=== PATIENT | male | born 1990 | race Two or more races ===

== ENCOUNTER 2023-08-10 00:24 | Emergency (ER) | payer OTHER ==
[2023-08-10] MEDS ORDERED: NA CHLORIDE 0.9% 0 ML ONE (00:50)
[2023-08-10] MEDS ORDERED: FAMOTIDINE 20 MG/2 ML VIAL IV ONE (00:50)
[2023-08-10] MEDS ORDERED: ONDANSETRON 4 MG/2 ML VIAL ONE (00:50)
[2023-08-10] MEDS ORDERED: NA CHLORIDE 0.9% 1,000 ML ONE (01:09)
[2023-08-10 01:26] LABS: Absolute Eosinophils 0.2 K/uL (0-0.5); Absolute Lymphocytes (CBC) 2.3 K/uL (0.7-4.9); Absolute Monocytes 0.5 K/uL (0.1-1.3); Absolute Neutrophil 3.8 K/uL (1.8-8.0); Basophils % 0.6 % (0-1.3); Eosinophils % 2.5 % (0-4.4); Hematocrit 35.2 % (39.6-49.0); Lymphocytes % 33.9 % (15.3-44.8); MCH 19.2 pg (27.0-35.0); MCHC 31.2 g/dL (32.0-36.0); MCV 61.6 fL (80-100); MPV 8.9 fL (7.6-11.3); Monocytes % 7.7 % (3.3-12.3); Neutrophils % 55.3 % (41.7-73.7); Platelets 235 thou/uL (152-406); RBC Red Blood Cell Count 5.71 M/uL (4.33-5.43); Red Cell Distribution Width 14.5 % (12.1-15.2)
[2023-08-10 01:56] LABS: Albumin 3.6 g/dL (3.4-5.0); Albumin/Globulin Ratio 0.9 (1.1-1.8); Anion Gap 9.7 mEq/L (5.0-15.0); Bilirubin Total 0.2 mg/dL (0.2-1.0); Potassium 3.7 mEq/L (3.5-5.1); Protein, Total 7.6 g/dL (6.4-8.2)
[2023-08-10 03:12] LABS: Blood Morphology Comment NOTED (NOT SEEN); Hypochromasia 1+; Microcytosis 2+; Platelet Estimate ADEQ; White Blood Cell Scan OK (OK)
--- NOTE | 2023-08-10 03:45 | EDPHYS ---
Physician Documentation [facility] Name: Armaan Patricia Age: 33 yrs Sex: Male : 1990 Arrival Date: 08/10/2023 Time: 00:24 Bed 17 Private MD: ED Physician Sergio Ortega HPI: 08/09 00:30 This 33 yrs old Other Male presents to ER via Unassigned with complaints of swallowed sp4 foreign body . 01:09 Patient is an inmate from [facility]. Patient states at 3 PM he has swallowed 2 sp4 screws and 1 razor blade in a suicide attempt. Patient reports that in the past he has swallowed razor blades with prior suicide attempt.. Patient reported nausea and vomiting.. Patient was ambulatory on arrival , arrived with present escort. Historical: - Allergies: 00:38 No Known Allergies; jw7 - Home Meds: 00:38 Haldol Oral [Active]; Zoloft Oral [Active]; Ibuprofen Oral [Active]; Omeprazole Oral jw7 [Active]; Iron CR Oral [Active]; - PMHx: 00:38 Seizure; jw7 - PSHx: 00:38 None; jw7 - Immunization history:: Adult Immunizations up to date, Client reports receiving the 2nd dose of the Covid vaccine, Last tetanus immunization: < 10 years ago Flu vaccine is up to date. - Social history:: Smoking status: Patient denies any tobacco usage or history of. Patient/guardian denies using alcohol, street drugs, IV drugs. - Family history:: not pertinent. ROS: 01:10 Constitutional: Negative for fever, chills, and weight loss, positive abdominal pain, sp4 positive nausea vomiting 01:10 All other systems are negative, Exam: 01:10 Constitutional: This is a well developed, well nourished patient who is awake, alert, sp4 and in no acute distress. Head/Face: Normocephalic, atraumatic. Eyes: Pupils equal round and reactive to light, extra-ocular motions intact. Lids and lashes normal. Conjunctiva and sclera are not injected. Cornea within normal limits. Periorbital areas with no swelling, redness, or edema. ENT: Nares patent. No nasal discharge, no septal abnormalities noted. Tympanic membranes are normal and external auditory canals are clear. Oropharynx with no redness, swelling, or masses, exudates, or evidence of obstruction, uvula midline. Mucous membranes moist. Neck: Trachea midline, no thyromegaly or masses palpated, and no cervical lymphadenopathy. Supple, full range of motion without nuchal rigidity, or vertebral point tenderness. Chest/axilla: Normal chest wall appearance and motion. Nontender with no deformity. No lesions are appreciated. Cardiovascular: Regular rate and rhythm with a normal S1 and S2. No gallops, murmurs, or rubs. Normal PMI, no JVD. No pulse deficits. Respiratory: Lungs have equal breath sounds bilaterally, clear to auscultation and percussion. No rales, rhonchi or wheezes noted. No increased work of breathing, no retractions or nasal flaring. Abdomen/GI: Soft, with normal bowel sounds. No distension or tympany. No guarding or rebound. No evidence of tenderness throughout. Back: No spinal tenderness. No costovertebral tenderness. Skin: Warm, dry with normal turgor. Normal color with no rashes, no lesions, and no evidence of cellulitis. MS/ Extremity: Pulses equal, no cyanosis. Neurovascular intact. Full, normal range of motion. Neuro: Awake and alert, GCS 15, oriented to person, place, time, and situation. Cranial nerves II-XII grossly intact. Motor strength 5/5 in all extremities. Sensory grossly intact. Psych: Awake, alert, with orientation to person, place and time. Behavior, mood, and affect are within normal limits Vital Signs: 00:35 BP 117 / 76; Pulse 65; Resp 16 S; Temp 97.3(TE); Pulse Ox 99% on R/A; Weight 87.54 kg; 7 Height 5 ft. 10 in. ; Pain 7/10; 01:45 BP 101 / 54; Pulse 68; Resp 16 S; Pulse Ox 98% on R/A; 7 02:45 BP 107 / 64; Pulse 59; Resp 17 S; Pulse Ox 99% on R/A; 7 03:45 BP 108 / 62; Pulse 52; Resp 16 S; Pulse Ox 98% on R/A; 7 00:35 Body Mass Index 27.69 (87.54 kg, 177.8 cm) [facility] 00:35 Pain Scale: Adult jw7 MDM: 00:32 Patient medically screened. sp4 02:46 Differential Diagnosis altered mental status, sepsis, flu, Acute abdominal pain, Nausea sp4 and vomiting . Data reviewed: vital signs, nurses notes, lab test result(s), radiologic studies, CT scan, plain films. ED course: EXAM DESCRIPTION: Abdomen Single View CLINICAL HISTORY: foreign body in the abdomen COMPARISON: None. FINDINGS: Single supine view of the abdomen was submitted. Calcifications within the pelvis could represent phleboliths. There is no evidence of bowel obstruction. There is no abnormal calcification within the abdomen. There is no acute osseous process visualized. No radiopaque foreign body material visualized. IMPRESSION: No acute abnormalities. . 03:42 ED course: CLINICAL HISTORY: swallowed razor blade and screws X 2 COMPARISON: None. sp4 TECHNIQUE: CT CHESTABDOMEN PELVIS WITH IV CONTRAST on 08/10/2023 12:32 AM CDT. MIPS reconstructions were generated. This exam was performed according to our departmental dose-optimization program, which includes automated exposure control, adjustment of the mA and/or kV according to patient size and/or use of iterative reconstruction technique. FINDINGS: Vascular: Thoracic aorta is normal in course and caliber without aneurysm or dissection. Pulmonary arteries are adequately opacified without acute or chronic filling defects. Abdominal aorta is normal in course and caliber without aneurysm. Pelvic arteries are patent without aneurysm or occlusion. Chest: The heart is normal in size. There is no pericardial effusion. Intrathoracic lymph nodes are not enlarged. There is no pleural effusion, pleural thickening or pneumothorax. Central airways are patent. Lungs are clear with no consolidation, mass or interstitial lung disease. Abdomen: The liver is normal in appearance. There is no biliary dilatation. Gallbladder is normal in appearance. Spleen is borderline in size at 14.1 cm. The adrenal glands and kidneys are unremarkable. There is no free air. There is no retroperitoneal adenopathy. Pelvis: There is no bowel obstruction. Urinary bladder is unremarkable. There is no free fluid. Appendix is normal. Skeleton: There are no acute osseous findings. No suspicious bony lesions. IMPRESSION: No acute abnormalities. No evidence of radiopaque foreign bodies. Electronically signed by: Ezequiel Nicole MD 08/10/2023 03:38 AM CDT. 03:46 Consideration of Admission/Observation Escalation of care including sp4 admission/observation considered. ED course: Both x-ray and CT has revealed no acute abnormalities and no radiopaque foreign bodies.. We suspect patient did not swallow screws and a razor, as those would be readily visible on x-ray and CAT scan. Since no emergent problems found and no metallic foreign bodies found on CT patient is stable for discharge to [facility]. Patient has several small scratches to his left wrist. Patient reported suicidal ideation with plan. We will advised patient should be monitored at psychiatric unit at the care home. 08/09 00:31 Order name: CBC with Diff; Complete Time: 03:23 sp4 08/09 00:31 Order name: CMP; Complete Time: 02:31 sp4 08/09 00:31 Order name: Lipase; Complete Time: 02: sp4 08/09 00:31 Order name: Type And Screen; Complete Time: 03:23 sp4 08/09 01:32 Order name: CBC Smear Scan; Complete Time: 03:23 EDMS 08/09 00:32 Order name: CT Chest, Abdomen, Pelvis - W/Contrast sp4 08/09 01:42 Order name: Abdomen 1 View XRAY sp4 08/09 00:31 Order name: IV Saline Lock; Complete Time: 01:19 sp4 08/09 00:31 Order name: Labs collected and sent; Complete Time: 01:19 sp4 Administered Medications: 01:19 Drug: NS 0.9% IV 1000 ml IV at 1 bolus Per protocol; 1000 mL bolus Route: IV; Rate: 1 jw7 bolus; Site: left antecubital; 04:00 Follow up: Response: No adverse reaction; IV Status: Completed infusion; IV Intake: jw7 1000ml 01:19 Drug: Famotidine IVP 20 mg IVP once; dilute with 10 mL 0.9% NaCl; give over 2 minutes jw7 Route: IVP; Site: left antecubital; 03:59 Follow up: Response: No adverse reaction jw7 03:04 Not Given (Patient Refused): ondansetron 4 mg IVP once; over 2 minutes cm10 Disposition Summary: 08/10/23 03:45 Discharge Ordered Problem: new sp4 Symptoms: have improved sp4 Condition: Stable sp4 Diagnosis - Abdominal pain, Generalized sp4 - Suicidal ideations sp4 - Acute abrasions to the left wrist, depression with suicidal ideation, abdominal sp4 pain, Followup: sp4 - With: Private Physician - When: As needed - Reason: Recheck today's complaints Discharge Instructions: - Discharge Summary Sheet sp4 - Suicidal Feelings: How to Help Yourself sp4 Forms: - Patient Portal Instructions sp4 Signatures: Dispatcher [employer] Carolina Dominguez RN RN jw7 Sergio Ortega MD MD sp4 Radha Cardenas RN cm10
--- NOTE | 2023-08-10 03:45 | ER ---
Nurse's Notes [facility] Name: Armaan Patricia Age: 33 yrs Sex: Male : 1990 Arrival Date: 08/10/2023 Time: 00:24 Bed 17 Private MD: Diagnosis: Abdominal pain, Generalized;Suicidal ideations;Acute abrasions to the left wrist, depression with suicidal ideation, abdominal pain, Presentation: 08/09 00:35 Chief complaint: Patient states: "I swallowed 2 screws and a razor around 1500 jw7 yesterday". Coronavirus screen: At this time, the client does not indicate any symptoms associated with coronavirus-19. Ebola Screen: No symptoms or risks identified at this time. Initial Sepsis Screen: Does the patient meet any 2 criteria? No. Patient's initial sepsis screen is negative. Does the patient have a suspected source of infection? No. Patient's initial sepsis screen is negative. Risk Assessment: Do you want to hurt yourself or someone else? Patient reports no desire to harm self or others. Onset of symptoms was August 09, 2023 at 15:00. 00:35 Method Of Arrival: Law Enforcement: [place] [employer] jw7 00:35 Acuity: LOREAN 3 jw7 Triage Assessment: 00:38 General: Appears in no apparent distress. comfortable, Behavior is calm, cooperative. jw7 Pain: Complains of pain in abdomen Pain does not radiate. Pain currently is 7 out of 10 on a pain scale. Quality of pain is described as burning, piercing, stinging, Pain began at 1500 yesterday Is intermittent. EENT: No deficits noted. Neuro: Level of Consciousness is awake, alert, obeys commands, Oriented to person, place, time, situation. Cardiovascular: Heart tones S1 S2 present Capillary refill < 3 seconds Clubbing of nail beds is absent JVD is absent Patient's skin is warm and dry. Respiratory: Airway is patent Trachea midline Respiratory effort is even, unlabored, Respiratory pattern is regular, symmetrical. GI: Abdomen is flat, non-distended, Bowel sounds present X 4 quads. Abd is soft X 4 quads Abd is non tender X 4 quads Reports swallowing two screws and a razor at 1500 yesterday. : No deficits noted. No signs and/or symptoms were reported regarding the genitourinary system. Derm: Skin is intact, is healthy with good turgor, Skin is dry, Skin is normal, Skin temperature is warm. Musculoskeletal: Circulation, motion, and sensation intact. Range of motion: intact in all extremities. Historical: - Allergies: 00:38 No Known Allergies; jw7 - Home Meds: 00:38 Haldol Oral [Active]; Zoloft Oral [Active]; Ibuprofen Oral [Active]; Omeprazole Oral jw7 [Active]; Iron CR Oral [Active]; - PMHx: 00:38 Seizure; jw7 - PSHx: 00:38 None; jw7 - Immunization history:: Adult Immunizations up to date, Client reports receiving the 2nd dose of the Covid vaccine, Last tetanus immunization: < 10 years ago Flu vaccine is up to date. - Social history:: Smoking status: Patient denies any tobacco usage or history of. Patient/guardian denies using alcohol, street drugs, IV drugs. - Family history:: not pertinent. Screenin:45 [facility] ED Fall Risk Assessment (Adult) History of falling in the last 3 months, jw7 including since admission No falls in past 3 months (0 pts) Confusion or Disorientation No (0 pts) Intoxicated or Sedated No (0 pts) Impaired Gait No (0 pts) Mobility Assist Device Used No (0 pt) Altered Elimination No (0 pt) Score/Fall Risk Level 0 - 2 = Low Risk Oriented to surroundings, Maintained a safe environment, Educated pt \\T\\ family on fall prevention, incl call for assistance when getting out of bed. Abuse screen: Denies threats or abuse. Denies injuries from another. Nutritional screening: No deficits noted. Tuberculosis screening: No symptoms or risk factors identified. Assessment: 00:35 General: See Triage Assessment. jw7 00:40 General: Superficial lacerations to left wrist. When asked why he cut himself, patient jw7 stated "I want to kill myself because I'm depressed and that's why I swallowed the screws and razor". Provider Notified. . 01:40 Reassessment: Patient appears in no apparent distress at this time. No changes from jw7 previously documented assessment. Patient and/or family updated on plan of care and expected duration. Pain level reassessed. Patient is alert, oriented x 3, equal unlabored respirations, skin warm/dry/pink. 02:24 Reassessment: Patient appears in no apparent distress at this time. No changes from jw7 previously documented assessment. Patient and/or family updated on plan of care and expected duration. Pain level reassessed. Patient is alert, oriented x 3, equal unlabored respirations, skin warm/dry/pink. 03:30 Reassessment: Patient appears in no apparent distress at this time. No changes from jw7 previously documented assessment. Patient and/or family updated on plan of care and expected duration. Pain level reassessed. Patient is alert, oriented x 3, equal unlabored respirations, skin warm/dry/pink. Vital Signs: 00:35 BP 117 / 76; Pulse 65; Resp 16 S; Temp 97.3(TE); Pulse Ox 99% on R/A; Weight 87.54 kg; jw7 Height 5 ft. 10 in. ; Pain 7/10; 01:45 BP 101 / 54; Pulse 68; Resp 16 S; Pulse Ox 98% on R/A; jw7 02:45 BP 107 / 64; Pulse 59; Resp 17 S; Pulse Ox 99% on R/A; jw7 03:45 BP 108 / 62; Pulse 52; Resp 16 S; Pulse Ox 98% on R/A; jw7 00:35 Body Mass Index 27.69 (87.54 kg, 177.8 cm) jw7 00:35 Pain Scale: Adult jw7 ED Course: 00:30 Patient arrived in ED. rv1 00:30 Sergio Ortega MD is Attending Physician. sp4 00:35 Carolina Villa, RN is Primary Nurse. jw7 00:38 Triage completed. jw7 00:38 Arm band placed on. jw7 00:45 Patient has correct armband on for positive identification. Bed in low position. Call jw7 light in reach. Provided Education on: Use of Call Light. 00:55 Missed attempt(s): 20 gauge in right antecubital area. Bleeding controlled, band aid jw7 applied, catheter tip intact. 01:10 Initial lab(s) drawn, by co, sent to lab. T\\T\\S collected, blood band applied to patient. jw7 Inserted saline lock: 20 gauge in left antecubital area, using aseptic technique. Blood collected. 02:09 Abdomen 1 View XRAY In Process Unspecified. EDMS 02:37 CT Chest, Abdomen, Pelvis - W/Contrast In Process Unspecified. EDMS 03:25 Wound care: to laceration located on palmar aspect of left wrist was cleaned with soap cm10 and water, dressed with Neosporin, band aid, Patient tolerated well. 03:59 No provider procedures requiring assistance completed. IV discontinued, intact, jw7 bleeding controlled, No redness/swelling at site. Pressure dressing applied. Administered Medications: 01:19 Drug: NS 0.9% IV 1000 ml IV at 1 bolus Per protocol; 1000 mL bolus Route: IV; Rate: 1 jw7 bolus; Site: left antecubital; 04:00 Follow up: Response: No adverse reaction; IV Status: Completed infusion; IV Intake: jw7 1000ml 01:19 Drug: Famotidine IVP 20 mg IVP once; dilute with 10 mL 0.9% NaCl; give over 2 minutes jw7 Route: IVP; Site: left antecubital; 03:59 Follow up: Response: No adverse reaction jw7 03:04 Not Given (Patient Refused): ondansetron 4 mg IVP once; over 2 minutes cm10 Medication: 03:59 VIS not applicable for this client. jw7 Intake: 04:00 IV: 1000ml; Total: 1000ml. jw7 Outcome: 03:45 Discharge ordered by . zaida 03:59 Discharged to Law Enforcement jw7 03:59 Condition: stable 03:59 Discharge instructions given to patient, police, Instructed on discharge instructions, follow up and referral plans. Demonstrated understanding of instructions, follow-up care, 04:00 Patient left the ED. jw7 Signatures: Dispatcher [employer] ED[facility] Carolina Villa RN RN jw7 Ibis Higuera rv1 Sergio Ortega MD MD sp4 Radha Cardenas RN RN cm10 Corrections: (The following items were deleted from the chart) 01:44 01:15 General: Superficial lacerations to left wrist. When asked why he cut himself, jw7 patient stated "I want to kill myself because I'm depressed". Provider Notified. . jw7 01:47 01:45 BP 101 / 54; Resp 16bpm; Spontaneous; Pulse Ox 98% RA; jw7 jw7 02:24 01:30 General: Superficial lacerations to left wrist. When asked why he cut himself, jw7 patient stated "I want to kill myself because I'm depressed and that's why I swallowed the screws and razor". Provider Notified. . jw7 : 01:35 General: See Triage Assessment. jw7 jw7 : 01:40 General: Superficial lacerations to left wrist. When asked why he cut himself, jw7 patient stated "I want to kill myself because I'm depressed and that's why I swallowed the screws and razor". Provider Notified. . jw7
[2023-08-10 04:22] VITALS: BP 108/62; TEMP 97.3; O2SAT 98
--- NOTE | 2023-08-10 13:00 | RAD REPORT ---
EXAM DESCRIPTION: Abdomen Single View CLINICAL HISTORY: Foreign body in the abdomen COMPARISON: None. FINDINGS: Single supine view of the abdomen was submitted. Calcifications within the pelvis could re present phleboliths. There is no evidence of bowel obstruction. There is no abnormal calcification wi thin the abdomen. There is no acute osseous process visualized. No radiopaque foreign body material v isualized. IMPRESSION: No acute abnormalities. Electronically signed by: Ke Hager MD 08/10/2023 02:23 AM CDT Due to temporary technical issues with the PACS/Fluency reporting system, reports are being signed by the in house radiologist without review as a courtesy to ensure prompt reporting. The interpreting r adiologist is fully responsible for the content of the report.
--- NOTE | 2023-08-10 13:34 | RAD REPORT ---
EXAM DESCRIPTION: CT CHEST ABDOMEN PELVIS WITH IV CONTRAST CLINICAL HISTORY: Swallowed razor blade and screws X 2 COMPARISON: None. TECHNIQUE: CT CHEST ABDOMEN PELVIS WITH IV CONTRAST on 08/10/2023 12:32 AM CDT. MIPS reconstructions were generated. This exam was performed according to our departmental dose-optimization program, which includes autom ated exposure control, adjustment of the mA and/or kV according to patient size and/or use of iterati ve reconstruction technique. FINDINGS: Vascular: Thoracic aorta is normal in course and caliber without aneurysm or dissection. P ulmonary arteries are adequately opacified without acute or chronic filling defects. Abdominal aorta is normal in course and caliber without aneurysm. Pelvic arteries are patent without aneurysm or occl usion. Chest: The heart is normal in size. There is no pericardial effusion. Intrathoracic lymph nodes are n ot enlarged. There is no pleural effusion, pleural thickening or pneumothorax. Central airways are patent. Lungs a re clear with no consolidation, mass or interstitial lung disease. Abdomen: The liver is normal in appearance. There is no biliary dilatation. Gallbladder is normal in appearance. Spleen is borderline in size at 14.1 cm. The adrenal glands and kidneys are unremarkable. There is no free air. There is no retroperitoneal adenopathy. Pelvis: There is no bowel obstruction. Urinary bladder is unremarkable. There is no free fluid. Appen amado is normal. Skeleton: There are no acute osseous findings. No suspicious bony lesions. IMPRESSION: No acute abnormalities. No evidence of radiopaque foreign bodies. Electronically signed by: Ezequiel Nicole MD 08/10/2023 03:38 AM CDT Due to temporary technical issues with the PACS/Fluency reporting system, reports are being signed by the in house radiologist without review as a courtesy to ensure prompt reporting. The interpreting r adiologist is fully responsible for the content of the report.
== END 2023-08-10 04:00 | disposition home or self-care (01) ==
LOC: ER 00:24
DX: R45.851 Suicidal ideations (principal); R10.84 Generalized abdominal pain; F32.A Depression, unspecified; S60.812A Abrasion of left wrist, initial encounter
CPT/HCPCS: 96361; 85025; 36415; 86900; 86850; 86901; 83690; 80053; 71260; 74177; 74018; 96374; 99284; Q9967; J2405; J7030

== ENCOUNTER 2023-09-08 07:22 | Emergency (ER) | payer OTHER ==
--- OUTSIDE RECORDS SUMMARY | 2023-09-08 07:28 | XMS REPORT | Continuity of Care Document ---
Author Name Unknown Address [address] [facility] [address] [place] [address] [facility] Address [address] [facility] [address] [place] [address] Care Team Providers Care Meat Cutting Teacher Name Role Phone CALVIN BRADEN Primary Care Physician Unavailab le Radiology Attending Clinician Unavailable RADIOLOGY Attending Clinician Unavailable SONALI GURROLA Attending Clinician UnavailSimone Tripp MD Attending Clinician [phone] Sonali Gurrola MD Attending Clinician [phone] Robert Strickland MD Attending Clinician [phone] Merrick Butt MD Attending Clinician [phone] Eli Braden MD Attending Clinician +[phone] Leonides Vargas MD, A Clinton Attending Clinician + [phone] Otolaryngology, Tdc Attending Clinician UnavailHonorio Reyes MD Attending Clinician [phone] MERRICK BUTT Attending Clinician Unavailable Ziggy Braden MD Attending Clinician +[phone] Francisco Valerio Attending Clinician +[phone] Honorio Leggett Attending Clinician +[phone] Pato Ornelas MD Attending Clinician [phone] Filiberto De Oliveira MD Attending Clinician +[phone] FILIBERTO DE OLIVEIRA Attending Clinician Unavailable Guerita Luz DO Attending Clinician + [phone] GUERITA LUZ Attending Clinician Unavailab Elkin Navarro Attending Clinician +[phone] Elkin GILBERT Attending Clinician Unavailable Md Chetan Grissom Attending Clinician [phone] Girish Cantu MD Attending Clinician + [phone] GIRISH CANTU Attending Clinician Unavailable Messi Hampton MD Attending Clinician + [phone] Doctor Unassigned, [place] Attending Clinician U ashley Estevez MD, Florencia Coley Attending Clinician +[phone] Lolis Griffiths Attending Clinician + [phone] CALVIN BRADEN Attending Clinician Unavailable Carolina IRENE, Amna Kuo Attending Clinician + [phone] Yoandy Wilkes MD Attending Clinician + [phone] Dandy Armenta MD Attending Clinician +[phone] Anupama Caceres Attending Clinician +[phone] Sherry Morocho Attending Clinician +[phone] Huma Koo MD Attending Clinician + [phone] Stephanie Pierson MD Attending Clinician [phone] Lucio Dhaliwal DO Attending Clinician + [phone] Radiology Admitting Clinician Unavailable RADIOLOGY Admitting Clinician Unavailable SIMONE MALDONADO Admitting Clinician Unavailable Em IRENE, Robert Castillo Admitting Clinician + [phone] Eli Braden MD Admitting Clinician [phone] Ziggy Braden MD Admitting Clinician +[phone] Messi Hampton MD Admitting Clinician + [phone] Florencia Estevez MD Admitting Clinician + [phone] CALVIN BRADEN Admitting Clinician Unavailable Amna Figueroa MD Admitting Clinician + [phone] Dandy Armenta MD Admitting Clinician +[phone] Huma Koo MD Admitting Clinician + [phone] Payers Payer Name Policy Type Policy Number Effective Date Expirati on Date Source 2 C [id number] Problems Condition Name Condition Details Condition Category Status Onset Date Resolution Date Last Treatment Date Treating Clinician Comments Source Suicidal behavior with attempted self-injur y Suicidal behavior with attempted self-injur y Disease Active 3-29 00:00: 00 [facility] Drug overdose, intentiona l self-harm, initial encounter Drug overdose, intentiona l self-harm, initial encounter Disease Active 09-18 00:00: 00 [facility] Generalize d abdominal pain Generalize d abdominal pain Disease Active 09-18 00:00: 00 [facility] Slow transit constipati on Slow transit constipati on Disease Active 09-18 00:00: 00 [facility] Nausea in adult Nausea in adult Disease Active 09-18 00:00: 00 [facility] Obesity (BMI 30-39.9) Obesity (BMI 30-39.9) Disease Active 8- 00:00: 00 [facility] Foreign body ingestion Foreign body ingestion Disease Active 12-09 00:00: 00 [facility] Nasal obstructio n Nasal obstructio n Disease Active 10-31 00:00: 00 Overview: Formattin g of this note might be different from the original. Added automatic ally from request for surgery [id number] [facility] Allergies, Adverse Reactions, Alerts Allergy Name Allergy Type Status Severity Reaction(s) Onset Date Inactive Date Treating Clinician Comments Source No Known Allergie s NA Active 10-05 15:30: 50 [facility] No Known Allergie s NA Active 10-01 10:46: 27 [facility] No Known Allergie s NA Active 10-01 09:38: 45 [facility] No Known Allergie s NA Active 10-01 09:38: 43 [facility] No Known Allergie s NA Active 10-01 09:29: 48 [facility] NO KNOWN ALLERGIE S Drug Class Active [facility] Social History Social Habit Start Date Stop Date Quantity Comments Source History of tobacco use Heavy tobacco smoker [facility] History of Social function 2023-08-12 00:00:00 2023-08-12 00:00:00 [facility] Tobacco use and exposure 2023-08-11 00:00:00 2023-08-11 00:00:00 Smokeless tobacco non-user [facility] Exposure to SARS-CoV-2 (event) 2022-09-20 00:00:00 2022-09-30 12:38:00 Not sure [facility] Sex Assigned At 1990 00:00:00 1990 00:00:00 [facility] Smoking Status Start Date Stop Date Source Heavy tobacco smoker 2023-08-11 00:00:00 [facility] Medications Ordered Medication Name Filled Medication Name Start Date Stop Date Current Medication? Ordering Clinician Indication Dosage Frequency Signature (SIG) Comments Components Source lactated ringers IV infusion 1,000 mL 08-17 15:00: 00 08-17 16:11 :00 No 1000mL at 999 mL/hr, 1,000 mL, IV Infusion, ONCE, 1 dose, On Mon08/18/23 at 1000, Routine [facility] famotidine (PEPCID (PF)) injection 20 mg 08-17 14:00: 00 08-17 14:26 :00 No 20mg 20 mg, Slow IV Push, ONCE, 1 dose, On Mon08/18/23 at 0900, HELLEN [facility] carBAMazepi ne (TEGRETOL XR) 400 mg 12 hr tablet 08-15 10:26: 00 Yes 400mg Take 1 tablet by mouth. [facility] omeprazole 20 mg TbLD 08-15 10:26: 00 Yes Take by mouth. [facility] dextran 70/hypromel lose (GENTEAL TEARS MILD OPHTHALMIC) 08-15 10:26: [address] in each eye. [facility] estradioL 1 mg tablet 08-15 10:26: 00 Yes 1mg Take 1 tablet by mouth in the morning. [facility] ALBUTEROL, REFILL, INHALE 08-15 10:26: 00 Yes Inhale. [facility] carBAMazepi ne (TEGRETOL) tablet 400 mg 08-15 01:00: 00 Yes 400mg 400 mg, Oral, Q12H, First dose on Mon08/15/23 at 2000, Until Discontinu ed, Routine [facility] spironolact one 25 mg tablet 08-14 13:41: 47 08-14 00:00 :00 No 25mg Take 1 tablet by mouth in the morning. [facility] artificial tears(hypro mellose) (ISOPTO-TEA RS) 0.5 % ophthalmic drops 1 Drop 08-12 14:07: 41 Yes 1[drp] 1 Drop, Both Eyes, PRN, Starting on 08/13/23 at 0907, Until Discontinu ed, Routine, Dry eyes [facility] lanolin alcohol-mo- w.pet-ceres (EUCERIN) cream 08-12 14:00: 00 Yes Topical, DAILY, First dose on 08/13/23 at 0900, Until Discontinu ed, Routine [facility] diphenhydrA MINE (BENADRYL) tablet 25 mg 08-12 02:10: 07 Yes 25mg 25 mg, Oral, Q4HPRN, Starting on 08/12/23 at 2110, Until Discontinu ed, Routine, Itching, Mild Rash [facility] ondansetron (ZOFRAN-ODT ) disintegrat ing tablet 4 mg 08-11 22:15: 00 08-11 22:40 :00 No 4mg 4 mg, Oral, ONCE, 1 dose, On 08/12/23 at 1715, Routine [facility] iopamidol (ISOVUE 370-500 mL) injection 80 mL 08-11 14:15: 00 08-11 14:15 :00 No [id number] 80mL 80 mL, Intravenou s, ONCE, 1 dose, On 08/12/23 at 0930, Routine [facility] ferrous sulfate 325 mg (65 mg iron) tablet 08-11 14:00: 00 Yes 325mg Take 1 tablet by mouth every other day. [facility] pantoprazol e (PROTONIX) EC tablet 40 mg 08-11 14:00: 00 Yes 40mg 40 mg, Oral, DAILY, First dose on Mon08/12/23 at 0900, Until Discontinu ed [facility] diphenhydrA MINE (BENADRYL) tablet 25 mg 08-11 03:45: 00 08-11 02:43 :00 No 25mg 25 mg, Oral, ONCE, 1 dose, On Mon08/11/23 at 2245, Routine [facility] haloperidoL 5 mg tablet 08-11 01:00: 00 Yes 5mg Take 1 tablet by mouth in the morning and 1 tablet in the evening. [facility] haloperidoL 2 mg tablet 08-11 01:00: 00 Yes 2mg Take 1 tablet by mouth in the morning and 1 tablet in the evening. [facility] acetaminoph en (TYLENOL) tablet 650 mg 08-11 00:07: 55 Yes 650mg 650 mg, Oral, Q6HPRN, Starting on Mon08/11/23 at 1907, Until Discontinu ed, Routine, Pain (scale 1-3) [facility] maalox:diph enhydrAMINE :lidocaine 2 % viscous 1:1:1 ([facility]) oral suspension 15 mL 08-10 19:30: 00 08-10 19:57 :00 No 15mL 15 mL, Oral, ONCE, 1 dose, On Mon08/11/23 at 1430, Routine [facility] famotidine (PEPCID (PF)) injection 20 mg 08-10 19:30: 00 08-10 19:57 :00 No 20mg 20 mg, Slow IV Push, ONCE, 1 dose, On Mon08/11/23 at 1430, HELLEN [facility] NaCl 0.9% (NS) bolus infusion 1,000 mL 10-24 23:45: 00 10-25 00:03 :00 No 1000mL at 999 mL/hr, 1,000 mL, IV Infusion, ONCE, 1 dose, On Mon10/24/22 at 1845, [facility] NaCl 0.9% (NS) bolus infusion 1,000 mL 09-30 19:30: 00 09-30 20:55 :00 No 1000mL at 999 mL/hr, 1,000 mL, IV Infusion, ONCE, 1 dose, On Mon09/30/22 at 1430, STAT [facility] NaCl 0.9% (NS) bolus infusion 1,000 mL 2021-05 18:30: 00 03-18 19:25 :00 No 1000mL at 999 mL/hr, 1,000 mL, IV Infusion, ONCE, 1 dose, On Mon03/18/22 at 1330, [facility] NaCl 0.9% (NS) bolus infusion 1,000 mL 2021-05 15:15: 00 03-18 18:34 :00 No 1000mL at 999 mL/hr, 1,000 mL, IV Infusion, ONCE, 1 dose, On Mon03/18/22 at 1015, [facility] No known medications 2021-05 08:59: 21 No No known medication s [facility] activated charcoal-so rbitoL (ACTIDOSE/S ORBITAL) 25 gram/120 mL suspension 25 g 10-29 16:45: 00 10-29 15:52 :00 No 25g 25 g, Oral, ONCE, 1 dose, On Mon10/29/21 at 1145, [facility] No known medications 10-29 10:41: 00 No [facility] polyethylen e glycol 3350 powder 17 g 09-20 12:58: 10 Yes 17g 17 g, Oral, BIDPRN, Starting on Mon09/20/21 at 0758, Until Discontinu ed, Routine, Constipati on [facility] diphenhydrA MINE 25 mg capsule 09-19 10:03: 57 09-19 00:00 :00 No 25mg Take 25 mg by mouth 2 (two) times daily as needed for Allergies. [facility] haloperidoL 1 mg tablet 09-19 10:03: 57 09-19 00:00 :00 No 3mg Take 3 mg by mouth 2 (two) times daily. [facility] loratadine 10 mg capsule 09-19 10:03: 09-19 00:00 :00 No 10mg Take 10 mg by mouth. [facility] omeprazole 20 mg capsule 09-19 10:03: 09-19 00:00 :00 No 20mg Take 20 mg by mouth daily. [facility] albuterol sulfate (PROAIR HFA INHALE) 09-19 10:03: 09-19 00:00 :00 No Inhale. [facility] carBAMazepi ne (TEGRETOL) 100 mg/5 mL suspension 09-19 10:03: 09-19 00:00 :00 No 200mg Take 200 mg by mouth every morning. [facility] carBAMazepi ne (TEGRETOL) 100 mg/5 mL suspension 09-19 10:03: 09-19 00:00 :00 No 400mg Take 400 mg by mouth every evening. [facility] venlafaxine 75 mg tablet 09-19 10:03: 57 09-19 00:00 :00 No 225mg Take 225 mg by mouth every evening. [facility] carBAMazepi ne (TEGRETOL) 100 mg/5 mL suspension 09-19 00:00: 00 09-21 00:00 :00 No [id number] 200mg Take 10 mL by mouth every morning. [facility] carBAMazepi ne (TEGRETOL) 100 mg/5 mL suspension 09-19 00:00: 00 09-21 00:00 :00 No [id number] 400mg Take 20 mL by mouth every evening. [facility] venlafaxine 75 mg tablet 09-19 00:00: 00 09-21 00:00 :00 No [id number] 225mg Take 3 tablets by mouth every evening. [facility] diphenhydrA MINE 25 mg capsule 09-19 00:00: 00 09-21 00:00 :00 No [id number] 25mg Take 1 capsule by mouth 2 (two) times daily as needed for Allergies. [facility] haloperidoL 1 mg tablet 09-19 00:00: 00 09-21 00:00 :00 No [id number] 3mg Take 3 tablets by mouth 2 (two) times daily. [facility] omeprazole 20 mg capsule 09-19 00:00: 00 09-21 00:00 :00 No [id number] 20mg Take 1 capsule by mouth daily. [facility] enoxaparin (LOVENOX) injection 40 mg 09-18 22:00: 00 Yes 40mg 40 mg, Subcutaneo us, DAILY, First dose on 09/18/21 at 1700, Until Discontinu ed, Routine [facility] venlafaxine (EFFEXOR) tablet 225 mg 09-18 22:00: 00 Yes 225mg 225 mg, Oral, QPM, First dose on 09/18/21 at 1700, Until Discontinu ed, Routine [facility] carBAMazepi ne (TEGRETOL) 100 mg/5 mL suspension 400 mg 09-18 22:00: 00 Yes 400mg 400 mg, Oral, QPM, First dose on 09/18/21 at 1700, Until Discontinu ed, Routine [facility] diphenhydrA MINE (BENADRYL) tablet 25 mg 09-18 14:38: 36 Yes 25mg 25 mg, Oral, BIDPRN, Starting on 09/18/21 at 0938, Until Discontinu ed, Routine, for use with haldol [facility] sennosides (SENOKOT) tablet 8.6 mg 09-18 14:15: 00 09-20 12:58 :21 No 8.6mg 8.6 mg, Oral, DAILY, First dose on 09/18/21 at 0915, Until Discontinu ed, Routine [facility] polyethylen e glycol 3350 powder 17 g 09-18 14:15: 00 09-20 12:58 :21 No 17g 17 g, Oral, DAILY, First dose on 09/18/21 at 0915, Until Discontinu ed, Routine [facility] omeprazole (PRILOSEC) capsule 20 mg 09-18 14:00: 00 Yes 20mg 20 mg, Oral, DAILY, First dose on 09/18/21 at 0900, Until Discontinu ed, Routine [facility] carBAMazepi ne (TEGRETOL) 100 mg/5 mL suspension 200 mg 09-18 14:00: 00 Yes 200mg 200 mg, Oral, QAM, First dose on 09/18/21 at 0900, Until Discontinu ed, Routine [facility] magnesium hydroxide (MILK OF MAGNESIA) 400 mg/5 mL suspension 30 mL 09-18 07:15: 00 09-18 16:03 :08 No 30mL 30 mL, Oral, DAILY, First dose on 09/18/21 at 0215, Until Discontinu ed, Routine [facility] No known medications 09-18 01:05: 45 No [facility] No known medications 06-10 08:56: 12 No [facility] Vital Signs Vital Name Observation Time Observation Value Comments S josé miguel Systolic blood pressure 2023-08-18 16:30:00 124 mm[Hg] [facility] Diastolic blood pressure 2023-08-18 16:30:00 70 mm[Hg] [facility] Heart rate 2023-08-18 16:30:00 82 /min [facility] Respiratory rate 2023-08-18 16:30:00 16 /min [facility] Oxygen saturation in Arterial blood by Pulse oximetry 2023-08-18 16:30:00 99 /min [facility] Body temperature 2023-08-18 13:39:00 36.72 Luanne [facility] Body weight 2023-08-18 13:39:00 89.359 kg [facility] BMI 2023-08-18 13:39:00 28.27 kg/m2 [facility] Systolic blood pressure 2023-08-18 12:53:00 123 mm[Hg] [facility] Diastolic blood pressure 2023-08-18 12:53:00 83 mm[Hg] [facility] Heart rate 2023-08-18 12:53:00 92 /min [facility] Body temperature 2023-08-18 12:53:00 36.72 Luanne [facility] Respiratory rate 2023-08-18 12:53:00 19 /min [facility] Oxygen saturation in Arterial blood by Pulse oximetry 2023-08-18 12:53:00 100 /min [facility] Systolic blood pressure 2023-08-16 13:24:00 124 mm[Hg] [facility] Diastolic blood pressure 2023-08-16 13:24:00 85 mm[Hg] [facility] Heart rate 2023-08-16 13:24:00 74 /min [facility] Body temperature 2023-08-16 13:24:00 36.61 Luanne [facility] Respiratory rate 2023-08-16 13:24:00 18 /min [facility] Oxygen saturation in Arterial blood by Pulse oximetry 2023-08-16 13:24:00 99 /min [facility] Body weight 2023-08-11 18:52:00 89.812 kg [facility] BMI 2023-08-11 18:52:00 28.41 kg/m2 [facility] Systolic blood pressure 2023-08-11 14:59:00 124 mm[Hg] [facility] Diastolic blood pressure 2023-08-11 14:59:00 74 mm[Hg] [facility] Heart rate 2023-08-11 14:59:00 76 /min [facility] Body temperature 2023-08-11 14:59:00 36.56 Luanne [facility] Respiratory rate 2023-08-11 14:59:00 16 /min [facility] Body height 2023-08-11 14:59:00 177.8 cm [facility] Body weight 2023-08-11 14:59:00 89.812 kg [facility] BMI 2023-08-11 14:59:00 28.41 kg/m2 [facility] Oxygen saturation in Arterial blood by Pulse oximetry 2023-08-11 14:59:00 100 /min [facility] Systolic blood pressure 2022-11-30 14:00:00 103 mm[Hg] [facility] Diastolic blood pressure 2022-11-30 14:00:00 54 mm[Hg] [facility] Heart rate 2022-11-30 14:00:00 65 /min [facility] Body temperature 2022-11-30 14:00:00 36.5 Luanne [facility] Respiratory rate 2022-11-30 14:00:00 16 /min [facility] Oxygen saturation in Arterial blood by Pulse oximetry 2022-11-30 14:00:00 100 /min [facility] Systolic blood pressure 2022-11-29 19:52:00 132 mm[Hg] [facility] Diastolic blood pressure 2022-11-29 19:52:00 108 mm[Hg] [facility] Heart rate 2022-11-29 19:52:00 60 /min [facility] Body temperature 2022-11-29 19:52:00 37 Luanne [facility] Respiratory rate 2022-11-29 19:52:00 18 /min [facility] Oxygen saturation in Arterial blood by Pulse oximetry 2022-11-29 19:52:00 98 /min [facility] Body height 2022-11-29 16:26:00 157.5 cm [facility] Body weight 2022-11-29 16:26:00 90.719 kg [facility] BMI 2022-11-29 16:26:00 36.58 kg/m2 [facility] Systolic blood pressure 2022-10-25 00:00:00 120 mm[Hg] [facility] Diastolic blood pressure 2022-10-25 00:00:00 70 mm[Hg] [facility] Heart rate 2022-10-25 00:00:00 63 /min [facility] Respiratory rate 2022-10-25 00:00:00 12 /min [facility] Oxygen saturation in Arterial blood by Pulse oximetry 2022-10-25 00:00:00 95 /min [facility] Body temperature 2022-10-24 22:41:00 37.28 Luanne [facility] Body height 2022-10-24 22:41:00 172.7 cm [facility] Body weight 2022-10-24 22:41:00 90.719 kg [facility] BMI 2022-10-24 22:41:00 30.41 kg/m2 [facility] Systolic blood pressure 2022-09-30 23:30:00 131 mm[Hg] [facility] Diastolic blood pressure 2022-09-30 23:30:00 90 mm[Hg] [facility] Respiratory rate 2022-09-30 23:30:00 17 /min [facility] Heart rate 2022-09-30 20:56:00 57 /min [facility] Oxygen saturation in Arterial blood by Pulse oximetry 2022-09-30 20:56:00 100 /min [facility] Body temperature 2022-09-30 17:44:00 36.78 Luanne [facility] Body height 2022-09-30 17:44:00 177.8 cm [facility] Body weight 2022-09-30 17:44:00 92.987 kg [facility] BMI 2022-09-30 17:44:00 29.41 kg/m2 [facility] Systolic blood pressure 2022-07-20 03:38:00 110 mm[Hg] [facility] Diastolic blood pressure 2022-07-20 03:38:00 51 mm[Hg] [facility] Heart rate 2022-07-20 03:38:00 72 /min [facility] Body temperature 2022-07-20 03:38:00 36.56 Luanne [facility] Respiratory rate 2022-07-20 03:38:00 16 /min [facility] Body height 2022-07-20 03:38:00 177.8 cm [facility] Body weight 2022-07-20 03:38:00 93.895 kg [facility] BMI 2022-07-20 03:38:00 29.70 kg/m2 [facility] Oxygen saturation in Arterial blood by Pulse oximetry 2022-07-20 03:38:00 98 /min [facility] Systolic blood pressure 2022-03-21 19:30:00 116 mm[Hg] [facility] Diastolic blood pressure 2022-03-21 19:30:00 69 mm[Hg] [facility] Heart rate 2022-03-21 19:30:00 74 /min [facility] Body temperature 2022-03-21 19:30:00 36.39 Luanne [facility] Respiratory rate 2022-03-21 19:30:00 18 /min [facility] Oxygen saturation in Arterial blood by Pulse oximetry 2022-03-21 19:30:00 100 /min [facility] Systolic blood pressure 2022-03-18 18:50:00 127 mm[Hg] standing [facility] Diastolic blood pressure 2022-03-18 18:50:00 86 mm[Hg] standing [facility] Heart rate 2022-03-18 18:50:00 67 /min [facility] Respiratory rate 2022-03-18 18:50:00 20 /min [facility] Oxygen saturation in Arterial blood by Pulse oximetry 2022-03-18 18:50:00 98 /min [facility] Body temperature 2022-03-18 16:28:00 37 Luanne [facility] Body weight 2022-03-18 13:54:00 97.523 kg [facility] BMI 2022-03-18 13:54:00 30.85 kg/m2 [facility] Systolic blood pressure 2021-10-29 15:35:00 126 mm[Hg] [facility] Diastolic blood pressure 2021-10-29 15:35:00 71 mm[Hg] [facility] Heart rate 2021-10-29 15:35:00 85 /min [facility] Body temperature 2021-10-29 15:35:00 36.61 Luanne [facility] Respiratory rate 2021-10-29 15:35:00 20 /min [facility] Oxygen saturation in Arterial blood by Pulse oximetry 2021-10-29 15:35:00 100 /min [facility] Systolic blood pressure 2021-10-29 14:19:00 126 mm[Hg] [facility] Diastolic blood pressure 2021-10-29 14:19:00 71 mm[Hg] [facility] Heart rate 2021-10-29 14:19:00 85 /min [facility] Body temperature 2021-10-29 14:19:00 36.61 Luanne [facility] Respiratory rate 2021-10-29 14:19:00 18 /min [facility] Oxygen saturation in Arterial blood by Pulse oximetry 2021-10-29 14:19:00 100 /min [facility] Systolic blood pressure 2021-09-20 16:12:00 133 mm[Hg] [facility] Diastolic blood pressure 2021-09-20 16:12:00 75 mm[Hg] [facility] Heart rate 2021-09-20 16:12:00 69 /min [facility] Body temperature 2021-09-20 16:12:00 36.11 Luanne [facility] Respiratory rate 2021-09-20 16:12:00 18 /min [facility] Oxygen saturation in Arterial blood by Pulse oximetry 2021-09-20 16:12:00 99 /min [facility] Body height 2021-09-18 05:54:00 177.8 cm [facility] Body weight 2021-09-18 05:54:00 92.08 kg [facility] BMI 2021-09-18 05:54:00 29.13 kg/m2 [facility] Procedures Procedure Date / Time Performed Performing Clinician Source EKG-12 LEAD 2023-08-18 15:22:33 Simone Maldonado [facility] XR ABDOMEN ACUTE SERIES 2023-08-18 14:53:00 Rajesh Maldonado [facility] URINALYSIS 2023-08-18 14:38:00 Simone Maldonado [facility] URINE DRUG (IMMUNOASSAY) - COMPREHENSIVE DRUG SCREEN W/O REFLEX 2023-08-18 14:38:00 Simone Maldonado [facility] TROPONIN I 2023-08-18 14:02:00 Simone Maldonado [facility] COMP. METABOLIC PANEL ([id number]) 2023-08-18 14:02:00 Simone Maldonado [facility] SALICYLATE 2023-08-18 14:02:00 Simone Maldonado [facility] CARBAMAZEPINE 2023-08-18 14:02:00 Simone Maldonado [facility] CBC WITH DIFF 2023-08-18 14:02:00 Simone Maldonado [facility] LACTIC ACID WHOLE BLOOD 2023-08-18 14:02:00 Rajesh Maldonado [facility] CARBAMAZEPINE 2023-08-14 05:46:[address] [facility] MAGNESIUM 2023-08-13 05:21:[address] [facility] HEPATIC FUNCTION PANEL (34724) (ALB,T.PRO,BILI T,BU/BC,ALT,AST,ALK PHOS) 2023-08-13 05:21:[address] [facility] BASIC METABOLIC PANEL (NA, K, CL, CO2, GLUCOSE, BUN, CREATININE, CA) 2023-08-13 05:21:[address] [facility] CARBAMAZEPINE 2023-08-13 05:21:[address] [facility] CBC WITH DIFF 2023-08-13 05:21:[address] [facility] HB ECG ROUTINE & RHYTHM STRIP 2023-08-12 21:19:[address] [facility] XR CHEST 1 VW 2023-08-12 18:04:[address] [facility] XR KUB 2023-08-12 15:20:[address] [facility] CT ABDOMEN PELVIS W CONTRAST 2023-08-12 14:19:00 Erika [facility] XR KUB 2023-08-12 00:45:00 Emily James [facility] CT HEAD WO CONTRAST 2023-08-11 19:50:52 Nafisa Nelson [facility] URINALYSIS 2023-08-11 19:27:00 Nafisa Nelson Un [facility] EXTRA TUBE URINE CULTURE 2023-08-11 19:27:00 Carolynn Butt [facility] URINE DRUG (IMMUNOASSAY) - COMPREHENSIVE DRUG SCREEN W/O REFLEX 2023-08-11 19:27:00 Nafisa Nelson [facility] COVID-19 (ID NOW RAPID TESTING) 2023-08-11 19:23:00 Nafisa Nelson Darya [facility] LAB ONLY COVID INTERPRETATION 2023-08-11 19:23:00 Nafisa Nelson Darya [facility] CREATINE KINASE 2023-08-11 19:19:00 Nafisa Nelson [facility] THYROID STIMULATING HORMONE 2023-08-11 19:19:00 Nafisa Nelson [facility] COMP. METABOLIC PANEL ([id number]) 2023-08-11 19:19:00 Nafisa Nelson [facility] SALICYLATE 2023-08-11 19:19:00 Nafisa Nelson Un [facility] CARBAMAZEPINE 2023-08-11 19:19:00 [facility] 2023-08-11 19:19:00 Nafisa Nelson [facility] CBC WITH DIFF 2023-08-11 19:19:00 Nafisa Nelson U [facility] XR NASAL BONES 2023-06-15 14:02:39 Iman Francisco [facility] XR ABDOMEN 1 VW 2023-05-19 15:29:31 Francisco Valerio [facility] XR NASAL BONES 2023-03-31 15:35:05 Honorio Leggett [facility] EKG-12 LEAD 2022-11-29 22:19:10 Yennifer [facility] CREATINE KINASE 2022-11-29 18:38:00 Filiberto De Oliveira [facility] MAGNESIUM 2022-11-29 18:38:00 Yennifer [facility] TROPONIN I 2022-11-29 18:38:00 [facility] HORMONE 2022-11-29 18:38:00 Yennifer [facility] COMP. METABOLIC PANEL (09701) 2022-11-29 18:38:00 Yennifer [facility] SALICYLATE 2022-11-29 18:38:00 Yennifer [facility] CARBAMAZEPINE 2022-11-29 18:38:00 Yennifer [facility] ETHANOL 2022-11-29 18:38:00 [facility] CBC WITH DIFF 2022-11-29 18:38:00 [facility] COVID-19 (ID NOW RAPID TESTING) 2022-11-29 18:38:00 [facility] URINE DRUG (IMMUNOASSAY) - COMPREHENSIVE DRUG SCREEN W/O REFLEX 2022-11-29 18:38:00 [facility] AGREEMENTS AND AUTHORIZATIONS 2022-11-29 05:01:00 Doctor Unassigned, [place] [facility] COMP. METABOLIC PANEL (44948) 2022-10-24 23:05:00 Guerita Luz [facility] ETHANOL 2022-10-24 23:05:00 Guerita Luz [facility] CBC WITH DIFF 2022-10-24 23:05:00 [facility] (IMMUNOASSAY) - COMPREHENSIVE DRUG SCREEN W/O REFLEX 2022-10-24 23:05:00 Guerita Luz [facility] CARBAMAZEPINE 2022-09-30 21:32:00 Elkin Gilbert [facility] URINE DRUG (IMMUNOASSAY) - COMPREHENSIVE DRUG SCREEN 2022-09-30 18:20:00 Elkin Gilbert Billie [facility] URINALYSIS 2022-09-30 18:20:00 [facility]kin [facility] TROPONIN I 2022-09-30 17:58:00 lEkin Gilbert [facility] COMP. METABOLIC PANEL (45502) 2022-09-30 17:58:00 Elkin Gilbert Billie [facility] SALICYLATE 2022-09-30 17:58:00 [facility] CARBAMAZEPINE 2022-09-30 17:58:00 Vladimir, K [facility] ETHANOL 2022-09-30 17:58:00 Elkin [facility] CBC WITH DIFF 2022-09-30 17:58:00 Elkin Gilbert [facility] XR CHEST 2 VW 2022-08-08 12:42:00 Md Chetan Grissom Un [facility] XR KUB 2022-07-27 12:36:00 Md Chetan Grissom [facility] XR ABDOMEN ACUTE SERIES 2022-07-20 04:35:00 Do isis Cantu [facility] XR NECK SOFT TISSUE 2022-07-20 04:35:00 Shira Cantu [facility]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 4.26 - 5.52 10*6/?L. The reference range was not used to interpret this result as normal/abnormal. HGB (test code = 718-7) 11.6 g/dL 12.2-16.4 L HCT (test code = 4544-3) 37.2 % 38.4-49.3 L MCV (test code = 787-2) 62.0 fL 81.7-95.6 L MCH (test code = 785-6) 19.3 pg 26.1-32.7 L MCHC (test code = 786-4) 31.2 g/dL 31.2-35.0 RDW-SD (test code = 70004-2) 31.8 fL 38.5-51.6 L RDW-CV (test code = 788-0) 15.3 % 12.1-15.4 PLT (test code = 777-3) 205 See_Comment [Automated [employer] ge] The system which generated this result transmitted reference range: 150 - 328 10*3/?L. The reference range was not used to interpret this result as normal/abnormal. MPV (test code = 88642-2) 10.7 fL 9.8-13.0 IPF % (test code = 5446495607) 4.5 % 1.2-10.7 Platelet count measured by fluorescence method. NRBC/100 WBC (test code = 1830517235) 0.0 See_Comment [Automated [employer] ssage] The system which generated this result transmitted reference range: 0.0 - 10.0 /100 WBCs. The reference range was not used to interpret this result as normal/abnormal. NRBC x10^3 (test code = 4773284387) See_Comment [Automated [employer]] The system which generated this result transmitted reference range: 10*3/?L. The reference range was not used to interpret this result as normal/abnormal. GRAN MAT (NEUT) % (test code = 770-8) 62.7 % IMM GRAN % (test code = 2836081891) 0.10 % LYMPH % (test code = 736-9) 26.6 % MONO % (test code = 5905-5) 7.2 % EOS % (test code = 713-8) 3.0 % BASO % (test code = 706-2) 0.4 % GRAN MAT x10^3(ANC) (test code = 6166002340) 5.00 10*3/uL 1.99-6.95 IMM GRAN x10^3 (test code = 1927008060) 0.00-0.06 LYMPH x10^3 (test code = 731-0) 2.12 10*3/uL 1.09-3.23 MONO x10^3 (test code = 742-7) 0.57 10*3/uL 0.36-1.02 EOS x10^3 (test code = 711-2) 0.24 10*3/uL 0.06-0.53 BASO x10^3 (test code = 704-7) 0.03 10*3/uL 0.01-0.09 Lab Interpretation (test code = 13724-4) Abnormal [facility] CenterCOMP. METABOLIC PANEL (25589)2022-10-24 23:29:45* Test Item Value Reference Range Interpretation Comme nts NA (test code = 5872608015) 140 mmol/L 135-145 K (test code = 3187219323) 4.3 mmol/L 3.5-5.0 CL (test code = 8031565580) 107 mmol/L 98-108 CO2 TOTAL (test code = 7822512909) 23 mmol/L 23-31 AGAP (test code = 2185108424) 10 2-16 BUN (test code = 3432970902) 16 mg/dL 7-23 GLUCOSE (test code = 1304429006) 95 mg/dL 70-110 CREATININE (test code = 2451289516) 0.78 mg/dL 0.60-1.25 TOTAL BILI (test code = 9326386569) 0.4 mg/dL 0.1-1.1 CALCIUM (test code = 8733768578) 8.8 mg/dL 8.6-10.6 T PROTEIN (test code = 2174558802) 7.5 g/dL 6.3-8.2 ALBUMIN (test code = 9061967436) 4.3 g/dL 3.5-5.0 ALK PHOS (test code = 7749665081) 80 U/L 34-122 ALTv (test code = 1742-6) 11 U/L 5-50 AST(SGOT) (test code = 3276258940) 23 U/L 13-40 eGFR (test code = 2911590359) 116.1 mL/min/1.73m2 ELIZABETH (test code = ELIZABETH) Association of Glomerular Filtration Rate (GFR) and Staging of Kidney Disease* + + +- +| GFR (mL/min/1.73 m2) ?| With Kidney Damage ?| ?Without Kidney Damage+ ------+ ----+ ------+| ?>90 ?| ?Stage one ?| ? Normal ?+ -+ + -+| ?60-89 ?| ?Stage two ?| ? Decreased GFR ? + + +- +| ?30-59 ?| ?Stage three ?| ? Stage three ? + + +- +| ?15-29 ?| ?Stage four ? | ? Stage four ?+ -+ + -+| ?<15 (or dialysis) ? ?| ?Stage five ? | ? Stage five ?+ -+ + -+ *Each stage assumes the associated GFR level has been in effect for at least three months. ?Stages 1 to 5, with or without kidney disease, indicate chronic kidney disease. Notes: Determination of stages one and two (with eGFR >59mL/min/1.73 m2) requires estimation of kidney damage for at least three months as defined by structural or functional abnormalities of the kidney, manifested by either:Pathological abnormalities or Markers of kidney damage (including abnormalities in the composition of the blood or urine or abnormalities in imaging tests). [facility] CenterCARBAMAZEPINE2023-05-19 22:36:20* Test Item Value Reference Range Interpretation Comme nts CARBAMAZE (test code = 1990547363) 4.0-12.0 L ELIZABETH (test code = ELIZABETH) Toxic Range: ? Greater than 12 ug/mL Lab Interpretation (test code = 53380-8) Abnormal [facility] CenterCARBAMAZEPINE2023-05-19 21:02:14* Test Item Value Reference Range Interpretation Comme nts CARBAMAZE (test code = 1179535081) 3.6 ug/mL 4.0-12.0 L ELIZABETH (test code = ELIZABETH) Toxic Range: ? Greater than 12 ug/mL Lab Interpretation (test code = 93315-3) Abnormal [facility] CenterTROPONIN [id number] 18:46:52* Test Item Value Reference Range Interpretation Comme nts TROPONIN I (test code = 5334562616) 0.003 ng/mL <=0.034 ELIZABETH (test code = ELIZABETH) Reference (Normal) Range (defined by the 99th percentile reference limit): <= 0.034 ng/mL Note: Cardiac troponin begins to rise 3-4 hours after the onset of ischemia. Repeat in 4-6 hours if the sample was drawn within 3-4 hours of the onset of the symptom and found normal. Diagnosis of myocardial injury is made with acute changes in cTn concentrations with at least one serial sample above the 99th percentile upper reference limit (URL), taken together with the patient's clinical presentation. Biotin has been reported to cause a negative bias, interpret results relative to patient's use of biotin. Lab Interpretation (test code = 03930-0) Normal [facility] CenterETHANOL2023-05-19 18:38:45 ALCOHOL<10mg/dL09/30/2022 1:38 PM [facility]<10 Tfgarzuq86-370 Toxic>100 Depression of HELP DESK AGENT>400 Fatalities ReportedLongview Regional Medical CenterSALICYLATE2023-05-19 18:38:45SALICYLATE<10mg/L09/30/2022 1:38 PM [facility] LABORATORYTherapeutic Range: ? Analgesic and Antipyretic Use ? 20-100 mg/L ? ? Anti-Inflammatory Use ? 100-250 mg/L Toxic Range: ? Greater than 300 mg/LUnBaylor Scott & White Medical Center – Marble FallsACETAMINOPHEN2023-05-19 18:38:45* Test Item Value Reference Range Interpretation Comme nts ACETAMINOP (test code = 1330407783) 10.0-30.0 L ELIZABETH (test code = ELIZABETH) Toxic: Greater derick n 200 ug/mL @ 4 hour post ingestion or greater than 50 ug/mL @ 12 hour post ingestion Lab Interpretation (test code = 89929-7) Abnormal [facility] CenterCOM. METABOLIC PANEL (35717)2022-09-30 18:35:46* Test Item Value Reference Range Interpretation Comme nts NA (test code = 2053388367) 139 mmol/L 135-145 K (test code = 2155850263) 4.2 mmol/L 3.5-5.0 CL (test code = 2199832089) 102 mmol/L 98-108 CO2 TOTAL (test code = 2011112902) 26 mmol/L 23-31 AGAP (test code = 7949991669) 11 2-16 BUN (test code = 7467421263) 18 mg/dL 7-23 GLUCOSE (test code = 2031099258) 111 mg/dL 70-110 H CREATININE (test code = 8013782261) 0.73 mg/dL 0.60-1.25 TOTAL BILI (test code = 9637012859) 0.4 mg/dL 0.1-1.1 CALCIUM (test code = 1692101806) 8.6 mg/dL 8.6-10.6 T PROTEIN (test code = 2641936868) 7.4 g/dL 6.3-8.2 ALBUMIN (test code = 0132274682) 4.4 g/dL 3.5-5.0 ALK PHOS (test code = 3537462793) 74 U/L 34-122 ALTv (test code = 1742-6) 17 U/L 5-50 AST(SGOT) (test code = 3138231973) 26 U/L 13-40 eGFR (test code = 8792794096) 125.3 mL/min/1.73m2 ELIZABETH (test code = ELIZABETH) Association of Glomerular Filtration Rate (GFR) and Staging of Kidney Disease* + --+ --+ ------+| GFR (mL/min/1.73 m2) ?| With Kidney Damage ?| ?Without Kidney Damage+ --------+ --------+ +| ?>90 ?| ?Stage one ?| ? Normal ?+ ---+ ---+ -------+| ?60-89 ?| ?Stage two ?| ? Decreased GFR ? + --+ --+ ------+| ?30-59 ?| ?Stage three ?| ? Stage three ? + --+ --+ ------+| ?15-29 ?| ?Stage four ? | ? Stage four ?+ ---+ ---+ -------+| ?<15 (or dialysis) ? ?| ?Stage five ? | ? Stage five ?+ ---+ ---+ -------+ *Each stage assumes the associated GFR level has been in effect for at least three months. ?Stages 1 to 5, with or without kidney disease, indicate chronic kidney disease. Notes: Determination of stages one and two (with eGFR >59mL/min/1.73 m2) requires estimation of kidney damage for at least three months as defined by structural or functional abnormalities of the kidney, manifested by either:Pathological abnormalities or Markers of kidney damage (including abnormalities in the composition of the blood or urine or abnormalities in imaging tests). Lab Interpretation (test code = 16270-9) Abnormal [facility] WITH [id number] 18:25:02* Test Item Value Reference Range Interpretation Comme nts WBC (test code = 6690-2) 5.83 See_Comment [Automated [employer]] The system which generated this result transmitted reference range: 4.20 - 10.70 10*3/?L. The reference range was not used to interpret this result as normal/abnormal. RBC (test code = 789-8) 6.03 See_Comment H [Automated [employer] ge] The system which generated this result transmitted reference range: 4.26 - 5.52 10*6/?L. The reference range was not used to interpret this result as normal/abnormal. HGB (test code = 718-7) 11.7 g/dL 12.2-16.4 L HCT (test code = 4544-3) 37.4 % 38.4-49.3 L MCV (test code = 787-2) 62.0 fL 81.7-95.6 L MCH (test code = 785-6) 19.4 pg 26.1-32.7 L MCHC (test code = 786-4) 31.3 g/dL 31.2-35.0 RDW-SD (test code = 91692-2) 32.4 fL 38.5-51.6 L RDW-CV (test code = 788-0) 15.2 % 12.1-15.4 PLT (test code = 777-3) 258 See_Comment [Automated [employer]] The system which generated this result transmitted reference range: 150 - 328 10*3/?L. The reference range was not used to interpret this result as normal/abnormal. MPV (test code = 87725-4) 10.4 fL 9.8-13.0 NRBC/100 WBC (test code = 6503617680) 0.0 See_Comment [Automated me ssage] The system which generated this result transmitted reference range: 0.0 - 10.0 /100 WBCs. The reference range was not used to interpret this result as normal/abnormal. NRBC x10^3 (test code = 3796436224) See_Comment [Automated messa ge] The system which generated this result transmitted reference range: 10*3/?L. The reference range was not used to interpret this result as normal/abnormal. GRAN MAT (NEUT) % (test code = 770-8) 59.4 % IMM GRAN % (test code = 9856873454) 0.20 % LYMPH % (test code = 736-9) 30.9 % MONO % (test code = 5905-5) 6.9 % EOS % (test code = 713-8) 2.1 % BASO % (test code = 706-2) 0.5 % GRAN MAT x10^3(ANC) (test code = 1024956844) 3.47 10*3/uL 1.99-6.95 IMM GRAN x10^3 (test code = 6482101466) 0.00-0.06 LYMPH x10^3 (test code = 731-0) 1.80 10*3/uL 1.09-3.23 MONO x10^3 (test code = 742-7) 0.40 10*3/uL 0.36-1.02 EOS x10^3 (test code = 711-2) 0.12 10*3/uL 0.06-0.53 BASO x10^3 (test code = 704-7) 0.03 10*3/uL 0.01-0.09 Lab Interpretation (test code = 66397-2) Abnormal [facility] CenterETHANOL2022-06-17 16:34:55* Test Item Value Reference Range Interpretation Comme nts ALCOHOL (test code = 5236210221) <10 mg/dL ELIZABETH (test code = ELIZABETH) Toxic Greater than or equal to 80 mg/dL. NOTE: Whole blood values are approximately 10% to 15% lower than serum and plasma. [facility] CenterSALICYLATE2022-06-17 16:34:50* Test Item Value Reference Range Interpretation Comme nts SALICYLATE (test code = 2998187623) <10 mg/L ELIZABETH (test code = ELIZABETH) Therapeutic Range: ? Analgesic and Antipyretic Use ? 20-100 mg/L ? ? Anti-Inflammatory Use ? 100-250 mg/L Toxic Range: ? Greater than 300 mg/L [facility] CenterACETAMINOPHEN2022-06-17 16:34:45* Test Item Value Reference Range Interpretation Comme nts ACETAMINOP (test code = 5705785074) <10.0 10.0-30.0 L ELIZABETH (test code = ELIZABETH) Toxic: Greater derick n 200 ug/mL @ 4 hour post ingestion or greater than 50 ug/mL @ 12 hour post ingestion Lab Interpretation (test code = 57225-2) Abnormal [facility]. METABOLIC PANEL (18108)2021-10-29 16:33:25* Test Item Value Reference Range Interpretation Comme nts NA (test code = 5357396639) 138 mmol/L 135-145 K (test code = 0479364962) 4.4 mmol/L 3.5-5.0 CL (test code = 9156670240) 106 mmol/L 98-108 CO2 TOTAL (test code = 4133122631) 27 mmol/L 23-31 AGAP (test code = 1805124551) 2-16 BUN (test code = 2634081328) 22 mg/dL 7-23 GLUCOSE (test code = 5413961355) 94 mg/dL 70-110 CREATININE (test code = 7960081792) 0.94 mg/dL 0.60-1.25 TOTAL BILI (test code = 0542494313) 0.4 mg/dL 0.1-1.1 CALCIUM (test code = 7809827486) 9.3 mg/dL 8.6-10.6 T PROTEIN (test code = 5044063997) 7.6 g/dL 6.3-8.2 ALBUMIN (test code = 6285848756) 4.6 g/dL 3.5-5.0 ALK PHOS (test code = 1695916200) 77 U/L 34-122 ALTv (test code = 1742-6) 30 U/L 5-50 AST(SGOT) (test code = 1894268342) 30 U/L 13-40 eGFR (test code = 1131479576) mL/min/1.73m2 ELIZABETH (test code = ELIZABETH) Association of Glomerular Filtration Rate (GFR) and Staging of Kidney Disease* + + +- +| GFR (mL/min/1.73 m2) ?| With Kidney Damage ?| ?Without Kidney Damage+ ------+ ----+ ------+| ?>90 ?| ?Stage one ?| ? Normal ?+ -+ + -+| ?60-89 ?| ?Stage two ?| ? Decreased GFR ? + + +- +| ?30-59 ?| ?Stage three ?| ? Stage three ? + + +- +| ?15-29 ?| ?Stage four ? | ? Stage four ?+ -+ + -+| ?<15 (or dialysis) ? ?| ?Stage five ? | ? Stage five ?+ -+ + -+ *Each stage assumes the associated GFR level has been in effect for at least three months. ?Stages 1 to 5, with or without kidney disease, indicate chronic kidney disease. Notes: Determination of stages one and two (with eGFR >59mL/min/1.73 m2) requires estimation of kidney damage for at least three months as defined by structural or functional abnormalities of the kidney, manifested by either:Pathological abnormalities or Markers of kidney damage (including abnormalities in the composition of the blood or urine or abnormalities in imaging tests). [facility] CenterLIPASE2022-06-[facility] 16:33:25* Test Item Value Reference Range Interpretation Comme nts LIPASE (test code = 3321489035) 154 U/L 0-220 Lab Interpretation (test cod e = 50053-9) Normal [facility] CenterCB WITH [id number] 16:09:24* Test Item Value Reference Range Interpretation Comme nts WBC (test code = 6690-2) See_Comment [Automated [employer]] The system which generated this result transmitted reference range: 4.20 - 10.70 10*3/?L. The reference range was not used to interpret this result as normal/abnormal. RBC (test code = 789-8) See_Comment H [Automated [employer]] The system which generated this result transmitted reference range: 4.26 - 5.52 10*6/?L. The reference range was not used to interpret this result as normal/abnormal. HGB (test code = 718-7) 11.7 g/dL 12.2-16.4 L HCT (test code = 4544-3) 38.3 % 38.4-49.3 L MCV (test code = 787-2) 62.0 fL 81.7-95.6 L MCH (test code = 785-6) 18.9 pg 26.1-32.7 L MCHC (test code = 786-4) 30.5 g/dL 31.2-35.0 L RDW-SD (test code = 91080-6) 32.8 fL 38.5-51.6 L RDW-CV (test code = 788-0) 16.1 % 12.1-15.4 H PLT (test code = 777-3) See_Comment [Automated messa ge] The system which generated this result transmitted reference range: 150 - 328 10*3/?L. The reference range was not used to interpret this result as normal/abnormal. MPV (test code = 33101-4) 10.4 fL 9.8-13.0 NRBC/100 WBC (test code = 2594455094) See_Comment [Automated [employer] ssage] The system which generated this result transmitted reference range: 0.0 - 10.0 /100 WBCs. The reference range was not used to interpret this result as normal/abnormal. NRBC x10^3 (test code = 4459869709) <0.01 See_Comment [Automated messa ge] The system which generated this result transmitted reference range: 10*3/?L. The reference range was not used to interpret this result as normal/abnormal. GRAN MAT (NEUT) % (test code = 770-8) 59.0 % IMM GRAN % (test code = 9424691596) 0.40 % LYMPH % (test code = 736-9) 28.0 % MONO % (test code = 5905-5) 9.0 % EOS % (test code = 713-8) 3.1 % BASO % (test code = 706-2) 0.5 % GRAN MAT x10^3(ANC) (test code = 9200782476) 4.39 10*3/uL 1.99-6.95 IMM GRAN x10^3 (test code = 0249250916) 0.03 10*3/uL 0.00-0.06 LYMPH x10^3 (test code = 731-0) 2.08 10*3/uL 1.09-3.23 MONO x10^3 (test code = 742-7) 0.67 10*3/uL 0.36-1.02 EOS x10^3 (test code = 711-2) 0.23 10*3/uL 0.06-0.53 BASO x10^3 (test code = 704-7) 0.04 10*3/uL 0.01-0.09 Lab Interpretation (test code = 70336-5) [facility] [id number] 15:30:24* Test Item Value Reference Range Interpretation Comme nts FERRITIN (test code = 1779418856) 113.0 ng/mL 18.0-464.0 ELIZABETH (test code = ELIZABETH) Biotin has been reported to cause a negative bias, interpret results relative to patient's use of biotin. Lab Interpretation (test code = 24986-8) Normal [facility] CenterIRON [id number] 15:01:41* Test Item Value Reference Range Interpretation Comme nts IRON (test code = 5687561059) 69 ug/dL 50-160 TIBC (test code = 0145101083) 365 ug/dL 250-410 % FE SAT (test code = 9206632353) 19 % 20-50 L Lab Interpretation (test cod e = 26052-6) [facility]normal [facility] CenterCB WITH [id number] 11:18:30* Test Item Value Reference Range Interpretation Comme nts WBC (test code = 6690-2) See_Comment [Automated messa ge] The system which generated this result transmitted reference range: 4.20 - 10.70 10*3/?L. The reference range was not used to interpret this result as normal/abnormal. RBC (test code = 789-8) See_Comment H [Automated messa ge] The system which generated this result transmitted reference range: 4.26 - 5.52 10*6/?L. The reference range was not used to interpret this result as normal/abnormal. HGB (test code = 718-7) 13.0 g/dL 12.2-16.4 HCT (test code = 4544-3) 41.9 % 38.4-49.3 MCV (test code = 787-2) 60.4 fL 81.7-95.6 L MCH (test code = 785-6) 18.7 pg 26.1-32.7 L MCHC (test code = 786-4) 31.0 g/dL 31.2-35.0 L RDW-SD (test code = 80800-7) 32.2 fL 38.5-51.6 L RDW-CV (test code = 788-0) 17.9 % 12.1-15.4 H PLT (test code = 777-3) See_Comment [Automated [employer] ge] The system which generated this result transmitted reference range: 150 - 328 10*3/?L. The reference range was not used to interpret this result as normal/abnormal. MPV (test code = 94719-3) 11.0 fL 9.8-13.0 IPF % (test code = 5372600257) 3.8 % 1.2-10.7 Platelet count measured by fluorescence method. NRBC/100 WBC (test code = 9618538163) See_Comment [Automated [employer] ssage] The system which generated this result transmitted reference range: 0.0 - 10.0 /100 WBCs. The reference range was not used to interpret this result as normal/abnormal. NRBC x10^3 (test code = 9647412681) <0.01 See_Comment [Automated [employer] ge] The system which generated this result transmitted reference range: 10*3/?L. The reference range was not used to interpret this result as normal/abnormal. GRAN MAT (NEUT) % (test code = 770-8) 61.8 % IMM GRAN % (test code = 8270298375) 0.50 % LYMPH % (test code = 736-9) 27.9 % MONO % (test code = 5905-5) 6.7 % EOS % (test code = 713-8) 2.5 % BASO % (test code = 706-2) 0.6 % GRAN MAT x10^3(ANC) (test code = 7456644951) 5.31 10*3/uL 1.99-6.95 IMM GRAN x10^3 (test code = 3296005598) 0.04 10*3/uL 0.00-0.06 LYMPH x10^3 (test code = 731-0) 2.39 10*3/uL 1.09-3.23 MONO x10^3 (test code = 742-7) 0.57 10*3/uL 0.36-1.02 EOS x10^3 (test code = 711-2) 0.21 10*3/uL 0.06-0.53 BASO x10^3 (test code = 704-7) 0.05 10*3/uL 0.01-0.09 REACT LYMPHS (test code = 2078738247) Rare Lab Interpretation (test code = 44171-5) Abnormal [facility] METABOLIC PANEL (NA, K, CL, CO2, GLUCOSE, BUN, CREATININE, CA)2021-09-18 10:58:42* Test Item Value Reference Range Interpretation Comme nts NA (test code = 4558803157) 140 mmol/L 135-145 K (test code = 1064975734) 4.2 mmol/L 3.5-5.0 CL (test code = 9266021330) 104 mmol/L 98-108 CO2 TOTAL (test code = 7487681839) 23 mmol/L 23-31 AGAP (test code = 8311885155) 2-16 BUN (test code = 2219687495) 19 mg/dL 7-23 GLUCOSE (test code = 0640003538) 104 mg/dL 70-110 CREATININE (test code = 7692851789) 1.01 mg/dL 0.60-1.25 CALCIUM (test code = 9761218579) 9.7 mg/dL 8.6-10.6 eGFR (test code = 4096580186) mL/min/1.73m2 ELIZABETH (test code = ELIZABETH) Association of Glomerular Filtration Rate (GFR) and Staging of Kidney Disease* + + +- +| GFR (mL/min/1.73 m2) ?| With Kidney Damage ?| ?Without Kidney Damage+ ------+ ----+ ------+| ?>90 ?| ?Stage one ?| ? Normal ?+ -+ + -+| ?60-89 ?| ?Stage two ?| ? Decreased GFR ? + + +- +| ?30-59 ?| ?Stage three ?| ? Stage three ? + + +- +| ?15-29 ?| ?Stage four ? | ? Stage four ?+ -+ + -+| ?<15 (or dialysis) ? ?| ?Stage five ? | ? Stage five ?+ -+ + -+ *Each stage assumes the associated GFR level has been in effect for at least three months. ?Stages 1 to 5, with or without kidney disease, indicate chronic kidney disease. Notes: Determination of stages one and two (with eGFR >59mL/min/1.73 m2) requires estimation of kidney damage for at least three months as defined by structural or functional abnormalities of the kidney, manifested by either:Pathological abnormalities or Markers of kidney damage (including abnormalities in the composition of the blood or urine or abnormalities in imaging tests). [facility] (ALB,T.PRO,BILI T,BU/BC,ALT,AST,ALK PHOS)2021-09-18 10:58:42* Test Item Value Reference Range Interpretation Comme nts TOTAL BILI (test code = 5676168576) 0.5 mg/dL 0.1-1.1 BILI UNCON (test code = 7888873126) 0.3 mg/dL 0.1-1.1 BILI CONJ (test code = 9705753165) 0.0 mg/dL 0.0-0.3 T PROTEIN (test code = 5587540068) 8.6 g/dL 6.3-8.2 H ALBUMIN (test code = 1242761888) 4.9 g/dL 3.5-5.0 ALK PHOS (test code = 5682198944) 87 U/L 34-122 ALTv (test code = 1742-6) 22 U/L 5-50 AST(SGOT) (test code = 0909674366) 35 U/L 13-40 Lab Interpretation (test cod e = 66455-1) Abnormal [facility] CenterMagnesium [id number] 10:58:42* Test Item Value Reference Range Interpretation Comme nts MAGNESIUM (test code = 1516889090) 2.2 mg/dL 1.7-2.4 Lab Interpretation (test cod e = 44100-4) Normal [facility] CenterProthrombin Time / [id number] 10:41:17* Test Item Value Reference Range Interpretation Comme nts PROTIME PATIENT (test code = 5964-2) See_Comment [Automated messa ge] The system which generated this result transmitted reference range: 10.1 - 12.6 Seconds. The reference range was not used to interpret this result as normal/abnormal. INR (test code = 6301-6) Normal INR <1.1; Warfarin Therapeutic range 2.0 to 3.0 or 2.5 to 3.5, depending upon the indications. Lab Interpretation (test code = 29311-9) Normal [facility] CenterCARBAMAZEPINE2022-05-06 21:20:37* Test Item Value Reference Range Interpretation Comme nts CARBAMAZE (test code = 5667585369) <3.0 4.0-12.0 L ELIZABETH (test code = ELIZABETH) Toxic Range: ? Greater than 12 ug/mL Lab Interpretation (test code = 04647-6) Abnormal [facility] CenterTROPONIN [id number] 21:11:07* Test Item Value Reference Range Interpretation Comments TROPONIN I (test code = 0018595176) 0.000 ng/mL See_Comment [Automated message] The system which generated this result transmitted reference range: <=0.034. The reference range was not used to interpret this result as normal/abnormal. ELIZABETH (test code = ELIZABETH) Reference (Normal) Range (defined by the 99th percentile reference limit): <= 0.034 ng/mL Note: Cardiac troponin begins to rise 3-4 hours after the onset of ischemia. Repeat in 4-6 hours if the sample was drawn within 3-4 hours of the onset of the symptom and found normal. Diagnosis of myocardial injury is made with acute changes in cTn concentrations with at least one serial sample above the 99th percentile upper reference limit (URL), taken together with the patient's clinical presentation. Biotin has been reported to cause a negative bias, interpret results relative to patient's use of biotin. Lab Interpretation (test code = 27866-5) Normal [facility] CenterSalicylate2022-05-06 16:48:28* Test Item Value Reference Range Interpretation Comme nts SALICYLATE (test code = 2666763449) <10 mg/L ELIZABETH (test code = ELIZABETH) Therapeutic Range: ? Analgesic and Antipyretic Use ? 20-100 mg/L ? ? Anti-Inflammatory Use ? 100-250 mg/L Toxic Range: ? Greater than 300 mg/L [facility] CenterEthanol (ETOH) [id number] 16:48:18* Test Item Value Reference Range Interpretation Comme nts ALCOHOL (test code = 0790254293) <10 mg/dL ELIZABETH (test code = ELIZABETH) Toxic Greater than or equal to 80 mg/dL. NOTE: Whole blood values are approximately 10% to 15% lower than serum and plasma. [facility] CenterAcetaminophen2022-05-06 16:34:21* Test Item Value Reference Range Interpretation Comme nts ACETAMINOP (test code = 4344194709) <10.0 10.0-30.0 L ELIZABETH (test code = ELIZABETH) Toxic: Greater derick n 200 ug/mL @ 4 hour post ingestion or greater than 50 ug/mL @ 12 hour post ingestion Lab Interpretation (test code = 46852-5) Abnormal [facility] CenterCBC with [id number] 16:33:35* Test Item Value Reference Range Interpretation Comme nts WBC (test code = 6690-2) See_Comment [Automated messa ge] The system which generated this result transmitted reference range: 4.20 - 10.70 10*3/?L. The reference range was not used to interpret this result as normal/abnormal. RBC (test code = 789-8) See_Comment H [Automated messa ge] The system which generated this result transmitted reference range: 4.26 - 5.52 10*6/?L. The reference range was not used to interpret this result as normal/abnormal. HGB (test code = 718-7) 11.0 g/dL 12.2-16.4 L HCT (test code = 4544-3) 36.1 % 38.4-49.3 L MCV (test code = 787-2) 61.8 fL 81.7-95.6 L MCH (test code = 785-6) 18.8 pg 26.1-32.7 L MCHC (test code = 786-4) 30.5 g/dL 31.2-35.0 L RDW-SD (test code = 04852-2) 33.4 fL 38.5-51.6 L RDW-CV (test code = 788-0) 15.9 % 12.1-15.4 H PLT (test code = 777-3) See_Comment [Automated [employer] ge] The system which generated this result transmitted reference range: 150 - 328 10*3/?L. The reference range was not used to interpret this result as normal/abnormal. MPV (test code = 42242-6) 11.1 fL 9.8-13.0 IPF % (test code = 5148904892) 5.6 % 1.2-10.7 Platelet count measured by fluorescence method. NRBC/100 WBC (test code = 4461373771) See_Comment [Automated [employer] ssage] The system which generated this result transmitted reference range: 0.0 - 10.0 /100 WBCs. The reference range was not used to interpret this result as normal/abnormal. NRBC x10^3 (test code = 6362140387) <0.01 See_Comment [Automated [employer] ge] The system which generated this result transmitted reference range: 10*3/?L. The reference range was not used to interpret this result as normal/abnormal. GRAN MAT (NEUT) % (test code = 770-8) 68.9 % IMM GRAN % (test code = 9059020210) 0.30 % LYMPH % (test code = 736-9) 20.2 % MONO % (test code = 5905-5) 7.8 % EOS % (test code = 713-8) 2.3 % BASO % (test code = 706-2) 0.5 % GRAN MAT x10^3(ANC) (test code = 1690914684) 4.24 10*3/uL 1.99-6.95 IMM GRAN x10^3 (test code = 0048023062) <0.03 0.00-0.06 LYMPH x10^3 (test code = 731-0) 1.24 10*3/uL 1.09-3.23 MONO x10^3 (test code = 742-7) 0.48 10*3/uL 0.36-1.02 EOS x10^3 (test code = 711-2) 0.14 10*3/uL 0.06-0.53 BASO x10^3 (test code = 704-7) 0.03 10*3/uL 0.01-0.09 ELLIPTO/OVAL (test code = 59601-1) 2+ See_Comment A [Automated [employer] ge] The system which generated this result transmitted reference range: (none). The reference range was not used to interpret this result as normal/abnormal. SCHISTOCYTES (test code = 800-3) 1+ A REACT LYMPHS (test code = 0678999826) Rare GIANT PLATELETS (test code = 5908-9) Present See_Comment A [Automated [employer]] The system which generated this result transmitted reference range: (none). The reference range was not used to interpret this result as normal/abnormal. Lab Interpretation (test code = 81553-0) Abnormal [facility] CenterComprehensive Metabolic Panel (80576) 2021-09-17 16:19:34* Test Item Value Reference Range Interpretation Comme nts NA (test code = 9792411385) 140 mmol/L 135-145 K (test code = 4368395484) 4.0 mmol/L 3.5-5.0 CL (test code = 5854199528) 107 mmol/L 98-108 CO2 TOTAL (test code = 8441895485) 24 mmol/L 23-31 AGAP (test code = 9724691697) 2-16 BUN (test code = 8632402802) 18 mg/dL 7-23 GLUCOSE (test code = 2309830898) 112 mg/dL 70-110 H CREATININE (test code = 3282913461) 0.96 mg/dL 0.60-1.25 TOTAL BILI (test code = 7516704327) 0.4 mg/dL 0.1-1.1 CALCIUM (test code = 0533718363) 9.1 mg/dL 8.6-10.6 T PROTEIN (test code = 3102130297) 7.2 g/dL 6.3-8.2 ALBUMIN (test code = 4708237936) 4.3 g/dL 3.5-5.0 ALK PHOS (test code = 5856003948) 61 U/L 34-122 ALTv (test code = 1742-6) 19 U/L 5-50 AST(SGOT) (test code = 4157580746) 27 U/L 13-40 eGFR (test code = 7600102178) mL/min/1.73m2 ELIZABETH (test code = ELIZABETH) Association of Glomerular Filtration Rate (GFR) and Staging of Kidney Disease* + --+ --+ ------+| GFR (mL/min/1.73 m2) ?| With Kidney Damage ?| ?Without Kidney Damage+ --------+ --------+ +| ?>90 ?| ?Stage one ?| ? Normal ?+ ---+ ---+ -------+| ?60-89 ?| ?Stage two ?| ? Decreased GFR ? + --+ --+ ------+| ?30-59 ?| ?Stage three ?| ? Stage three ? + --+ --+ ------+| ?15-29 ?| ?Stage four ? | ? Stage four ?+ ---+ ---+ -------+| ?<15 (or dialysis) ? ?| ?Stage five ? | ? Stage five ?+ ---+ ---+ -------+ *Each stage assumes the associated GFR level has been in effect for at least three months. ?Stages 1 to 5, with or without kidney disease, indicate chronic kidney disease. Notes: Determination of stages one and two (with eGFR >59mL/min/1.73 m2) requires estimation of kidney damage for at least three months as defined by structural or functional abnormalities of the kidney, manifested by either:Pathological abnormalities or Markers of kidney damage (including abnormalities in the composition of the blood or urine or abnormalities in imaging tests). Lab Interpretation (test code = 41484-0) Abnormal [facility] Consult Notes Date/Time Note Provider Source 2023-08-15 10:14:53 [id number] lUr [id number]+[id number]:14:53Ass ociated Order(s): CONSULT NEUROLOGY NEUROLOGY CONSULT NOTEDATE OF SERVICE: 08/15/2023 13:25REQUESTING PHYSICIAN: Aamir Hamm for Consult: Hx of seizures, evaluate for need of anti-epilepticsHISTORY OF PRESENT ILLNESSMohammonico Patricia is a 33 year old male right handed with PMHx of repeated toxic pill ingestion and epilepsy. Per medicine note, patient was initially seen in the ED on 08/10 where he reported taking pills of tegretol from another inmate. Patient was worked up for toxic pill ingestion and his tegretol levels were found to be low. Neurology was consulted to evaluate need for anti-epileptics.Patient states that his seizures started at age [age] years old and was put on Dilantin for 3 years and then was switched to Tegretol after Dilantin caused GI symptoms. Describes his seizures occurring with tongue biting/bleeding and loss of consciousness. Denies urinary or bowel incontinence. States that his seizures occur spontaneously with no aggravating factors every 6 months with the last episode occurring 04/2023. States that he is compliant with Tegretol prescription and that it helps with his seizures. Denies past hx or recent head trauma. Denies ever having an EEG or any other neurology work-up. Denies vision changes, headache, dizziness, chest pain, nausea, vomiting, fevers or chills.PAST MEDICAL HISTORYPast Medical History:Diagnosis DateEpilepsyHyperlipidemiaIntentional self-harm by other specified means, sequelaRecurrent seizuresUnspecified disorder of nose and nasal sinusesPAST SURGICAL HISTORYHistory reviewed. No pertinent surgical history.FAMILY HISTORYHistory reviewed. No pertinent family history.SOCIAL HISTORYSocial HistorySocioeconomic HistoryMarital status: SingleTobacco UseSmoking status: Heavy SmokerSmokeless tobacco: NeverHOME MEDICATIONSMedications Prior to AdmissionMedication Sig Dispense Refill Last DoseALBUTEROL, REFILL, INHALE Inhale.carBAMazepine (TEGRETOL XR) 400 mg 12 hr tablet Take 1 tablet by mouth.dextran 70/hypromellose (GENTEAL TEARS MILD OPHTHALMIC) Place in each eye.DIPHENHYDRAMINE CITRATE ORAL Take by mouth.estradioL 1 mg tablet Take 1 tablet by mouth in the morning.ferrous sulfate 325 mg (65 mg iron) tablet Take 1 tablet by mouth every other day.haloperidoL 2 mg tablet Take 1 tablet by mouth in the morning and 1 tablet in the evening.haloperidoL 5 mg tablet Take 1 tablet by mouth in the morning and 1 tablet in the evening.omeprazole 20 mg TbLD Take by mouth.spironolactone 25 mg tablet Take 1 tablet by mouth in the morning.HOSPITAL MEDICATIONSScheduled meds: IV meds: PRN meds:lanolin wctfhkb-rs-b.pet-ceres, , DAILYferrous sulfate, 325 mg, Q OTHERDAYhaloperidoL, 2 mg, BIDhaloperidoL, 5 mg, BIDpantoprazole, 40 mg, DAILYartificial tears(hypromellose), 1 Drop, PRNdiphenhydrAMINE, 25 mg, U8JIITozdscfdtvchka, 650 mg, O9UEOBSWWBKSKMc Known AllergiesREVIEW OF SYSTEMSGeneral: (-) fever, (-) chills, (-) weight change, (-) dizziness, (-) fatigue, (-) change in appetiteSkin: (-) rash, (-) lesionHEENT: (-) headache, (-) change in hearing, (-) change in vision, (-) nasal discharge, (-) sore throatNeck: (-) pain, (-) difficulty swallowing, (-) massHeme: (-) bleeding disorderResp: (-) cough, (-) shortness of breath, (-) dyspnea on exertionCardio: (-) chest pain, (-) palpitations, (-) syncopeGI: (-) abdominal pain, (-) nausea, (-) vomiting, (-) diarrhea, (-) constipation, (-) melena, (-) hematochezia, (-) hematemesisGU: (-) dysuria, (-) hematuria, (-) increased frequency, (-) difficulty urinating, (-) difficulty initiatingEndo: (-) heat intolerance, (-) diabetes, (-) cold intolerance, (-) polyuria, (-) polydipsia, (-) renal insufficiency, (-) thyroid diseaseNeuro: See HPIBack: (-) pain, (-)spasmsMSS: (-) muscle pain, (-) joint pain, (-) claudicationPsych: (-) anxiety, (-) depression, (-) psychiatric disorderPHYSICAL EXAMVitals:08/14/23 2328 08/15/23 0315 08/15/23 0749 08/15/23 1111BP: 113/56 116/72 125/82 115/63BP Location: Left arm Left arm Left arm Left armPatient Position: Supine Supine Sitting SupinePulse: 77 74 70 75Resp: 18 18 16 18Temp: 36.7 ?C (98 ?F) 36.7 ?C (98.1 ?F) 36.4 ?C (97.5 ?F) 36.4 ?C (97.5 ?F)TempSrc:SpO2: 99% 100% 100% 100%Weight:General:Well appearing. Dressed in hospital gowns. No apparent distress.Mental Status:Alert and oriented x4 (person, place, time, and situation).Consciousness, attention, concentration: normal, Stays focused and on task while being questioned.Language: intact to comprehension, fluency, repetition and naming.Fund of knowledge: is congruent with level of education.Remote and recent memory: normal.Cranial Nerves:I. Not tested.II. Symmetric, 2 mm, equally reactive pupils. Field of vision intact to confrontation in either of the four quadrants. full to confrontationIII. IV., . Extraocular movements intact without gaze evoked nystagmus.V. Normal sensation bilaterally in V1-3 distributions.VII. No facial droop noted.VIII. Hearing intact to finger rubbing in either ear.IX., X. Palatal elevation normal symmetrically.XI. Normal strength of sternocleidomastoid and trapezius muscles bilaterally.XII. Tongue in midline.Motor system:Bulk: normalTone: normalStrength Right LeftDeltoid 5 5Biceps 5 5Triceps 5 5Wrist extensors 5 5Interossei 5 5Hip flexors 5 5Knee flexors (hamstring) 5 5Knee extensors (quadriceps) 5 5Ankle dorsiflexors 5 5Ankle plantar flexors 5 5Deep Tendon Reflexes Right LeftBiceps 2+ 2+Triceps 2+ 2+Brachioradialis 2+ 2+Patella 2+ 2+Achilles 1+ 1+Pathologic reflexes and signs:Plantar response: mute bilaterallyGait:Deferred.General examination:HEENT: Red eye on the rt>lt. Clear oropharynx.Lungs: normal breath sounds. No abnormal sounds.Cardio: normal heart sounds. No added sounds.Extremities: no cyanosis, clubbing or edema.Neck: supple. No carotid bruit or JVD.Abdomen: normal contour. Soft, non-tender to palpation. Normoactive bowel sounds.LABS, RADIOLOGY, ELECTROPHYSIOLOGYRelevant labs:No final results containing an impression from the past 48 hours were found.CT head (date): 08/11/2023Impression: No acute intracranial abnormality.IMPRESSION AND RECOMMENDATIONSIMPRESSION:Armaan Patricia is a 33 year old male right handed with PMHx of repeated toxic pill ingestion and seizures. Neurology was consulted to evaluate need for anti-epileptics. Due to hx of epilepsy and no evidence of tegretol toxicity as current labs were low, we recommend continuing with current Tegretol regimen and following up outpatient for MRI seizure protocol w/ neuro quant and EEG.RECOMMENDATIONS:-Continue with current Tegretol regimen-Outpatient MRI seizure protocol with neuro quant- Outpatient LCB-Mnuyfe-hr in neurology clinic-No KOP medsPatient was seen and discussed with Ke Edge MD, Neurology Faculty. Discussed with the primary team. Neurology will continue to follow.Neurology consult pager: [phone] Horn, CK6Uywjgjj Neurology Consults [facility] personally examined the patient on 08/15/23 and have verified the medical student documentation and/or findings, including the history, physical exam, and medical decision making. Additionally, I have personally performed or re-performed the physical exam and medical decision making activities of this patient's evaluation and management service.Hillary Babcock, RAMONEGY-1 neurology Resident ssociated attestation - Ke Song MD - 08/15/2023 2:18 PM CDT I personally examined the patient and agree with the resident's note as written, including any changes or additions that the resident may have made to the medical student's note.I spent a total of 75 minutes on the day of the hospital encounter.The time spent for patient care includes:PreCharting (eg, review of tests, notes, etc.), Obtaining and/or reviewing separately obtained history (Care Everywhere or paper records), Performing a medically appropriate examination and/or evaluation, Counseling and educating the patient/family/caregiver, Ordering medications, tests, or procedures, Ordering referrals and/or communicating with other health career representative (when not separately reported), Documenting clinical information in the electronic or other health record, Independently interpreting results (not separately reported) and/or communicating results to the patient/family/caregiver, and Care coordination (not separately reported).I actively participated in the decision making process.Please see the resident's note/addendum for additional details.[id number] [id number], Jorge1.2.840.924068.1.13.104.2.7.2.351798Ta abheymc-JvvcckdqqGzcjaXP7354-50-02T14:18:09 Consult noteTXT1.2.840.395920.1.13.104.2.7.2.538897 |[id number] for patient aohf45541-2Mzsttuu noteLNNARRATIVEFormatted C-CDA narrative piqrHT-YNKRRJRIUDK-IVDRFVLQTBQMMNEXX - Health[employer] AsyaLlwdsxetzKqveyutybVXEZ9453387047MPNTIJY ZINVWZCUEPZCNAE1835-59-53F60:18:091.2.840.1 06894.1.72.3.15|1.2.840.523600.1.13.104.2.7 .2.727879_[id number] PN-NEUROLOGY [facility] 2023-08-14 09:19:49 W8zkPwfgL/voLmOAASCgZsdg3XKz4PUEUIPBcKmH 3TS 6Kwo5TRczE46OYMejAcoD5497-66-27T88:19:49Ass ociated Order(s): CONSULT PSYCHIATRY [facility] DEPARTMENT OF PSYCHIATRY - Consult LiaisonPer attending review and protocol, patient will need to go to [facility] Crisis Management team for self harm. If any other questions or concerns arise prior to Crisis Management placement, please reach out to C/L pager as listed below.Please contact the psychiatry consult pager: [phone] with any questions.Patient discussed with Psychiatry faculty, Dr. Matias, who agrees with plan.Edgard Moreno MDREHABILITATION [facility] Department of Psychiatry PGY-2C/L Pager # [phone] signed by Kade Matias MD at 08/15/2023 11:12 AM CDTAssociated attestation - Kade Matias MD - 08/15/2023 11:12 AM CDT I discussed this patient with the resident and directed the medical decision-making. I agree with the resident note.91292-2Hojemte yzzzFN2393106EgvcmpKade Matias1.2.840.799459.1.13.104.2.7.2.595939 JlevesGydgbqcPbfqrxvUK4484-94-09Y83:12:07Co nsult noteTXT1.2.840.290809.1.13.104.2.7.2.757261 |[id number] for patient pxex24777-2Xxpkvkb noteLNNARRATIVEFormatted C-CDA narrative mmilAQ-JNLKJEUWNPQV-TPWHPBWFZRRMNGMYHC - Health301 [employer] NvpjBpkxwddlnRnovsdtanVXMK9921253434HLBZYUA MRHCBHRAWZAQWKJ6352-27-66S27:12:071.2.840.1 56211.1.72.3.15|1.2.840.706572.1.13.104.2.7 .2.727879_[id number] PN-PSYCHIATRY [facility] 2023-08-12 13:35:51 lbsBb0OIGiTfjBmZZTO8/O3/tdkMygbKjqFG4Lab yma X1xhGkaLyUq1LErMftBOI1029-06-75Z80:35:51Ass ociated Order(s): CONSULT GASTROENTEROLOGY Department of Gastroenterology & Hepatology Consult NoteRequesting Physician: Blanca Goodwin: Veronica for Consultation: 33 year old male with PMH mood disorder and multiple suicide attempts here for a reported suicide attempt by taking his roommate's carbamazepime and also ingesting a razor blade 2 days ago.KUB found metallic foreign object in LUQ that appears to be a razor blade. . CT AP ordered for further evaluation as well to further elucidate whether the razor is in the stomach or not, however please evaluate patient for endoscopic removal of this object. Thank you.Date of Service: 4CHIEF COMPLAINT:Toxic ingestionHistory of Present IllnessMoalejandro Patricia is a 33 year old male with past medical history of psychiatric disorder, epilepsy, intentional self harm, prior suicide attempts admitted 08/10 after toxic ingestion of tegretol. GI consulted for razor blade ingestion.Pt reports he took many tablets of tegretol around 8:30 am yesterday. Also ingested an untaped razor blade the day prior. Pt reports that he think he passed the razor blade. Had some emesis which was blood streaked after ingesting the tablets and noted hematochezia yesterday as well. No overt bleeding since admission. No BM or emesis since admission, was tolerating regular diet yesterday with no discomfort. Not mild abdominal discomfort.On arrival, HDS. Labs unremarkable. Acetaminophen, salicylate, and carbamazepine levels were not detected. KUB showed metallic object in LUQ which may have been artifact. CTAP and repeat KUB were done without any object in stomach.PHYSICAL EXAM:Constitutional: comfortable and in no acute distressHead: atraumaticEENT: no scleral icterus, no conjunctival pallorCardiovascular: warm extremities, no LE edemaRespiratory: non-laboredGastrointestinal: soft, non tender, non distended, no HSM, no rebound or guardingMSK: MAEWSkin: no rashNeurologic: grossly non-focalPsychiatric: normal affectRADIOLOGY:KUB 08/12/2023:IMPRESSION1. No acute or adverse change Compared to the prior exams.2. No signs of a metallic foreign bodyCTAP 08/12/2023:IMPRESSIONMild bilateral gynecomastia.Otherwise, unremarkable CT of the abdomen and pelvis.No foreign body is demonstrated in the abdomen or pelvis.KUB 08/11/2023:Impression:Inconsistently visualized metallic foreign body overlying the left upperquadrant. This could reflect overlying artifact. CT is recommended forfurther evaluation.PREVIOUS ENDOSCOPY:EGD: noneASSESSMENT and PLANMohammad James Patricia is a 33 year old male with past medical history of psychiatric disorder, epilepsy, intentional self harm, prior suicide attempts admitted 08/10 after toxic ingestion of tegretol. GI consulted for razor blade ingestion.Foreign body ingestionNo foreign body seen on multiple scans. Benign abdominal exam.- no endoscopy planned- regular dietPatient was seen and discussed with Dr. Burns will sign off. Please call with any questions.Sera Adryan MDPGY-5 Gastroenterology and HepatologyContact information available through [facility]SAlectronically signed by Perla Braden MD at 08/12/2023 8:49 PM CDTAssociated attestation - Perla Braden MD - 08/12/2023 8:49 PM CDT I have personally seen and examined the patient with Dr. Cornelius on 08/12/23. I agree with assessment and plan. I actively participated in the evaluation and decision making.Patient with reported razor blade ingestion 2 days ago, X-ray abdomen on one view suggested metallic object in left upper abdomen, not seen on CT abdomen [address] scan, patient mentions ingesting another razor blade, not witnessed. X-ray abdomen and chest does not show any metallic object in chest or abdomen. No endoscopy needed.PERLA YANCEY,ROD POINTER,DIVISION OF GASTROENTEROLOGY AND HEPATOLOGY.[facility].94866-9Xqnbwkl xzgrHF4542430Jxip, Kashif1.2.840.602990.1.13.104.2.7.2.981740Z awjMhlwmqGL9882-39-47X80:49:56Consult noteTXT1.2.840.515002.1.13.104.2.7.2.277814 |[id number] for patient elam44535-1Ppsorzk noteLNNARRATIVEFormatted C-CDA narrative jbjxFY-DFKVJWBMFWDSCMVCIC-JAXFILYYBRPVASQRN [address] StreetEp[id number] VQVAGZEYHSDVXFO2032-13-60Q22:49:561.2.840.1 32838.1.72.3.15|1.2.840.048549.1.13.104.2.7 .2.727879_[id number] IM-GASTROENTER OLOGY [facility] Notes Date/Time Note Provider Source 2023-08-18 11:57:00 3IEXDBhu/UeH+ogg9SH6QHJEz/kT0GFm+svN69Ew JkVN5UkUw nkm5P7bqRdLtqHw0429-41-32E93:57:00 Returned from ED via WC and escorted by [facility] officer.1447 pt discharged from unit, via WC to [facility] escorted by [facility] officers. 52124-2Xvsjf DfgqAC5192-89-29M19:48:37Nurse NoteTXT1.2.840.222063.1.13.104.2.7.2.372589|38285 93350TYRrxbennyu for patient tzlr60629-3Qfatf NoteLNNARRATIVEFormatted C-CDA narrative [id number] Reyes RN[address]Oeaf[id number] ODYTSDPWN3109-03-17Z44:48:371.2.840.419223.1.72.3 .15|1.2.840.876952.1.13.104.2.7.2.727879_[id number] 21 Jazmyn Triana RN [facility] 2023-08-18 11:30:52 i2T/Xy3VWLqX5B0ith+mdD70vFdDRtwGNsAsZMoB DYIcy2tyG Ug4whvPWJFizArT4205-97-05Y79:30:52 Pt being discharge, called [facility] case management to inform of pt's dispo. Pt will go to hold-over. 46281-4Xruyo FkjsAF1984-36-11B80:32:57Nurse NoteTXT1.2.840.354088.1.13.104.2.7.2.780023|45927 23842IKGowzovnme for patient nqps39430-6Vxyxx NoteLNNARRATIVEFormatted C-CDA narrative ijwk633354761Izkvbok K Bartels RNUT[address] [id number]2024-04-05T11:32:571.2.840.808832.1.72.3 .15|1.2.840.334578.1.13.104.2.7.2.727879_[id number] 42 Sisi Reyes RN [facility] 2023-08-18 11:25:37 hB2mUQu0uphdNLW8X3JbikNHjkZZy6Z6R4d5z9YK 9X0qkFDoZ IEdV6mfDDkhvs3t1823-15-13S60:25:37 Suicide Risk - Assessment and PlanColumbia:1) Have you wished you were or could go to sleep and not wake up?: (P) Yes2) Have you had thoughts of killing yourself?: (P) Yes3) Have you been thinking about how you might kill yourself?: (P) Yes4) Suicidal ideation with some intent?: (P) No5) Have you worked out the details of the plan AND intend to follow through?: No6) Suicidal Behavior or preparation for suicide?: (P) NoColumbia Score:Suggested risk level: (P) ModerateSAFE-T:Current and past psychiatric diagnoses: (P) Mood DisorderPresenting symptoms: (P) Hopelessness or despairFamily history: (P) No family history of psychiatric illnessActivating Events: (P) None identifiedPrecipitants / stressors: (P) Perceived burden on othersProtective factors: (P) None identifiedAccess to Lethal Means:Does patient have access to a gun or access to guns?: (P) NoSpecific Questions of Thoughts, Plans, Intent:Frequency- how many times have you had these thought?: (P) Once a week2.Duration - When you have the thoughts, how long do they last?: (P) Fleeting, a few seconds or minutes3.Controllability - could/can you stop thinking about killing yourself or wanting to if you want to? "Is it easy, a little hard, very hard, or are you unable?": (P) Can control thoughts with little difficulty4.Deterrents - are there things, anyone or anything (family, adventist, pain of ) that have stopped you from wanting to or acting on thoughts of committing suicide?: (P) Deterrents probably stopped youReasons for ideation - What are the reasons you have for wanting to or kill yourself? Was it to end pain, stop the way you are feeling, or to get attention, or get revenge and reaction from others?: (P) Completely to get attention or reactionBehavior Assessment:1.Were there preparatory acts like buying pills, guns, giving things away, or writing suicide note?: (P) No2.Was an attempt aborted or self - interrupted?: (P) No3.Was an attempt interrupted by someone else?: (P) No4.Was there an actual attempt?: (P) No5.Is there non suicidal self injury? Cutting, biting, skin picking: (P) No7.Is there homicidal ideation: if so, describe: (P) NoStratification:High Suicide Risk Moderate Suicide Risk Low Suicide Risk?? Suicidal ideation with intent or intent with plan in past month (C-SSRS Suicidal Ideation #4 or #5)Or?? Suicidal behavior within past 3 months (C-SSRS Suicidal Behavior) ?? Suicidal ideation with method, WITHOUT plan, intent or behaviorin past month (C-SSRS Suicidal Ideation #3)Or?? Suicidal behavior more than 3 months ago (C-SSRS Suicidal Behavior Lifetime)Or?? Multiple risk factors and few protective factors ?? Wish to or Suicidal Ideation WITHOUT method, intent, plan or behavior (C-SSRS Suicidal Ideation #1 or #2)Or?? Modifiable risk factors and strong protective factorsOr? No reported history of Suicidal Ideation or BehaviorLocation / Risk:Inpatient / Moderate:Suicidal ideation with intent and a plan in the past month but has protective factors, OR Suicidal behavior more than 3 months ago OR suicidal ideation with intent or method, no plan but has multiple risk factors and few protective factors.a. Directly address suicide risk with patient and family .b. Develop Safety plan including counseling about restriction and removal of firearms, medications, means to hang oneself, large sharp objects, etc. See safety plan.c. Consider transfer to Inpatient Psychiatry Hospital/ Inpatient Psychiatry Consult if unable to develop a safety plan.d. If patient is not transferred, will arrange for patient to be seen by Pediatric provider within one week of discharge, and will also place referral to outpatient behavioral health resources.Continue [facility] Direct Observation Care for Suicidal Patient. 95194-7Wkngoftymp + Plan opsuAM3542-43-93T55:26:05Evaluation + Plan noteTXT1.2.840.054517.1.13.104.2.7.2.360620|55748 80003ECJihvlamqe for patient lgve29076-1TxvyVAQTHOMMGIMIvrlsxayq C-CDA narrative text[address] LdfmO[id number] JZTYBHLTO6665-80-06V87:26:051.2.840.734990.1.72.3 .15|1.2840.377098.1.13.104.2.7.2.727879_[id number] [address] [place] [address] 2023-08-18 10:44:28 CFHhPAlqD6vrCwC1TNcDsjluu1dd1OodHVEu+Suv PnmpHs31f XHSCHYki+PXiWMG3737-70-51T32:44:28 Suicide Risk - Assessment and PlanColumbia:1) Have you wished you were or could go to sleep and not wake up?: (P) Yes2) Have you had thoughts of killing yourself?: (P) Yes3) Have you been thinking about how you might kill yourself?: (P) Yes4) Suicidal ideation with some intent?: (P) No5) Have you worked out the details of the plan AND intend to follow through?: (P) No6) Suicidal Behavior or preparation for suicide?: (P) NoColumbia Score:Suggested risk level: (P) ModerateSAFE-T:Current and past psychiatric diagnoses: (P) Mood DisorderPresenting symptoms: (P) None;Hopelessness or despairFamily history: (P) No family history of psychiatric illnessActivating Events: (P) None identifiedPrecipitants / stressors: (P) Perceived burden on othersProtective factors: (P) None identifiedAccess to Lethal Means:Does patient have access to a gun or access to guns?: (P) NoSpecific Questions of Thoughts, Plans, Intent:Frequency- how many times have you had these thought?: (P) 2-5 times a week2.Duration - When you have the thoughts, how long do they last?: (P) Less than 1 hour/some of the time3.Controllability - could/can you stop thinking about killing yourself or wanting to if you want to? "Is it easy, a little hard, very hard, or are you unable?": (P) Can control thoughts with little difficulty4.Deterrents - are there things, anyone or anything (family, adventist, pain of ) that have stopped you from wanting to or acting on thoughts of committing suicide?: (P) Deterrents probably stopped youReasons for ideation - What are the reasons you have for wanting to or kill yourself? Was it to end pain, stop the way you are feeling, or to get attention, or get revenge and reaction from others?: (P) Completely to get attention or reactionBehavior Assessment:1.Were there preparatory acts like buying pills, guns, giving things away, or writing suicide note?: (P) No2.Was an attempt aborted or self - interrupted?: (P) No3.Was an attempt interrupted by someone else?: (P) No4.Was there an actual attempt?: (P) No5.Is there non suicidal self injury? Cutting, biting, skin picking: (P) No7.Is there homicidal ideation: if so, describe: (P) NoStratification:High Suicide Risk Moderate Suicide Risk Low Suicide Risk?? Suicidal ideation with intent or intent with plan in past month (C-SSRS Suicidal Ideation #4 or #5)Or?? Suicidal behavior within past 3 months (C-SSRS Suicidal Behavior) ?? Suicidal ideation with method, WITHOUT plan, intent or behaviorin past month (C-SSRS Suicidal Ideation #3)Or?? Suicidal behavior more than 3 months ago (C-SSRS Suicidal Behavior Lifetime)Or?? Multiple risk factors and few protective factors ?? Wish to or Suicidal Ideation WITHOUT method, intent, plan or behavior (C-SSRS Suicidal Ideation #1 or #2)Or?? Modifiable risk factors and strong protective factorsOr? No reported history of Suicidal Ideation or BehaviorLocation / Risk:Inpatient / Moderate:Suicidal ideation with intent and a plan in the past month but has protective factors, OR Suicidal behavior more than 3 months ago OR suicidal ideation with intent or method, no plan but has multiple risk factors and few protective factors.a. Directly address suicide risk with patient and family .b. Develop Safety plan including counseling about restriction and removal of firearms, medications, means to hang oneself, large sharp objects, etc. See safety plan.c. Consider transfer to Inpatient Psychiatry Hospital/ Inpatient Psychiatry Consult if unable to develop a safety plan.d. If patient is not transferred, will arrange for patient to be seen by Pediatric provider within one week of discharge, and will also place referral to outpatient behavioral health resources. 19451-8Xjhagbclur + Plan hxloQS9589-52-65W74:44:37Evaluation + Plan noteTXT1.2.840.658022.1.13.104.2.7.2.307583|05585 72699XLLlkhlmsnt for patient dwms80003-6YsqnQOYICTALXZCGerrcuhwe C-CDA narrative text[address] [id number]2024-04-05T10:44:371.2.840.016994.1.72.3 .15|1.2.840.654407.1.13.104.2.7.2.727879_[id number] [address] [place] [address] 2023-08-18 09:16:01 l9YK88EkqkkWPmkr3f6dB1dmbSEoM0XklHZk4/cE CHKJFk/EI aejEZPul2nkKV997896-29-00O62:16:01 Pt took pills in intermediate and then started to have chest pain. For attention he swallowed a screw, he states, so he could come here and be checked out. Pt states he has chest pain now. Is aaox4, ambulatory, do not look in any distress. 14421-7Ztsnl UmngRG1443-18-87G48:17:41Nurse NoteTXT1.2.840.864862.1.13.104.2.7.2.112475|12006 84111PJFwdivggwb for patient ctww29643-6Bgznz NoteLNNARRATIVEFormatted C-CDA narrative [id number]2024-04-05T09:17:411.2.840.689589.1.72.3 .15|1.2.840.308013.1.13.104.2.7.2.727879_[id number] 63 [facility] 2023-08-18 08:38:32 +F0U6Fzaedd5p2ecLqDWoEl+3l9vCooQIOA3nkhx lb52DW16M dXjN5kWZViUhsPP6519-66-80U02:38:32 Armaan Patricia is a 33 year old male presenting to ED coming [facility] holdover after swallowing a screw about 1 hour ago. Patient on SI hold in [facility]. Patient to room for further eval 24050-9Bakloleet department Triage xyueUP5575-36-84Y36:39:05[facility] Triage noteTXT1.2.840.292021.1.13.104.2.7.2.903437|72386 70937KAZrnnyhjfm for patient ydoj68025-9Xgufsxfih department NoteLNNARRATIVEFormatted C-CDA narrative pndi663115167Ktfbvniu L Holmes RN[id number]2024-04-05T08:39:051.2.840.055560.1.72.3 .15|1.2.840.928205.1.13.104.2.7.2.727879_[id number] 88 Leonor Walls RN [facility] 2023-08-18 08:32:00 +ThTAMmS8//W7k4OSX1BDBWwoba/CCm+pnEubxpP TzaSaX5xg nMGQQVGmICPWFwo4150-19-86Y36:32:00Associated Order(s): EKG-12 Lead ONCEPre-Procedure Diagnose(s): Suicide attempt by drug ingestion, initial encounter; Foreign body alimentary tract, initial encounter; Chest pain of uncertain etiologyPost-Procedure Diagnose(s): Suicide attempt by drug ingestion, initial encounter; Foreign body alimentary tract, initial encounter; Chest pain of uncertain etiology [facility] Emergency Department NotePatient Name: Armaan Ramirez MemonDate of : 1990 33 year old maleTreatment Room: 115/[facility]Medical Record Number: [id number] Care Physician: ANDRE DEPT OF CORRECTIONPatient Escorted by: Self [9]Mode of Arrival: [facility] [5]EMS Treatment Prior to ED Arrival:Travel and Exposure Screening:SymptomsDoes patient have any of these symptoms?: (not recorded)Exposure ScreeningHas patient had contact with someone with a communicable disease in the last month?: (not recorded)Diseases exposed to:: (not recorded)Is Patient ?: (not recorded)Exposure Date: (not recorded)Chief Complaint:Chief ComplaintPatient presents with Foreign Body"Swallowed a screw"History of Present Illness:33 yo male in [facility], with depression and schizophrenia, feeling suicidal, took a handful of "15 pills" he got from a cell neighbor (a "keep on person medication") and took those sometime last night, then developed chest pain, and this morning swallowed a screw from his bedframe. Brought to the ER for evaluation. Reports taking all his medications except zoloft (on haldol, benadryl, tegretol, "other stuff"). No cuts, no wounds. No vomiting. Had some trouble urinating this morning.Was seen here 08/11/23 for tegretol ingestion, admitted, cleared, and now returns. Prior history of multiple ingestions of pills.Denies avh at this time. Wants to kill himself.History provided by: PatientPast Medical History/Immunizations:Past Medical History:Diagnosis Date Epilepsy Hyperlipidemia Intentional self-harm by other specified means, sequela Recurrent seizures Unspecified disorder of nose and nasal sinusesTetanus received in last 5 years: YesChildhood immunizations: Wk-ca-mammIumbpnpwd:No Known AllergiesPast Social History:Tobacco UseHeavy SmokerSmokeless Tobacco: Never used smokeless tobacco.Past Surgical History:No past surgical history on file.Review of Systems:Review of SystemsConstitutional: Negative for chills, diaphoresis, fatigue and fever.HENT: Negative for congestion, rhinorrhea and sore throat.Eyes: Negative for visual disturbance.Respiratory: Negative for chest tightness, shortness of breath and wheezing.Cardiovascular: Positive for chest pain. Negative for palpitations and leg swelling.Gastrointestinal: Negative for abdominal pain, diarrhea, nausea and vomiting.Genitourinary: Positive for dysuria and difficulty urinating. Negative for frequency.Musculoskeletal: Negative for back pain, gait problem and neck stiffness.Skin: Negative for rash.Neurological: Negative for dizziness, seizures, syncope, weakness, numbness and headaches.Psychiatric/Behavioral: Positive for self-injury (ingestion) and suicidal ideas.Physical Exam:ED Triage Vitals [08/18/23 0839]Weight 89.4 kg (197 lb)Actual or estimatedHeightBP 122/83Pulse 75Resp 18Temp 36.7 ?C (98.1 ?F)Temp source OralSpO2 100 %Measured on Room airPhysical ExamVitals and nursing note reviewed.Constitutional:General: He is not in acute distress.Appearance: Normal appearance.HENT:Head: Normocephalic and atraumatic.Nose: Nose normal.Mouth/Throat:Mouth: Mucous membranes are moist.Pharynx: No oropharyngeal exudate or posterior oropharyngeal erythema.Eyes:General: No scleral icterus.Extraocular Movements: Extraocular movements intact.Pupils: Pupils are equal, round, and reactive to light.Neck:Comments: No wright, bruises, swelling, cutsCardiovascular:Rate and Rhythm: Normal rate and regular rhythm.Pulses: Normal pulses.Heart sounds: Normal heart sounds. No murmur heard.Pulmonary:Effort: Pulmonary effort is normal.Breath sounds: Normal breath sounds. No wheezing, rhonchi or rales.Abdominal:General: Bowel sounds are normal.Palpations: Abdomen is soft.Tenderness: There is no abdominal tenderness. There is no rebound.Musculoskeletal:General: No tenderness or deformity. Normal range of motion.Cervical back: Normal range of motion and neck supple. No tenderness.Right lower leg: No edema.Left lower leg: No edema.Lymphadenopathy:Cervical: No cervical adenopathy.Skin:General: Skin is warm.Capillary Refill: Capillary refill takes less than 2 seconds.Neurological:General: No focal deficit present.Mental Status: He is alert and oriented to person, place, and time.Cranial Nerves: No cranial nerve deficit.Sensory: No sensory deficit.Motor: No weakness.Psychiatric:Attention and Perception: Attention and perception normal.Mood and Affect: Affect is inappropriate. Affect is not labile, blunt, flat, angry or tearful.Speech: Speech normal.Behavior: Behavior is not agitated, slowed, aggressive, withdrawn, hyperactive or combative. Behavior is cooperative.Thought Content: Thought content is not paranoid or delusional. Thought content includes suicidal ideation. Thought content does not include homicidal ideation. Thought content does not include homicidal or suicidal (seems to be impulsive, trying to get pills, metallic objects, more gestures) plan.Cognition and Memory: Cognition and memory normal.Judgment: Judgment is impulsive and inappropriate.Comments: "I'm trying to kill myself"Inappropriate actions with ingestions of pills and foreign bodies.Radiology:No orders to displayLab Results:Lab ResultsCBC WITH DIFF - AbnormalResult Value Ref RangeWBC 5.00 4.20 - 10.70 10*3/?LRBC 5.85 (*) 4.26 - 5.52 10*6/?LHGB 11.2 (*) 12.2 - 16.4 g/dLHCT 36.5 (*) 38.4 - 49.3 %MCV 62.4 (*) 81.7 - 95.6 fLMCH 19.1 (*) 26.1 - 32.7 pgMCHC 30.7 (*) 31.2 - 35.0 g/dLRDW-SD 30.9 (*) 38.5 - 51.6 fLRDW-CV 14.3 12.1 - 15.4 %PLT 202 150 - 328 10*3/?LMPV 11.0 9.8 - 13.0 fLIPF % 4.2 1.2 - 10.7 %NRBC/100 WBC 0.0 0.0 - 10.0 /100 WBCsNRBC x10^3 <0.01 10*3/?LGRAN MAT (NEUT) % 48.8 %IMM GRAN % 0.00 %LYMPH % 37.8 %MONO % 10.0 %EOS % 2.8 %BASO % 0.6 %GRAN MAT x10^3(ANC) 2.44 1.99 - 6.95 10*3/uLIMM GRAN x10^3 <0.03 0.00 - 0.06 10*3/uLLYMPH x10^3 1.89 1.09 - 3.23 10*3/uLMONO x10^3 0.50 0.36 - 1.02 10*3/uLEOS x10^3 0.14 0.06 - 0.53 10*3/uLBASO x10^3 0.03 0.01 - 0.09 10*3/uLACETAMINOPHEN - AbnormalACETAMINOP <10.0 (*) 10.0 - 30.0 ug/mLLACTIC ACID WHOLE BLOOD - NormalLACTIC ACID 1.60 0.50 - 2.20 mmol/LCARBAMAZEPINE - NormalCARBAMAZE 5.9 4.0 - 12.0 ug/mLTROPONIN I - NormalTROPONIN I 0.002 <=0.034 ng/mLCOMP. METABOLIC PANEL (83792)NA 136 135 - 145 mmol/LK 4.1 3.5 - 5.0 mmol/LCL 102 98 - 108 mmol/LCO2 TOTAL 29 23 - 31 mmol/LAGAP 5 2 - 16BUN 16 7 - 23 mg/dLGLUCOSE 92 70 - 110 mg/dLCREATININE 0.72 0.60 - 1.25 mg/dLTOTAL BILI 0.3 0.1 - 1.1 mg/dLCALCIUM 9.0 8.6 - 10.6 mg/Hakeem PROTEIN 7.2 6.3 - 8.2 g/dLALBUMIN 4.2 3.5 - 5.0 g/dLALK PHOS 83 34 - 122 U/LALTv 13 5 - 50 U/LAST(SGOT) 22 13 - 40 U/LeGFR 124.5 mL/min/1.65y9IBBZYKGNKMLOOEFKDFZB <10 mg/LURINALYSISURINE DRUG (IMMUNOASSAY) - COMPREHENSIVE DRUG SCREEN W/O REFLEXEKG:If EKG completed, see Procedure Note.Orders and Treatments:Orders Placed This EncounterProcedures XR ABDOMEN ACUTE SERIES CBC WITH DIFF COMP. METABOLIC PANEL (91949) Lactic Acid Whole Blood Lactic Acid Whole Blood Carbamazepine Troponin I URINALYSIS URINE DRUG (IMMUNOASSAY) - COMPREHENSIVE DRUG SCREEN W/O REFLEX Acetaminophen SalicylateOrders Placed This EncounterMedications lactated ringers IV infusion 1,000 mL famotidine (PEPCID (PF)) injection 20 mgFirst Provider Eval:ED EventsDate/Time Event User Hiajizou09/05/24 0843 Medical Screening Begins SIMONE MALDONADO MD --08/18/23 0843 First Provider Evaluation SIMONE MALDONADO MD --ED COURSEED Course as of 08/18/23 1112Fri Aug 17 No metalic foreign body in the chest, or in the abdomen. [GR]0953 Non toxic tegretol level, in therapeutic range. [GR]ED Course User Index[GR] Simone Maldonado, MDDiagnosis/Impression as of 08/18/23 1112Suicide attempt by drug ingestion, initial encounterForeign body alimentary tract, initial encounterProcedures:EKG-12 Lead ONCEDate/Time: 08/18/2023 10:16 AMPerformed by: Simone Maldonado, MDAuthorized by: Simone Maldonado MDECG interpreted by ED Physician in the absence of a survey superintendent: yesPrevious ECG:Previous ECG: UnavailableInterpretation:Interpretation: normalRate:ECG rate: 73ECG rate assessment: normalRhythm:Rhythm: sinus rhythmEctopy:Ectopy: noneQRS:QRS axis: NormalQRS intervals: NormalQRS conduction: normalST segments:ST segments: NormalT waves:T waves: normalQ waves:Abnormal Q-waves: not presentMDM:Medical Decision MakingWill get EKG for chest pain, and for ingestion.Consider foreign body, imaging to see if there is a "screw" or not.Check CBC, CMP, UA, UDS, acetaminophen, salicylate, and carbamazepine level. No evident toxidrome at this timeLabs unremarkable, and tegretol level normal. Xray chest/abd series done.IF otherwise negative, can be returned to holdover, under continuous direct observation, and needs [facility] or inpatient psych with [facility].Amount and/or Complexity of Data ReviewedLabs: ordered. Decision-making details documented in ED Course.Radiology: ordered.ECG/medicine tests: ordered and independent interpretation performed. Decision-making details documented in ED Course.RiskPrescription drug management.Flowsheet Documentation:Scoring Tools:No data recordedDisposition/Condition:ED DispositionNoneDischarge Medications:Patient's MedicationsSTART taking these medicationsNo medications on fileCONTINUE taking these medications which have NOT CHANGEDALBUTEROL, REFILL, INHALE Inhale.CARBAMAZEPINE (TEGRETOL XR) 400 MG 12 HR TABLET Take 1 tablet by mouth.DEXTRAN 70/HYPROMELLOSE (GENTEAL TEARS MILD OPHTHALMIC) Place in each eye.ESTRADIOL 1 MG TABLET Take 1 tablet by mouth in the morning.FERROUS SULFATE 325 MG (65 MG IRON) TABLET Take 1 tablet by mouth every other day.HALOPERIDOL 2 MG TABLET Take 1 tablet by mouth in the morning and 1 tablet in the evening.HALOPERIDOL 5 MG TABLET Take 1 tablet by mouth in the morning and 1 tablet in the evening.OMEPRAZOLE 20 MG TBLD Take by mouth.START taking Modified Medications as PrescribedNo medications on fileSTOP taking these medicationsNo medications on fileFollow-up:Electronically signed by:Simone Maldonado MD08/18/23 1022 50143-5Jnstjzvjb Emergency department XzndDM5326-14-86Y61:22:32Physician Emergency department NoteTXT1.2.840.841450.1.13.104.2.7.2.326787|18799 87519RMOwojygzuz for patient tpad52342-9Ifbfgmkir department NoteLNNARRATIVEFormatted C-CDA narrative textEMCARE EMERGENCY PHYSICIAN STAFFEMCARE EMERGENCY PHYSICIAN STAFF[address] Jd[id number] TPYLEXDDN8597-48-67F04:22:321.2.840.209190.1.72.3 .15|1.2.840.140233.1.13.104.2.7.2.727879_[id number] 11 [facility] 2023-08-18 08:32:00 Mvlu/P4P5Y6zyJZIagkHB8l54mv+t7sLecMfkMZ8 fKaehv0o9 ncaP6pfRy6/X9Aj9401-23-53D42:32:00 [facility] ED Transfer of Care Note.Off-going Physician:Sundeep of Transfer of Care: 11:10 AMSummary: Armaan Patricia is a 33 year old male presenting with chief complaint of ingestion of screw.Pending prior to disposition: ImagingCurrent interventions:Medicationslactated ringers IV infusion 1,000 mL (0 mL IV Infusion Stopped 08/18/23 1111)famotidine (PEPCID (PF)) injection 20 mg (20 mg Slow IV Push Given 08/18/23 0926)Results:Labs ReviewedCBC WITH DIFF - Abnormal; Notable for the following components:Result ValueRBC 5.85 (*)HGB 11.2 (*)HCT 36.5 (*)MCV 62.4 (*)MCH 19.1 (*)MCHC 30.7 (*)RDW-SD 30.9 (*)All other components within normal limitsURINALYSIS - Abnormal; Notable for the following components:MUCOUS Slight (*)All other components within normal limitsACETAMINOPHEN - Abnormal; Notable for the following components:ACETAMINOP <10.0 (*)All other components within normal limitsNarrative:Toxic: Greater than 200 ug/mL @ 4 hour post ingestion or greater than 50 ug/mL @ 12 hour post ingestionLACTIC ACID WHOLE BLOOD - NormalCARBAMAZEPINE - NormalNarrative:Toxic Range: Greater than 12 ug/mLTROPONIN I - NormalNarrative:Reference (Normal) Range (defined by the 99th percentile reference limit):<= 0.034 ng/mLNote: Cardiac troponin begins to rise 3-4 hours after the onset of ischemia. Repeat in 4-6 hours if the sample was drawn within 3-4 hours of the onset of the symptom and found normal.Diagnosis of myocardial injury is made with acute changes in cTn concentrations with at least one serial sample above the 99th percentile upper reference limit (URL), taken together with the patient's clinical presentation.Biotin has been reported to cause a negative bias, interpret results relative to patient's use of biotin.URINE DRUG (IMMUNOASSAY) - COMPREHENSIVE DRUG SCREEN W/O REFLEX - NormalNarrative:Urine Drug Cutoff RangesCocaine: 150 ng/mLBenzodiazepines: 200 ng/mLMethadone: 300 ng/mLAmphetamine: 1,000 ng/mLOpiates: 300 ng/mLCannabinoids: 50 ng/mLPhencyclidine: 25 ng/mLBarbiturates: 200 ng/mLThe results are to be used only for medical (i.e., treatment) purposes. Unconfirmed screening results must not be used for non-medical purposes (e.g., employment testing, legal testing).COMP. METABOLIC PANEL (90220)SALICYLATENarrative:Therapeutic Range:Analgesic and Antipyretic Use 20-100 mg/LAnti-Inflammatory Use 100-250 mg/LToxic Range: Greater than 300 mg/LXR ABDOMEN ACUTE SERIESFinal ResultNonobstructive bowel gas pattern.Constipation.Possible congestive foreign body in the left upper quadrant.Ordering physician: SIMONE TIJERINA [id number] Additional Notes:ED Course as of 08/18/23 1121Fri Aug 17 No metalic foreign body in the chest, or in the abdomen. [GR]0953 Non toxic tegretol level, in therapeutic range. [GR]ED Course User Index[GR] Simone Maldonado, MDDiagnosis/Impression as of 08/18/23 1121Suicide attempt by drug ingestion, initial encounterForeign body alimentary tract, initial encounterMedical Decision MakingPrimary impression: reported ingestion of metallic screw without XR findings of metallic foreign bodySecondary impression: non-toxic ingestion of routine medications; suicidalDifferential Diagnoses, including but not limited to: foreign body ingestion, suicidal, depressionProblems Addressed:Foreign body alimentary tract, initial encounter:Details: No metallic foreign body identified. Questionable LUQ non-metallic foreign body in GI tract. No intervention indication. No findings suggestive of perforation.Suicide attempt by drug ingestion, initial encounter: self-limited or minor problemDetails: Non-toxicAmount and/or Complexity of Data ReviewedIndependent Historian:Details: selfLabs: ordered. Decision-making details documented in ED Course.Radiology: ordered. Decision-making details documented in ED Course.Discussion of management or test interpretation with external provider(s): N/aRiskPrescription drug management.Risk Details: Unremarkable OBS in ED. NO findings that require acute hospitalization. [facility]. Return for [facility] for ongoing direct observation / suicidal mgmt.[facility]: [facility]: TDCJED DispositionED DispositionDisch - TDCJConditionStableComment--Sonali Gurrola MD08/18/23 1121 86462-1Lnsvretos Emergency department ZfkvGF3549-10-88Z70:21:42Physician Emergency department NoteTXT1.2.840.069703.1.13.104.2.7.2.894869|29708 03197WMGsjozjrzk for patient fucw20811-9Uruzeslmo department NoteLNNARRATIVEFormatted C-CDA narrative text[id number]2024-04-05T11:21:421.2.840.609949.1.72.3 .15|1.2.840.583040.1.13.104.2.7.2.727879_[id number] [address] [place] [address] 2023-08-18 08:25:22 00pBd3WjgASFO7Aey0L923FnsR1Zn3j7zLftN3VD B6WxcJbfC TVxfLpLlKBthe9b3520-06-37L67:25:22 Timed out to ED. 50471-4Rrjmn JqrxJA1703-62-72E40:25:33Nurse NoteTXT1.2.840.706675.1.13.104.2.7.2.893527|76769 61716JSCdikcbcgp for patient wzrv00199-5Srhkx NoteLNNARRATIVEFormatted C-CDA narrative [id number] Reyes RNUT[id number]2024-04-05T08:25:331.2.840.505849.1.72.3 .15|1.2.840.875913.1.13.104.2.7.2.727879_[id number] 43 Jazmyn Triana RN [facility] 2023-08-18 08:06:47 hrG+Lc1GXutsOds5oylEF7A9xNtryRdg55xbBd8o kxJAMopu4 0w/K7fz5e9zSNb92536-77-50S80:06:47 0700 Received report from off shift nurse. Pt A&OX3, Respirations spontaneous, denies pain, and no s/s of distress noted. Remaining in H/O awaiting for transportation to . Pt Plan of care discussed and pt verbalized understanding.0753 pt c/o chest discomfort and made nurse aware he "dry swallowed a spoon". Vital signs done and charge nurse bringing pt to ER for f/u, and report given to Jenni- charge nurse from ER. 21810-1Dexzt KexgUP7660-63-84B45:10:35Nurse NoteTXT1.2.840.466878.1.13.104.2.7.2.273929|94415 33023TQKasugshjw for patient tlex14415-9Oouef NoteLNNARRATIVEFormatted C-CDA narrative textUT05 [address] StreetSr[id number] SZGMUNMBR1891-71-69D67:10:351.2.840.890847.1.72.3 .15|1.2.840.520645.1.13.104.2.7.2.727879_[id number] 49 [facility] 2023-08-17 21:49:51 LyirEftlcNa+QbbYT2j4/FTyGu/2kbqnviLgW67e soYI1zJb2 kFumW8Yx+o/uGxW6878-29-47R55:49:51 Received patient from ongoing RN, Patient is stable with no s/s of acute distress, Resp even and unlabored, denies any pain/acute distress at this time. POC reviewed with patient and verbalized understanding,Pt is on suicide precaution with 1:1 observation by a [facility] officer. Pt has a bed in 4, awaiting transportation to [facility]. will continue to monitor. 82727-9Vuaja TgmwHG1749-11-21A76:50:36Nurse NoteTXT1.2.840.226001.1.13.104.2.7.2.591879|18546 10053IOZhltufdwz for patient doru65610-7Kyrlv NoteLNNARRATIVEFormatted C-CDA narrative [id number] M Nnane RN[id number]OS[facility] SOUTH PHILADELPHIAUZIXLRXRB2084-06-04P98:50:361.2.840.164472.1.72.3 .15|1.2.840.579197.1.13.104.2.7.2.727879_[id number] 77 Mari Up RN [facility] 2023-08-17 12:18:37 /sM89f0UjF7ETDzLemWYVeKqTazh3hZ8WedUIrnt u95JJrsWA TbStBEff/iEGQyZ5100-81-49Y28:18:37 Pt received from slot shift manager nurse post inpatient care hx of suicide attempt. Pt is on suicide precaution with 1:1 observation by a [facility] officer. Pt has in a bed in , awaiting transportation to [facility]. 80960-4Uhwxq OtolAM4885-69-72R12:20:40Nurse NoteTXT1.2.840.142759.1.13.104.2.7.2.593719|56897 42437ZVScgrlpjco for patient xirh37264-5Kghhv NoteLNNARRATIVEFormatted C-CDA narrative hlgu815325826Slbqvs Onwukwe [id number] ARGUELLESNLVDXLTIS4466-59-26G79:20:401.2.840.427640.1.72.3 .15|1.2.840.901024.1.13.104.2.7.2.727879_[id number] 08 Favour Rossana [facility] 2023-08-16 19:00:00 HKSvT+NqG7TFI/dmM9/a8PFK+hh0pWSKH7YEfj+F XYEZwucwy xWnmp73TiPQF+9e1847-33-55M79:00:00 Received the patient from off going nurse. Pt is A&Ox3.Respirations are unlabored.Pt is scheduled for CDO 1:1;J4 BED AVAILABLE . Pt able to voice concerns and needs. 46003-8Laslm UdjhFX1355-74-16H26:01:34Nurse NoteTXT1.2.840.658194.1.13.104.2.7.2.570552|52268 80396NAOjxpalrpi for patient cuzz98631-4Xqhgq NoteLNNARRATIVEFormatted C-CDA narrative [id number] Smith [id number] ARGUELLESUHHUSLQGT1064-15-85B56:01:341.2.840.573195.1.72.3 .15|1.2.840.150055.1.13.104.2.7.2.727879_[id number] 51 An Guerra [employer] [facility] 2023-08-16 11:26:05 GWS9K6VjWJWyya0idCGzPuIOdKNyBeJOwEVM867I DmPU8rdmO QtViAVhAKcR4UUx6170-30-45Q91:26:05 Pt received from inpatient unit, s/p suicide attempt. Pt is on suicide precaution with 1:1 observation by a [facility] officer. 55027-5Wnouq TyqlSM1570-03-17T89:30:15Nurse NoteTXT1.2.840.790068.1.13.104.2.7.2.035341|76225 69279HKZegkajiam for patient txbm09267-2Iwmnc NoteLNNARRATIVEFormatted C-CDA narrative textUT[id number] HOS[facility]ITAL [facility]OUTH PHILADELPHIAUFUUBLTQM4774-75-19J40:30:151.2.840.128661.1.72.3 .15|1.2.840.566048.1.13.104.2.7.2.727879_[id number] 31 [facility] 2023-08-16 10:11:40 FzIfGzeEe+q4t7IRF06PvKRn8GZcgx8Qm+CANRZf ZMcazV8SS H4cWJUFfHANVNwP1039-30-42X17:11:40 Problem: Suicide, Risk ofGoal: Absence of self-harm08/16/2023 1011 by Ifrah Smith RNOutcome: Progressing as expected08/16/2023 0937 by Ifrah Smith RNOutcome: Progressing as expectedProblem: Falls, Risk ofGoal: Absence of falls08/16/2023 1011 by Ifrah Smith RNOutcome: Progressing as expected08/16/2023 0937 by Ifrah Smith RNOutcome: Progressing as expectedProblem: Discharge PlanningGoal: Adequate for discharge08/16/2023 1011 by Ifrah Smith RNOutcome: Progressing as expected08/16/2023 0937 by Ifrah Smith RNOutcome: Progressing as expectedGoal: Effective communication08/16/2023 1011 by Ifrah Smith RNOutcome: Progressing as expected08/16/2023 0937 by Ifrah Smith RNOutcome: Progressing as expectedProblem: PainGoal: Control of pain at or below patient's documented comfort goal08/16/2023 1011 by Ifrah Smith RNOutcome: Progressing as expected08/16/2023 0937 by Ifrah Smith RNOutcome: Progressing as expectedGoal: Reduction in pain sensation08/16/2023 1011 by Ifrah Smith RNOutcome: Progressing as expected08/16/2023 0937 by Ifrah Smith RNOutcome: Progressing as expected 49411-8Cxom of care ghyuMB4420-67-05C03:11:47Plan of care noteTXT1.2.840.490855.1.13.104.2.7.2.714313|78698 54789FFNilleygfx for patient cbfj41878-1OnrzNEKIFWDEUPTBnhjibisq C-CDA narrative [id number] Joy RN[address]PkpzIjcrgjhioKpbntimseGTLF7383488527ALCCWUPXWWPSX WUQHASHKF1534-69-07Z02:11:471.2.840.840221.1.72.3 .15|1.2.840.619585.1.13.104.2.7.2.727879_[id number] Jil Smith RN [facility] 2023-08-16 09:37:50 Aii0riUBBl0oNVl7sg4CgtAaj0pugk+3z2M/ucRY RXT5tgzgU cWjKsf9+73ByfMq6654-98-82D17:37:50 Problem: Suicide, Risk ofGoal: Absence of self-harmOutcome: Progressing as expectedProblem: Falls, Risk ofGoal: Absence of fallsOutcome: Progressing as expectedProblem: Discharge PlanningGoal: Adequate for dischargeOutcome: Progressing as expectedGoal: Effective communicationOutcome: Progressing as expectedProblem: PainGoal: Control of pain at or below patient's documented comfort goalOutcome: Progressing as expectedGoal: Reduction in pain sensationOutcome: Progressing as expected 73866-2Kuox of care jxdcVN3070-64-71O02:37:55Plan of care noteTXT1.2.840.341268.1.13.104.2.7.2.432066|15261 63326IGYpljwoufc for patient lqdw06986-8VaeaODAQRJEJBNVZvmmccnmr C-CDA narrative text[id number]2024-04-03T09:37:551.2.840.369341.1.72.3 .15|1.2.840.083614.1.13.104.2.7.2.727879_[id number] [address] [place] [address] 2023-08-16 09:14:56 nwYmt+Y4Ruz9k/Bj7fJCaPkLs3+yuJsb83ilkcH3 M9zv+pY8Z U00KJZciBOmMQUJ1609-00-42C23:14:56 Problem: Suicide, Risk ofGoal: Absence of self-harmOutcome: Progressing as expectedProblem: Falls, Risk ofGoal: Absence of fallsOutcome: Progressing as expectedProblem: Discharge PlanningGoal: Adequate for dischargeOutcome: Progressing as expectedGoal: Effective communicationOutcome: Progressing as expectedProblem: PainGoal: Control of pain at or below patient's documented comfort goalOutcome: Progressing as expectedGoal: Reduction in pain sensationOutcome: Progressing as expected 09086-0Xwck of care kuutSL5968-62-63A71:14:59Plan of care noteTXT1.2.840.591100.1.13.104.2.7.2.695187|09719 79702QDUvexujdvb for patient linf34092-2FztgHYEHPCMHFBDYhrzyskug C-CDA narrative text[id number]2024-04-03T09:14:591.2.840.184321.1.72.3 .15|1.2.840.935251.1.13.104.2.7.2.727879_[id number] 45 [facility] 2023-08-16 09:00:14 8+roS8Toecb9zmR+zz8YIMZvWMXIZJqaQ1/b+Vxs YaXh2A8Cx smY4/eP8Cpg+Tvl3725-08-75R92:00:14 Report given to [facility] RN, Pt to go to [facility] to wait for transportation to crisis management. 12285-7Mzfbn PcqhZU5201-68-45D89:00:54Nurse NoteTXT1.2.840.836549.1.13.104.2.7.2.798942|61044 26926OOLctrlepjt for patient yadk08904-0Xcpdm NoteLNNARRATIVEFormatted C-CDA narrative [id number] J Moreno LUCIO[id number]TH PHILADELPHIAODHVBYDON9729-57-56U31:00:541.2.840.351754.1.72.3 .15|1.2.840.699213.1.13.104.2.7.2.727879_[id number] 64 Griffin Matias RN [facility] 2023-08-16 04:27:26 2Vr4UuWm5vhOTOivMYkIhPShdVqQBh6pluirWxNI WS+gU2+hl 2ByYlbRLzPCPeej3262-36-03O18:27:26 Problem: Suicide, Risk ofGoal: Absence of self-harmOutcome: Progressing as expectedProblem: Falls, Risk ofGoal: Absence of fallsOutcome: Progressing as expectedProblem: Discharge PlanningGoal: Adequate for dischargeOutcome: Progressing as expectedGoal: Effective communicationOutcome: Progressing as expectedProblem: PainGoal: Control of pain at or below patient's documented comfort goalOutcome: Progressing as expectedGoal: Reduction in pain sensationOutcome: Progressing as expectedProblem: PainGoal: Reduction in pain sensationOutcome: Progressing as expected 94878-4Mbho of care aibbTR6708-65-22X41:27:32Plan of care noteTXT1.2.840.035741.1.13.104.2.7.2.384846|63662 47351LZFpksfdjyg for patient kbjf50819-1NsffBZYOGATNLGJNgbdlxpim C-CDA narrative xvjq712073329Fdxlfzy O Kareem RN[id number]2024-04-03T04:27:321.2.840.076450.1.72.3 .15|1.2.840.811035.1.13.104.2.7.2.727879_[id number] 80 Oscarel Carley ScottJohnny RN [facility] 2023-08-15 14:53:30 omUP4NhXAtrQzoEnPAqhmwkjp9lTdjjSUtefDd3l 3JxLg8GTH 2QYE0BwVtxod1+N2859-31-60J41:53:30 Attempted to give report to staff report. Informed that there is no room on . extrusion die repair manager made aware 93295-8Abbkm EdenKG8074-14-13N89:57:30Nurse NoteTXT1.2.840.572062.1.13.104.2.7.2.032188|49160 74514AONotzbquly for patient fkvd55846-6Hoviy NoteLNNARRATIVEFormatted C-CDA narrative woui115412200Pfgihrqzb A [place] RN[id number]2024-04-02T14:57:301.2.840.474206.1.72.3 .15|1.2.840.587706.1.13.104.2.7.2.727879_[id number] 31 Suni Swan RN [facility] 2023-08-15 10:30:15 7xnSt0Titzj5xuTTtw6ElFU09nPjhcb3+p4ODDVX cehq44lIe xgN7MiXn+vX9gIH8821-63-46L77:30:15 Problem: Suicide, Risk ofGoal: Absence of self-harmOutcome: Progressing as expectedProblem: Falls, Risk ofGoal: Absence of fallsOutcome: Progressing as expectedProblem: Discharge PlanningGoal: Adequate for dischargeOutcome: Progressing as expectedGoal: Effective communicationOutcome: Progressing as expectedProblem: PainGoal: Control of pain at or below patient's documented comfort goalOutcome: Progressing as expectedGoal: Reduction in pain sensationOutcome: Progressing as expected 33027-7Sttu of care ozglWX2348-53-63Q74:30:20Plan of care noteTXT1.2.840.775678.1.13.104.2.7.2.782927|12653 22820FNWaptgkptq for patient iugp25046-3UsmpFVMUTODAMTCBnymmnfyc C-CDA narrative [id number] HOS[facility] S[facility]TH PHILADELPHIATYUCAHTMU5834-86-07S32:30:201.2.840.084057.1.72.3 .15|1.2.840.651135.1.13.104.2.7.2.727879_[id number] [address] [place] [address] 2023-08-15 03:58:11 1KEn9q/noGasAEOGxuW1vLEq/zk8RLbG76/kXLUf H/xmAw9+O ALTWG3ySyo/7h6m4093-96-07X06:58:11 Problem: Suicide, Risk ofGoal: Absence of self-harmOutcome: Progressing as expectedProblem: Falls, Risk ofGoal: Absence of fallsOutcome: Progressing as expectedProblem: Discharge PlanningGoal: Adequate for dischargeOutcome: Progressing as expectedGoal: Effective communicationOutcome: Progressing as expectedProblem: Discharge PlanningGoal: Effective communicationOutcome: Progressing as expectedProblem: PainGoal: Control of pain at or below patient's documented comfort goalOutcome: Progressing as expectedGoal: Reduction in pain sensationOutcome: Progressing as expected 02148-8Pdiv of care wblzNF6358-77-39J35:58:17Plan of care noteTXT1.2.840.046884.1.13.104.2.7.2.920529|13951 44577VTStitxsijc for patient wfax48617-0ZyraBIKPPHGVLVGWncnnqvuw C-CDA narrative text[id number]2024-04-02T03:58:171.2.840.665119.1.72.3 .15|1.2.840.041470.1.13.104.2.7.2.727879_[id number] 50 [facility] 2023-08-14 09:04:23 pH0aNm5vQNqROLZlY1EiTpq16S6lwF/MD5atmH8J 9PzOcba4f gVtTr6eHI1H7WOx2135-15-81F67:04:23 Problem: Suicide, Risk ofGoal: Absence of self-harmOutcome: Progressing as expectedProblem: Falls, Risk ofGoal: Absence of fallsOutcome: Progressing as expectedProblem: Discharge PlanningGoal: Adequate for dischargeOutcome: Progressing as expectedGoal: Effective communicationOutcome: Progressing as expectedProblem: PainGoal: Control of pain at or below patient's documented comfort goalOutcome: Progressing as expectedGoal: Reduction in pain sensationOutcome: Progressing as expected 99889-3Nggw of care widpOQ8691-94-88I49:04:29Plan of care noteTXT1.2.840.740862.1.13.104.2.7.2.747620|53359 82143BAFcapwcjsm for patient mmua97562-0AdkqFUVPFECNXXTLrfsvhlbz C-CDA narrative [address] [id number]2024-04-01T09:04:291.2.840.341495.1.72.3 .15|1.2.840.0[id number] 17 [facility] 2023-08-14 04:31:50 8w5fW925EbWE0uHr8ZzRTdzQykXpAgWWhi2mYXpr US3MJPwPu Iax3aPvJh/W5kHZ9861-97-17V42:31:50 Problem: Suicide, Risk ofGoal: Absence of self-harmOutcome: Progressing as expectedProblem: Falls, Risk ofGoal: Absence of fallsOutcome: Progressing as expectedProblem: Discharge PlanningGoal: Adequate for dischargeOutcome: Progressing as expectedGoal: Effective communicationOutcome: Progressing as expectedProblem: PainGoal: Control of pain at or below patient's documented comfort goalOutcome: Progressing as expectedGoal: Reduction in pain sensationOutcome: Progressing as expectedProblem: PainGoal: Reduction in pain sensationOutcome: Progressing as expected 40946-5Dgec of care dwivFY7715-61-79I95:31:57Plan of care noteTXT1.2.840.918952.1.13.104.2.7.2.381216|20868 31011YKYzzgecgyv for patient lyiz59127-0AcxhPOLISVHXQZVEbirdfpok C-CDA narrative textUT[address] StreetO[id number] PXZXSXJJQ5424-77-25N36:31:571.2.840.828638.1.72.3 .15|1.2.840.874785.1.13.104.2.7.2.727879_[id number] [facility] 2023-08-13 08:40:00 9YLB6/JXJ5e7HmfiwTxy27VOJerVH9YqSl8AdVVb DudUkT5Uk Mr3kbZYndtlu/B64786-10-61W55:40:00 Problem: Suicide, Risk ofGoal: Absence of self-harmOutcome: Progressing as expectedProblem: Falls, Risk ofGoal: Absence of fallsOutcome: Progressing as expectedProblem: Discharge PlanningGoal: Adequate for dischargeOutcome: Progressing as expectedGoal: Effective communicationOutcome: Progressing as expectedProblem: PainGoal: Control of pain at or below patient's documented comfort goalOutcome: Progressing as expectedGoal: Reduction in pain sensationOutcome: Progressing as expected 09038-5Jlxj of care jqsnOX6973-72-46F14:46:06Plan of care noteTXT1.2.840.831058.1.13.104.2.7.2.055705|29064 73851SLKloksawms for patient yyql26703-3XaanXVMEPQHQLIIEhvyfgyjq C-CDA narrative text41 Flores [id number] HOSPITAL SOUTH PHILADELPHIATWCXIEFQR8341-01-04D66:46:061.2.840.346207.1.72.3 .15|1.2.840.197671.1.13.104.2.7.2.727879_[id number] [address] [place] [address] 2023-08-13 01:53:45 iUQgr191zQw1PKBZkXiQ49TRjwLoJBu+QpnnPngt kcYPwys6S vYGpdKzxju9zRct7956-21-35O08:53:45 Problem: Suicide, Risk ofGoal: Absence of self-harmOutcome: Progressing as expectedProblem: Falls, Risk ofGoal: Absence of fallsOutcome: Progressing as expectedProblem: Discharge PlanningGoal: Adequate for dischargeOutcome: Progressing as expectedGoal: Effective communicationOutcome: Progressing as expectedProblem: PainGoal: Control of pain at or below patient's documented comfort goalOutcome: Progressing as expectedGoal: Reduction in pain sensationOutcome: Progressing as expected 80152-7Xozv of care euauUG7482-93-74B84:53:52Plan of care noteTXT1.2.840.959779.1.13.104.2.7.2.105716|19597 51162VPTsdpnlrff for patient pudr94623-3ZjofCXFBWTDHEMTXflynhfnn C-CDA narrative text61 [address] StreetZib[id number] GOCUBYIUF8485-43-72B03:53:521.2.840.715302.1.72.3 .15|1.2.840.551529.1.13.104.2.7.2.727879_[id number] [address] [place] [address] 2023-08-12 20:52:00 WX0ngPQemyw1wiXehG5p4p3Hch+VlmdfTG29xNMJ QQsv7rcTg gxnTGft2N63Q9E+6893-98-28K22:52:00 Patient stated that he supposed to get scheduled dose of HALDOL with Benedryl but at this time, Benedryl order has been d/c"d MD communications coordinator paged and Benedryl order was put in for him. He was also asking for Carbamazepine, when notified MD about his request doctor clarified that he verbalized at the time of his admission that he swallowed 17 pills of Carbamazepine, in order to be putting back on this medication, lab result must shows that his Tegretol level is not toxic. 84418-2Jwcyzbqjg department QavkVH9394-94-54H94:18:37Emergen department NoteTXT1.2.840.494471.1.13.104.2.7.2.542346|39147 52127MEKwcxyzyfl for patient pord74165-1BzkjZCVQEFHBUPJYcykofezp C-CDA narrative text[address] QtosItixkzdlnZggwupvgzBYTK3560678746TJUJFIOTMJQKP DOUHTXBBT8148-45-18L41:18:371.2.840.107747.1.72.3 .15|1.2.840.859107.1.13.104.2.7.2.727879_[id number] [address] [place] [address] 2023-08-12 16:44:00 Rk7iCzZXz+gHu5wpG9MSzzKIQeGr3zJjANa1TK4y JiFzcm65W iaHiObjuQHbw42T7465-61-51A33:44:00 TOPIC/LEARNING NEEDS FOR WHEAT SHIPPER INTERDISCIPLINARY PATIENT-FAMILY TEACHING NOTECARE MANAGEMENT SERVICES TRANSPORTATIONLearner:P Learner: PReadiness to Learn: Y Readiness to Learn: YMethod:V Method: VOutcomes: V,T Outcomes: V, TSee Narrative Notes: CN, GP4 See Narrative Notes: no restrictionsHOSPICE DMELearner: Learner:Readiness to Learn: Readiness to Learn:Method: Method:Outcomes: Outcomes:See Narrative Notes: See Narrative Notes:UNIT MEDICATION POLICY PT/OT/SPEECHLearner: Learner:PReadiness to Learn: Readiness to Learn:YMethod: Method:VOutcomes: Outcomes:V,TSee Narrative Notes: See Narrative Notes:RESOURCES/CARE ALTERNATIVESLearner:Readiness to LearnMethod:Outcomes:See Narrative Notes:Please use the following codes where appropriateLEARNER READINESS TO LEARN METHOD OUTCOMESP=Patient Y=Yes V=Verbal Instruction T=Teach BackF=Family N= No W=Written Material V=Verbal UnderstandingO=Other if No, indicate barriers: AV=Audio/Video D=Demonstrated SkillsPL= Physical Limitations O=Other *N=No Evidence of LearningC=Culture *NR-Not ReceptiveCL=Cognitive Limitations *R=Needs ReinforcementD=Desire and MotivationE=EmotionalS=SightH=HearingL=LanguageAl icia Zahra, DNP, OIL BURNER REPAIRER, PHARMACY TECHNICIAN INFUSION-C, CMSRNTDCJ Care ManagementThe [facility] at [address] I Office [address] [place] [id number] [phone] I Pager [phone] I Email [email or web address] of care omgdZS5140-42-66B67:49:23Plan of care noteTXT1.2.840.168655.1.13.104.2.7.2.257548|39144 70927UPPdsrctvzy for patient tphd64203-8IlxrCPPSFBZBOZBCrvozfmoi C-CDA narrative textUT48 Reed [id number]2024-03-31T13:49:231.2.840.963575.1.72.3 .15|1.2.840.861642.1.13.104.2.7.2.727879_[id number] 93 [facility] 2023-08-12 16:30:00 VFSRDFWkpPK6CR0/XQ9kKTQmL4urKeVW11AEUq0j kZ8l4Djhi hx89HM3AU3aYjw57380-68-71V96:30:00 At 0926 PCT who was sitting on patient came into nursing station stating patient swallowed a metal object. Patient became agitated and continued to deny the accusations. ICS was called. [employer] officers stripped patient down and searched him, nothing was found on patient or on the scan. Patient stated to nurse that he was trying to smell his breath because he had not brushed his teeth today. Dr. Kiran made aware of same. 52177-1Epjyb XosqND2367-16-08Q47:19:46Nurse NoteTXT1.2.840.925180.1.13.104.2.7.2.678541|83118 86694UOJtctgtfai for patient iqbh66550-6Fgcyp NoteLNNARRATIVEFormatted C-CDA narrative [id number] Meng [id number]2024-03-30T17:19:461.2.840.317211.1.72.3 .15|1.2.840.354934.1.13.104.2.7.2.727879_[id number] 76 Delmi Meng [facility] 2023-08-12 12:46:15 1D1SMweyFLEO7f20enGz3JqhPSn9m0fbl2FQs8p0 T4jsSklGK ScaJB9MQNwgtPt88329-18-64M58:46:15 Problem: Suicide, Risk ofGoal: Absence of self-harm08/12/2023 1246 by Delmi Pires RNOutcome: Progressing as expected08/12/2023 1246 by Delmi Pires RNOutcome: Progressing as expected08/12/2023 1246 by Delmi Pires RNOutcome: Progressing as expectedProblem: Falls, Risk ofGoal: Absence of falls08/12/2023 1246 by Delmi Pires RNOutcome: Progressing as expected08/12/2023 1246 by Delmi Pires RNOutcome: Progressing as expected08/12/2023 1246 by Delmi Pires RNOutcome: Progressing as expectedProblem: Discharge PlanningGoal: Adequate for discharge08/12/2023 1246 by Delmi Pires RNOutcome: Progressing as expected08/12/2023 1246 by Delmi Pires RNOutcome: Progressing as expected08/12/2023 1246 by Delmi Pires RNOutcome: Progressing as expectedGoal: Effective communication08/12/2023 1246 by Delmi Pires RNOutcome: Progressing as expected08/12/2023 1246 by Delmi Pires RNOutcome: Progressing as expected08/12/2023 1246 by Delmi Pires RNOutcome: Progressing as expectedProblem: PainGoal: Control of pain at or below patient's documented comfort goal08/12/2023 1246 by Delmi Pires RNOutcome: Progressing as expected08/12/2023 1246 by Delmi Pires RNOutcome: Progressing as expected08/12/2023 1246 by Delmi Pires RNOutcome: Progressing as expectedGoal: Reduction in pain sensation08/12/2023 1246 by Delmi Pires RNOutcome: Progressing as expected08/12/2023 1246 by Delmi Pires RNOutcome: Progressing as expected08/12/2023 1246 by Delmi Pires RNOutcome: Progressing as expected 70394-3Oeta of care nlffUL6614-78-67R13:47:26Plan of care noteTXT1.2.840.627948.1.13.104.2.7.2.595458|31967 15222LBCzxhulrxe for patient rgdf83212-0AiiiMIAPFQYSLWIFrkjkupen C-CDA narrative [id number]2024-03-30T12:47:261.2.840.298912.1.72.3 .15|1.2.840.759142.1.13.104.2.7.2.727879_[id number] 43 [facility] 2023-08-12 03:55:00 rz2RXrdolL1hGDx4b7icRfyV1q0YQoSjbS4MYTtF tqcJqMcju CInaqPD/aYFwuVg0982-36-72X25:55:00 Received pt from ER, initially without report being called. Pt was walked up by several Officers and Lieutenant. Pt is suicide risk, everything removed from the pt's room with only a mattress on the floor. Pt has on paper scrubs. Pt has a R AC PIV. He is stable and very figgity. Will continue to monitor. 65005-3Mhaek LcktST8996-98-82T45:04:01Nurse NoteTXT1.2.840.447354.1.13.104.2.7.2.124430|48498 90690TXVasxhylkn for patient npdm14319-6Oeiqg NoteLNNARRATIVEFormatted C-CDA narrative zyoc463697965Lbeqykbd D Jones RN[id number] HOS[facility]ITAL SOUTH PHILADELPHIASJISWFUYI8931-54-06L95:04:011.2.840.269745.1.72.3 .15|1.2.840.654624.1.13.104.2.7.2.727879_[id number] 17 Lawrence Drew RN [facility] 2023-08-12 02:09:33 Otf5/353LDnxo8CbDV2kEpFLVIHuB1kCm5kkfR1D uTRqiqBSX 0ZlB7nlBWCHlZbF7304-03-05H06:09:33 PT is threating to cut himself with the cuffs pt is getting agitated, [employer] guard is asking our charge nurse to call for back up 27878-0Fkxtoxabu department QqacUD0089-42-23P31:11:30[facility]eprovidence [facility] NoteTXT1.2.840.287909.1.13.104.2.7.2.936743|39473 38727KHYyiaojris for patient kmwi94804-7AepeXPYVQBBCDAEBnjagthsm C-CDA narrative zjpr131318278KeglqdxbLeonor Blank RN[id number]TH PHILADELPHIAPSHBGDKMK1151-53-90C30:11:301.2.840.917103.1.72.3 .15|1.2.840.912591.1.13.104.2.7.2.727879_[id number] 65 Leonor Blank RN [facility] 2023-08-12 00:29:43 GNQ2LbYk7yjuFiXd0niOsRo6S9+vnh7j73jvpnzz 4J+f14Jvr kYY/OL8W8jml0gL9782-51-69X29:29:43 Pt stating he is tired of waiting for a bed, pt states "I'm about to act stupid and give yall a reason to get rid of me" [place] [address]-9Mlwngqiwm department CvwxDJ8194-34-04O43:30:28[facility]eprov[facility] NoteTXT1.2.840.382328.1.13.104.2.7.2.748749|99979 96740ANDutjlxual for patient admf03016-5KzhuZYHQJICJEDNFtgdvfwiu C-CDA narrative text[id number]2024-03-30T00:30:281.2.840.493104.1.72.3 .15|1.2.840.944769.1.13.104.2.7.2.727879_[id number] 10 [facility] 2023-08-11 19:04:29 pFSsjKKfauzWYYpoP30E6UQdj6fzKNEr3UHv5FLA VZN6Tbn98 QHH16AoS9aKzI224822-65-92X73:04:29 Nurse ReportReport taken from Sherlyn Lester. Chief complaint, assessment findings, infusion verify and orders reviewed. Plan of care discussed at bedside with patient and both nurses. Patient/family members verbalized understanding[place] [address]-8Gxbdpjmca department StzgKH8325-33-46V41:04:54[facility]eprov[facility] NoteTXT1.2.840.143431.1.13.104.2.7.2.625408|51852 85480WOQmvhhlcmb for patient wabx04975-9CtwkEYGTBTTPIVVCepqiriin C-CDA narrative text67 [address] StreetGztbVqcgsjprbHwjdmhihwAZEG3136764690BMDYJALKTSKAE SUNBGGDEM7474-59-56D71:04:541.2.840.756481.1.72.3 .15|1.2.840.803675.1.13.104.2.7.2.727879_[id number] 31 [facility] 2023-08-11 18:22:34 gcnQ6W8WBdFNsxSKm0Z7IPEUq9SNUOueIUsGu3Ay YLXg7MI4l I2G8sWRBPLYXLOR0737-97-91R58:22:34 TDCJ PreCert #[id number] signed by Sherlyn Landaverde RN at 08/11/2023 6:22 PM PEZ85572-0Tpvuwakbg department AxziDV9311-23-69S17:22:49[facility] NoteTXT1.2.840.840843.1.13.104.2.7.2.588545|27120 85230JQNqnxxectq for patient pzqe60227-8FwkiGYEXMAQXAOFIirjywavj C-CDA narrative yvuc162988516Dhk Shiela Landaverde [id number]2024-03-29T18:22:491.2.840.880816.1.72.3 .15|1.2.840.884732.1.13.104.2.7.2.727879_[id number] 49 Sherlyn Shiela Landaverde [facility] 2023-08-11 17:06:23 Tu14YOxwkn/nw2dBvp5XCUKz2YNagE8J1KhuW9XM DsZK2RsXh hPlPQbrGWBLaL+07370-38-96I51:06:23 Suicide Risk - Assessment and PlanColumbia:1) Have you wished you were or could go to sleep and not wake up?: Yes2) Have you had thoughts of killing yourself?: Yes3) Have you been thinking about how you might kill yourself?: Yes3a) Describe: overdose4) Suicidal ideation with some intent?: Yes4a) Describe: overdose5) Have you worked out the details of the plan AND intend to follow through?: Yes5a) Describe: overdose6) Suicidal Behavior or preparation for suicide?: Yes6a) Describe: rbkprzsa0i) Was it in the past 3 months?: YesColumbia Score:Suggested risk level: HighSAFE-T:Current and past psychiatric diagnoses: Psychotic disorder;Mood DisorderPresenting symptoms: Hopelessness or despair;Anxiety and/or panicActivating Events: Current or pending isolation or feeling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 Suicidal Behavior Lifetime) Or ?? Multiple risk factors and few protective factors ?? Wish to or Suicidal Ideation WITHOUT method, intent, plan or behavior (C-SSRS Suicidal Ideation #1 or #2) Or ?? Modifiable risk factors and strong protective factors Or ? No reported history of Suicidal Ideation or Behavior Location / Risk:Inpatient / High: Suicidal ideation with intent and with realistic plan and no protective factors in past month OR suicidal behavior within the past 3 months. Includes suicidal behavior as reason for admission. a. Mitigate the risk for suicide by instituting one-one monitoring, removing objects that pose a risk for self-harm, assessing objects brought into a room by visitors, using safe transportation procedures when moving patient to another part of the unit or another part of the hospital, and performing the checklist recommendations for a safe environment. b. Food tray in plastic or paper containers with plastic utensils (no knives or aluminum cans).c. Transfer to Inpatient Psychiatry facility/Psychiatry Consult once medically cleared.d. Follow-up determined by the inpatient Psychiatric facility.Suicide Risk - Assessment and PlanColumbia:1) Have you wished you were or could go to sleep and not wake up?: Yes2) Have you had thoughts of killing yourself?: Yes3) Have you been thinking about how you might kill yourself?: Yes3a) Describe: OD on pills4) Suicidal ideation with some intent?: Yes4a) Describe: states he took 15 tegretol5) Have you worked out the details of the plan AND intend to follow through?: Yes5a) Describe: states he ingested 15 tegretol6) Suicidal Behavior or preparation for suicide?: No Mcleod Score:Suggested risk level: HighSAFE-T:Current and past psychiatric diagnoses: Mood DisorderPresenting symptoms: Impulsivity;Hopelessness or despair;Anxiety and/or panicFamily history: No family history of psychiatric illnessActivating Events: Pending incarceration or homelessness;Current or pending isolation or feeling alone Precipitants / stressors: Other (see comments) ( in family)Protective factors: None identified Access to Lethal Means:Does patient have access to a gun or access to guns?: NoSpecific Questions of Thoughts, Plans, Intent:Frequency- how many times have you had these thought?: Daily or almost dailly2.Duration - When you have the thoughts, how long do they last?: 1-4 hours/a lot of the time3.Controllability - could/can you stop thinking about killing yourself or wanting to if you want to? "Is it easy, a little hard, very hard, or are you unable?": Can control thoughts with some difficulty4.Deterrents - are there things, anyone or anything (family, adventist, pain of ) that have stopped you from wanting to or acting on thoughts of committing suicide?: Does not applyReasons for ideation - What are the reasons you have for wanting to or kill yourself? Was it to end pain, stop the way you are feeling, or to get attention, or get revenge and reaction from others?: Completely to end or stop the pain (you couldn't go on living with the pain or how you were feeling)Behavior Assessment:1.Were there preparatory acts like buying pills, guns, giving things away, or writing suicide note?: No2.Was an attempt aborted or self - interrupted?: No3.Was an attempt interrupted by someone else?: No4.Was there an actual attempt?: Yes5.Is there non suicidal self injury? Cutting, biting, skin picking: No6.For youth: parents or guardians should be asked about thoughts, plans, behaviors, mood changes, etc : Comments (N/A)7.Is there homicidal ideation: if so, describe: No Stratification:High Suicide Risk Moderate Suicide Risk Low Suicide Risk ?? Suicidal ideation with intent or intent with plan in past month (C-SSRS Suicidal Ideation #4 or #5) Or ?? Suicidal behavior within past 3 months (C-SSRS Suicidal Behavior) ?? Suicidal ideation with method, WITHOUT plan, intent or behavior in past month (C-SSRS Suicidal Ideation #3) Or ?? Suicidal behavior more than 3 months ago (C-SSRS Suicidal Behavior Lifetime) Or ?? Multiple risk factors and few protective factors ?? Wish to or Suicidal Ideation WITHOUT method, intent, plan or behavior (C-SSRS Suicidal Ideation #1 or #2) Or ?? Modifiable risk factors and strong protective factors Or ? No reported history of Suicidal Ideation or Behavior Location / Risk:Inpatient / Moderate: Suicidal ideation with intent and a plan in the past month but has protective factors, OR Suicidal behavior more than 3 months ago OR suicidal ideation with intent or method, no plan but has multiple risk factors and few protective factors.a. Directly address suicide risk with patient and family .b. Develop Safety plan including counseling about restriction and removal of firearms, medications, means to hang oneself, large sharp objects, etc. See safety plan.c. Consider transfer to Inpatient Psychiatry Hospital/ Inpatient Psychiatry Consult if unable to develop a safety plan. d. If patient is not transferred, will arrange for patient to be seen by Pediatric provider within one week of discharge, and will also place referral to outpatient behavioral health resources. 31037-3Nxfxayygso + Plan bmygFX0754-08-39B31:27:46Evaluation + Plan noteTXT1.2.840.713836.1.13.104.2.7.2.867255|42591 04295NSOuibwpsmf for patient [id number]2023-07-18T14:27:461.2.840.091022.1.72.3 .15|1.2.840.680921.1.13.104.2.7.2.727879_[id number] 50 [facility] 2022-11-29 12:59:11 VbqTNuOQN0PQnJERyl2+JJkBquKNvDHsmAdoF5FJ CEDOJUVLH 9xnrHjC+7gNFPx40624-98-76I68:59:11 Problem: Suicide, Risk ofGoal: Absence of self-harmOutcome: Not progressing as expected 79525-1Fiaa of care xgsvYI4547-05-09R41:59:15Plan of care noteTXT1.2.840.274999.1.13.104.2.7.2.207467|94841 98028FCSjuwdoghx for patient [id number]2023-07-18T12:59:151.2.840.292582.1.72.3 .15|1.2.840.354079.1.13.104.2.7.2.727879_[id number] 21 [facility] 2022-11-29 12:54:21 LfUpIU+R9hxikRXhCA80jVpjxYKs6dJP2Gyx9Z2l OUnEO5zB3 4O+OLNwTvj2UQ0d7445-35-75H91:54:21 Pt/family educated on emergency department behavioral process and precautions. Educated on need for direct observation, removal of belongings, and clearing of room for patient and staff safety, patient and family given [facility] resources for outpatient treatment and care, pt placed in paper scrubs. 00140-4Ipisgqgxc department XzplNR1088-90-75I27:54:29[facility] NoteTXT1.2.840.681323.1.13.104.2.7.2.463526|59862 52572KAOnimmomya for patient [id number] PH[facility]ADELPHIAXUJXTTYWK2308-56-72I48:54:291.2.840.572716.1.72.3 .15|1.2.840.007546.1.13.104.2.7.2.727879_[id number] 23 [facility] 2022-11-29 12:54:02 l++NY9jrkFidSb1/OJPBVGuhryff4h7Clu7NuQhE 0Aw1On9Re RWMn095qoAEUrdG9050-02-64P80:54:02 Armaan Patricia is a 32 year old male presents to ED from clinic accompanied by 1 [employer] guard. Pt reports he took 15 unknown dosed tegretol tablets between 0830 and 0900 today that someone on the bus gave him because he wants to kill himself. Pt has hx of overdose attempts and SI, last time was about 1 year ago. PT c/o CP, abd pain, dizziness, blurred vision since this morning. Endorses hx epileptic seizures. [address]3622-2Dyzfoftfi[address] BoriQP8842-42-95E07:57:03[facility] NoteTXT1.2.840.650264.1.13.104.2.7.2.889995|13701 15933ISMcyuyvwya for patient [id number] EVGMUTPSB7055-33-62S00:57:031.2.840.489090.1.72.3 .15|1.2.840.613282.1.13.104.2.7.2.727879_[id number] 86 [facility] 2022-11-29 11:29:12 bFD3NA8D6eErpttWwfia7m9EuIjmtS/SwB8i2oU6 pHSGpa8HG gG0nsUSG8KEfNWM3519-03-08O79:29:12 Armaan Patricia is a 32 year old male presents to ED from clinic accompanied by 1 [employer] guard. Pt reports he took 15 unknown dosed tegretol tablets between 0830 and 0900 today that someone on the bus gave him because he wants to kill himself. Pt has hx of overdose attempts and SI, last time was about 1 year ago. PT c/o CP, abd pain, dizziness, blurred vision since this morning. 44843-4Nsddqochq department Triage ryroUG9871-23-17Y70:33:33Emergency department Triage noteTXT1.2.840.363989.1.13.104.2.7.2.242415|80942 93366ZSJbebzabsd for patient [id number] Patiño RN[address] StreetTnkbXimwxpdhsIfrzcdfyqJYKZ9140687156HQGPPKSERPPPY BRCOLOCAP7607-52-92S61:33:331.2.840.369098.1.72.3 .15|1.2.840.924032.1.13.104.2.7.2.727879_[id number] 42 Eladia Patiño RN [facility] 2022-11-29 11:20:00 fqWjXQM7MgR4XoXKI/CQ2qOQvxG3AFtUTnohBSY2 wuJct9W5H upLac+NH3teUAqi5363-06-10P91:20:00Associated Order(s): EKG-12 Lead ROUTINE ONCEPre-Procedure Diagnose(s): Suicidal ideationsPost-Procedure Diagnose(s): Suicidal ideations [facility] Emergency Department NotePatient Name: Armaan Ramirez MemonDate of : 1990 32 year old maleTreatment Room: [address] [place], [place] [address]Medical Record Number: [id number] Care Physician: ANDRE DEPT OF CORRECTIONPatient Escorted by: Law enforcement [8]Mode of Arrival: [facility] [5]EMS Treatment Prior to ED Arrival: Travel and Exposure Screening:SymptomsDoes patient have any of these symptoms?: (not recorded)Exposure ScreeningHas patient had contact with someone with a communicable disease in the last month?: (not recorded)Diseases exposed to:: (not recorded)Is Patient ?: (not recorded)Exposure Date: (not recorded)Chief Complaint:Chief Complaint Patient presents with Overdose History of Present Illness:32-year-old male with history of seizures and depression with suicidal ideation and attempts in the past comes in with possible medication overdose. Patient states he was on the bus and he took 15 tablets of what he believes was Tegretol. This occurred around 830 this morning. Patient states he has generalized weakness, slight third vision, slight chest discomfort and just generalized feeling of unwell. Patient denies headache denies nausea or vomiting no altered mental status, states he was otherwise in his normal state of health prior to this event. Patient also states he is still having suicidal ideation. He states there was a in his family which caused him to feel suicidal.History provided by: Patient and medical recordsLanguage warehouse representative used: No Past Medical History/Immunizations:Past Medical History: Diagnosis Date Epilepsy Hyperlipidemia Intentional self-harm by other specified means, sequela Recurrent seizures Unspecified disorder of nose and nasal sinuses Tetanus received in last 5 years: YesChildhood immunizations: Up-to-date Allergies:No Known AllergiesPast Social History:Tobacco Use Heavy Smoker Smokeless Tobacco: Never used smokeless tobacco. Past Surgical History:History reviewed. No pertinent surgical history.Review of Systems: Review of Systems Constitutional: Positive for fatigue. HENT: Negative. Eyes: Positive for visual disturbance. Respiratory: Negative. Cardiovascular: Positive for chest pain. Gastrointestinal: Negative. Genitourinary: Negative. Musculoskeletal: Negative. Skin: Negative. Neurological: Positive for weakness. Negative for dizziness and headaches. Psychiatric/Behavioral: Positive for suicidal ideas. All other systems reviewed and are negative.Physical Exam: ED Triage Vitals [11/29/22 1126] Weight 90.7 kg (200 lb) Actual or estimated Estimated by patient/family report Height 1.575 m (5' 2") BP 119/72 Pulse 63 Resp 18 Temp 36.6 ?C (97.8 ?F) Temp source Oral SpO2 100 % Measured on Room air Physical ExamVitals and nursing note reviewed. Constitutional: General: He is not in acute distress. Appearance: He is not ill-appearing. Comments: Well-appearing no acute distress alert and interactive no somnolence HENT: Head: Normocephalic. Right Ear: External ear normal. Left Ear: External ear normal. Nose: Nose normal. Mouth/Throat: Mouth: Mucous membranes are moist. Pharynx: Oropharynx is clear. Eyes: Extraocular Movements: Extraocular movements intact. Pupils: Pupils are equal, round, and reactive to light. Comments: CN II to XII intact, no nystagmus no mydriasis Cardiovascular: Rate and Rhythm: Normal rate and regular rhythm. Heart sounds: Normal heart sounds. Pulmonary: Effort: Pulmonary effort is normal. Breath sounds: Normal breath sounds. Abdominal: Palpations: Abdomen is soft. Tenderness: There is no abdominal tenderness. There is no right CVA tenderness or left CVA tenderness. Musculoskeletal: General: Normal range of motion. Cervical back: Normal range of motion. No rigidity. Skin: General: Skin is warm. Capillary Refill: Capillary refill takes less than 2 seconds. Neurological: General: No focal deficit present. Mental Status: He is alert and oriented to person, place, and time. Comments: Nonfocal neurologic examination equal and intact strength and sensation throughout Psychiatric: Comments: Alert and interactive calm and cooperative no signs of distress Radiology:No orders to display Lab Results:Lab Results CBC WITH DIFF - Abnormal Result Value Ref Range WBC 6.41 4.20 - 10.70 10*3/?L RBC 5.75 (*) 4.26 - 5.52 10*6/?L HGB 10.9 (*) 12.2 - 16.4 g/dL HCT 35.2 (*) 38.4 - 49.3 % MCV 61.2 (*) 81.7 - 95.6 fL MCH 19.0 (*) 26.1 - 32.7 pg MCHC 31.0 (*) 31.2 - 35.0 g/dL RDW-SD 31.4 (*) 38.5 - 51.6 fL RDW-CV 14.7 12.1 - 15.4 % PLT 215 150 - 328 10*3/?L MPV 10.8 9.8 - 13.0 fL IPF % 5.4 1.2 - 10.7 % NRBC/100 WBC 0.0 0.0 - 10.0 /100 WBCs NRBC x10^3 <0.01 10*3/?L GRAN MAT (NEUT) % 56.8 % IMM GRAN % 0.20 % LYMPH % 31.0 % MONO % 6.7 % EOS % 4.8 % BASO % 0.5 % GRAN MAT x10^3(ANC) 3.64 1.99 - 6.95 10*3/uL IMM GRAN x10^3 <0.03 0.00 - 0.06 10*3/uL LYMPH x10^3 1.99 1.09 - 3.23 10*3/uL MONO x10^3 0.43 0.36 - 1.02 10*3/uL EOS x10^3 0.31 0.06 - 0.53 10*3/uL BASO x10^3 0.03 0.01 - 0.09 10*3/uL COVID-19 (ID NOW RAPID TESTING) - Abnormal SARS-CoV-2 Rapid ID NOW Positive (*) Not Detected ACETAMINOPHEN - Abnormal ACETAMINOP <10.0 (*) 10.0 - 30.0 ug/mL CREATINE KINASE - Normal CK 94 33 - 194 U/L MAGNESIUM - Normal MAGNESIUM 2.1 1.7 - 2.4 mg/dL COMP. METABOLIC PANEL (67834) NA 137 135 - 145 mmol/L K 4.4 3.5 - 5.0 mmol/L CL 105 98 - 108 mmol/L CO2 TOTAL 25 23 - 31 mmol/L AGAP 7 2 - 16 BUN 18 7 - 23 mg/dL GLUCOSE 99 70 - 110 mg/dL CREATININE 0.79 0.60 - 1.25 mg/dL TOTAL BILI 0.2 0.1 - 1.1 mg/dL CALCIUM 9.0 8.6 - 10.6 mg/dL T PROTEIN 7.3 6.3 - 8.2 g/dL ALBUMIN 4.3 3.5 - 5.0 g/dL ALK PHOS 61 34 - 122 U/L ALTv 11 5 - 50 U/L AST(SGOT) 22 13 - 40 U/L eGFR 114.4 mL/min/1.73m2 URINE DRUG (IMMUNOASSAY) - COMPREHENSIVE DRUG SCREEN W/O REFLEX ETHANOL THYROID STIMULATING HORMONE SALICYLATE TROPONIN I CARBAMZEPINE, FREE AND TOTAL CARBAMAZEPINE EKG:If EKG completed, see Procedure Note. Orders and Treatments:Orders Placed This Encounter Procedures XR CHEST 1 VW Urine Drug (Immunoassay) Comprehensive Drug Screen w/o Reflex Comprehensive Metabolic Panel (58849) CBC with Differential Ethanol (ETOH) Level COVID-19 (ID NOW TESTING) Thyroid Stimulating Hormone Creatine Kinase Acetaminophen Salicylate TROPONIN I MAGNESIUM CARBAMZEPINE, FREE AND TOTAL LAB ONLY COVID INTERPRETATION CARBAMAZEPINE Orders Placed This Encounter Medications NaCl 0.9% (NS) bolus infusion 1,000 mL First Provider Eval:ED Events Date/Time Event User Comments 11/29/22 1151 Medical Screening Begins FILIBERTO DE OLIVEIRA MD -- 11/29/22 1151 First Provider Evaluation FILIBERTO DE OLIVEIRA MD -- ED COURSEED Course as of 11/29/221712Nov 29, 20221711 Discussed all results with the patient, patient without current Covid symptoms, states he still feels weak, was observed for nearly 6 hours in the ER with no worsening of symptoms or signs of ingestion toxicity. Denies any recent covid symptoms or positive tests. Patient is medically cleared at this time and will discharge back to the [facility] for further psych evaluation. Patient understands and agrees with plan. [CD] 1521 IMPRESSION Stable chest. No radiographic evidence of acute cardiopulmonary process. Preliminary Report Dictated by Resident: Abdulaziz Brooks result has not been signed. Information might be incomplete. [CD] 1508 CARBAMAZEP(!): 3.5Slightly lower than therapeutic [CD] 1503 Chest x-ray interpreted by myself no acute cardiopulmonary pathology [CD] 1503 TROPONIN I: 0.004ACS unlikely [CD] 1441 ALCOHOL: <10No intox [CD] 1439 CK: 94No rhabdo [CD] 1408 ACETAMINOP(!): <10.0No tylenol toxicity [CD] 1407 SARS-CoV-2 Rapid ID NOW(!): PositivePositive, states he felt well until the overdose, denies cough, fever [CD] 1407 HGB(!): 10.9Similar to previous [CD] 1407 WBC x10^3: 6.41Infection unlikely [CD] 1359 32-year-old male with history of seizures and depression with suicidal ideation and attempts in the past comes in with possible medication overdose. Patient states he was on the bus and he took 15 tablets of what he believes was Tegretol. This occurred around 830 this morning. Patient states he has generalized weakness, slight third vision, slight chest discomfort and just generalized feeling of unwell. Patient denies headache denies nausea or vomiting no altered mental status, states he was otherwise in his normal state of health prior to this event. Patient also states he is still having suicidal ideation. He states there was a in his family which caused him to feel suicidal.Of note patient has been seen by myself and multiple other providers for similar presentation of unknown medication overdose on the bus but has never shown toxicityDifferential includes but not limited to suicidal ideation, intentional medication overdose, electrolyte abnormalitiesPlan is suicidal work-up, monitor for signs of Tegretol toxicity hydration monitor and reevaluation. Patient understands and agrees with plan [CD] ED Course User Index[CD] Filiberto De Oliveira MD Diagnosis/Impression as of 11/29/22 1713 Suicidal ideations COVID-19 Procedures: EKG-12 Lead ROUTINE ONCEDate/Time: 11/29/2022 2:29 PMPerformed by: Filiberto De Oliveira MDAuthorized by: Filiberto De Oliveira MD ECG reviewed by ED Physician in the absence of a survey superintendent: yes Previous ECG: Previous ECG: Compared to current Similarity: No change Comparison ECG info: 09/30/2022Interpretation: Interpretation: non-specific Rate: ECG rate: 46 ECG rate assessment: bradycardic Rhythm: Rhythm: sinus bradycardia Ectopy: Ectopy: none QRS: QRS axis: Normal QRS intervals: Normal QRS conduction: normal ST segments: ST segments: Non-specificT waves: T waves: non-specific Q waves: Abnormal Q-waves: not present MDM:Medical Decision MakingSee ED course for MDMProblems Addressed:COVID-19: acute illness or injurySuicidal ideations: acute illness or injury that poses a threat to life or bodily functionsAmount and/or Complexity of Data ReviewedExternal Data Reviewed: labs, ECG and notes.Labs: ordered. Decision-making details documented in ED Course.Radiology: ordered.ECG/medicine tests: ordered and independent interpretation performed. Decision-making details documented in ED Course. Details: see procedure noteRiskPrescription drug management. Flowsheet Documentation: Scoring Tools: No data recorded Disposition/Condition:ED Disposition None Discharge Medications:Patient's Medications No medications on file Follow-up:Electronically signed by: Filiberto De Oliveira MD11/29/229 [id number] Emergency department [id number]:19:10Physician Emergency department [id number] for patient care[address] [id number] [address] [facility]
[2023-09-08] MEDS ORDERED: ASPIRIN 81 MG CHEWABLE TABLET ONE (07:49)
[2023-09-08 07:55] LABS: Absolute Eosinophils 0.2 K/uL (0-0.5); Absolute Lymphocytes (CBC) 1.5 K/uL (0.7-4.9); Absolute Monocytes 0.5 K/uL (0.1-1.3); Absolute Neutrophil 3.1 K/uL (1.8-8.0); Basophils % 0.4 % (0-1.3); Eosinophils % 3.7 % (0-4.4); Lymphocytes % 28.2 % (15.3-44.8); MCH 18.9 pg (27.0-35.0); MCHC 31.4 g/dL (32.0-36.0); MCV 60.4 fL (80-100); MPV 8.9 fL (7.6-11.3); Monocytes % 10.1 % (3.3-12.3); Neutrophils % 57.6 % (41.7-73.7); Platelets 201 thou/uL (152-406); RBC Red Blood Cell Count 5.79 M/uL (4.33-5.43); Red Cell Distribution Width 14.7 % (12.1-15.2)
[2023-09-08 08:14] LABS: Anion Gap 6.8 mEq/L (5.0-15.0); BUN Blood Urea Nitrogen 12 mg/dL (7-18); Bicarbonate 27 mEq/L (21-32); Glomerular Filtration Rate 120 ml/min (=/>90); Glucose Level 102 mg/dL (74-106); Potassium 3.8 mEq/L (3.5-5.1); Sodium Level 138 mEq/L (136-145)
[2023-09-08 08:15] LABS: Troponin High Sensitivity < 3.0 pg/mL (<58.9)
--- NOTE | 2023-09-08 08:19 | RAD REPORT ---
EXAM DESCRIPTION: RAD - Chest Single View - 09/08/2023 8:09 am CLINICAL HISTORY: CHEST PAIN Chest pain. COMPARISON: No comparisons FINDINGS: Portable technique limits examination quality. Mild interstitial pulmonary edema is likely present. The heart is upper limit normal in size. No disp laced fractures.
--- NOTE | 2023-09-08 08:30 | EDPHYS ---
Physician Documentation [facility] Name: Armaan Patricia Age: 33 yrs Sex: Male : 1990 Arrival Date: 09/08/2023 Time: 07:22 Bed 13 Private MD: ED Physician Checo Khoury HPI: 09/07 07:36 This 33 yrs old Other Race Male presents to ER via EMS with complaints of Chest Pain. bo1 07:36 Associated signs and symptoms: The patient has no apparent associated signs or bo1 symptoms. The chest pain is described as sharp. Duration: The patient or guardian reports a single episode, Occurred at 10pm last night, sharp. Had trouble sleeping. Transported to ER this AM and had refused ASA. Had an EKG done by the [facility] and it showed sinus reba at 58 bpm. No acute changes.. Severity of pain: in the emergency department the pain Pt states he has "mild" CP currently. He agrees to take the ASA.. EMS care prior to arrival includes: Pt has two attempts at IV access. Refused the PO ASA. Pt states he was not told of "why.". Historical: - Allergies: 07:28 No Known Allergies; kc6 - PMHx: 07:28 Seizure; kc6 - PSHx: 07:28 None; kc6 - Immunization history:: Adult Immunizations not up to date. - Infectious Disease History:: Denies. - Social history:: Smoking status: Patient denies any tobacco usage or history of. ROS: 07:39 Respiratory: Negative for shortness of breath, bo1 07:39 Abdomen/GI: Negative for nausea and vomiting, 07:39 MS/extremity: Negative for swelling, 07:39 All other systems are negative, Exam: 08:24 Constitutional: This is a well developed, well nourished patient who is awake, alert, bo1 and in no acute distress. 08:24 Head/face: Noted is Normal. 08:24 Neck: Normal, 08:24 Chest/axilla: Exam negative for tenderness, Inspection: normal, Palpation: is normal, 08:24 Cardiovascular: Rate: bradycardic, Rate of 60, Rhythm: Normal , Pulses: Pulses are 3+ in right brachial artery, left brachial artery, left carotid pulse and right carotid pulse. Heart sounds: normal, Edema: is not appreciated, 08:26 Musculoskeletal/extremity: Extremities: all appear grossly normal, with no appreciated bo1 pain with palpation, No edema. 08:27 ECG was reviewed by the Attending Physician. bo1 Vital Signs: 07:26 BP 113 / 83; Pulse 64; Resp 16 S; Temp 97.9(O); Pulse Ox 100% on R/A; Weight 89.81 kg kc6 (R); Height 5 ft. 10 in. (R); Pain 3/10; 08:09 BP 135 / 83; Pulse 60; Resp 16 S; Pulse Ox 100% on R/A; kc6 07:26 Body Mass Index 28.41 (89.81 kg, 177.8 cm) [facility] 07:26 Pain Scale: Adult kc MDM: 07:30 Patient medically screened. bo1 08:26 Differential diagnosis: acute myocardial infarction, coronary artery disease chest wall bo1 pain, Atypical CP. ED course: Reviewed all lab. Negative. CXR negative.. 09/07 07:35 Order name: Basic Metabolic Panel; Complete Time: 08:23 bo1 09/07 07:35 Order name: CBC with Diff bo1 09/07 07:35 Order name: Troponin HS; Complete Time: 08:23 bo1 09/07 08:02 Order name: CBC Smear Scan EDCA 09/07 07:35 Order name: XRAY Chest (1 view); Complete Time: 08:23 bo09/07 07:35 Order name: Cardiac monitoring; Complete Time: 07:38 bo1 09/07 07:35 Order name: EKG - Nurse/Tech; Complete Time: 07:38 bo09/07 07:35 Order name: IV Saline Lock; Complete Time: 07:44 bo1 09/07 07:35 Order name: Labs collected and sent; Complete Time: 07:44 bo09/07 07:35 Order name: O2 Per Protocol; Complete Time: 07:38 bo09/07 07:35 Order name: O2 Sat Monitoring; Complete Time: 07:38 bo1 EC:27 Rate is 60 beats/min. Rhythm is regular. QRS [place] is Normal. VT interval is normal. QRS bo1 interval is normal. QT interval is normal. No Q waves. T waves are Inverted in leads III, aVR. Clinical impression: Normal ECG. Interpreted by me. Administered Medications: 07:51 Drug: Aspirin PO Chewable Tablet 324 mg PO once; 81 mg tablets x 4 Route: PO; kc6 08:22 Follow up: Response: No adverse reaction kc6 Disposition Summary: 09/08/23 08:30 Discharge Ordered Notes: Location: Other bo1 Problem: new bo1 Symptoms: are unchanged bo1 Condition: Stable bo1 Diagnosis - Chest pain, unspecified bo1 Discharge Instructions: - Discharge Summary Sheet bo1 - Nonspecific Chest Pain, Adult, Impu-lg-Mltn bo1 Forms: - Medication Reconciliation Form bo1 - Antibiotic Education bo1 - Prescription Opioid Use bo1 - Patient Portal Instructions bo1 - Leadership Thank You Letter bo1 Signatures: Dispatcher [employer] EDJessica Jansen RN RN kc6 Oei, MD MARIA VICTORIA Kessler bo1 Corrections: (The following items were deleted from the chart) 07:36 07:36 BASIC METABOLIC PANEL+C.LAB.BRZ ordered. EDMS EDMS 07:36 07:36 CBC+H.LAB.BRZ ordered. EDMS EDMS 07:36 07:36 Troponin High Sensitivity+C.LAB.BRZ ordered. EDMS EDMS 07:36 07:36 Chest Single View+RAD.RAD.BRZ ordered. EDMS EDMS 07:41 07:36 This 33 yrs old [place] Male presents to ER via EMS with complaints of Chest bo1 Pain. bo1
--- NOTE | 2023-09-08 08:30 | ER ---
Nurse's Notes [facility] Name: Armaan Patricia Age: 33 yrs Sex: Male : 1990 Arrival Date: 09/08/2023 Time: 07:22 Bed 13 Private MD: Diagnosis: Chest pain, unspecified Presentation: 09/07 07:26 Chief complaint: EMS states: pt began having right sided chest pain 8/10 last night but [facility] was unavailable at the [facility]. pt was observed overnight and an EKG was done this AM that showed sinus reba with arrhythmia. pt reports pain has decreased to 3/10. refused nitro and aspirin en route. Coronavirus screen: At this time, the client does not indicate any symptoms associated with coronavirus-19. Ebola Screen: No symptoms or risks identified at this time. Initial Sepsis Screen: Does the patient meet any 2 criteria? No. Patient's initial sepsis screen is negative. Does the patient have a suspected source of infection? No. Patient's initial sepsis screen is negative. Risk Assessment: Do you want to hurt yourself or someone else? Patient reports no desire to harm self or others. Onset of symptoms was September 07, 2023. 07:26 Method Of Arrival: EMS: [facility] 07:26 Acuity: LORE[place] 3 kc6 Triage Assessment: 07:28 General: Appears in no apparent distress. comfortable, well groomed, well developed, kc6 Behavior is calm, cooperative, appropriate for age. Pain: Complains of pain in anterior aspect of right upper chest Pain does not radiate. Pain currently is 3 out of 10 on a pain scale. Pain began 1 day ago. Is continuous. EENT: No signs and/or symptoms were reported regarding the EENT system. Neuro: Level of Consciousness is awake, alert, obeys commands, Oriented to person, place, time, situation, Appropriate for age. Cardiovascular: Reports chest pain, Denies shortness of breath, Heart tones S1 S2 present Capillary refill < 3 seconds. Respiratory: Airway is patent Trachea midline Respiratory effort is even, unlabored, Respiratory pattern is regular, symmetrical. GI: No signs and/or symptoms were reported involving the gastrointestinal system. : No signs and/or symptoms were reported regarding the genitourinary system. Derm: No signs and/or symptoms reported regarding the dermatologic system. Skin is intact, is healthy with good turgor, Skin is pink, warm \T\ dry. Musculoskeletal: No signs and/or symptoms reported regarding the musculoskeletal system. Circulation, motion, and sensation intact. Capillary refill < 3 seconds, Range of motion: intact in all extremities. Historical: - Allergies: 07:28 No Known Allergies; kc6 - PMHx: 07:28 Seizure; kc6 - PSHx: 07:28 None; kc6 - Immunization history:: Adult Immunizations not up to date. - Infectious Disease History:: Denies. - Social history:: Smoking status: Patient denies any tobacco usage or history of. Screenin:30 [facility] ED Fall Risk Assessment (Adult) History of falling in the last 3 months, kc6 including since admission No falls in past 3 months (0 pts) Confusion or Disorientation No (0 pts) Intoxicated or Sedated No (0 pts) Impaired Gait No (0 pts) Mobility Assist Device Used No (0 pt) Altered Elimination No (0 pt) Score/Fall Risk Level 0 - 2 = Low Risk. Abuse screen: Denies threats or abuse. Denies injuries from another. Nutritional screening: No deficits noted. Tuberculosis screening: No symptoms or risk factors identified. Assessment: 07:30 Reassessment: please see triage assessment. kc6 08:30 Reassessment: Patient appears in no apparent distress at this time. No changes from 6 previously documented assessment. Patient and/or family updated on plan of care and expected duration. Pain level reassessed. Patient is alert, oriented x 3, equal unlabored respirations, skin warm/dry/pink. Vital Signs: 07:26 BP 113 / 83; Pulse 64; Resp 16 S; Temp 97.9(O); Pulse Ox 100% on R/A; Weight 89.81 kg kc6 (R); Height 5 ft. 10 in. (R); Pain 3/10; 08:09 BP 135 / 83; Pulse 60; Resp 16 S; Pulse Ox 100% on R/A; kc6 07:26 Body Mass Index 28.41 (89.81 kg, 177.8 cm) kc6 07:26 Pain Scale: Adult [facility] ED Course: 07:26 Patient arrived in ED. kc6 07:28 Triage completed. kc6 07:28 Arm band placed on. kc6 07:30 Checo Khoury MD is Attending Physician. bo1 07:30 Patient has correct armband on for positive identification. Bed in low position. Call kc6 light in reach. Side rails up X2. Security at bedside. Client placed on continuous cardiac and pulse oximetry monitoring. NIBP monitoring applied. curbstone setter on. 07:30 Warm blanket given. kc6 07:38 Jessica Amin RN is Primary Nurse. kc6 07:44 Inserted saline lock: 20 gauge in right antecubital area, using aseptic technique. kc6 Blood collected. 08:11 XRAY Chest (1 view) In Process Unspecified. EDMS 08:43 Diet: Patient given snack. Patient given juice. Patient given water. Tolerated well. kc6 08:43 No provider procedures requiring assistance completed. IV discontinued, intact, kc6 bleeding controlled, No redness/swelling at site. Pressure dressing applied. Administered Medications: 07:51 Drug: Aspirin PO Chewable Tablet 324 mg PO once; 81 mg tablets x 4 Route: PO; kc6 08:22 Follow up: Response: No adverse reaction kc6 Medication: 08:43 VIS not applicable for this client. kc6 Outcome: 08:30 Discharge ordered by . bo1 08:43 Discharged to Law Enforcement kc6 08:43 Condition: good 08:43 Discharge instructions given to patient, Instructed on discharge instructions, follow up and referral plans. Demonstrated understanding of instructions, follow-up care, 08:54 Patient left the ED. kc6 Signatures: Dispatcher [employer] EDMS Jessica Amin RN RN kc6 Checo Khoury MD MD bo1
[2023-09-08 08:41] LABS: Blood Morphology Comment NOTED (NOT SEEN); Hypochromasia 2+; Microcytosis 2+; Platelet Estimate ADEQ; White Blood Cell Scan OK (OK)
[2023-09-08 08:42] LABS: Poikilocytosis 2+
[2023-09-08 09:11] VITALS: BP 135/83; TEMP 97.9; O2SAT 100
--- NOTE | 2023-09-11 13:06 | EKG ---
Test Date: 2023-09-08 Test Time: 07:36:52 Advisor To [employer]: ROSENDO MEASUREMENT RESULTS: Intervals: Rate: 60 VT: 144 QRSD: 90 QT: 406 QTc: 406 [place]: P: 64 VT: 144 QRS: 5 T: -5 INTERPRETIVE STATEMENTS: Normal sinus rhythm with sinus arrhythmia Normal ECG No previous ECG available for comparison Electronically Signed On 09-11-23 12:58:17 CDT by Jun Ji
== END 2023-09-08 08:54 | disposition home or self-care (01) ==
LOC: ER 07:22
DX: R07.9 Chest pain, unspecified (principal)
CPT/HCPCS: 36415; 71045; 80048; 84484; 85025; 93005

== ENCOUNTER 2023-09-17 10:32 | Emergency (ER) | payer OTHER ==
--- OUTSIDE RECORDS SUMMARY | 2023-09-17 10:37 | XMS REPORT | Continuity of Care Document ---
Author Name Unknown Address [address] [place] [address] [facility] Address [address] [place] [address] Care Team Providers Care Cook House Supervisor Name Role Phone CALVIN BRADEN Primary Care Physician Unavailab Andres Bradford Attending Clinician [phone] Radiology Attending Clinician Unavailable RADIOLOGY Attending Clinician Unavailable SONALI GURROLA Attending Clinician UnavailSimone Tripp MD Attending Clinician [phone] Sonali Gurrola MD Attending Clinician + [phone] Robert Strickland MD Attending Clinician +[phone] Merrick Butt MD Attending Clinician +[phone] Eli Braden MD Attending Clinician [phone] Leonides Vargas MD, A Clinton Attending Clinician [phone] Otolaryngology, Tdc Attending Clinician UnavailHonorio Reyes MD Attending Clinician +[phone] MERRICK BUTT Attending Clinician Unavailable Ziggy Braden MD Attending Clinician +[phone] Francisco Valerio Attending Clinician +[phone] Honorio Leggett Attending Clinician +[phone] Pato rOnelas MD Attending Clinician +[phone] Filiberto De Oliveira MD Attending Clinician +[phone] FILIBERTO DE OLIVEIRA Attending Clinician Unavailable Guerita Luz DO Attending Clinician + [phone] GUERITA LUZ Attending Clinician Unavailab Elkin Navarro Attending Clinician +[phone] EDWARD, K BILLIE Attending Clinician Unavailable Md Chetan Grissom Attending Clinician +[phone] Girish Cantu MD Attending Clinician + [phone] GIRISH CANTU Attending Clinician Unavailable Messi Hampton MD Attending Clinician + [phone] Doctor Unassigned, [place] Attending Clinician U Florencia Benitez MD Attending Clinician + Lolis Griffiths Attending Clinician + [phone] CALVIN BRADEN Attending Clinician Unavailable Amna Figueroa MD Attending Clinician + [phone] Yoandy Wilkes MD Attending Clinician + [phone] Dandy Armenta MD Attending Clinician +[phone] Anupama Caceres Attending Clinician +[phone] Sherry Morocho Attending Clinician +[phone] Huma Koo MD Attending Clinician + [phone] Stephanie Pierson MD Attending Clinician [phone] Lucio Dhaliwal DO Attending Clinician + [phone] Radiology Admitting Clinician Unavailable RADIOLOGY Admitting Clinician Unavailable SIMONE MALDONADO Admitting Clinician Unavailable Robert Strickland MD Admitting Clinician + [phone] Eli Braden MD Admitting Clinician [phone] Ziggy Braden MD Admitting Clinician +[phone] Messi Hampton MD Admitting Clinician + [phone] Florencia Estevez MD Admitting Clinician +[phone] CALVIN BRADEN Admitting Clinician Unavailable Amna Figueroa MD Admitting Clinician + [phone] Dandy Armenta MD Admitting Clinician +[phone] Huma Koo MD Admitting Clinician + [phone] Payers Payer Name Policy Type Policy Number Effective Date Expirati on Date Source 2 C [id number] Problems Condition Name Condition Details Condition Category Status Onset Date Resolution Date Last Treatment Date Treating Clinician Comments Source Suicidal behavior with attempted self-injur y Suicidal behavior with attempted self-injur y Disease Active 3- 00:00: 00 [facility] Drug overdose, intentiona l self-harm, initial encounter Drug overdose, intentiona l self-harm, initial encounter Disease Active 09-18 00:00: 00 [facility] Generalize d abdominal pain Generalize d abdominal pain Disease Active 09-18 00:00: 00 [facility] Slow transit constipati on Slow transit constipati on Disease Active 09-18 00:00: 00 [facility] Nausea in adult Nausea in adult Disease Active 09-18 00:00: 00 [facility] Obesity (BMI 30-39.9) Obesity (BMI 30-39.9) Disease Active 8 00:00: 00 [facility] Foreign body ingestion Foreign body ingestion Disease Active 12-09 00:00: 00 [facility] Nasal obstructio n Nasal obstructio n Disease Active 10-31 00:00: 00 Overview: Formattin g of this note might be different from the original. Added automatic ally from request for surgery [id number] [facility] Allergies, Adverse Reactions, Alerts Allergy Name Allergy [...] NO KNOWN ALLERGIE S Drug Class Active [facility] Social History Social Habit Start Date Stop Date Quantity Comments Source History of tobacco use Heavy tobacco smoker [facility] History of Social function 2023-08-12 00:00:00 2023-08-12 00:00:00 [facility] Tobacco use and exposure 2023-08-11 00:00:00 2023-08-11 00:00:00 Smokeless tobacco non-user [facility] Exposure to SARS-CoV-2 (event) 2022-09-20 00:00:00 2022-09-30 12:38:00 Not sure [facility] Sex Assigned At 1990 00:00:00 1990 00:00:00 [facility] Smoking Status Start Date Stop Date Source Heavy tobacco smoker 2023-08-11 00:00:00 [facility] Medications Ordered Medication Name Filled Medication Name Start Date Stop Date Current Medication? Ordering Clinician Indication Dosage Frequency Signature (SIG) Comments Components Source lactated ringers IV infusion 1,000 mL 08-17 15:00: 00 08-17 16:11 :00 No 1000mL at 999 mL/hr, 1,000 mL, IV Infusion, ONCE, 1 dose, On Mon08/18/23 at 1000, Routine [facility] famotidine (PEPCID (PF)) injection 20 mg 08-17 14:00: 00 08-17 14:26 :00 No 20mg 20 mg, Slow IV Push, ONCE, 1 dose, On Mon08/18/23 at 0900, [facility] carBAMazepi ne (TEGRETOL XR) 400 mg 12 hr tablet 08-15 10:26: 00 Yes 400mg Take [address] [facility] omeprazole 20 mg TbLD 08-15 10:26: 00 Yes Take by mouth. [facility] dextran 70/hypromel lose (GENTEAL TEARS MILD OPHTHALMIC) 08-15 10:26: [address] in each eye. [facility] estradioL 1 mg tablet 08-15 10:26: 00 Yes 1mg Take 1 tablet by mouth in the morning. [facility] ALBUTEROL, REFILL, INHALE 08-15 10:26: [address] [facility] carBAMazepi ne (TEGRETOL) tablet 400 mg 08-15 01:00: 00 Yes 400mg 400 mg, Oral, Q12H, First dose on Mon08/15/23 at 2000, Until Discontinu ed, Routine [facility] spironolact one 25 mg tablet 08-14 13:41: 47 08-14 00:00 :00 No 25mg Take 1 tablet by mouth in the morning. [facility] artificial tears(hypro mellose) (ISOPTO-TEA RS) 0.5 % ophthalmic drops 1 Drop 08-12 14:07: 41 Yes 1[drp] 1 Drop, Both Eyes, PRN, Starting on 08/13/23 at 0907, Until Discontinu ed, Routine, Dry eyes [facility] lanolin alcohol-mo- w.pet-ceres (EUCERIN) cream 08-12 14:00: 00 Yes Topical, DAILY, First dose on Mon08/13/23 at 0900, Until Discontinu ed, Routine [facility] diphenhydrA MINE (BENADRYL) tablet 25 mg 08-12 02:10: 07 Yes 25mg 25 mg, Oral, Q4HPRN, Starting on 08/12/23 at 2110, Until Discontinu ed, Routine, Itching, Mild Rash [facility] ondansetron (ZOFRAN-ODT ) disintegrat ing tablet 4 mg 08-11 22:15: 00 08-11 22:40 :00 No 4mg 4 mg, Oral, ONCE, 1 dose, On 08/12/23 at 1715, Routine [facility] iopamidol (ISOVUE 370-500 mL) injection 80 mL 08-11 14:15: 00 08-11 14:15 :00 No [id number] 80mL 80 mL, Intravenou s, ONCE, 1 dose, On Mon08/12/23 at 0930, Routine [facility] ferrous sulfate 325 mg (65 mg iron) tablet 08-11 14:00: 00 Yes 325mg Take 1 tablet by mouth every other day. [facility] pantoprazol e (PROTONIX) EC tablet 40 mg 08-11 14:00: 00 Yes 40mg 40 mg, Oral, DAILY, First dose on Mon08/12/23 at 0900, Until Discontinu ed [facility] diphenhydrA MINE (BENADRYL) tablet 25 mg 08-11 03:45: 00 08-11 02:43 :00 No 25mg 25 mg, Oral, ONCE, 1 dose, On Mon08/11/23 at 2245, Routine [facility] haloperidoL 5 mg tablet 08-11 01:00: 00 Yes 5mg Take 1 tablet by mouth in the morning and 1 tablet in the evening. [facility] haloperidoL 2 mg tablet 08-11 01:00: 00 Yes 2mg Take 1 tablet by mouth in the morning and 1 tablet in the evening. [facility] acetaminoph en (TYLENOL) tablet 650 mg 08-11 00:07: 55 Yes 650mg 650 mg, Oral, Q6HPRN, Starting on Mon08/11/23 at 1907, Until Discontinu ed, Routine, Pain (scale 1-3) [facility] maalox:diph enhydrAMINE :lidocaine 2 % viscous 1:1:1 ([facility]) oral suspension 15 mL 08-10 19:30: 00 08-10 19:57 :00 No 15mL 15 mL, Oral, ONCE, 1 dose, On Mon08/11/23 at 1430, Routine [facility] famotidine (PEPCID (PF)) injection 20 mg 08-10 19:30: 00 08-10 19:57 :00 No 20mg 20 mg, Slow IV Push, ONCE, 1 dose, On 3/29/24 at 1430, [facility] acute hospital NaCl 0.9% (NS) bolus infusion 1,000 mL 10-24 23:45: 00 10-25 00:03 :00 No 1000mL at 999 mL/hr, 1,000 mL, IV Infusion, ONCE, 1 dose, On Mon10/24/22 at 1845, [facility] acute hospital NaCl 0.9% (NS) bolus infusion 1,000 mL 09-30 19:30: 00 09-30 20:55 :00 No 1000mL at 999 mL/hr, 1,000 mL, IV Infusion, ONCE, 1 dose, On Mon09/30/22 at 1430, [facility] NaCl 0.9% (NS) bolus infusion 1,000 mL 2021-05 18:30: 00 03-18 19:25 :00 No 1000mL at 999 mL/hr, 1,000 mL, IV Infusion, ONCE, 1 dose, On Mon03/18/22 at 1330, General acute hospital NaCl 0.9% (NS) bolus infusion 1,000 mL 2021-05 15:15: 00 03-18 18:34 :00 No 1000mL at 999 mL/hr, 1,000 mL, IV Infusion, ONCE, 1 dose, On Mon03/18/22 at 1015, [facility] acute [facility] No known medications 2021-05 08:59: 21 No No known medication s [facility] activated charcoal-so rbitoL (ACTIDOSE/S ORBITAL) 25 gram/120 mL suspension 25 g 10-29 16:45: 00 10-29 15:52 :00 No 25g 25 g, Oral, ONCE, 1 dose, On Mon10/29/21 at 1145, [facility] acute hospital No known medications 10-29 10:41: [address] [facility] polyethylen e glycol 3350 powder 17 g 09-20 12:58: 10 Yes 17g 17 g, Oral, BIDPRN, Starting on Mon09/20/21 at 0758, Until Discontinu ed, Routine, Constipati on [facility] diphenhydrA MINE 25 mg capsule 09-19 10:03: 57 09-19 00:00 :00 No 25mg Take 25 mg by mouth 2 (two) times daily as needed for Allergies. [facility] haloperidoL 1 mg tablet 09-19 10:03: 57 09-19 00:00 :00 No 3mg Take 3 mg by mouth 2 (two) times daily. [facility] loratadine 10 mg capsule 09-19 10:03: 57 09-19 00:00 :00 No 10mg Take [address] [facility] omeprazole 20 mg capsule 09-19 10:03: 09-19 00:00 :00 No 20mg Take 20 mg by mouth daily. [facility] albuterol sulfate (PROAIR HFA INHALE) 09-19 10:03: 09-19 00:00 :[address] [facility] carBAMazepi ne (TEGRETOL) 100 mg/5 mL suspension 09-19 10:03: 57 09-19 00:00 :00 No 200mg Take 200 mg by mouth every morning. [facility] carBAMazepi ne (TEGRETOL) 100 mg/5 mL suspension 09-19 10:03: 09-19 00:00 :00 No 400mg Take 400 mg by mouth every evening. [facility] venlafaxine 75 mg tablet 09-19 10:03: 57 09-19 00:00 :00 No 225mg Take 225 mg by mouth every evening. [facility] carBAMazepi ne (TEGRETOL) 100 mg/5 mL suspension 09-19 00:00: 00 09-21 00:00 :00 No [id number] 200mg Take 10 mL by mouth every morning. [facility] carBAMazepi ne (TEGRETOL) 100 mg/5 mL suspension 09-19 00:00: 09-21 00:00 :00 No [id number] 400mg Take 20 mL by mouth every evening. [facility] venlafaxine 75 mg tablet 09-19 00:00: 00 09-21 00:00 :00 No [id number] 225mg Take 3 tablets by mouth every evening. [facility] diphenhydrA MINE 25 mg capsule 09-19 00:00: 09-21 00:00 :00 No [id number] 25mg Take 1 capsule by mouth 2 (two) times daily as needed for Allergies. [facility] haloperidoL 1 mg tablet 09-19 00:00: 00 09-21 00:00 :00 No [id number] 3mg Take 3 tablets by mouth 2 (two) times daily. [facility] omeprazole 20 mg capsule 09-19 00:00: 09-21 00:00 :00 No [id number] 20mg Take 1 capsule by mouth daily. [facility] enoxaparin (LOVENOX) injection 40 mg 09-18 22:00: 00 Yes 40mg 40 mg, Subcutaneo us, DAILY, First dose on 09/18/21 at 1700, Until Discontinu ed, Routine [facility] venlafaxine (EFFEXOR) tablet 225 mg 09-18 22:00: 00 Yes 225mg 225 mg, Oral, QPM, First dose on 09/18/21 at 1700, Until Discontinu ed, Routine [facility] carBAMazepi ne (TEGRETOL) 100 mg/5 mL suspension 400 mg 09-18 22:00: 00 Yes 400mg 400 mg, Oral, QPM, First dose on 09/18/21 at 1700, Until Discontinu ed, Routine [facility] diphenhydrA MINE (BENADRYL) tablet 25 mg 09-18 14:38: 36 Yes 25mg 25 mg, Oral, BIDPRN, Starting on 09/18/21 at 0938, Until Discontinu ed, Routine, for use with haldol [facility] sennosides (SENOKOT) tablet 8.6 mg 09-18 14:15: 00 09-20 12:58 :21 No 8.6mg 8.6 mg, Oral, DAILY, First dose on 09/18/21 at 0915, Until Discontinu ed, Routine [facility] polyethylen e glycol 3350 powder 17 g 09-18 14:15: 00 09-20 12:58 :21 No 17g 17 g, Oral, DAILY, First dose on 09/18/21 at 0915, Until Discontinu ed, Routine [facility] omeprazole (PRILOSEC) capsule 20 mg 09-18 14:00: 00 Yes 20mg 20 mg, Oral, DAILY, First dose on 09/18/21 at 0900, Until Discontinu ed, Routine [facility] carBAMazepi ne (TEGRETOL) 100 mg/5 mL suspension 200 mg 09-18 14:00: 00 Yes 200mg 200 mg, Oral, QAM, First dose on 09/18/21 at 0900, Until Discontinu ed, Routine [facility] magnesium hydroxide (MILK OF MAGNESIA) 400 mg/5 mL suspension 30 mL 09-18 07:15: 00 09-18 16:03 :08 No 30mL 30 mL, Oral, DAILY, First dose on 09/18/21 at 0215, Until Discontinu ed, Routine [facility] No known medications 09-18 01:05: [address] [facility] dextran 70/hypromel lose (GENTEAL TEARS MILD OPHTHALMIC) 06-10 08:56: [address] in each eye. [facility] ALBUTEROL, REFILL, INHALE 06-10 08:56: [address] [facility] Vital Signs Vital Name Observation Time Observation Value Comments S josé miguel Systolic blood pressure 2023-08-18 16:30:00 124 mm[Hg] [place] [facility] Diastolic blood pressure 2023-08-18 16:30:00 70 mm[Hg] [facility] Heart rate 2023-08-18 16:30:00 82 /min [facility] Respiratory rate 2023-08-18 16:30:00 16 /min [facility] Oxygen saturation in Arterial blood by Pulse oximetry 2023-08-18 16:30:00 99 /min [facility] Body temperature 2023-08-18 13:39:00 36.72 Luanne [facility] Body weight 2023-08-18 13:39:00 89.359 kg [facility] BMI 2023-08-18 13:39:00 28.27 kg/m2 [facility] Systolic blood pressure 2023-08-18 12:53:00 123 mm[Hg] [facility] Diastolic blood pressure 2023-08-18 12:53:00 83 mm[Hg] [facility] Heart rate 2023-08-18 12:53:00 92 /min [facility] Body temperature 2023-08-18 12:53:00 36.72 Luanne [facility] Respiratory rate 2023-08-18 12:53:00 19 /min [facility] Oxygen saturation in Arterial blood by Pulse oximetry 2023-08-18 12:53:00 100 /min [facility] Systolic blood pressure 2023-08-16 13:24:00 124 mm[Hg] [facility] Diastolic blood pressure 2023-08-16 13:24:00 85 mm[Hg] [facility] Heart rate 2023-08-16 13:24:00 74 /min [facility] Body temperature 2023-08-16 13:24:00 36.61 Luanne [facility] Respiratory rate 2023-08-16 13:24:00 18 /min [facility] Oxygen saturation in Arterial blood by Pulse oximetry 2023-08-16 13:24:00 99 /min [facility] Body weight 2023-08-11 18:52:00 89.812 kg [facility] BMI 2023-08-11 18:52:00 28.41 kg/m2 [facility] Systolic blood pressure 2023-08-11 14:59:00 124 mm[Hg] [facility] Diastolic blood pressure 2023-08-11 14:59:00 74 mm[Hg] [facility] Heart rate 2023-08-11 14:59:00 76 /min [facility] Body temperature 2023-08-11 14:59:00 36.56 Luanne [facility] Respiratory rate 2023-08-11 14:59:00 16 /min [facility] Body height 2023-08-11 14:59:00 177.8 cm [facility] Body weight 2023-08-11 14:59:00 89.812 kg [facility] BMI 2023-08-11 14:59:00 28.41 kg/m2 [facility] Oxygen saturation in Arterial blood by Pulse oximetry 2023-08-11 14:59:00 100 /min [facility] Systolic blood pressure 2022-11-30 14:00:00 103 mm[Hg] [facility] Diastolic blood pressure 2022-11-30 14:00:00 54 mm[Hg] [facility] Heart rate 2022-11-30 14:00:00 65 /min [facility] Body temperature 2022-11-30 14:00:00 36.5 Luanne [facility] Respiratory rate 2022-11-30 14:00:00 16 /min [facility] Oxygen saturation in Arterial blood by Pulse oximetry 2022-11-30 14:00:00 100 /min [facility] Systolic blood pressure 2022-11-29 19:52:00 132 mm[Hg] [facility] Diastolic blood pressure 2022-11-29 19:52:00 108 mm[Hg] [facility] Heart rate 2022-11-29 19:52:00 60 /min [facility] Body temperature 2022-11-29 19:52:00 37 Luanne [facility] Respiratory rate 2022-11-29 19:52:00 18 /min [facility] Oxygen saturation in Arterial blood by Pulse oximetry 2022-11-29 19:52:00 98 /min [facility] Body height 2022-11-29 16:26:00 157.5 cm [facility] Body weight 2022-11-29 16:26:00 90.719 kg [facility] BMI 2022-11-29 16:26:00 36.58 kg/m2 [facility] Systolic blood pressure 2022-10-25 00:00:00 120 mm[Hg] [facility] Diastolic blood pressure 2022-10-25 00:00:00 70 mm[Hg] [facility] Heart rate 2022-10-25 00:00:00 63 /[facility] 2022-10-25 00:00:00 12 /min [facility] Oxygen saturation in Arterial blood by Pulse oximetry 2022-10-25 00:00:00 95 /min [facility] Body temperature 2022-10-24 22:41:00 37.28 Luanne [facility] Body height 2022-10-24 22:41:00 172.7 cm [facility] Body weight 2022-10-24 22:41:00 90.719 kg [facility] BMI 2022-10-24 22:41:00 30.41 kg/m2 [facility] Systolic blood pressure 2022-09-30 23:30:00 131 mm[Hg] [facility] Diastolic blood pressure 2022-09-30 23:30:00 90 mm[Hg] [facility] Respiratory rate 2022-09-30 23:30:00 17 /min [facility] Heart rate 2022-09-30 20:56:00 57 /min [facility] Oxygen saturation in Arterial blood by Pulse oximetry 2022-09-30 20:56:00 100 /min [facility] Body temperature 2022-09-30 17:44:00 36.78 Luanne [facility] Body height 2022-09-30 17:44:00 177.8 cm [facility] Body weight 2022-09-30 17:44:00 92.987 kg [facility] BMI 2022-09-30 17:44:00 29.41 kg/m2 [facility] Systolic blood pressure 2022-07-20 03:38:00 110 mm[Hg] [facility] Diastolic blood pressure 2022-07-20 03:38:00 51 mm[Hg] [facility] Heart rate 2022-07-20 03:38:00 72 /min [facility] Body temperature 2022-07-20 03:38:00 36.56 Luanne [facility] Respiratory rate 2022-07-20 03:38:00 16 /min [facility] Body height 2022-07-20 03:38:00 177.8 cm [facility] Body weight 2022-07-20 03:38:00 93.895 kg [facility] BMI 2022-07-20 03:38:00 29.70 kg/m2 [facility] Oxygen saturation in Arterial blood by Pulse oximetry 2022-07-20 03:38:00 98 /min [facility] Systolic blood pressure 2022-03-21 19:30:00 116 mm[Hg] [facility] Diastolic blood pressure 2022-03-21 19:30:00 69 mm[Hg] [facility] Heart rate 2022-03-21 19:30:00 74 /min [facility] Body temperature 2022-03-21 19:30:00 36.39 Luanne [facility] Respiratory rate 2022-03-21 19:30:00 18 /min [facility] Oxygen saturation in Arterial blood by Pulse oximetry 2022-03-21 19:30:00 100 /min [facility] Systolic blood pressure 2022-03-18 18:50:00 127 mm[Hg] standing [facility] Diastolic blood pressure 2022-03-18 18:50:00 86 mm[Hg] standing [facility] Heart rate 2022-03-18 18:50:00 67 /min [facility] Respiratory rate 2022-03-18 18:50:00 20 /min [facility] Oxygen saturation in Arterial blood by Pulse oximetry 2022-03-18 18:50:00 98 /min [facility] Body temperature 2022-03-18 16:28:00 37 Luanne [facility] Body weight 2022-03-18 13:54:00 97.523 kg [facility] BMI 2022-03-18 13:54:00 30.85 kg/m2 [facility] Systolic blood pressure 2021-10-29 15:35:00 126 mm[Hg] [facility] Diastolic blood pressure 2021-10-29 15:35:00 71 mm[Hg] [facility] Heart rate 2021-10-29 15:35:00 85 /min [facility] Body temperature 2021-10-29 15:35:00 36.61 [facility] Respiratory rate 2021-10-29 15:35:00 20 /min [facility] Oxygen saturation in Arterial blood by Pulse oximetry 2021-10-29 15:35:00 100 /min [facility] Systolic blood pressure 2021-10-29 14:19:00 126 mm[Hg] [facility] Diastolic blood pressure 2021-10-29 14:19:00 71 mm[Hg] [facility] Heart rate 2021-10-29 14:19:00 85 /min [facility] Body temperature 2021-10-29 14:19:00 36.61 [facility] Respiratory rate 2021-10-29 14:19:00 18 /min [facility] Oxygen saturation in Arterial blood by Pulse oximetry 2021-10-29 14:19:00 100 /min [facility] Systolic blood pressure 2021-09-20 16:12:00 133 mm[Hg] [facility] Diastolic blood pressure 2021-09-20 16:12:00 75 mm[Hg] [facility] Heart rate 2021-09-20 16:12:00 69 /min [facility] Body temperature 2021-09-20 16:12:00 36.11 [facility] Respiratory rate 2021-09-20 16:12:00 18 /min [facility] Oxygen saturation in Arterial blood by Pulse oximetry 2021-09-20 16:12:00 99 /min [facility] Body height 2021-09-18 05:54:00 177.8 cm [facility] Body weight 2021-09-18 05:54:00 92.08 kg [facility] BMI 2021-09-18 05:54:00 29.13 kg/m2 [facility] Procedures Procedure Date / Time Performed Performing Clinician Source EKG-12 LEAD 2023-08-18 15:22:33 Simone Maldonado [facility] XR ABDOMEN ACUTE SERIES 2023-08-18 14:53:00 Rajesh Maldonado [facility] URINALYSIS 2023-08-18 14:38:00 Simone Maldonado [facility] URINE DRUG (IMMUNOASSAY) - COMPREHENSIVE DRUG SCREEN W/O REFLEX 2023-08-18 14:38:00 Simone Maldonado [facility] TROPONIN I 2023-08-18 14:02:00 Simone Maldonado [facility] COMP. METABOLIC PANEL ([id number]) 2023-08-18 14:02:00 Simone Maldonado [facility] SALICYLATE 2023-08-18 14:02:00 Simone Maldonado [facility] CARBAMAZEPINE 2023-08-18 14:02:00 Simone Maldonado [facility] CBC WITH DIFF 2023-08-18 14:02:00 Simone Maldonado [facility] LACTIC ACID WHOLE BLOOD 2023-08-18 14:02:00 Rajesh Maldonado [facility] CARBAMAZEPINE 2023-08-14 05:46:00 Michael Kiran [facility] MAGNESIUM 2023-08-13 05:21:00 Michael Kiran [facility] HEPATIC FUNCTION PANEL ([id number]) (ALB,T.PRO,BILI T,BU/BC,ALT,AST,ALK PHOS) 2023-08-13 05:21:00 [facility] (NA, K, CL, CO2, GLUCOSE, BUN, CREATININE, CA) 2023-08-13 05:21:00 Silver Kiran [place] [facility] CARBAMAZEPINE 2023-08-13 05:21:00 Michael Kiran [facility] CBC WITH DIFF 2023-08-13 05:21:00 Michael Kiran [facility] HB ECG ROUTINE & RHYTHM STRIP 2023-08-12 21:19:46 Silver Kiran [facility] XR CHEST 1 VW 2023-08-12 18:04:00 Michael Kiran [facility] XR KUB 2023-08-12 15:20:00 Michael Kiran [facility] CT ABDOMEN PELVIS W CONTRAST 2023-08-12 14:19:00 Erika [facility] XR KUB 2023-08-12 00:45:00 Erika [facility] CT HEAD WO CONTRAST 2023-08-11 19:50:52 Nafisa Nelson [facility] URINALYSIS 2023-08-11 19:27:00 Nafisa Nelson Un [facility] EXTRA TUBE URINE CULTURE 2023-08-11 19:27:00 Carolynn Butt [facility] URINE DRUG (IMMUNOASSAY) - COMPREHENSIVE DRUG SCREEN W/O REFLEX 2023-08-11 19:27:00 Nafisa Nelson [facility] COVID-19 (ID NOW RAPID TESTING) 2023-08-11 19:23:00 Nafisa Nelson Darya [facility] LAB ONLY COVID INTERPRETATION 2023-08-11 19:23:00 Nafisa Nelson [facility] CREATINE KINASE 2023-08-11 19:19:00 Nafisa Nelson [facility] THYROID STIMULATING HORMONE 2023-08-11 19:19:00 Nafisa Nelson [facility] COMP. METABOLIC PANEL (47227) 2023-08-11 19:19:00 Nafisa Nelson [facility] SALICYLATE 2023-08-11 19:19:00 Nafisa Nelson Un [facility] CARBAMAZEPINE 2023-08-11 19:19:00 Nafisa Nelson U [facility] ETHANOL 2023-08-11 19:19:00 [facility] WITH DIFF 2023-08-11 19:19:00 Nafisa Nelson U [facility] XR NASAL BONES 2023-06-15 14:02:[address] [facility] XR ABDOMEN 1 VW 2023-05-19 15:29:31 Iman Francisco [facility] XR NASAL BONES 2023-03-31 15:35:05 Honorio Leggett [facility] EKG-12 LEAD 2022-11-29 22:19:10 Yennifer [facility] CREATINE KINASE 2022-11-29 18:38:00 Filiberto De Oliveira [facility] MAGNESIUM 2022-11-29 18:38:00 Yennifer [facility] TROPONIN I 2022-11-29 18:38[facility] 2022-11-29 18:38:00 Yennifer [facility] COMP. METABOLIC PANEL ([id number]) 2022-11-29 18:38:00 Yennifer [facility] SALICYLATE 2022-11-29 18:38:00 Yennifer [facility] CARBAMAZEPINE 2022-11-29 18:38:00 Yennifer [facility] ETHANOL 2022-11-29 18:38:00 Yennifer [facility] CBC WITH DIFF 2022-11-29 18:38:00 Yennifer [facility] COVID-19 (ID NOW RAPID TESTING) 2022-11-29 18:38[facility] (IMMUNOASSAY) - COMPREHENSIVE DRUG SCREEN W/O REFLEX 2022-11-29 18:38:00 Yennifer [facility] EMERGENCY SERVICES AGREEMENTS AND AUTHORIZATIONS 2022-11-29 05:01:00 Doctor Unassigned, [place] [facility] COMP. METABOLIC PANEL (96852) 2022-10-24 23:05:00 Guerita Luz [facility] ETHANOL 2022-10-24 23:05:00 [facility] WITH DIFF 2022-10-24 23:05:00 [facility] (IMMUNOASSAY) - COMPREHENSIVE DRUG SCREEN W/O REFLEX 2022-10-24 23:05:00 Guerita Luz [facility] CARBAMAZEPINE 2022-09-30 21:32:00 Elkin Gilbert [facility] URINE DRUG (IMMUNOASSAY) - COMPREHENSIVE DRUG SCREEN 2022-09-30 18:20:00 Elkin Gilbert [facility] URINALYSIS 2022-09-30 18:20:00 Elkin Gilbert [facility] TROPONIN I 2022-09-30 17:58:00 Elkin Gilbert [facility] COMP. METABOLIC PANEL ([id number]) 2022-09-30 17:58:00 Elkin Gilbert [facility] SALICYLATE 2022-09-30 17:58:00 Elkin Gilbert [facility] CARBAMAZEPINE 2022-09-30 17:58:00 Elkin Gilbert [facility] ETHANOL 2022-09-30 17:58:00 Elkin Gilbert [facility] CBC WITH DIFF 2022-09-30 17:58:00 Elkin Gilbert Billie [facility] XR CHEST 2 VW 2022-08-08 12:42:00 Md [facility] 2022-07-27 12:36:00 Md Chetan [facility] ABDOMEN ACUTE SERIES 2022-07-20 04:35:00 Do isis Cantu [facility] XR NECK SOFT TISSUE 2022-07-20 04:35:00 Shira Cantu [facility] EKG-12 LEAD 2022-03-18 19:21:08 Yennifer [facility] XR CHEST 1 VW 2022-03-18 17:56:00 Yennifer [facility] URINALYSIS 2022-03-18 16:28:00 Yennifer [facility] EXTRA TUBE URINE CULTURE 2022-03-18 16:28:00 Yennifer [facility] URINE DRUG (IMMUNOASSAY) - COMPREHENSIVE DRUG SCREEN W/O REFLEX 2022-03-18 16:28:00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 Reference Range Interpretation Comme nts WBC (test code = 6690-2) 5.83 See_Comment [[employer]] The system which generated this result transmitted reference range: 4.20 - 10.70 10*3/?L. The reference range was not used to interpret this result as normal/abnormal. RBC (test code = 789-8) 6.03 See_Comment H [[employer]] The system which generated this result transmitted [...] 31.3 g/dL 31.2-35.0 RDW-SD (test code = 12266-5) 32.4 fL 38.5-51.6 L RDW-CV (test code = 788-0) 15.2 % 12.1-15.4 PLT (test code = 777-3) 258 See_Comment [Automated messa ge] The system which generated this result transmitted reference range: 150 - 328 10*3/?L. The reference range was not used to interpret this result as normal/abnormal. MPV (test code = 89889-8) 10.4 fL 9.8-13.0 NRBC/100 WBC (test code = 5469185965) 0.0 See_Comment [Automated me ssage] The system which generated this result transmitted reference range: 0.0 - 10.0 /100 WBCs. The reference range was not used to interpret this result as normal/abnormal. NRBC x10^3 (test code = 4994273752) See_Comment [Automated messa ge] The system which generated this result transmitted reference range: 10*3/?L. The reference range was not used to interpret this result as normal/abnormal. GRAN MAT (NEUT) % (test code = 770-8) 59.4 % IMM GRAN % (test code = 7526545699) 0.20 % LYMPH % (test code = 736-9) 30.9 % MONO % (test code = 5905-5) 6.9 % EOS % (test code = 713-8) 2.1 % BASO % (test code = 706-2) 0.5 % GRAN MAT x10^3(ANC) (test code = 1383235505) 3.47 10*3/uL 1.99-6.95 IMM GRAN x10^3 (test code = 6152055324) 0.00-0.06 LYMPH x10^3 (test code = 731-0) 1.80 10*3/uL 1.09-3.23 MONO x10^3 (test code = 742-7) 0.40 10*3/uL 0.36-1.02 EOS x10^3 (test code = 711-2) 0.12 10*3/uL 0.06-0.53 BASO x10^3 (test code = 704-7) 0.03 10*3/uL 0.01-0.09 Lab Interpretation (test code = 25888-4) Abnormal [facility] HospitalETHANOL2022-06-17 16:34:55* Test Item Value Reference Range Interpretation Comme nts ALCOHOL (test code = 1423946390) <10 mg/dL ELIZABETH (test code = ELIZABETH) Toxic Greater than or equal to 80 mg/dL. NOTE: Whole blood values are approximately 10% to 15% lower than serum and plasma. [facility] HospitalSALICYLATE2022-06-17 16:34:50* Test Item Value Reference Range Interpretation Comme nts SALICYLATE (test code = 5952645498) <10 mg/L ELIZABETH (test code = ELIZABETH) Therapeutic Range: ? Analgesic and Antipyretic Use ? 20-100 mg/L ? ? Anti-Inflammatory Use ? 100-250 mg/L Toxic Range: ? Greater than 300 mg/L [facility] HospitalACETAMINOPHEN2022-06-17 16:34:45* Test Item Value Reference Range Interpretation Comme nts ACETAMINOP (test code = 5506931714) <10.0 10.0-30.0 L ELIZABETH (test code = ELIZABETH) Toxic: Greater derick n 200 ug/mL @ 4 hour post ingestion or greater than 50 ug/mL @ 12 hour post ingestion Lab Interpretation (test code = 69388-8) Abnormal [facility] HospitalCOMP. METABOLIC PANEL ([id number])2021-10-29 16:33:25* Test Item Value Reference Range Interpretation Comme nts NA (test code = 0330201989) 138 mmol/L 135-145 K (test code = 4295270342) 4.4 mmol/L 3.5-5.0 CL (test code = 3071526883) 106 mmol/L 98-108 CO2 TOTAL (test code = 1532779170) 27 mmol/L 23-31 AGAP (test code = 0188107666) 2-16 BUN (test code = 0490453125) 22 mg/dL 7-23 GLUCOSE (test code = 3617522157) 94 mg/dL 70-110 CREATININE (test code = 5118580916) 0.94 mg/dL 0.60-1.25 TOTAL BILI (test code = 8509064934) 0.4 mg/dL 0.1-1.1 CALCIUM (test code = 0628917379) 9.3 mg/dL 8.6-10.6 T PROTEIN (test code = 2726283970) 7.6 g/dL 6.3-8.2 ALBUMIN (test code = 5945692241) 4.6 g/dL 3.5-5.0 ALK PHOS (test code = 2404751871) 77 U/L 34-122 ALTv (test code = 1742-6) 30 U/L 5-50 AST(SGOT) (test code = 2373164184) 30 U/L 13-40 eGFR (test code = 5257971897) mL/min/1.73m2 ELIZABETH (test code = ELIZABETH) Association [...] or urine or abnormalities in imaging tests). [facility] HospitalLIPASE2022-06-17 16:33:25* Test Item Value Reference Range Interpretation Comme nts LIPASE (test code = 2769154335) 154 U/L 0-220 Lab Interpretation (test cod e = 54146-6) Normal [facility] WITH [id number] 16:09:24* Test Item Value Reference Range Interpretation [...] g/dL 31.2-35.0 L RDW-SD (test code = 85280-0) 32.8 fL 38.5-51.6 L RDW-CV (test code = 788-0) 16.1 % 12.1-15.4 H PLT (test code = 777-3) See_Comment [Automated messa ge] The system which generated this result transmitted reference range: 150 - 328 10*3/?L. The reference range was not used to interpret this result as normal/abnormal. MPV (test code = 23271-2) 10.4 fL 9.8-13.0 NRBC/100 WBC (test code = 2924547933) See_Comment [Automated [employer] ssage] The system which generated this result transmitted reference range: 0.0 - 10.0 /100 WBCs. The reference range was not used to interpret this result as normal/abnormal. NRBC x10^3 (test code = 6003012104) <0.01 See_Comment [Automated messa ge] The system which generated this result transmitted reference range: 10*3/?L. The reference range was not used to interpret this result as normal/abnormal. GRAN MAT (NEUT) % (test code = 770-8) 59.0 % IMM GRAN % (test code = 6391227654) 0.40 % LYMPH % (test code = 736-9) 28.0 % MONO % (test code = 5905-5) 9.0 % EOS % (test code = 713-8) 3.1 % BASO % (test code = 706-2) 0.5 % GRAN MAT x10^3(ANC) (test code = 7204042423) 4.39 10*3/uL 1.99-6.95 IMM GRAN x10^3 (test code = 4715091266) 0.03 10*3/uL 0.00-0.06 LYMPH x10^3 (test code = 731-0) 2.08 10*3/uL 1.09-3.23 MONO x10^3 (test code = 742-7) 0.67 10*3/uL 0.36-1.02 EOS x10^3 (test code = 711-2) 0.23 10*3/uL 0.06-0.53 BASO x10^3 (test code = 704-7) 0.04 10*3/uL 0.01-0.09 Lab Interpretation (test code = 26474-5) Abnormal [facility] HospitalFERRITIN [id number] 15:30:24* Test Item Value Reference Range Interpretation Comme nts FERRITIN (test code = 2429079570) 113.0 ng/mL 18.0-464.0 ELIZABETH (test code = ELIZABETH) Biotin has been reported to cause a negative bias, interpret results relative to patient's use of biotin. Lab Interpretation (test code = 06994-0) Normal [facility] HospitalIRON BDZFO5613-65-07 15:01:41* Test Item Value Reference Range Interpretation Comme nts IRON (test code = 5646458599) 69 ug/dL 50-160 TIBC (test code = 1616682381) 365 ug/dL 250-410 % FE SAT (test code = 0153780004) 19 % 20-50 L Lab Interpretation (test cod e = 20960-6) Abnormal [facility] WITH [id number] 11:18:30* Test Item Value Reference Range Interpretation [...] g/dL 31.2-35.0 L RDW-SD (test code = 88961-5) 32.2 fL 38.5-51.6 L RDW-CV (test code = 788-0) 17.9 % 12.1-15.4 H PLT (test code = 777-3) See_Comment [Automated [employer]] The system which generated this result transmitted reference range: 150 - 328 10*3/?L. The reference range was not used to interpret this result as normal/abnormal. MPV (test code = 94996-3) 11.0 fL 9.8-13.0 IPF % (test code = 1123723834) 3.8 % 1.2-10.7 Platelet count measured by fluorescence method. NRBC/100 WBC (test code = 8250993345) See_Comment [[employer]ated [employer] ssage] The system which generated this result transmitted reference range: 0.0 - 10.0 /100 WBCs. The reference range was not used to interpret this result as normal/abnormal. NRBC x10^3 (test code = 5738867019) <0.01 See_Comment [Automated messa ge] The system which generated this result transmitted reference range: 10*3/?L. The reference range was not used to interpret this result as normal/abnormal. GRAN MAT (NEUT) % (test code = 770-8) 61.8 % IMM GRAN % (test code = 3496279341) 0.50 % LYMPH % (test code = 736-9) 27.9 % MONO % (test code = 5905-5) 6.7 % EOS % (test code = 713-8) 2.5 % BASO % (test code = 706-2) 0.6 % GRAN MAT x10^3(ANC) (test code = 6923057262) 5.31 10*3/uL 1.99-6.95 IMM GRAN x10^3 (test code = 3298359502) 0.04 10*3/uL 0.00-0.06 LYMPH x10^3 (test code = 731-0) 2.39 10*3/uL 1.09-3.23 MONO x10^3 (test code = 742-7) 0.57 10*3/uL 0.36-1.02 EOS x10^3 (test code = 711-2) 0.21 10*3/uL 0.06-0.53 BASO x10^3 (test code = 704-7) 0.05 10*3/uL 0.01-0.09 REACT LYMPHS (test code = 0236857085) Rare Lab Interpretation (test code = 70159-6) Abnormal [facility] METABOLIC PANEL (NA, K, CL, CO2, GLUCOSE, BUN, CREATININE, CA)2021-09-18 10:58:42* Test Item Value Reference Range Interpretation Comme nts NA (test code = 2129490184) 140 mmol/L 135-145 K (test code = 0600349827) 4.2 mmol/L 3.5-5.0 CL (test code = 3743324363) 104 mmol/L 98-108 CO2 TOTAL (test code = 6055024990) 23 mmol/L 23-31 AGAP (test code = 9010672720) 2-16 BUN (test code = 5280397525) 19 mg/dL 7-23 GLUCOSE (test code = 6823471065) 104 mg/dL 70-110 CREATININE (test code = 1221583102) 1.01 mg/dL 0.60-1.25 CALCIUM (test code = 1531801269) 9.7 mg/dL 8.6-10.6 eGFR (test code = 9910416742) mL/min/1.73m2 ELIZABETH (test code = ELIZABETH) Association [...] or urine or abnormalities in imaging tests). [facility] HospitalHEPATIC FUNCTION PANEL (10058) (ALB,T.PRO,BILI T,BU/BC,ALT,AST,ALK PHOS)2021-09-18 10:58:42* Test Item Value Reference Range Interpretation Comme nts TOTAL BILI (test code = 0675365711) 0.5 mg/dL 0.1-1.1 BILI UNCON (test code = 3770689808) 0.3 mg/dL 0.1-1.1 BILI CONJ (test code = 0788540386) 0.0 mg/dL 0.0-0.3 T PROTEIN (test code = 1530432793) 8.6 g/dL 6.3-8.2 H ALBUMIN (test code = 8444559555) 4.9 g/dL 3.5-5.0 ALK PHOS (test code = 0992848080) 87 U/L 34-122 ALTv (test code = 1742-6) 22 U/L 5-50 AST(SGOT) (test code = 8928324179) 35 U/L 13-40 Lab Interpretation (test cod e = 31874-0) Abnormal [facility] HospitalMagnesium Awypr2657-00-40 10:58:42* Test Item Value Reference Range Interpretation Comme nts MAGNESIUM (test code = 1003981765) 2.2 mg/dL 1.7-2.4 Lab Interpretation (test cod e = 95072-4) Normal [facility] HospitalProthrombin Time / [id number] 10:41:17* Test Item Value Reference Range Interpretation [...] the indications. Lab Interpretation (test code = 29134-6) Normal [facility] HospitalCARBAMAZEPINE2022-05-06 21:20:37* Test Item Value Reference Range Interpretation Comme nts CARBAMAZE (test code = 0455070456) <3.0 4.0-12.0 L ELIZABETH (test code = ELIZABETH) Toxic Range: ? Greater than 12 ug/mL Lab Interpretation (test code = 37988-3) Abnormal [facility] HospitalTROPONIN [id number] 21:11:07* Test Item Value Reference Range Interpretation Comments TROPONIN I (test code = 8716661457) 0.000 ng/mL See_Comment [Automated message] The system [...] of biotin. Lab Interpretation (test code = 60999-2) Normal [facility] HospitalSalicylate2022-05-06 16:48:28* Test Item Value Reference Range Interpretation Comme nts SALICYLATE (test code = 5493598880) <10 mg/L ELIZABETH (test code = ELIZABETH) Therapeutic Range: ? Analgesic and Antipyretic Use ? 20-100 mg/L ? ? Anti-Inflammatory Use ? 100-250 mg/L Toxic Range: ? Greater than 300 mg/L [facility] HospitalEthanol (ETOH) Nljkv4918-66-18 16:48:18* Test Item Value Reference Range Interpretation Comme nts ALCOHOL (test code = 3481772638) <10 mg/dL ELIZABETH (test code = ELIZABETH) Toxic Greater than or equal to 80 mg/dL. NOTE: Whole blood values are approximately 10% to 15% lower than serum and plasma. [facility] HospitalAcetaminophen2022-05-06 16:34:21* Test Item Value Reference Range Interpretation Comme nts ACETAMINOP (test code = 8755734756) <10.0 10.0-30.0 L ELIZABETH (test code = ELIZABETH) Toxic: Greater derick n 200 ug/mL @ 4 hour post ingestion or greater than 50 ug/mL @ 12 hour post ingestion Lab Interpretation (test code = 36300-6) Abnormal [facility] HospitalCBC with Qkiwsqixjcgk0162-96-70 16:33:35* Test Item Value Reference Range Interpretation Comme nts WBC (test code = 6690-2) See_Comment [[employer]ated [employer]] The system which generated this result transmitted reference range: 4.20 - 10.70 10*3/?L. The reference range was not used to interpret this result as normal/abnormal. RBC (test code = 789-8) See_Comment H [Automated [employer]] The system which generated this result [...] g/dL 31.2-35.0 L RDW-SD (test code = 27483-3) 33.4 fL 38.5-51.6 L RDW-CV (test code = 788-0) 15.9 % 12.1-15.4 H PLT (test code = 777-3) See_Comment [[employer]ated [employer]] The system which generated this result transmitted reference range: 150 - 328 10*3/?L. The reference range was not used to interpret this result as normal/abnormal. MPV (test code = 80295-5) 11.1 fL 9.8-13.0 IPF % (test code = 7374619639) 5.6 % 1.2-10.7 Platelet count measured by fluorescence method. NRBC/100 WBC (test code = 3635511616) See_Comment [[employer]] The system which generated this result transmitted reference range: 0.0 - 10.0 /100 WBCs. The reference range was not used to interpret this result as normal/abnormal. NRBC x10^3 (test code = 3330351253) <0.01 See_Comment [[employer]ated [employer]] The system which generated this result transmitted reference range: 10*3/?L. The reference range was not used to interpret this result as normal/abnormal. GRAN MAT (NEUT) % (test code = 770-8) 68.9 % IMM GRAN % (test code = 9860272481) 0.30 % LYMPH % (test code = 736-9) 20.2 % MONO % (test code = 5905-5) 7.8 % EOS % (test code = 713-8) 2.3 % BASO % (test code = 706-2) 0.5 % GRAN MAT x10^3(ANC) (test code = 4682053160) 4.24 10*3/uL 1.99-6.95 IMM GRAN x10^3 (test code = 3089444846) <0.03 0.00-0.06 LYMPH x10^3 (test code = 731-0) 1.24 10*3/uL 1.09-3.23 MONO x10^3 (test code = 742-7) 0.48 10*3/uL 0.36-1.02 EOS x10^3 (test code = 711-2) 0.14 10*3/uL 0.06-0.53 BASO x10^3 (test code = 704-7) 0.03 10*3/uL 0.01-0.09 ELLIPTO/OVAL (test code = 30108-4) 2+ See_Comment A [Automated Intent[employer] ge] The system which generated this result transmitted reference range: (none). The reference range was not used to interpret this result as normal/abnormal. SCHISTOCYTES (test code = 800-3) 1+ A REACT LYMPHS (test code = 7955930659) Rare GIANT PLATELETS (test code = 5908-9) Present See_Comment A [Automated Intent[employer] ge] The system which generated this result transmitted reference range: (none). The reference range was not used to interpret this result as normal/abnormal. Lab Interpretation (test code = 77635-2) [facility] 2021-[facility]17 16:19:34* Test Item Value Reference Range Interpretation Comme nts NA (test code = 2547589309) 140 mmol/L 135-145 K (test code = 0620420684) 4.0 mmol/L 3.5-5.0 CL (test code = 0367679394) 107 mmol/L 98-108 CO2 TOTAL (test code = 9323477389) 24 mmol/L 23-31 AGAP (test code = 2552944832) 2-16 BUN (test code = 8114334335) 18 mg/dL 7-23 GLUCOSE (test code = 1279321157) 112 mg/dL 70-110 H CREATININE (test code = 4647103063) 0.96 mg/dL 0.60-1.25 TOTAL BILI (test code = 9224008842) 0.4 mg/dL 0.1-1.1 CALCIUM (test code = 2067132389) 9.1 mg/dL 8.6-10.6 T PROTEIN (test code = 8353065236) 7.2 g/dL 6.3-8.2 ALBUMIN (test code = 5315729544) 4.3 g/dL 3.5-5.0 ALK PHOS (test code = 6558844898) 61 U/L 34-122 ALTv (test code = 1742-6) 19 U/L 5-50 AST(SGOT) (test code = 4282157201) 27 U/L 13-40 eGFR (test code = 7567487624) mL/min/1.73m2 ELIZABETH (test code = ELIZABETH) Association [...] imaging tests). Lab Interpretation (test code = 91967-7) Abnormal [facility] Consult Notes Date/Time Note Provider Source 2023-08-15 10:14:53 E61lJ2kvQVfQz5hlqfzVeCPlzVfirRAQY9lDwTGx lUr 0w08s0Eco9+Ueyf68DRZI4444-93-43V64:14:53Ass ociated Order(s): CONSULT NEUROLOGY NEUROLOGY CONSULT NOTEDATE [...] morning.HOSPITAL MEDICATIONSScheduled meds: IV meds: PRN meds:lanolin hyegkhm-fi-r.pet-ceres, , DAILYferrous sulfate, 325 mg, Q OTHERDAYhaloperidoL, 2 mg, BIDhaloperidoL, 5 mg, BIDpantoprazole, 40 mg, DAILYartificial tears(hypromellose), 1 Drop, PRNdiphenhydrAMINE, 25 mg, W8YHFCbmmdusnyakswv, 650 mg, R7KAFPMZBFOEZCn Known AllergiesREVIEW OF SYSTEMSGeneral: (-) fever, (-) [...] MRI seizure protocol with neuro quant- Outpatient UAT-Ymdfkp-fv in neurology clinic-No KOP medsPatient was seen and discussed with Ke Edge MD, Neurology Faculty. Discussed with the primary team. Neurology will continue to follow.Neurology consult pager: [phone] Horn, DL5Uljcvxf Neurology Consults Matthew Steiner personally examined the patient on 08/15/23 and have verified the medical student documentation and/or findings, including the history, physical exam, and medical decision making. Additionally, I have personally performed or re-performed the physical exam and medical decision making activities of this patient's evaluation and management service.Hillary Babcock, MDPGY-1 neurology Resident ssociated attestation - Ke Song [...] Ordering referrals and/or communicating with other health care support representative (when not separately reported), Documenting clinical information in the electronic or other health record, Independently interpreting results (not separately reported) and/or communicating results to the patient/family/caregiver, and Care coordination (not separately reported).I actively participated in the decision making process.Please see the resident's note/addendum for additional details.14193-0Lpabppl dwgyIJ0470266Ytvhkalsb-Xsyhnghik, Jorge1.2.840.495615.1.13.104.2.7.2.126742Ld guzmsyz-SmukarkvfAvrgmMY9646-33-02T14:18:09 Consult noteTXT1.2.840.617278.1.13.104.2.7.2.838610 |[id number] for patient txvs60226-9Ztjtvmi noteLNNARRATIVEFormatted C-CDA narrative vyrxYX-RRFEVSSJILL-NVVHEWEYXRZAZYIMQ - [address] VwckT[id number] MGCDOCMGRHAESPS0519-30-23H04:18:091.2.840.1 85747.1.72.3.15|1.2.840.339665.1.13.104.2.7 .2.727879_[id number] PN-NEUROLOGY [facility] 2023-08-14 09:19:49 O6hvKcgyN/gnFwDHHDRqAhjz6CCz4OGPXCZHeZcE 3TS 2Gpn9FSxoQ20XOPxiKpyY8670-99-90X54:19:49Ass ociated Order(s): CONSULT PSYCHIATRY [facility] DEPARTMENT OF PSYCHIATRY - Consult LiaisonPer attending review and protocol, patient will need to go to [facility] Crisis Management team for self harm. If any other questions or concerns arise prior to Crisis Management placement, please reach out to C/L pager as listed below.Please contact the psychiatry consult pager: [phone] with any questions.Patient discussed with Psychiatry faculty, Dr. Matias, who agrees with plan.Edgard Moreno [facility] Department of Psychiatry PGY-2C/L Pager # [phone] signed by Kade Matias MD at 08/15/2023 11:12 AM CDTAssociated attestation - Kade Matias MD - 08/15/2023 11:12 AM CDT I discussed this patient with the resident and directed the medical decision-making. I agree with the resident note.75943-0Dzxjlci ahvzKU6538445PbahcvKade Matias1.2.840.371537.1.13.104.2.7.2.367027 BfoxjfDzpxycmZvpzzfaOZ8488-50-32W96:12:07Co nsult noteTXT1.2.840.883945.1.13.104.2.7.2.430598 |[id number] for patient zrvv30879-3Ktsnxyk noteLNNARRATIVEFormatted C-CDA narrative uetlQW-ASYNSNOCKWUR-ZQZXNCXNRKQNYQGKGE43 [address] [id number] HTOLYVSKIWGMEJK4421-81-50U47:12:071.2.840.1 09605.1.72.3.15|1.2.840.855417.1.13.104.2.7 .2.727879_[id number] PN-PSYCHIATRY [facility] 2023-08-12 13:35:51 yugRo9NRIgTbcGuZDSG4/O3/xphPwzhTkdVM6Ylv a U7gbLapTmZs3WNbXuzQCH6218-76-87U17:35:51Ass ociated Order(s): CONSULT GASTROENTEROLOGY Department of Gastroenterology & Hepatology Consult NoteRequesting Physician: ANNELIESE Goodwinervice: Veronica for Consultation: 33 year old male with H mood disorder and multiple suicide attempts here [...] of Service: 4CHIEF COMPLAINT:Toxic ingestionHistory of Present IllnessMohammonico Patricia is a 33 year old male [...] sign off. Please call with any questions.Sera Cornelius MDPGY-5 Gastroenterology and HepatologyContact information available through [facility] [place]lectronically signed by Perla Braden MD at 08/12/2023 8:49 PM CDTAssociated attestation - Perla Braden MD - 08/12/2023 8:49 PM CDT I have personally seen and examined the patient with Dr. Conrelius on 08/12/23. I agree with assessment and [...] in chest or abdomen. No endoscopy needed.PERLA YANCEY,PECAN HULLER,DIVISION OF GASTROENTEROLOGY AND HEPATOLOGY.[facility].29987-8Zyqxxwv jbduVP1614018Eovw, Kashif1.2.840.613543.1.13.104.2.7.2.949935K unuMxnnqbGI4661-69-48S50:49:56Consult noteTXT1.2.840.050920.1.13.104.2.7.2.763087 |[id number] for patient jdlu64597-7Edepxcs noteLNNARRATIVEFormatted C-CDA narrative yqxyHC-UUHQMXZWVIYWIVLQCQ-WQPWOQOXLMJEDWNUS [address] XqfuKumpniadyEvxfpdmbnMGYO2287321421MKWLOPN OQLBMLSFVBVIXBI0766-24-49E78:49:561.2.840.1 77178.1.72.3.15|1.2.840.727815.1.13.104.2.7 .2.727879_[id number] IM-GASTROENTER OLOGY [facility] Notes Date/Time Note Provider Source 2023-08-18 11:57:00 3IEXDBhu/UeH+nwh2FE9LLWOh/kT0GFm+fcC79Xh PrIV4QeRq opq0O5bnFhAasAs6239-06-92F87:57:00 Returned from ED via WC and escorted by [facility] officer.1447 pt discharged from unit, via WC to [facility] escorted by [facility] officers. 64815-0Gcrrj PdkxRA0651-43-02T61:48:37Nurse NoteTXT1.2.840.058970.1.13.104.2.7.2.030902|69645 52528GLEbwrphzhn for patient pnln74752-3Cwtlk NoteLNNARRATIVEFormatted C-CDA narrative vvmj074368627Snosbb Kong RN[address] [id number]2024-04-05T14:48:371.2.840.216084.1.72.3 .15|1.2.840.499299.1.13.104.2.7.2.727879_[id number] 21 Jazmyn Kong RN [facility] 2023-08-18 11:30:52 i2T/Xg3ECLgO2K1zie+gjS71oKyHVqgDXbBvPXkO IDWpx6phM Vs1lvqJFULjrPlM3883-95-15P40:30:52 Pt being discharge, [facility]'s [facility]po. Pt will go to hold-over. 66300-9Gqhqe WvsjQZ8175-82-31E74:32:57Nurse NoteTXT1.2.840.921654.1.13.104.2.7.2.561438|16246 89754UVVkmmluzhs for patient uxfg23198-9Mdtij NoteLNNARRATIVEFormatted C-CDA narrative ijdp942352855Gimpocr K Bartels RNUT[address] [id number]2024-04-05T11:32:571.2.840.868023.1.72.3 .15|1.2.840.069495.1.13.104.2.7.2.727879_[id number] 42 Sisi Reyes RN [facility] 2023-08-18 11:25:37 aT6bUBl2nolkBZW1P3GxeaBJxmXVz0J9A7s8n5IH 5X3rxZFuO KRnG8ijSJwrrq9x8551-77-05B92:25:37 Suicide Risk - Assessment and PlanColumbia:1) Have [...] are there things, anyone or anything (family, pentecostalism, pain of ) that have stopped you [...] place referral to outpatient behavioral health resources.Continue [facility] Direct Observation Care for Suicidal Patient. 07137-3Rpelzfytft + Plan gorbTK9929-71-76C41:26:05Evaluation + Plan noteTXT1.2.840.048714.1.13.104.2.7.2.374512|53355 86652VKKiozbhlhc for patient osio97396-8IdgdKVTMQYCAXWMYccjsiepa C-CDA narrative text[address] IftlOiryjwftuOtwbiangjQDHD9128027824NJZTQEFGMBEFH APQJGFTSB0042-54-88T79:26:051.2.840.064658.1.72.3 .15|1.2.840.418321.1.13.104.2.7.2.727879_[id number] 10 [facility] 2023-08-18 10:44:28 ODEyQEfgS3hlXtF5EQvHoohaz5xy0OdzZPHs+Suv NhvtUi39l XHSCHYki+XPwZNV5595-16-09Q00:44:28 Suicide Risk - Assessment and PlanColumbia:1) Have [...] are there things, anyone or anything (family, pentecostalism, pain of ) that have stopped you [...] place referral to outpatient behavioral health resources. 71740-4Msynbbqvnc + Plan ellkET0084-60-01Q32:44:37Evaluation + Plan noteTXT1.2.840.088251.1.13.104.2.7.2.972288|08969 20391QYDodkpsdjb for patient tehv66092-5DesrZWAMNNLSLXWZvmssjdsg C-CDA narrative [address]RllkUprafwzzeGbxikefeqBMFA3487574764DEYYSNELJEDOX QWHGDLLXK4182-37-04P63:44:371.2.840.228137.1.72.3 .15|1.2.840.645884.1.13.104.2.7.2.727879_[id number] [address] [place] [address] 2023-08-18 09:16:01 f9YF87KtksvXIqxo9m0qG5kihUWyR3ZdkWEf5/cE CHKJFk/EI arzRLLtc9lbXL948393-41-49D71:16:01 Pt took pills in prison and then started to have chest pain. For attention he swallowed a screw, he states, so he could come here and be checked out. Pt states he has chest pain now. Is aaox4, ambulatory, do not look in any distress. 62945-7Zwqgu MemzML0404-70-77T74:17:41Nurse NoteTXT1.2.840.049803.1.13.104.2.7.2.896386|34195 66467CHKclfqoepm for patient eslc31223-5Kwrnq NoteLNNARRATIVEFormatted C-CDA narrative textUT51 Graham [id number]2024-04-05T09:17:411.2.840.719242.1.72.3 .15|1.2.840.474104.1.13.104.2.7.2.727879_[id number] [address] [place] [address] 2023-08-18 08:38:32 +G4F1Atfuwo6o4ioJvIDrVj+4l9fIhdPHMJ7ihxc nh29OI10A tMlV8mGXFkEsxCE7619-93-90D57:38:32 Armaan Patricia is a 33 year old male presenting to ED coming [facility] holdover after swallowing a screw about 1 hour ago. Patient on SI hold in [facility]. Patient to room for further eval 67038-0Bvawvmmwa department Triage jlooSU3964-38-27A52:39:05Emer[facility] Triage noteTXT1.2.840.522853.1.13.104.2.7.2.403025|51430 31262DNBnmaukzzq for patient lhxf59901-6Ycizmwohr department NoteLNNARRATIVEFormatted C-CDA narrative swwq338103046Ghmtmsak L Holmes RNUT51 [address] [id number]2024-04-05T08:39:051.2.840.970913.1.72.3 .15|1.2.840.686269.1.13.104.2.7.2.727879_[id number] 88 Leonor Walls RN [facility] - [facility] 2023-08-18 08:32:00 +ThTAMmS8//N4p4OSX6ANVAiozn/CCm+pnEubxpP EvnOtI3pj hWEWHAMfYTIVMfr4203-08-62J12:32:00Associated Order(s): EKG-12 Lead ONCEPre-Procedure Diagnose(s): Suicide attempt by drug ingestion, initial encounter; Foreign body alimentary tract, initial encounter; Chest pain of uncertain etiologyPost-Procedure Diagnose(s): Suicide attempt by drug ingestion, initial encounter; Foreign body alimentary tract, initial encounter; Chest pain of uncertain etiology [facility] Emergency Department NotePatient Name: Armaan Ramirez MemonDate of : 1990 33 year old maleTreatment Room: [address] [place], [place] [address] Record Number: [id number] Care Physician: ANDRE DEPT OF CORRECTIONPatient Escorted by: Self [9]Mode of Arrival: [facility] [5]EMS Treatment Prior to ED Arrival:Travel and Exposure Screening:SymptomsDoes patient have any of these symptoms?: (not recorded)Exposure ScreeningHas patient had contact with someone with a communicable disease in the last month?: (not recorded)Diseases exposed to:: (not recorded)Is Patient ?: (not recorded)Exposure Date: (not recorded)Chief Complaint:Chief ComplaintPatient presents with Foreign Body"Swallowed a screw"History of Present Illness:33 yo male in [place], with depression and schizophrenia, feeling suicidal, took [...] received in last 5 years: YesChildhood immunizations: On-zd-vusgGazsceirr:No Known AllergiesPast Social History:Tobacco UseHeavy SmokerSmokeless Tobacco: [...] NormalTROPONIN I 0.002 <=0.034 ng/mLCOMP. METABOLIC PANEL (84446)NA 136 135 - 145 mmol/LK 4.1 3.5 [...] U/LAST(SGOT) 22 13 - 40 U/LeGFR 124.5 mL/min/1.38u8QYSRDMPZBINALEAQNVOW <10 mg/LURINALYSISURINE DRUG (IMMUNOASSAY) - COMPREHENSIVE DRUG SCREEN W/O REFLEXEKG:If EKG completed, see Procedure Note.Orders and Treatments:Orders Placed This EncounterProcedures XR ABDOMEN ACUTE SERIES CBC WITH DIFF COMP. METABOLIC PANEL (32093) Lactic Acid Whole Blood Lactic Acid Whole Blood Carbamazepine Troponin I URINALYSIS URINE DRUG (IMMUNOASSAY) - COMPREHENSIVE DRUG SCREEN W/O REFLEX Acetaminophen SalicylateOrders Placed This EncounterMedications lactated ringers IV infusion 1,000 mL famotidine (PEPCID (PF)) injection 20 mgFirst Provider Eval:ED EventsDate/Time Event User Rwdnfvoi74/05/24 0843 Medical Screening Begins SIMONE MALDONADO MD --08/18/23 0843 First Provider Evaluation SIMONE MALDONADO MD --ED COURSEED Course as of 08/18/23 1112Fri Aug 17 No metalic foreign body in the chest, or in the abdomen. [GR]0953 Non toxic tegretol level, in therapeutic range. [GR]ED Course User Index[GR] Simone Maldonado MDDiagnosis/Impression as of 08/18/23 1112Suicide attempt by drug ingestion, initial encounterForeign body alimentary tract, initial encounterProcedures:EKG-12 Lead ONCEDate/Time: 08/18/2023 10:16 AMPerformed by: Simone Maldonado MDAuthorized by: Simone Maldonado MDECBeatriz interpreted by ED Physician in the absence of a batch heat treat operator: yesPrevious ECG:Previous ECG: UnavailableInterpretation:Interpretation: normalRate:ECG rate: 73ECG [...] direct observation, and needs follow up to [facility] or inpatient psych with [facility].Amount and/or Complexity [...] on fileFollow-up:Electronically signed by:Simone Maldonado MD08/18/23 1022 30873-9Jcdjtsoge Emergency department JbdlZZ1401-16-34O31:22:32Physician Emergency department NoteTXT1.2.840.926210.1.13.104.2.7.2.493946|35175 79374PBMsvcfxbdd for patient zskc85562-8Puywbwsna department NoteLNNARRATIVEFormatted C-CDA narrative textEMCARE EMERGENCY PHYSICIAN STAFFEMCARE EMERGENCY PHYSICIAN [id number]2024-04-05T10:22:321.2.840.762135.1.72.3 .15|1.2.840.772370.1.13.104.2.7.2.727879_[id number] 11 [facility] EM[facility]Y PHYSICIAN STAFF [facility] 2023-08-18 08:32:00 Mvlu/Y8T4L6knKJWvroBW3p38cj+z6qEsbWlhAY8 jMprxo6l0 douJ9bxHy5/P6Ba0039-80-03B05:32:00 [facility] ED Transfer of Care Note.Off-going Physician:RumphTime of Transfer of Care: 11:10 AMSummary: Armaan [...] (e.g., employment testing, legal testing).COMP. METABOLIC PANEL (83156)SALICYLATENarrative:Therapeutic Range:Analgesic and Antipyretic Use 20-100 mg/LAnti-Inflammatory Use [...] direct observation / suicidal mgmt.[facility]: [facility] Health: [facility] DispositionED DispositionDisch - TDCJConditionStableComment--Sonali Gurrola MD08/18/23 1121 97472-1Whdfoqheo Emergency department BiiiSX1085-08-35Z90:21:42Physician Emergency department NoteTXT1.2.840.338960.1.13.104.2.7.2.994442|58503 01356XLUiwffuhfz for patient oszz31759-4Fnngxirtj department NoteLNNARRATIVEFormatted C-CDA narrative textUT51 Graham [id number] LIFEPOINT HEALTHCAREJXUVFQOCM3298-85-94S18:21:421.2.840.727233.1.72.3 .15|1.2.840.899372.1.13.104.2.7.2.727879_[id number] [address] [place] [address] 2023-08-18 08:25:22 86qMb1BkoECPX7Jns3L812AycP2Lm3w6mEtwY0XI G9CnwMztT ZTicTfMzDRulv0k7389-20-35Q64:25:22 Timed out to ED. 34223-5Xgdww RuwgMI6763-12-49K28:25:33Nurse NoteTXT1.2.840.237560.1.13.104.2.7.2.281753|62600 15648RXOjcckgkqi for patient xcns84954-3Ugeca NoteLNNARRATIVEFormatted C-CDA narrative pbcp832735181Uvxgae Reyes RN[address] StreetQwmiQkkkcwxnbXurjvkfsiXKSR9398092680TYHLOIPSEWFIB VKKFSFDXD6131-48-74A61:25:331.2.840.949273.1.72.3 .15|1.2.840.222907.1.13.104.2.7.2.727879_[id number] 43 Jazmyn Triana RN [facility] 2023-08-18 08:06:47 hrG+Og6WFofkRbk2ybgHO8R5hCdavNfa50kgJk5e kxJAMopu4 0w/A1wz9r5gMJs48849-21-97H65:06:47 0700 Received report from off shift nurse. [...] given to Jenni- charge nurse from ER. 52444-3Ymoxx KlpsSG4500-15-86R78:10:35Nurse NoteTXT1.2.840.416099.1.13.104.2.7.2.204686|92602 73417FAXygknusjk for patient acjc09412-8Ocoju NoteLNNARRATIVEFormatted C-CDA narrative textUT51 Graham [id number]2024-04-05T08:10:351.2.840.961912.1.72.3 .15|1.2.840.831670.1.13.104.2.7.2.727879_[id number] 49 [facility] 2023-08-17 21:49:51 LyirEftlcNa+EtcFA4r3/FTyGu/4sjtaeoQmR43p dbXG4gCu4 cXsaC8Gh+o/dFmU1939-26-49D29:49:51 Received patient from ongoing RN, Patient is stable with no s/s of acute distress, Resp even and unlabored, denies any pain/acute distress at this time. POC reviewed with patient and verbalized understanding,Pt is on suicide precaution with 1:1 observation by a [facility] officer. [facility] , [facility] will continue to monitor. 49061-0Qudra FgkxQU8134-57-70Q72:50:36Nurse NoteTXT1.2.840.041046.1.13.104.2.7.2.142996|08900 82928XLDgvfpaytc for patient uzuz88751-2Auuju NoteLNNARRATIVEFormatted C-CDA narrative gyrb270598798Wzkrev M Nnane RNUT[address] [id number]2024-04-04T21:50:361.2.840.988842.1.72.3 .15|1.2.840.070589.1.13.104.2.7.2.727879_[id number] 77 Mari Up RN [facility] 2023-08-17 12:18:37 /rH05i8ZuV3WDRoLvxYKHiJbVwzw8cC9VmeKFgni f00VEikDL TbStBEff/fYIKoD5327-93-04K49:18:37 Pt received from police shift commander nurse post inpatient care hx of suicide attempt. Pt is on suicide precaution with 1:1 [facility] Pt has in [facility] bed in , [facility] 52114-5Cuvbc UnbpGT6400-19-35T18:20:40Nurse NoteTXT1.2.840.251684.1.13.104.2.7.2.989683|43379 94686TMWnnmlzndz for patient krbz49336-6Nvnug NoteLNNARRATIVEFormatted C-CDA narrative bhga088882374Lrsyzk Onwukwe RN[address] [id number]2024-04-04T12:20:401.2.840.913389.1.72.3 .15|1.2.840.790000.1.13.104.2.7.2.727879_[id number] Jose Tracy RN [facility] 2023-08-16 19:00:00 HKSvT+UzX8UZG/dmM9/a8PFK+ri9gDFRS6RNfm+F XYEZwucwy mTmrr97VkZLV+5a8644-19-60N48:00:00 Received the patient from off going nurse. Pt is A&Ox3.Respirations are unlabored.Pt is scheduled for CDO 1:1; BED AVAILABLE . Pt able to voice concerns and needs. 20739-8Jhgdc PkjpZA4152-74-10M77:01:34Nurse NoteTXT1.2.840.274031.1.13.104.2.7.2.398201|14670 93880HHOtgewthdb for patient rdaj89304-2Mwejd NoteLNNARRATIVEFormatted C-CDA narrative tdes368360212Imsue Smith [id number] WQXYEKDYM7211-76-51V89:01:341.2.840.831727.1.72.3 .15|1.2.840.058026.1.13.104.2.7.2.727879_[id number] 51 An Guerra [facility] 2023-08-16 11:26:05 LPV3T3MhFYSsya4jnOVlXjGJvUBfVyTFxJWI371I IwQT0lyzA TtHuXXfWHsX3EAd3762-17-80N32:26:05 Pt received from inpatient unit, s/p suicide attempt. Pt is on suicide precaution with 1:1 observation by a [facility] officer. 99583-6Bokca DwedZT3317-07-07Z78:30:15Nurse NoteTXT1.2.840.405746.1.13.104.2.7.2.719450|46511 65220BSEibooghie for patient svec16975-5Ynjrh NoteLNNARRATIVEFormatted C-CDA narrative text[address] [id number] LIFEPOINT HEALTHCARECCQRBDMYO6682-80-46K50:30:151.2.840.151400.1.72.3 .15|1.2.840.451995.1.13.104.2.7.2.727879_[id number] 31 [facility] 2023-08-16 10:11:40 FzIfGzeEe+q3a8CYD54WsVZz7MNxwm3Ar+CANRZf OKwjjN8NH M0cBLPTaTCAUWvE5158-67-32H64:11:40 Problem: Suicide, Risk ofGoal: Absence of self-harm08/16/2023 [...] below patient's documented comfort goal08/16/2023 1011 by Ifrha Smith RNOutcome: Progressing as expected08/16/2023 0937 by Ifrah Smith RNOutcome: Progressing as expectedGoal: Reduction in pain sensation08/16/2023 1011 by Ifrah Smith RNOutcome: Progressing as expected08/16/2023 0937 by Ifrah Smith RNOutcome: Progressing as expected 63368-6Vngu of care swdnDN6395-44-07N75:11:47Plan of care noteTXT1.2.840.974718.1.13.104.2.7.2.530413|99549 60244EPPirdtmmfh for patient galh35950-6CjnhGLWWQNBQDUMAjepzsfjg C-CDA narrative hpll652155626Pulzmhp Joy RNLUCIO[id number]2024-04-03T10:11:471.2.840.153210.1.72.3 .15|1.2.840.524080.1.13.104.2.7.2.727879_[id number] 07 Ifrah Smith RN [facility] 2023-08-16 09:37:50 Xbi5wzLICi3cCTz9gz8NljCpw7utne+3z2M/ucRY FXE9kszdA cWjKsf9+51NltXv9982-41-31I09:37:50 Problem: Suicide, Risk ofGoal: Absence of self-harmOutcome: Progressing as expectedProblem: Falls, Risk ofGoal: Absence of fallsOutcome: Progressing as expectedProblem: Discharge PlanningGoal: Adequate for dischargeOutcome: Progressing as expectedGoal: Effective communicationOutcome: Progressing as expectedProblem: PainGoal: Control of pain at or below patient's documented comfort goalOutcome: Progressing as expectedGoal: Reduction in pain sensationOutcome: Progressing as expected 28035-8Wpjr of care mrxjFE5394-09-00U41:37:55Plan of care noteTXT1.2.840.371249.1.13.104.2.7.2.838009|65901 17001CZDpllojbyg for patient qfpd11671-6VcgrPLBYSIJPEKZCavlssfdg C-CDA narrative text[address] [id number]2024-04-03T09:37:551.2.840.596805.1.72.3 .15|1.2.840.764143.1.13.104.2.7.2.727879_[id number] [address] [place] [address] 2023-08-16 09:14:56 nwYmt+A8Uqg3p/Ot9bJQhPtHk6+kkPhd24ofqdU8 M9zv+pY8Z N48CWOgmDObLLED5035-68-44B77:14:56 Problem: Suicide, Risk ofGoal: Absence of self-harmOutcome: Progressing as expectedProblem: Falls, Risk ofGoal: Absence of fallsOutcome: Progressing as expectedProblem: Discharge PlanningGoal: Adequate for dischargeOutcome: Progressing as expectedGoal: Effective communicationOutcome: Progressing as expectedProblem: PainGoal: Control of pain at or below patient's documented comfort goalOutcome: Progressing as expectedGoal: Reduction in pain sensationOutcome: Progressing as expected 35242-1Mwqj of care pzhpKE6340-72-04G94:14:59Plan of care noteTXT1.2.840.828711.1.13.104.2.7.2.781714|32850 07864CTDxmfdtmdn for patient krbm19985-0TckcDAXHMNXEQTRJblihxxvn C-CDA narrative text[id number]2024-04-03T09:14:591.2.840.218646.1.72.3 .15|1.2.840.953357.1.13.104.2.7.2.727879_[id number] [address] [place] [address] 2023-08-16 09:00:14 8+geT1Cobqy2upN+xi6YTRWwCXUAANmfA7/b+Vxs OfTt9P8Ns smY4/eP8Cpg+Eke8296-02-78P52:00:14 Report given to Favor RN, Pt to go to [facility] to wait for transportation to crisis management. 27161-4Wnpxv XwguOU5461-43-68R26:00:54Nurse NoteTXT1.2.840.598351.1.13.104.2.7.2.367097|07493 10084PYHkdzqizgh for patient jwkh01412-7Gvsxo NoteLNNARRATIVEFormatted C-CDA narrative [id number] J Moreno RN[id number] LIFEPOINT HEALTHCAREJKXSKVOTT6311-79-18H48:00:541.2.840.412639.1.72.3 .15|1.2.840.025065.1.13.104.2.7.2.727879_[id number] 64 Griffin Matias RN [facility] 2023-08-16 04:27:26 2Ra0RlHy2psXKBokHCeSgJRmtOkUIh0ltsbrOhCC +gU2+hl 7LrSogEDsRKUddg6328-40-11O27:27:26 Problem: Suicide, Risk ofGoal: Absence of self-harmOutcome: Progressing as expectedProblem: Falls, Risk ofGoal: Absence of fallsOutcome: Progressing as expectedProblem: Discharge PlanningGoal: Adequate for dischargeOutcome: Progressing as expectedGoal: Effective communicationOutcome: Progressing as expectedProblem: PainGoal: Control of pain at or below patient's documented comfort goalOutcome: Progressing as expectedGoal: Reduction in pain sensationOutcome: Progressing as expectedProblem: PainGoal: Reduction in pain sensationOutcome: Progressing as expected 43708-1Igiz of care hlnbWX5699-87-05T75:27:32Plan of care noteTXT1.2.840.883305.1.13.104.2.7.2.174311|60224 23429RCFcqfgulzn for patient pkny18901-0IrwzIRGESSGHJLGQixetekoz C-CDA narrative [id number] O Johnny RN[id number]2024-04-03T04:27:321.2.840.850335.1.72.3 .15|1.2.840.082615.1.13.104.2.7.2.727879_[id number] 80 Oscarjuliaerasmo Turner RN [facility] 2023-08-15 14:53:30 oeTH0QnSEykPxrKiXCvketwqe3xOtloFQrhzFi2u 0GnAm8CHG 2COW5AnLfcwh8+J6819-25-42V37:53:30 Attempted to give report to staff report. Informed that there is no room on . litigation docket manager made aware 36999-9Thrbx LfoxXS3966-80-44Z92:57:30Nurse NoteTXT1.2.840.919956.1.13.104.2.7.2.974319|57124 17289JJRkakgjlkw for patient hldb19090-6Ujdgt NoteLNNARRATIVEFormatted C-CDA narrative [id number] A [place] RN[id number]2024-04-02T14:57:301.2.840.112915.1.72.3 .15|1.2.840.852483.1.13.104.2.7.2.727879_[id number] 31 Suni Swan RN [facility] 2023-08-15 10:30:15 2gvWo5Qecbd5zuCBwu3MwWW93rVzefd5+g1AQMUG vfqc51cPj prT4DvYt+kA7kLS1959-47-36Y89:30:15 Problem: Suicide, Risk ofGoal: Absence of self-harmOutcome: Progressing as expectedProblem: Falls, Risk ofGoal: Absence of fallsOutcome: Progressing as expectedProblem: Discharge PlanningGoal: Adequate for dischargeOutcome: Progressing as expectedGoal: Effective communicationOutcome: Progressing as expectedProblem: PainGoal: Control of pain at or below patient's documented comfort goalOutcome: Progressing as expectedGoal: Reduction in pain sensationOutcome: Progressing as expected 90173-9Soum of care xzusPH3390-70-36C94:30:20Plan of care noteTXT1.2.840.721166.1.13.104.2.7.2.115305|11072 34961JLXbwvgvrxg for patient rwts03504-1VnjaFLCZLPVBFINOimvanfdq C-CDA narrative textUT51 Graham [id number] LIFEPOINT HEALTHCAREEBGKVOPAY5588-49-11G89:30:201.2.840.609116.1.72.3 .15|1.2.840.335928.1.13.104.2.7.2.727879_[id number] 16 [facility] 2023-08-15 03:58:11 1KEn9q/ekCgoVIFGefO4zENs/ob3ECaK05/kXLUf H/xmAw9+O NSWXF7kUnj/9s1n5738-60-09Y01:58:11 Problem: Suicide, Risk ofGoal: Absence of self-harmOutcome: Progressing as expectedProblem: Falls, Risk ofGoal: Absence of fallsOutcome: Progressing as expectedProblem: Discharge PlanningGoal: Adequate for dischargeOutcome: Progressing as expectedGoal: Effective communicationOutcome: Progressing as expectedProblem: Discharge PlanningGoal: Effective communicationOutcome: Progressing as expectedProblem: PainGoal: Control of pain at or below patient's documented comfort goalOutcome: Progressing as expectedGoal: Reduction in pain sensationOutcome: Progressing as expected 97077-5Gpaz of care dmybYY3848-33-81F01:58:17Plan of care noteTXT1.2.840.640596.1.13.104.2.7.2.222789|73831 63356NIJsfzgspze for patient dpex73807-3KuptZBTVIIWOHELXpgpagbog C-CDA narrative textUT51 Graham [id number]2024-04-02T03:58:171.2.840.442712.1.72.3 .15|1.2.840.749919.1.13.104.2.7.2.727879_[id number] 50 [facility] 2023-08-14 09:04:23 tA5uDw3oADfKUREnZ5PfBra66M1cyA/PU2ewiP3Y 5PcZcto4v qBpAl9aRW9T3TEc3916-64-07D14:04:23 Problem: Suicide, Risk ofGoal: Absence of self-harmOutcome: Progressing as expectedProblem: Falls, Risk ofGoal: Absence of fallsOutcome: Progressing as expectedProblem: Discharge PlanningGoal: Adequate for dischargeOutcome: Progressing as expectedGoal: Effective communicationOutcome: Progressing as expectedProblem: PainGoal: Control of pain at or below patient's documented comfort goalOutcome: Progressing as expectedGoal: Reduction in pain sensationOutcome: Progressing as expected 40033-8Vdzj of care ecayXO6964-95-99N55:04:29Plan of care noteTXT1.2.840.684167.1.13.104.2.7.2.139136|30021 47805EBEjzpgxzqq for patient wxrn42758-9HlwpHZVLGYDXUFWQdtnqdruo C-CDA narrative text[address] [id number] LIFEPOINT HEALTHCARENKESOSHKY1041-28-40J72:04:291.2.840.817028.1.72.3 .15|1.2.840.519926.1.13.104.2.7.2.727879_[id number] [address] [place] [address] 2023-08-14 04:31:50 2m5aV306SfNX4kLr8MmNXteOlaGaTaHGtr2dLKdo VL3WNJzRw Iuy1vNeVf/J9cXJ8392-37-66Z90:31:50 Problem: Suicide, Risk ofGoal: Absence of self-harmOutcome: Progressing as expectedProblem: Falls, Risk ofGoal: Absence of fallsOutcome: Progressing as expectedProblem: Discharge PlanningGoal: Adequate for dischargeOutcome: Progressing as expectedGoal: Effective communicationOutcome: Progressing as expectedProblem: PainGoal: Control of pain at or below patient's documented comfort goalOutcome: Progressing as expectedGoal: Reduction in pain sensationOutcome: Progressing as expectedProblem: PainGoal: Reduction in pain sensationOutcome: Progressing as expected 62266-8Mqat of care bvufYY1239-70-95U48:31:57Plan of care noteTXT1.2.840.786876.1.13.104.2.7.2.495999|89887 78838APIhuterucf for patient qjpy68646-8DyqkWYIWKZBBPARNfwmpmpks C-CDA narrative text[id number]2024-04-01T04:31:571.2.840.617108.1.72.3 .15|1.2.840.242104.1.13.104.2.7.2.727879_[id number] 26 [facility] 2023-08-13 08:40:00 9YLB6/DST5x0AvkpmPmt45CEObwZI0DvYl9YtBVl OayHcQ1Wj Kq1rdYXfruxd/N79854-87-23H54:40:00 Problem: Suicide, Risk ofGoal: Absence of self-harmOutcome: Progressing as expectedProblem: Falls, Risk ofGoal: Absence of fallsOutcome: Progressing as expectedProblem: Discharge PlanningGoal: Adequate for dischargeOutcome: Progressing as expectedGoal: Effective communicationOutcome: Progressing as expectedProblem: PainGoal: Control of pain at or below patient's documented comfort goalOutcome: Progressing as expectedGoal: Reduction in pain sensationOutcome: Progressing as expected 04425-4Viai of care ghfcQN3468-50-56J14:46:06Plan of care noteTXT1.2.840.082394.1.13.104.2.7.2.868128|14250 41527XNJyhnriiui for patient ghdn01605-9TxalHXFFEQDKZOYCwzxtxlqj C-CDA narrative [id number]2024-03-31T10:46:061.2.840.091551.1.72.3 .15|1.2.840.896995.1.13.104.2.7.2.727879_[id number] 63 [facility] 2023-08-13 01:53:45 pDVko116nTb3BBSBpBxF27YDegGyCYy+QpnnPngt lcIFkmu9R zXWzhSipjy3pOjg8959-91-00R61:53:45 Problem: Suicide, Risk ofGoal: Absence of self-harmOutcome: Progressing as expectedProblem: Falls, Risk ofGoal: Absence of fallsOutcome: Progressing as expectedProblem: Discharge PlanningGoal: Adequate for dischargeOutcome: Progressing as expectedGoal: Effective communicationOutcome: Progressing as expectedProblem: PainGoal: Control of pain at or below patient's documented comfort goalOutcome: Progressing as expectedGoal: Reduction in pain sensationOutcome: Progressing as expected 85299-0Dsjx of care hfirSY4709-44-92S37:53:52Plan of care noteTXT1.2.840.923387.1.13.104.2.7.2.793192|56771 10423JOTgkckahdm for patient izdq57748-2KgzhKHFHKFSUUIPYgpqsfyup C-CDA narrative textUT20 [address] StreetKa[id number] QTVMBDKIC8782-37-07M77:53:521.2.840.549722.1.72.3 .15|1.2.840.489043.1.13.104.2.7.2.727879_[id number] 48 [facility] 2023-08-12 20:52:00 UY8smQVbxzs0mqMvjX9w2p5Xsb+LeqiuOF10hWVB IIiz3utMk tpgVTxz3K31M1C+5678-22-42C70:52:00 Patient stated that he supposed to get scheduled dose of HALDOL with Benedryl but at this time, Benedryl order has been d/c"d MD food preparation supervisor paged and Benedryl order was put in for him. He was also asking for Carbamazepine, when notified MD about his request doctor clarified that he verbalized at the time of his admission that he swallowed 17 pills of Carbamazepine, in order to be putting back on this medication, lab result must shows that his Tegretol level is not toxic. 41607-7Pmeomunrk department BbrjQQ4791-83-40H24:18:37[facility] department NoteTXT1.2.840.055212.1.13.104.2.7.2.579179|46474 14546OUKslpojhut for patient gbwn03386-0RridPXXOBLBLDCYMgclcmeex C-CDA narrative [address]HnrpHuxklqhljNenhtbsxpYFUK8044885969MHEOJOMIZMKIW GMILYXJKY8168-47-46D45:18:371.2.840.655673.1.72.3 .15|1.2.840.528952.1.13.104.2.7.2.727879_[id number] [address] [place] [address] 2023-08-12 16:44:00 Lh0wLkBIu+hDp0twU7TIkgAPKqRi7tRhSPs1VN3z RhFebf16F jnAoWwbmTGgv71T8010-67-04D17:44:00 TOPIC/LEARNING NEEDS FOR ACQUISITION COST ESTIMATOR INTERDISCIPLINARY PATIENT-FAMILY TEACHING NOTECARE MANAGEMENT SERVICES TRANSPORTATIONLearner:P [...] *R=Needs ReinforcementD=Desire and MotivationE=EmotionalS=SightH=HearingL=LanguageAl icia Zahra, DNP, ASSESSMENT NURSE PRACTITIONER, HOUSEKEEPER SUPERVISOR-C, PAOLI HOSPITALRNTDCJ Care ManagementThe [facility] at [address] I Office [address] [place] [id number] [phone] I Pager [phone] I Email [email or web address] 30472-1Kbaj of care fudqEL7783-00-71A36:49:23Plan of care noteTXT1.2.840.932262.1.13.104.2.7.2.428061|34186 83033CFOohlknivc for patient xyqy09329-2LwdmXSMBJHUEXMUErsteaybz C-CDA narrative textUT51 [address] [id number] LIFEPOINT HEALTHCAREEWXGCHSXN2740-45-78L34:49:231.2.840.057915.1.72.3 .15|1.2.840.411116.1.13.104.2.7.2.727879_[id number] 93 [facility] 2023-08-12 16:30:00 LZCKCMDmpIP8MI6/XI8oJZRkB2poFvYH68MWEd9w wH2k3Ygzo zq72RP6EY0jVeo82367-04-96J60:30:00 At 0926 PCT who was sitting on [...] today. Dr. Kiran made aware of same. 52835-4Ytaer WojlUG2970-64-49J07:19:46Nurse NoteTXT1.2.840.622121.1.13.104.2.7.2.865515|62804 66954LCIuzzmijdu for patient wang09568-5Mussd NoteLNNARRATIVEFormatted C-CDA narrative zwcq555593073Rbccvzfedisabella Meng RN[id number] LIFEPOINT HEALTHCAREFRTXDKJIR5266-66-17B76:19:461.2.840.771757.1.72.3 .15|1.2.840.582077.1.13.104.2.7.2.727879_[id number] 76 Delmi Meng RN [facility] 2023-08-12 12:46:15 9P4JIekkPIFO8j63feGc7ZppHRa9c9plr7BUx3y8 J8enZblGA ZymBV4QXOuosLp92858-87-50Y35:46:15 Problem: Suicide, Risk ofGoal: Absence of self-harm08/12/2023 [...] by Delmi Pires RNOutcome: Progressing as expected 82386-9Njlc of care gsujOJ4385-36-37B59:47:26Plan of care noteTXT1.2.840.274872.1.13.104.2.7.2.770223|63315 47161NBIceterwko for patient xtpa35368-1RvpgTPVITAAIWSTDdarhvuov C-CDA narrative textUT51 [address] [id number] LIFEPOINT HEALTHCAREGRHZAMXLM1545-90-09B47:47:261.2.840.756334.1.72.3 .15|1.2.840.415687.1.13.104.2.7.2.727879_[id number] 43 [facility] 2023-08-12 03:55:00 sa6ZNijjpZ6dLSo3z3koPciL9q6QCeHlmW6IGHfO tqcJqMcju CInaqPD/xJGlpMw8035-21-06O97:55:00 Received pt from ER, initially without report being called. Pt was walked up by several Officers and Lieutenant. Pt is suicide risk, everything removed from the pt's room with only a mattress on the floor. Pt has on paper scrubs. Pt has a R AC PIV. He is stable and very figgity. Will continue to monitor. 36177-0Ctfdu DhmfGN2607-72-79E42:04:01Nurse NoteTXT1.2.840.811987.1.13.104.2.7.2.566601|85463 81813XLYarpsoioc for patient wpzn20112-8Ibraa NoteLNNARRATIVEFormatted C-CDA narrative fdke129219779Nyowuigq D Jones RNUT51 [address] [id number]2024-03-30T06:04:011.2.840.652361.1.72.3 .15|1.2.840.180793.1.13.104.2.7.2.727879_[id number] 17 Lawrence Drew RN [facility] 2023-08-12 02:09:33 Otf5/730MVkzw5MwME5sYoDYZFDmB9nAp2cvgF5T uTRqiqBSX 9CvB8zdFHHUzIjX0002-32-38O08:09:33 PT is threating to cut himself with the cuffs pt is getting agitated, TDC guard is asking our charge nurse to call for [place] up [address]4320-7Warqxlwoy department WoefJI4869-77-98D91:11:30Emergency department NoteTXT1.2.840.818042.1.13.104.2.7.2.713243|07500 38903VNVexakfyfv for patient ebxp09189-7VjzbCDFXXHZUVTIRzffrikkz C-CDA narrative nxht044242015Poagivnr L Gilligan RN[id number]2024-03-30T02:11:301.2.840.169376.1.72.3 .15|1.2.840.556061.1.13.104.2.7.2.727879_[id number] 65 Leonor Blank RN [facility] 2023-08-12 00:29:43 NCY0MjDr1tbnOyBn5zyMtYs1D1+rll4g70ybovrr 4J+f14Jvr kYY/EJ2C1vyh7cL5298-47-82Y59:29:43 Pt stating he is tired of waiting for a bed, pt states "I'm about to act stupid and give yall a reason to get rid of me" [place] [address]-9Auoshdiai[address] OjfwZB6877-94-43G38:30:28[facility] NoteTXT1.2.840.054401.1.13.104.2.7.2.885342|39060 56988FUFapxvolkq for patient mree90034-9OcxiFFXRFCJSUFVUkavsfrds C-CDA narrative [id number] LIFEPOINT HEALTHCAREKCLTJHSYC8805-29-25M52:30:281.2.840.739990.1.72.3 .15|1.2.840.295829.1.13.104.2.7.2.727879_[id number] [address] [place] [address] 2023-08-11 19:04:29 vTRyxITqzrrBJBsaA32C1WPxn3ukDCGv7JPz1LFE BSL1Oup19 EGR68HuQ6oAaC832547-98-89M28:04:29 Nurse ReportReport taken from Sherlyn Lester. Chief complaint, assessment findings, infusion verify and orders reviewed. Plan of care discussed at bedside with patient and both nurses. Patient/family members verbalized understanding[place] [address]-8Jdokujwqt[address] JthmVG7530-16-81X19:04:54[facility] NoteTXT1.2.840.942609.1.13.104.2.7.2.366262|19033 38620OVCekhhwtdh for patient phjd88288-0CzvdYMSRCOYHVJAHnoasmoih C-CDA narrative [id number]2024-03-29T19:04:541.2.840.863896.1.72.3 .15|1.2.840.306494.1.13.104.2.7.2.727879_[id number] 31 [facility] 2023-08-11 18:22:34 ibvD1K4SNcIXhaIVh8J0UMABi4PYEMalOGkKj5Rp PUSw9CN7c O8I9sTTTSNORZBF9655-44-66I43:22:34 TDJ PreCert #[id number] signed by Sherlyn Landaverde RN at 08/11/2023 6:22 PM IHH21134-2Iorkjphtr department RjsuEH7390-93-49C88:22:49[facility] NoteTXT1.2.840.755313.1.13.104.2.7.2.159004|98842 29081AKEgsbdvlot for patient dlqd64846-0EffhVLXFWRINNOLIinpkgbor C-CDA narrative [id number] C Etheridge RN[id number] AEZJUCBDB1107-76-48F82:22:491.2.840.542393.1.72.3 .15|1.2.840.693341.1.13.104.2.7.2.727879_[id number] 49 Sherlyn Landaverde RN [facility] 2023-08-11 17:06:23 Wf94JDrkyx/lh7iEpj8LPUOn1XCtnN9C3NkaM7UT ShOK0EhPw hPlPQbrGWBLaL+93804-96-51V51:06:23 Suicide Risk - Assessment and PlanColumbia:1) Have [...] Behavior or preparation for suicide?: Yes6a) Describe: lyrtsvim4q) Was it in the past 3 months?: [...] are there things, anyone or anything (family, pentecostalism, pain of ) that have stopped you [...] image and agree with interpretation of the EKG.36976-5Rbuuftrfie + Plan [id number], Luke R1.2.840.819661.1.13.104.2.7.2.980068HaedxfWzkmJD K6969-92-61Y56:53:15Evaluation + Plan noteTXT1.2.840.034408.1.13.104.2.7.2.812209|84508 24246WFWvxxdeyhv for patient qzrq67372-3VikkZOCLRAXHFAXDdpuynxvj C-CDA narrative textUTMBCARLSBAD MEDICAL CENTER - [address] GrajOsxyipekpKiuwwxdkdERMS2675968976XNDTMKULSFRXW HSBMOMSRX4743-33-28E58:53:151.2.840.080984.1.72.3 .15|1.2.840.625811.1.13.104.2.7.2.727879_[id number] 06 [facility] 2023-08-11 15:04:29 OUioYlqxDcpIVecuUpqTbxBPs3680KdC2eApi2tq OoTWkhI0B zhN8UDdK2JtLcKJ1919-79-48H92:04:29 Pt states his racing thoughts are about his past, being in prison, a lot of negative stuff. 38337-7Martakqts department KaksLE5328-30-34D79:05:20[facility] NoteTXT1.2.840.365508.1.13.104.2.7.2.512427|08399 82427JBFxpeewlei for patient voha96370-2TdpbCKRCXDBZVLHGbpusbwfg C-CDA narrative textUT51 [address] [id number]2024-03-29T15:05:201.2.840.529118.1.72.3 .15|1.2.840.263880.1.13.104.2.7.2.727879_[id number] 99 [facility] 2023-08-11 13:54:21 MzB49cHLzEAEWOyJ/hpSY2X9rQ8kT0oajGC4FmYB pR4F+xlSy WUK5IMhtTUrgg2a9459-36-68V29:54:21 Armaan Patricia is a 33 year old male who presents to the ED in wheelchair with complaints of abdominal pain pt reports he took 17 pills in attempt to harm self pt reports he took tegretol he got from another inmate AOx4. Respirations even and unlabored. Skin warm and dry. NAD noted. Patient to room for further evaluation. 43608-3Uupoilpuy department Triage lmviBU4459-98-71L44:56:08[facility] department Triage noteTXT1.2.840.462014.1.13.104.2.7.2.745232|51431 74306DOWrklsjoab for patient uxcl23236-2Uwowncnac department NoteLNNARRATIVEFormatted C-CDA narrative nmyf079766167Zyljarp Huff RN[id number] BGUOVIMLS7537-33-28T79:56:081.2.840.016728.1.72.3 .15|1.2.840.325486.1.13.104.2.7.2.727879_[id number] 34 Judd Mota RN [facility] 2023-08-11 13:51:00 FtY4QfPZEJXZbsdWevneATppNmMo2oDF5p9Kra5+ dBMlkn8A0 P06D9NNkwSlVHhg2954-57-27K15:51:00 Images from the original note were not included.[facility] Emergency Department NotePatient Name: Armaan Ramirez MemonDate of : 1990 33 year old maleTreatment Room: 122/[facility]Medical Record Number: [id number] Care Physician: ANDRE DEPT OF CORRECTIONPatient Escorted by: Law enforcement [8]Mode of Arrival: [facility] [5]EMS Treatment Prior to ED Arrival:HEDIS NURSE treatment: NoneTravel and Exposure Screening:SymptomsDoes patient have [...] received in last 5 years: YesChildhood immunizations: Ay-ew-nbtmRokjwxvdr:No Known AllergiesPast Social History:Tobacco UseHeavy SmokerSmokeless Tobacco: [...] WO CONTRASTHISTORY: trauma . History obtained from [facility]: "Drug overdose and attemptedsuicide "TECHNIQUE: Axial CT [...] acute intracranial abnormality.Preliminary Report Dictated by Resident: Heather Denton MD., have reviewed this study and agree with the abovereport.Lab Results:Lab ResultsCOMP. METABOLIC PANEL (07831) - AbnormalResult Value Ref RangeNA 137 135 [...] 46 (*) 13 - 40 U/LeGFR 122.0 mL/min/1.59j0KCE WITH DIFF - AbnormalWBC 6.53 4.20 - [...] Negative NegativeCOVID-19 (ID NOW RAPID TESTING) - LgffmgPJWY-GoK-7 Rapid ID NOW Not Detected Not DetectedTHYROID STIMULATING HORMONE - NormalTSH 1.78 0.45 - 4.70 mIU/LCREATINE KINASE - NormalCK 50 33 - 194 U/LETHANOLALCOHOL <10 mg/dLSALICYLATESALICYLATE <10 mg/LEXTRA TUBE URINE CULTUREEKG:If EKG completed, see Procedure Note.Orders and Treatments:Orders Placed This EncounterProceduresCT HEAD WO CONTRASTUrine Drug (Immunoassay) Comprehensive Drug Screen w/o ReflexComprehensive Metabolic Panel (57161)CBC with DifferentialEthanol (ETOH) LevelUrinalysisCOVID-19 (ID NOW TESTING)Thyroid Stimulating HormoneCreatine KinaseAcetaminophenSalicylateCarbamazepineLab Only COVID InterpretationOrders Placed This EncounterMedicationsmaalox:diphenhydrAMINE:lidoca ine 2 % viscous 1:1:1 (FIRST-MOUTHWASH BLM) oral suspension 15 mLfamotidine (PEPCID (PF)) injection 20 mgFirst Provider Eval:ED EventsDate/Time Event User Mxpbtrbq70/29/24 1352 Medical Screening Begins ANFISA NELSON --08/11/23 1352 First Provider Evaluation NAFISA NELSON --ED COURSEED Course as of 08/11/23 175Fri Aug [id number] auth # [[id number] Braden [KH]1538 CT HEAD WO CONTRAST [LM]ED Course User Index[KH] Nafisa Nelson MD[LM] Merrick Butt MDDiagnosis/Impression as of 08/11/231754Suicidal behavior with attempted self-injuryProcedures:ProceduresMDM:Medical Decision MakingDdx: intracranial injury, eye injury, suicidal ideation, toxic ingestionIntervention: pepcid, GI cocktailCalled poison control who said to keep an eye out for QUALITY ASSURANCE SUPERVISOR BODY depression, cardiac arrhythmia, anticholinergic effects - EKG [...] by:Nafisa Nelson MD08/11/231754 ssociated attestation - Merrick Butt MD - 08/13/2023 2:02 AM CDT I [...] image and agree with interpretation of the EKG.15183-4Nsfnzpsef Emergency department QwqxKY5304280Lqtwts, Luke R1.2.840.880631.1.13.104.2.7.2.738393YrufxmWdynWD W4969-82-47B75:02:25Physician Emergency department NoteTXT1.2.840.734159.1.13.104.2.7.2.023256|79926 02392ASIbkhxsjsg for patient gcpw62173-7Bdnrpdbpk department NoteLNNARRATIVEFormatted C-CDA narrative textEM-EMERGENCY MEDICINEEM-EMERGENCY MEDICINE[address] RhojIguztxmyqSlwiujhwdSPYJ5764470515TNZIMEVVDXBPP DKUROXJFI9902-89-44K58:02:251.2.840.906821.1.72.3 .15|1.2.840.887057.1.13.104.2.7.2.727879_[id number] 14 EM-EMERGENCY MEDICINE [facility] 2023-08-11 13:39:57 OcdhA8OIku+lXS2O1IIwOF6or9iyth4NhqPwdkEu 5GC82vqzo mzMIDrKbSZX1TmF1568-16-43K67:39:57 1335 Patient discharged to ED, escorted by TDC Officers and medical. 61306-6Xlsnj AeiqSH1864-10-73U24:40:42Nurse NoteTXT1.2.840.018367.1.13.104.2.7.2.468931|24479 65162NVRxioatuvv for patient exna12380-1Yllup NoteLNNARRATIVEFormatted C-CDA narrative oorw606660292Znrerkhxw Figueroa [address] StreetGznsBzrqrzuenMqwbgagdfHWCA7046618501RUQEKHYFPVSGC BEZMMCIRL5467-98-97Y07:40:421.2.840.815865.1.72.3 .15|1.2.840.772767.1.13.104.2.7.2.727879_[id number] 76 Shayy Hinton [facility] 2023-08-11 13:24:29 +IRC3Rij+Nbazsib9nt3fF2hVoVoDgAm0jGy0qLB OQzP9JOjc IRbLSTMwDnoSzvs8333-33-46X27:24:29 1215 Patient arrived on unit, escorted by TDC Officer ambulating without difficulty. Respirations even and unlabored. Reported per TDC Officer patient verbalized while in clinic he is feeling suicidal, ingested medications and has been cutting himself. Patient was made CDO and [facility] to [facility] with 1:1 observation with [facility]DC Officer at side. No report was received from clinic nurse. Notified CN, patient assessed and was sent to ED for evaluation. 95938-7Kmqpe VqdoLM6869-00-63Y58:38:25Nurse NoteTXT1.2.840.603374.1.13.104.2.7.2.973719|95836 89746DUBhqqeyfjy for patient qebb78335-9Uqcxb NoteLNNARRATIVEFormatted C-CDA xiomara [id number] FOITVUZHT8538-38-62C55:38:251.2.840.897707.1.72.3 .15|1.2.840.502740.1.13.104.2.7.2.727879_[id number] 73 [facility] 2022-11-30 20:46:54 SQV/jnU3COgzBx76rw8aL1Z6z5BDpGK05AahYTvP jtD8yHg3Y WlkRfzE2ZTA52Kp6039-34-76H58:46:54 PT D/C FROM UNIT TO 4B. ESCORTED BY TDJ OFFICER 42394-4Bloyk LrviSN6540-39-12B31:47:13Nurse NoteTXT1.2.840.304899.1.13.104.2.7.2.031573|82895 68085OZEnnuqnkng for patient [id number] Charlie [id number] MEMORIAL MEDICAL CENTERGCABYAHDD7860-94-76L99:47:131.2.840.192066.1.72.3 .15|1.2.840.159298.1.13.104.2.7.2.727879_[id number] 28 An Guerra LVN [facility] 2022-11-30 19:00:00 +nJrMXBXCgjelcC7/at4VQqKvVFKcCi870dgPkdv N4d8Q45Jn HKnPZ2/1N/l4GGS4163-10-52T60:00:00 Received the patient from off going nurse. Pt is A&Ox3.Respirations are unlabored.Pt is scheduled for D/C TO J4 11230-6Cuxsh PeluGW9490-11-26D15:21:05Nurse NoteTXT1.2.840.280934.1.13.104.2.7.2.928044|89126 91900VNUnhsraokl for patient care[id number]2023-07-19T19:21:051.2.840.340126.1.72.3 .15|1.2.840.298132.1.13.104.2.7.2.727879_[id number] [address] [place] [address] 2022-11-30 07:00:00 ukvjiZL46pqxA29a7a5yMF+MXkfa0VXoq/vhFxt2 49NZvC7S+ wq8FN2J4UP+6eGL4904-21-68S51:00:00 Received patient in cell AAOx3, NAD noted, respirations even and unlabored.Denies pain/discomfort.Remains in holdover for CDO,officer at cell side for 1:1 observation awaiting on 4 BED. 69004-2Chlkb UqdjIL8884-20-87S09:23:48Nurse NoteTXT1.2.840.444571.1.13.104.2.7.2.411863|78775 45711QHRuhlraftn for patient [id number] L Carter RNUT[id number]2023-07-19T13:23:481.2.840.377372.1.72.3 .15|1.2.840.445806.1.13.104.2.7.2.727879_[id number] 87 Danna Penaloza RN [facility] 2022-11-30 03:59:01 3hQGjlAlxzWdWajqOQroj1dMkEiyIjh9rLNetfOS CrnvPggOI 8vzLjbHpIZt40xg7458-29-44A21:59:01 Pt came to pill window. No distress or discomfort. See SMART for details. 34398-8Enuuy NiseJD4256-77-20T52:59:22Nurse NoteTXT1.2.840.660465.1.13.104.2.7.2.369490|37535 66879OTPeeyhokic for patient [id number] LIFE[facility] HEALTHCAREECEAUCRFQ9189-59-34O62:59:221.2.840.533275.1.72.3 .15|1.2.840.903849.1.13.104.2.7.2.727879_[id number] 17 [facility] 2022-11-29 19:45:20 qia8oKR855ZXAogBgEM3kDvdBZrRpR132aAs00w1 wk0bISllx iG+HWlJ3gpbItSS3874-51-97M64:45:20 Received the patient from off going nurse. Pt is A&Ox3.Respirations are unlabored.Pt is scheduled for CDO-AWAITING BED J4 73493-2Tvafn GwzmKX4041-83-71I88:45:46Nurse NoteTXT1.2.840.422778.1.13.104.2.7.2.219357|17476 59170AOBiuabkspo for patient [id number] HEALTHCARECJODNJMMO7157-93-22A01:45:461.2.840.009104.1.72.3 .15|1.2.840.831180.1.13.104.2.7.2.727879_[id number] 01 [facility] 2022-11-29 17:30:10 V6jO1AnuQGa1Xb0Q8oiEa3bj4oAENmng1QwS6keI P1JVjSkyO +ilIKC/GC8pzbHz7084-16-74I35:30:10 Called to give report to SESARAleyda mirza told I had wrong unit 4A, transferred to 4B, told that was also wrong unit and pt going to 4C, transferred by Tati to 4C where I was asked to hold by unidentified staff and subsequently hung up on. 78520-9Qskhdjiic department YqbtVZ7998-03-94X75:32:27Emergency department NoteTXT1.2.840.723491.1.13.104.2.7.2.035546|78556 79026TRZmhzzfyka for patient [id number] A Brown RN[id number]2023-07-18T17:32:271.2.840.925849.1.72.3 .15|1.2.840.608715.1.13.104.2.7.2.727879_[id number] 13 Damian Garcia RN [facility] 2022-11-29 14:54:54 iOvXREqj13ngLdKZvx1Ym5MYtV3AWRfgCO0cQt2Q evSiLDQl9 c7mPR2JQIEP08bS3302-82-81B22:54:54 Xray at bedside 18016-3Ahpeanayw department JhzjSY2902-48-72L97:55:01[facility] NoteTXT1.2.840.944672.1.13.104.2.7.2.565583|64242 24751QBWmpdtfzsj for patient [id number] LIFE[facility] HEALTHCAREGQSMKLEJW7973-82-96Q01:55:011.2.840.041678.1.72.3 .15|1.2.84[id number]_[id number] 53 [facility] 2022-11-29 14:27:11 GrGbhhNmJHfWQdkewUevCSwgdWL051+CJr5hv+kt /1DlW5srt G6paugeg1YIdq126364-73-26T80:27:11 Suicide Risk - Assessment and PlanColumbia:1) Have [...] Suicidal Behavior or preparation for suicide?: No [place] Score:Suggested risk level: HighSAFE-T:Current and past psychiatric [...] are there things, anyone or anything (family, pentecostalism, pain of ) that have stopped you [...] Suicidal Behavior or preparation for suicide?: No [place] Score:Suggested risk level: HighSAFE-T:Current and past psychiatric [...] are there things, anyone or anything (family, pentecostalism, pain of ) that have stopped you [...] place referral to outpatient behavioral health resources. 93047-7Iuovmjqsfr + Plan pyjlAA0260-54-24L10:27:46Evaluation + Plan noteTXT1.2.840.884799.1.13.104.2.7.2.945504|01225 98232JQSagougrvp for patient [id number]2023-07-18T14:27:461.2.840.349670.1.72.3 .15|1.2.84[id number]_[id number] [address] [place] [address] 2022-11-29 12:59:11 AdiRCqDLA4CTfYNLwa9+KGzAbdPQgHMvrOmqV9QS CEDOJUVLH 9xnrHjC+9fVDAs52127-24-04T47:59:11 Problem: Suicide, Risk ofGoal: Absence of self-harmOutcome: Not progressing as expected 43352-4Boeg of care akvvHG6225-34-70V93:59:15Plan of care noteTXT1.2.840.605858.1.13.104.2.7.2.409139|98193 61016LYNecgdhybu for patient [id number]2023-07-18T12:59:151.2.840.913253.1.72.3 .15|1.2.840.440100.1.13.104.2.7.2.727879_[id number] 21 [facility] 2022-11-29 12:54:21 LfUpIU+I2qvtjBBmVB01cNqwaQMx6uXA6Lsj6U8o EAtID1nN2 4O+NMKoAuu5TM9a6930-46-24F85:54:21 Pt/family educated on emergency department behavioral process and precautions. Educated on need for direct observation, removal of belongings, and clearing of room for patient and staff safety, patient and family given community resources for outpatient treatment and care, pt placed in paper scrubs. 25925-3Cqcfcgozi department UzewEW1638-23-06P29:54:29[facility] department NoteTXT1.2.840.012574.1.13.104.2.7.2.057931|04341 90093NMUwaofkmod for patient [address]Mx[id number] YSLBPQMLK5673-49-14P19:54:291.2.840.479388.1.72.3 .15|1.2.840.327642.1.13.104.2.7.2.727879_[id number] 23 [facility] 2022-11-29 12:54:02 l++FJ0opvGckVu0/NUTYQSbnsjok9w1Nhh6AjVuA 9Gh7Yw5Ob AHAo766saWXWixD9129-55-29H56:54:02 Armaan Patricia is a 32 year old [...] since this morning. Endorses hx epileptic seizures. 16072-4Vhymqmtdt department JjboES3222-98-14F17:57:03[facility] NoteTXT1.2.840.407953.1.13.104.2.7.2.343609|94729 66562NDHjfgtaavt for patient [address]Laz[id number] GFCPFYWHB1430-55-82J13:57:031.2.840.927022.1.72.3 .15|1.2.840.996535.1.13.104.2.7.2.727879_[id number] 86 [facility] 2022-11-29 11:29:12 hOB2HN7Z8cUfopoSjfgf8i2DcKalqO/VpP9s4uM9 wBKNzl5GK qP7gtTHW8ZAdECZ2225-17-40D01:29:12 Armaan Patricia is a 32 year old [...] pain, dizziness, blurred vision since this morning. 56996-4Lhyxhsdiv department Triage tsvcDG8293-39-87Q19:33:33[facility] Triage noteTXT1.2.840.904095.1.13.104.2.7.2.617495|07403 09815TEZrbbguyrx for patient [id number] A Haroon RN[address] Dj[id number] NFWPSUWSG3625-41-92G28:33:331.2.840.209315.1.72.3 .15|1.2.840.390249.1.13.104.2.7.2.727879_[id number] 42 Eladia Coley Haroon RN [facility] 2022-11-29 11:20:00 tuLcVVQ9ScN0IiXHV/NN1vFMhqV1NShIPiuzCBP6 blVvj8K2N upLac+XY8zkCZnh6666-35-07U67:20:00Associated Order(s): EKG-12 Lead ROUTINE ONCEPre-Procedure Diagnose(s): Suicidal ideationsPost-Procedure Diagnose(s): Suicidal ideations [facility] Emergency Department NotePatient Name: Armaan Ramirez MemonDate of : 1990 32 year old maleTreatment Room: [address] [place] [address] Record Number: [id number] Care Physician: ANDRE DEPT OF CORRECTIONPatient Escorted by: Law enforcement [8]Mode of Arrival: [facility] [5]EMS Treatment Prior to ED Arrival: Travel [...] suicidal.History provided by: Patient and medical recordsLanguage batting machine operator used: No Past Medical History/Immunizations:Past Medical History: [...] 1.7 - 2.4 mg/dL COMP. METABOLIC PANEL (45005) NA 137 135 - 145 mmol/L K [...] Drug Screen w/o Reflex Comprehensive Metabolic Panel (45393) CBC with Differential Ethanol (ETOH) Level COVID-19 [...] time and will discharge back to the [facility] for further psych evaluation. Patient understands and agrees with plan. [CD] 1521 IMPRESSION Stable chest. No radiographic evidence of acute cardiopulmonary process. Preliminary Report Dictated by Resident: Abdluaziz Brooks result has not been signed. Information [...] ED Physician in the absence of a batch heat treat operator: yes Previous ECG: Previous ECG: Compared to [...] file Follow-up:Electronically signed by: Filiberto De Oliveira MD11/29/221718 25722-8Lqsrtaxoh Emergency department BvyaVE7758-78-71L81:19:10[facility] department NoteTXT1.2.840.517336.1.13.104.2.7.2.583034|18508 79984VWInmgzuswa for patient [address]Uf[id number] ERWCLPWEH9886-79-03E45:19:101.2.840.515347.1.72.3 .15|1.2.840.958099.1.13.104.2.7.2.727879_[id number] 77 [facility]
[2023-09-17] MEDS ORDERED: NA CHLORIDE 0.9% 1,000 ML ONE (10:55)
[2023-09-17 11:03] LABS: Absolute Eosinophils 0.1 K/uL (0-0.5); Absolute Lymphocytes (CBC) 1.6 K/uL (0.7-4.9); Absolute Monocytes 0.5 K/uL (0.1-1.3); Absolute Neutrophil 4.1 K/uL (1.8-8.0); Basophils % 0.7 % (0-1.3); Eosinophils % 2.1 % (0-4.4); Lymphocytes % 25.2 % (15.3-44.8); MCH 19.1 pg (27.0-35.0); MCHC 31.3 g/dL (32.0-36.0); MPV 8.9 fL (7.6-11.3); Monocytes % 8.2 % (3.3-12.3); Neutrophils % 63.8 % (41.7-73.7); Platelets 253 thou/uL (152-406); RBC Red Blood Cell Count 5.74 M/uL (4.33-5.43); Red Cell Distribution Width 14.7 % (12.1-15.2)
[2023-09-17 11:10] LABS: PT Prothrombin Time 10.6 SECONDS (9.5-12.5); Protime INR 0.96
[2023-09-17 11:25] LABS: Ovalocytes 1+
[2023-09-17 11:26] LABS: ALT/SGPT 19 U/L (16-61); AST/SGOT 18 U/L (15-37); Albumin 3.8 g/dL (3.4-5.0); Alkaline Phosphatase 95 U/L (45-117); Anion Gap 5.3 mEq/L (5.0-15.0); BUN Blood Urea Nitrogen 13 mg/dL (7-18); Bicarbonate 28 mEq/L (21-32); Bilirubin Total 0.2 mg/dL (0.2-1.0); Blood Morphology Comment NOTED (NOT SEEN); Glomerular Filtration Rate 118 ml/min (=/>90); Glucose Level 107 mg/dL (74-106); Lipase 61 U/L (13-75); Magnesium 2.2 mg/dL (1.6-2.4); Microcytosis 2+; NT PRO-BNP 115 pg/mL (<125); Platelet Estimate ADEQ; Potassium 4.3 mEq/L (3.5-5.1); Protein, Total 7.8 g/dL (6.4-8.2); Sodium Level 138 mEq/L (136-145); White Blood Cell Scan OK (OK)
[2023-09-17 11:36] LABS: Bilirubin Direct < 0.1 mg/dL (0-0.2); Bilirubin Indirect, Calculated ND mg/dL (0.2-0.8); Troponin High Sensitivity < 3.0 pg/mL (<58.9)
--- NOTE | 2023-09-17 12:12 | RAD REPORT ---
EXAM DESCRIPTION: CT - Thorax W/ Con - 09/17/2023 11:47 am CLINICAL HISTORY: Chest pain COMPARISON: None TECHNIQUE: Computed axial tomography of the chest was obtained. 100 cc Isovue 300 was administered i ntravenously. All CT scans are performed using dose optimization technique as appropriate and may include automated exposure control or mA/KV adjustment according to patient size. FINDINGS: The lungs appear clear. No mediastinal or hilar lymphadenopathy is seen. A pleural effusion is not present. A pericardial effusion is not seen. IMPRESSION: No significant abnormality is displayed
--- NOTE | 2023-09-17 12:17 | RAD REPORT ---
EXAM DESCRIPTION: Marianela Single View09/17/2023 11:21 am CLINICAL HISTORY: Chest pain COMPARISON: September 08, 2023 FINDINGS: The lungs appear clear of acute infiltrate. The heart is normal size IMPRESSION: No acute abnormalities displayed
--- NOTE | 2023-09-17 12:17 | RAD REPORT ---
EXAM DESCRIPTION: RAD - Abdomen 1 View (KUB) - 09/17/2023 11:21 am CLINICAL HISTORY: Swallowed a foreign body FINDINGS: The bowel gas pattern is unremarkable. A radiopaque foreign body not seen Metallic densities overlying the pelvis presumably related to a belt
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
--- NOTE | 2023-09-17 12:19 | EDPHYS ---
Physician Documentation [facility] Name: Armaan Patricia Age: 33 yrs Sex: Male : 1990 Arrival Date: 09/17/2023 Time: 10:32 Bed 2 Private MD: SWETA Physician Lucio Martino HPI: 09/16 10:53 This 33 yrs old [place] Male presents to ER via EMS with complaints of Chest Pain, ronnell Swallowed Foreign Body. 10:53 The patient or guardian reports chest pain that is located primarily in the anterior ronnell chest wall, bilaterally. The pain does not radiate. Associated signs and symptoms: The patient has no apparent associated signs or symptoms. The chest pain is described as aching. Duration: The patient or guardian reports multiple episodes, that are intermittent. Modifying factors: The symptoms are alleviated by remaining still, the symptoms are aggravated by movement. Severity of pain: At its worst the pain was mild in the emergency department the pain is unchanged. The patient has experienced similar episodes in the past, multiple times. Historical: - Allergies: 10:39 No Known Allergies; ss - Home Meds: 10:39 Haldol Oral [Active]; Estradiol Oral [Active]; ferrous sulfate 325 mg (65 mg iron) Oral ss tablet, delayed release (enteric coated) [Active]; Tegretol Oral [Active]; - PMHx: 10:39 Seizure; Anxiety; Depressive disorder; Schizophrenia; ss - PSHx: 10:39 None; ss - Immunization history:: Client reports receiving the 2nd dose of the Covid vaccine. - Infectious Disease History:: Denies. - Social history:: Smoking status: Patient denies any tobacco usage or history of. ROS: 10:55 Constitutional: Negative for fever, chills, and weight loss, Eyes: Negative for injury, ronnell pain, redness, and discharge, ENT: Negative for injury, pain, and discharge, Neck: Negative for injury, pain, and swelling, Respiratory: Negative for shortness of breath, cough, wheezing, and pleuritic chest pain, Abdomen/GI: Negative for abdominal pain, nausea, vomiting, diarrhea, and constipation, Back: Negative for injury and pain, : Negative for injury, bleeding, discharge, and swelling, MS/Extremity: Negative for injury and deformity, Skin: Negative for injury, rash, and discoloration, Neuro: Negative for headache, weakness, numbness, tingling, and seizure, Psych: Negative for depression, anxiety, suicide ideation, homicidal ideation, and hallucinations, Allergy/Immunology: Negative for hives, rash, and allergies, Endocrine: Negative for neck swelling, polydipsia, polyuria, polyphagia, and marked weight changes, Hematologic/Lymphatic: Negative for swollen nodes, abnormal bleeding, and unusual bruising, 10:55 Cardiovascular: Positive for chest pain, with movement, of the chest, Exam: 10:55 Constitutional: This is a well developed, well nourished patient who is awake, alert, ronnell and in no acute distress. Head/Face: Normocephalic, atraumatic. Eyes: Pupils equal round and reactive to light, extra-ocular motions intact. Lids and lashes normal. Conjunctiva and sclera are non-icteric and not injected. Cornea within normal limits. Periorbital areas with no swelling, redness, or edema. ENT: Nares patent. No nasal discharge, no septal abnormalities noted. Tympanic membranes are normal and external auditory canals are clear. Oropharynx with no redness, swelling, or masses, exudates, or evidence of obstruction, uvula midline. Mucous membranes moist. Neck: Trachea midline, no thyromegaly or masses palpated, and no cervical lymphadenopathy. Supple, full range of motion without nuchal rigidity, or vertebral point tenderness. No Meningismus. Chest/axilla: Normal chest wall appearance and motion. Nontender with no deformity. No lesions are appreciated. Cardiovascular: Regular rate and rhythm with a normal S1 and S2. No gallops, murmurs, or rubs. Normal PMI, no JVD. No pulse deficits. Respiratory: Lungs have equal breath sounds bilaterally, clear to auscultation and percussion. No rales, rhonchi or wheezes noted. No increased work of breathing, no retractions or nasal flaring. Abdomen/GI: Soft, non-tender, with normal bowel sounds. No distension or tympany. No guarding or rebound. No evidence of tenderness throughout. Back: No spinal tenderness. No costovertebral tenderness. Full range of motion. Male : Normal genitalia with no discharge or lesions. Skin: Warm, dry with normal turgor. Normal color with no rashes, no lesions, and no evidence of cellulitis. MS/ Extremity: Pulses equal, no cyanosis. Neurovascular intact. Full, normal range of motion. Neuro: Awake and alert, GCS 15, oriented to person, place, time, and situation. Cranial nerves II-XII grossly intact. Motor strength 5/5 in all extremities. Sensory grossly intact. Cerebellar exam normal. Normal gait. Vital Signs: 10:32 BP 132 / 82; Pulse 77; Resp 16; Temp 98.2(TE); Pulse Ox 100% on R/A; Weight 92.08 kg; ss Height 5 ft. 10 in. ; Pain 8/10; 12:40 BP 130 / 80; Pulse 75; Resp 16; Pulse Ox 99% on R/A; Pain 5/10; ss 10:32 Body Mass Index 29.13 (92.08 kg, 177.8 cm) ss 10:32 Pain Scale: Adult ss 12:40 Pain Scale: Adult ss MDM: 10:35 Patient medically screened. ronnell 10:56 Differential diagnosis: abnormal EKG, acute myocardial infarction, acute pericarditis, ronnell anxiety, coronary artery disease chest wall pain, Cholelithiasis esophagitis, hiatal hernia, unstable angina. Differential Diagnosis altered mental status. HEART Score: History: Slightly Suspicious (0), ECG: Normal (0), Age: < or = 45 years (0), Risk Factors: 1 or 2 risk factors (1), [+ Family HX] [Obesity] Troponin: < or = 1 x Normal Limit (0), Total Score = 1. KELSEY Risk Score: TOTAL SCORE = 0. Data reviewed: vital signs, nurses notes, EMS record, lab test result(s), EKG, radiologic studies, CT scan, plain films. Consideration of Admission/Observation Escalation of care including admission/observation considered. I considered the following discharge prescriptions or medication management in the emergency department Medications were administered in the Emergency Department. See MAR. Test considered but Not performed: Ultrasound no 2 d echo. Care significantly affected by the following chronic conditions: sdhizo, anxiety, depression, seizure. 09/16 10:45 Order name: Basic Metabolic Panel; Complete Time: 11:38 [facility] 09/16 10:45 Order name: CBC with Diff; Complete Time: 11:35 [facility] 09/16 10:45 Order name: LFT's; Complete Time: 11:38 [facility] 09/16 10:45 Order name: Magnesium; Complete Time: 11:38 ronnell 09/16 10:45 Order name: NT PRO-BNP; Complete Time: 11:38 ronnell 09/16 10:45 Order name: PT-INR; Complete Time: 11:35 ronnell 09/16 10:45 Order name: Troponin HS; Complete Time: 11:38 ronnell 09/16 10:45 Order name: Lipase; Complete Time: 11:38 ronnell 09/16 10:51 Order name: Tegretol Level; Complete Time: 11:35 ronnell 09/16 11:07 Order name: CBC Smear Scan; Complete Time: 11:35 EDMS 09/16 10:45 Order name: XRAY Chest (1 view); Complete Time: 12:17 ronnell 09/16 10:45 Order name: Abdomen 1 View (KUB) XRAY; Complete Time: 12:30 ronnell 09/16 10:45 Order name: CT Chest W/ Con; Complete Time: 12:17 [facility] 09/16 10:45 Order name: Cardiac monitoring; Complete Time: 10:50 [facility] 09/16 10:45 Order name: EKG - Nurse/Tech; Complete Time: 10:50 [facility] 09/16 10:45 Order name: IV Saline Lock; Complete Time: 10:50 [facility] 09/16 10:45 Order name: Labs collected and sent; Complete Time: 10:50 [facility] 09/16 10:45 Order name: O2 Per Protocol; Complete Time: 10:50 [facility] 09/16 10:45 Order name: O2 Sat Monitoring; Complete Time: 10:50 [facility] Administered Medications: 10:58 Drug: NS 0.9% IV 1000 ml IV at 1 bolus Per protocol; 1000 mL bolus Route: IV; Rate: 1 ss bolus; Site: right antecubital; 11:50 Follow up: IV Status: Completed infusion; IV Intake: 1000ml ss Disposition Summary: 09/17/23 12:18 Discharge Ordered Notes: Location: Home ronnell Problem: new ronnell Symptoms: have improved ronnell Condition: Stable ronnell Diagnosis - Chest pain, unspecified ronnell - Unspecified symptoms and signs involving the musculoskeletal system ronnell Followup: ronnell - With: Private Physician - When: 2 - 3 days - Reason: Recheck today's complaints, Continuance of care, Re-evaluation by your physician Followup: ronnell - With: August Izquierdo MD - When: 2 - 3 days - Reason: Recheck today's complaints, Re-evaluation by your physician Followup: ronnell - With: Jun Ji MD - When: 2 - 3 days - Reason: Recheck today's complaints, Re-evaluation by your physician Discharge Instructions: - Discharge Summary Sheet ronnell - Nonspecific Chest Pain, Adult ronnell - Chest Wall Pain ronnell - Chest Wall Pain, Phmz-bd-Eshf ronnell - Nonspecific Chest Pain, Adult, Ntum-yg-Yjon ronnell - Swallowed Foreign Body, Adult ronnell - Swallowed Foreign Body, Adult, Ttek-ua-Idwg [facility] Forms: - Medication Reconciliation Form ronnell - Antibiotic Education ronnell - Prescription Opioid Use ronnell - Patient Portal Instructions [facility] - Leadership Thank You Letter [facility] Signatures: Dispatcher [employer] EDLucio Chavez MD MD cha Blanchard, Shelby, RN RN Chandler Adams FNP-C RINA-Cla1 Corrections: (The following items were deleted from the chart) 10:44 10:39 Home Meds: Haldol 50 mg Oral 1 mg twice a day; [facility]
[2023-09-17 13:41] VITALS: BP 130/80; TEMP 98.2; O2SAT 99
== END 2023-09-17 13:07 | disposition home or self-care (01) ==
LOC: ER 10:32
DX: R07.9 Chest pain, unspecified (principal); R29.91 Unspecified symptoms and signs involving the musculoskeletal system; F20.9 Schizophrenia, unspecified
CPT/HCPCS: 85025; 80048; 36415; 83735; 80156; 85610; 80076; 84484; 83690; 83880; 71260; 74018; 71045; 96360; 99284; Q9967; J7030

== ENCOUNTER 2023-09-23 23:58 | Observation (INO) | payer OTHER ==
--- OUTSIDE RECORDS SUMMARY | 2023-09-24 00:06 | XMS REPORT | Continuity of Care Document ---
Author Name Unknown Address [address] [facility] [place] [address] [facility] Address [address] [facility] [address] [place] [address] Care Team Providers Care Manager Shop Name Role Phone CALVIN BRADEN Primary Care Physician Unavailab Andres Bradford Attending Clinician [phone] Radiology Attending Clinician Unavailable RADIOLOGY Attending Clinician Unavailable SONALI GURROLA Attending Clinician UnavailSimone Tripp MD Attending Clinician [phone] Sonali Gurrola MD Attending Clinician + [phone] Robert Strickland MD Attending Clinician [phone] Merrick Butt MD Attending Clinician +[phone] Eli Braden MD Attending Clinician +[phone] Leonides Vargas MD, Vianca Baig Attending Clinician +[phone] Otolaryngology, Tdc Attending Clinician UnavailHonorio Reyes MD Attending Clinician +[phone] MERRICK BUTT Attending Clinician Unavailable Ziggy Braden MD Attending Clinician +[phone] Francisco Valerio Attending Clinician +[phone] Honorio Leggett Attending Clinician +[phone] Pato Ornelas MD Attending Clinician [phone] Filiberto De Oliveira MD Attending Clinician +[phone] FILIBERTO DE OLIVEIRA Attending Clinician Unavailable Guerita Luz DO Attending Clinician + [phone] GUERITA LUZ Attending Clinician Unavailab shilpa LONGElkin Attending Clinician +[phone] EDWARD, K BILLIE Attending Clinician Unavailable Md Chetan Grissom Attending Clinician +[phone] Girish Cantu MD Attending Clinician + [phone] GIRISH CANTU Attending Clinician Unavailable Messi Hampton MD Attending Clinician + [phone] Doctor Unassigned, [place] Attending Clinician U Florencia Benitez MD Attending Clinician + Lolis Griffiths Attending Clinician + [phone] CALVIN BRADEN Attending Clinician Unavailable Carolina IRENE, Amna Kuo Attending Clinician + [phone] Yoandy Wilkes MD Attending Clinician + [phone] Dandy Armenta MD Attending Clinician + Anupama Caceres Attending Clinician +[phone] Sherry Morocho Attending Clinician +[phone] Huma Koo MD Attending Clinician + [phone] Stephanie Pierson MD Attending Clinician +[phone] Lucio Dhaliwal DO Attending Clinician + [phone] Radiology Admitting Clinician Unavailable RADIOLOGY Admitting Clinician Unavailable SIMONE MALDONADO Admitting Clinician Unavailable Robert Strickland MD Admitting Clinician + [phone] Eli Braden MD Admitting Clinician [phone] Ziggy Braden MD Admitting Clinician +[phone] Messi Hampton MD Admitting Clinician + [phone] Florencia Estevez MD Admitting Clinician +[phone] CALVIN BRADEN Admitting Clinician Unavailable Amna Figueroa MD Admitting Clinician + [phone] Dandy Armenta MD Admitting Clinician +[phone] Huma Koo MD Admitting Clinician + [phone] Payers Payer Name Policy Type Policy Number Effective Date Expirati on Date Source 2 C [id number] Problems Condition Name Condition Details Condition Category Status Onset Date Resolution Date Last Treatment Date Treating Clinician Comments Source Suicidal behavior with attempted self-injur y Suicidal behavior with attempted self-injur y Disease Active 3-29 00:00: 00 [facility] Drug overdose, intentiona l self-harm, initial encounter Drug overdose, intentiona l self-harm, initial encounter Disease Active 09-18 00:00: 00 [facility] Generalize d abdominal pain Generalize d abdominal pain Disease Active 09-18 00:00: 00 [facility] Slow transit constipati on Slow transit constipati on Disease Active 09-18 00:00: 00 [facility] Nausea in adult Nausea in adult Disease Active 09-18 00:00: 00 [facility] Obesity (BMI 30-39.9) Obesity (BMI 30-39.9) Disease Active 8- 00:00: 00 [facility] Foreign body ingestion Foreign body ingestion Disease Active - 00:00: 00 [facility] Nasal obstructio n Nasal obstructio n Disease Active 10-31 00:00: 00 Overview: Formattin g of this note might be different from the original. Added automatic ally from request for surgery [id number] [facility] Allergies, Adverse Reactions, Alerts [...] NO KNOWN ALLERGIE S Drug Class Active [facility] Social History Social Habit Start Date Stop Date Quantity Comments Source History of tobacco use Heavy tobacco smoker [facility] History of Social function 2023-08-12 00:00:00 2023-08-12 00:00:00 [facility] Tobacco use and exposure 2023-08-11 00:00:00 2023-08-11 00:00:00 Smokeless tobacco non-user [facility] Exposure to SARS-CoV-2 (event) 2022-09-20 00:00:00 2022-09-30 12:38:00 Not sure [facility] Sex Assigned At 1990 00:00:00 1990 00:00:00 [facility] Smoking Status Start Date Stop Date Source Heavy tobacco smoker 2023-08-11 00:00:00 [facility] Medications Ordered Medication Name Filled Medication Name Start Date Stop Date Current Medication? Ordering Clinician Indication Dosage Frequency Signature (SIG) Comments Components Source lactated ringers IV infusion 1,000 mL 08-17 15:00: 00 08-17 16:11 :00 No 1000mL at 999 mL/hr, 1,000 mL, IV Infusion, ONCE, 1 dose, On Mon08/18/23 at 1000, Routine [facility] famotidine (PEPCID (PF)) injection 20 mg 08-17 14:00: 00 08-17 14:26 :00 No 20mg 20 mg, Slow IV Push, ONCE, 1 dose, On Mon08/18/23 at 0900, HELLEN [facility] carBAMazepi ne (TEGRETOL XR) 400 mg 12 hr tablet 08-15 10:26: 00 Yes 400mg Take 1 tablet by mouth. [facility] omeprazole 20 mg TbLD 08-15 10:26: 00 Yes Take by mouth. [facility] dextran 70/hypromel lose (GENTEAL TEARS MILD OPHTHALMIC) 08-15 10:26: [address] in each eye. [facility] estradioL 1 mg tablet 08-15 10:26: 00 Yes 1mg Take 1 tablet by mouth in the morning. [facility] ALBUTEROL, REFILL, INHALE 08-15 10:26: 00 Yes Inhale. [facility] carBAMazepi ne (TEGRETOL) tablet 400 mg 08-15 01:00: 00 Yes 400mg 400 mg, Oral, Q12H, First dose on Mon08/15/23 at 2000, Until Discontinu ed, Routine [facility] spironolact one 25 mg tablet 08-14 13:41: 47 08-14 00:00 :00 No 25mg Take 1 tablet by mouth in the morning. [facility] artificial tears(hypro mellose) (ISOPTO-TEA RS) 0.5 % ophthalmic drops 1 Drop 08-12 14:07: 41 Yes 1[drp] 1 Drop, Both Eyes, PRN, Starting on 08/13/23 at 0907, Until Discontinu ed, Routine, Dry eyes [facility] lanolin alcohol-mo- w.pet-ceres (EUCERIN) cream 08-12 14:00: 00 Yes Topical, DAILY, First dose on Mon08/13/23 at 0900, Until Discontinu ed, Routine [facility] diphenhydrA MINE (BENADRYL) tablet 25 mg 08-12 02:10: 07 Yes 25mg 25 mg, Oral, Q4HPRN, Starting on 08/12/23 at 2110, Until Discontinu ed, Routine, Itching, Mild Rash [facility] ondansetron (ZOFRAN-ODT ) disintegrat ing tablet 4 mg 08-11 22:15: 00 08-11 22:40 :00 No 4mg 4 mg, Oral, ONCE, 1 dose, On 08/12/23 at 1715, Routine [facility] iopamidol (ISOVUE 370-500 mL) injection 80 mL 08-11 14:15: 00 08-11 14:15 :00 No [id number] 80mL 80 mL, Intravenou s, ONCE, 1 dose, On Mon08/12/23 at 0930, Routine [facility] ferrous sulfate 325 mg (65 mg iron) tablet 08-11 14:00: 00 Yes 325mg Take 1 tablet by mouth every other day. [facility] pantoprazol e (PROTONIX) EC tablet 40 mg 08-11 14:00: 00 Yes 40mg 40 mg, Oral, DAILY, First dose on Mon08/12/23 at 0900, Until Discontinu ed [facility] diphenhydrA MINE (BENADRYL) tablet 25 mg 08-11 03:45: 00 08-11 02:43 :00 No 25mg 25 mg, Oral, ONCE, 1 dose, On Mon08/11/23 at 2245, Routine [facility] haloperidoL 5 mg tablet 08-11 01:00: 00 Yes 5mg Take 1 tablet by mouth in the morning and 1 tablet in the evening. [facility] haloperidoL 2 mg tablet 08-11 01:00: 00 Yes 2mg Take 1 tablet by mouth in the morning and 1 tablet in the evening. [facility] acetaminoph en (TYLENOL) tablet 650 mg 08-11 00:07: 55 Yes 650mg 650 mg, Oral, Q6HPRN, Starting on Mon08/11/23 at 1907, Until Discontinu ed, Routine, Pain (scale 1-3) [facility] maalox:diph enhydrAMINE :lidocaine 2 % viscous 1:1:1 ([facility]) oral suspension 15 mL 08-10 19:30: 00 08-10 19:57 :00 No 15mL 15 mL, Oral, ONCE, 1 dose, On Mon08/11/23 at 1430, Routine [facility] famotidine (PEPCID (PF)) injection 20 mg 08-10 19:30: 00 08-10 19:57 :00 No 20mg 20 mg, Slow IV Push, ONCE, 1 dose, On Mon08/11/23 at 1430, [facility] NaCl 0.9% (NS) bolus infusion 1,000 mL 10-24 23:45: 00 10-25 00:03 :00 No 1000mL at 999 mL/hr, 1,000 mL, IV Infusion, ONCE, 1 dose, On Mon10/24/22 at 1845, [facility] NaCl 0.9% (NS) bolus infusion 1,000 mL 09-30 19:30: 00 09-30 20:55 :00 No 1000mL at 999 mL/hr, 1,000 mL, IV Infusion, ONCE, 1 dose, On Mon09/30/22 at 1430, [facility] NaCl 0.9% (NS) bolus infusion 1,000 mL 2021-05 18:30: 00 03-18 19:25 :00 No 1000mL at 999 mL/hr, 1,000 mL, IV Infusion, ONCE, 1 dose, On Mon03/18/22 at 1330, [facility] NaCl 0.9% (NS) bolus infusion 1,000 mL 2021-05 15:15: 00 03-18 18:34 :00 No 1000mL at 999 mL/hr, 1,000 mL, IV Infusion, ONCE, 1 dose, On Mon03/18/22 at 1015, [facility] No known medications 2021-05 08:59: 21 No No known medication s [facility] activated charcoal-so rbitoL (ACTIDOSE/S ORBITAL) 25 gram/120 mL suspension 25 g 10-29 16:45: 00 10-29 15:52 :00 No 25g 25 g, Oral, ONCE, 1 dose, On Mon10/29/21 at 1145, [facility] No known medications 10-29 10:41: 00 No [facility] polyethylen e glycol 3350 powder 17 g 09-20 12:58: 10 Yes 17g 17 g, Oral, BIDPRN, Starting on Mon09/20/21 at 0758, Until Discontinu ed, Routine, Constipati on [facility] diphenhydrA MINE 25 mg capsule 09-19 10:03: 57 09-19 00:00 :00 No 25mg Take 25 mg by mouth 2 (two) times daily as needed for Allergies. [facility] haloperidoL 1 mg tablet 09-19 10:03: 57 09-19 00:00 :00 No 3mg Take 3 mg by mouth 2 (two) times daily. [facility] loratadine 10 mg capsule 09-19 10:03: 09-19 00:00 :00 No 10mg Take 10 mg by mouth. [facility] omeprazole 20 mg capsule 09-19 10:03: 09-19 00:00 :00 No 20mg Take 20 mg by mouth daily. [facility] albuterol sulfate (PROAIR HFA INHALE) 09-19 10:03: 09-19 00:00 :00 No Inhale. [facility] carBAMazepi ne (TEGRETOL) 100 mg/5 mL suspension 09-19 10:03: 09-19 00:00 :00 No 200mg Take 200 mg by mouth every morning. [facility] carBAMazepi ne (TEGRETOL) 100 mg/5 mL suspension 09-19 10:03: 09-19 00:00 :00 No 400mg Take 400 mg by mouth every evening. [facility] venlafaxine 75 mg tablet 09-19 10:03: 57 09-19 00:00 :00 No 225mg Take 225 mg by mouth every evening. [facility] carBAMazepi ne (TEGRETOL) 100 mg/5 mL suspension 09-19 00:00: 00 Yes [id number] 200mg Take 10 mL by mouth every morning. [facility] carBAMazepi ne (TEGRETOL) 100 mg/5 mL suspension 09-19 00:00: 00 Yes [id number] 400mg Take 20 mL by mouth every evening. [facility] venlafaxine 75 mg tablet 09-19 00:00: 00 Yes [id number] 225mg Take 3 tablets by mouth every evening. [facility] diphenhydrA MINE 25 mg capsule 09-19 00:00: 00 Yes [id number] 25mg Take 1 capsule by mouth 2 (two) times daily as needed for Allergies. [facility] haloperidoL 1 mg tablet 09-19 00:00: 00 Yes [id number] 3mg Take 3 tablets by mouth 2 (two) times daily. [facility] omeprazole 20 mg capsule 09-19 00:00: 00 Yes [id number] 20mg Take 1 capsule by mouth daily. [facility] enoxaparin (LOVENOX) injection 40 mg 09-18 22:00: 00 Yes 40mg 40 mg, Subcutaneo us, DAILY, First dose on 09/18/21 at 1700, Until Discontinu ed, Routine [facility] venlafaxine (EFFEXOR) tablet 225 mg 09-18 22:00: 00 Yes 225mg 225 mg, Oral, QPM, First dose on 09/18/21 at 1700, Until Discontinu ed, Routine [facility] carBAMazepi ne (TEGRETOL) 100 mg/5 mL suspension 400 mg 09-18 22:00: 00 Yes 400mg 400 mg, Oral, QPM, First dose on 09/18/21 at 1700, Until Discontinu ed, Routine [facility] diphenhydrA MINE (BENADRYL) tablet 25 mg 09-18 14:38: 36 Yes 25mg 25 mg, Oral, BIDPRN, Starting on 09/18/21 at 0938, Until Discontinu ed, Routine, for use with haldol [facility] sennosides (SENOKOT) tablet 8.6 mg 09-18 14:15: 00 09-20 12:58 :21 No 8.6mg 8.6 mg, Oral, DAILY, First dose on 09/18/21 at 0915, Until Discontinu ed, Routine [facility] polyethylen e glycol 3350 powder 17 g 09-18 14:15: 00 09-20 12:58 :21 No 17g 17 g, Oral, DAILY, First dose on 09/18/21 at 0915, Until Discontinu ed, Routine [facility] omeprazole (PRILOSEC) capsule 20 mg 09-18 14:00: 00 Yes 20mg 20 mg, Oral, DAILY, First dose on 09/18/21 at 0900, Until Discontinu ed, Routine [facility] carBAMazepi ne (TEGRETOL) 100 mg/5 mL suspension 200 mg 09-18 14:00: 00 Yes 200mg 200 mg, Oral, QAM, First dose on 09/18/21 at 0900, Until Discontinu ed, Routine [facility] magnesium hydroxide (MILK OF MAGNESIA) 400 mg/5 mL suspension 30 mL 09-18 07:15: 00 09-18 16:03 :08 No 30mL 30 mL, Oral, DAILY, First dose on 09/18/21 at 0215, Until Discontinu ed, Routine [facility] No known medications 09-18 01:05: 45 No [facility] dextran 70/hypromel lose (GENTEAL TEARS MILD OPHTHALMIC) 06-10 08:56: [address] in each eye[address] [facility] Vital Signs Vital Name Observation Time Observation Value Comments S ourdomenic Systolic blood pressure 2023-08-18 16:30:00 124 mm[Hg] [facility] Diastolic blood pressure 2023-08-18 16:30:00 70 mm[Hg] [facility] Heart rate 2023-08-18 16:30:00 82 /min [facility] Respiratory rate 2023-08-18 16:30:00 16 /min [facility] Oxygen saturation in Arterial blood by Pulse oximetry 2023-08-18 16:30:00 99 /min [facility] Body temperature 2023-08-18 13:39:00 36.72 Luanne [facility] Body weight 2023-08-18 13:39:00 89.359 kg [facility] BMI 2023-08-18 13:39:00 28.27 kg/m2 [facility] Systolic blood pressure 2023-08-18 12:53:00 123 mm[Hg] [facility] Diastolic blood pressure 2023-08-18 12:53:00 83 mm[Hg] [facility] Heart rate 2023-08-18 12:53:00 92 /min [facility] Body temperature 2023-08-18 12:53:00 36.72 Luanne [facility] Respiratory rate 2023-08-18 12:53:00 19 /min [facility] Oxygen saturation in Arterial blood by Pulse oximetry 2023-08-18 12:53:00 100 /min [facility] Systolic blood pressure 2023-08-16 13:24:00 124 mm[Hg] [facility] Diastolic blood pressure 2023-08-16 13:24:00 85 mm[Hg] [facility] Heart rate 2023-08-16 13:24:00 74 /min [facility] Body temperature 2023-08-16 13:24:00 36.61 Luanne [facility] Respiratory rate 2023-08-16 13:24:00 18 /min [facility] Oxygen saturation in Arterial blood by Pulse oximetry 2023-08-16 13:24:00 99 /min [facility] Body weight 2023-08-11 18:52:00 89.812 kg [facility] BMI 2023-08-11 18:52:00 28.41 kg/m2 [facility] Systolic blood pressure 2023-08-11 14:59:00 124 mm[Hg] [facility] Diastolic blood pressure 2023-08-11 14:59:00 74 mm[Hg] [facility] Heart rate 2023-08-11 14:59:00 76 /min [facility] Body temperature 2023-08-11 14:59:00 36.56 Luanne [facility] Respiratory rate 2023-08-11 14:59:00 16 /min [facility] Body height 2023-08-11 14:59:00 177.8 cm [facility] Body weight 2023-08-11 14:59:00 89.812 kg [facility] BMI 2023-08-11 14:59:00 28.41 kg/m2 [facility] Oxygen saturation in Arterial blood by Pulse oximetry 2023-08-11 14:59:00 100 /min [facility] Systolic blood pressure 2022-11-30 14:00:00 103 mm[Hg] [facility] Diastolic blood pressure 2022-11-30 14:00:00 54 mm[Hg] [facility] Heart rate 2022-11-30 14:00:00 65 /min [facility] Body temperature 2022-11-30 14:00:00 36.5 Luanne [facility] Respiratory rate 2022-11-30 14:00:00 16 /min [facility] Oxygen saturation in Arterial blood by Pulse oximetry 2022-11-30 14:00:00 100 /min [facility] Systolic blood pressure 2022-11-29 19:52:00 132 mm[Hg] [facility] Diastolic blood pressure 2022-11-29 19:52:00 108 mm[Hg] [facility] Heart rate 2022-11-29 19:52:00 60 /min [facility] Body temperature 2022-11-29 19:52:00 37 Luanne [facility] Respiratory rate 2022-11-29 19:52:00 18 /min [facility] Oxygen saturation in Arterial blood by Pulse oximetry 2022-11-29 19:52:00 98 /min [facility] Body height 2022-11-29 16:26:00 157.5 cm [facility] Body weight 2022-11-29 16:26:00 90.719 kg [facility] BMI 2022-11-29 16:26:00 36.58 kg/m2 [facility] Systolic blood pressure 2022-10-25 00:00:00 120 mm[Hg] [facility] Diastolic blood pressure 2022-10-25 00:00:00 70 mm[Hg] [facility] Heart rate 2022-10-25 00:00:00 63 /min [facility] Respiratory rate 2022-10-25 00:00:00 12 /min [facility] Oxygen saturation in Arterial blood by Pulse oximetry 2022-10-25 00:00:00 95 /min [facility] Body temperature 2022-10-24 22:41:00 37.28 Luanne [facility] Body height 2022-10-24 22:41:00 172.7 cm [facility] Body weight 2022-10-24 22:41:00 90.719 kg [facility] BMI 2022-10-24 22:41:00 30.41 kg/m2 [facility] Systolic blood pressure 2022-09-30 23:30:00 131 mm[Hg] [facility] Diastolic blood pressure 2022-09-30 23:30:00 90 mm[Hg] [facility] Respiratory rate 2022-09-30 23:30:00 17 /min [facility] Heart rate 2022-09-30 20:56:00 57 /[facility] Oxygen saturation in Arterial blood by Pulse oximetry 2022-09-30 20:56:00 100 /min [facility] Body temperature 2022-09-30 17:44:00 36.78 Luanne [facility] Body height 2022-09-30 17:44:00 177.8 cm [facility] Body weight 2022-09-30 17:44:00 92.987 kg [facility] BMI 2022-09-30 17:44:00 29.41 kg/m2 [facility] Systolic blood pressure 2022-07-20 03:38:00 110 mm[Hg] [facility] Diastolic blood pressure 2022-07-20 03:38:00 51 mm[Hg] [facility] Heart rate 2022-07-20 03:38:00 72 /min [facility] Body temperature 2022-07-20 03:38:00 36.56 Luanne [facility] Respiratory rate 2022-07-20 03:38:00 16 /min [facility] Body height 2022-07-20 03:38:00 177.8 cm [facility] Body weight 2022-07-20 03:38:00 93.895 kg [facility] BMI 2022-07-20 03:38:00 29.70 kg/m2 [facility] Oxygen saturation in Arterial blood by Pulse oximetry 2022-07-20 03:38:00 98 /min [facility] Systolic blood pressure 2022-03-21 19:30:00 116 mm[Hg] [facility] Diastolic blood pressure 2022-03-21 19:30:00 69 mm[Hg] [facility] Heart rate 2022-03-21 19:30:00 74 /min [facility] Body temperature 2022-03-21 19:30:00 36.39 Luanne [facility] Respiratory rate 2022-03-21 19:30:00 18 /min [facility] Oxygen saturation in Arterial blood by Pulse oximetry 2022-03-21 19:30:00 100 /min [facility] Systolic blood pressure 2022-03-18 18:50:00 127 mm[Hg] standing [facility] Diastolic blood pressure 2022-03-18 18:50:00 86 mm[Hg] standing [facility] Heart rate 2022-03-18 18:50:00 67 /min [facility] Respiratory rate 2022-03-18 18:50:00 20 /min [facility] Oxygen saturation in Arterial blood by Pulse oximetry 2022-03-18 18:50:00 98 /min [facility] Body temperature 2022-03-18 16:28:00 37 Luanne [facility] Body weight 2022-03-18 13:54:00 97.523 kg [facility] BMI 2022-03-18 13:54:00 30.85 kg/m2 [facility] Systolic blood pressure 2021-10-29 15:35:00 126 mm[Hg] [facility] Diastolic blood pressure 2021-10-29 15:35:00 71 mm[Hg] [facility] Heart rate 2021-10-29 15:35:00 85 /min [facility] Body temperature 2021-10-29 15:35:00 36.61 [facility] Respiratory rate 2021-10-29 15:35:00 20 /min [facility] Oxygen saturation in Arterial blood by Pulse oximetry 2021-10-29 15:35:00 100 /min [facility] Systolic blood pressure 2021-10-29 14:19:00 126 mm[Hg] [facility] Diastolic blood pressure 2021-10-29 14:19:00 71 mm[Hg] [facility] Heart rate 2021-10-29 14:19:00 85 /min [facility] Body temperature 2021-10-29 14:19:00 36.61 [facility] Respiratory rate 2021-10-29 14:19:00 18 /min [facility] Oxygen saturation in Arterial blood by Pulse oximetry 2021-10-29 14:19:00 100 /min [facility] Systolic blood pressure 2021-09-20 16:12:00 133 mm[Hg] [facility] Diastolic blood pressure 2021-09-20 16:12:00 75 mm[Hg] [facility] Heart rate 2021-09-20 16:12:00 69 /min [facility] Body temperature 2021-09-20 16:12:00 36.11 [facility] Respiratory rate 2021-09-20 16:12:00 18 /min [facility] Oxygen saturation in Arterial blood by Pulse oximetry 2021-09-20 16:12:00 99 /min [facility] Body height 2021-09-18 05:54:00 177.8 cm [facility] Body weight 2021-09-18 05:54:00 92.08 kg [facility] BMI 2021-09-18 05:54:00 29.13 kg/m2 [facility] Procedures Procedure Date / Time Performed Performing Clinician Source EKG-12 LEAD 2023-08-18 15:22:33 Simone Maldonado [facility] XR ABDOMEN ACUTE SERIES 2023-08-18 14:53:00 Rajesh Maldonado [facility] URINALYSIS 2023-08-18 14:38:00 Simone Maldonado [facility] URINE DRUG (IMMUNOASSAY) - COMPREHENSIVE DRUG SCREEN W/O REFLEX 2023-08-18 14:38:00 Simone Maldonado [facility] TROPONIN I 2023-08-18 14:02:00 Simone Maldonado [facility] COMP. METABOLIC PANEL (27528) 2023-08-18 14:02:00 Simone Maldonado [facility] SALICYLATE 2023-08-18 14:02:00 Simone Maldonado [facility] CARBAMAZEPINE 2023-08-18 14:02:00 Simone Maldonado [facility] CBC WITH DIFF 2023-08-18 14:02:00 Simone Maldonado [facility] LACTIC ACID WHOLE BLOOD 2023-08-18 14:02:00 Rajesh Maldonado [facility] CARBAMAZEPINE 2023-08-14 05:46:00 Michael Kiran [facility] MAGNESIUM 2023-08-13 05:21:00 Michael Kiran [facility] HEPATIC FUNCTION PANEL (04032) (ALB,T.PRO,BILI T,BU/BC,ALT,AST,ALK PHOS) 2023-08-13 05:21:00 Silver Kiran [facility] BASIC METABOLIC PANEL (NA, K, CL, CO2, GLUCOSE, BUN, CREATININE, CA) 2023-08-13 05:21:00 Silver Kiran [facility] CARBAMAZEPINE 2023-08-13 05:21:00 Michael Kiran [facility] CBC WITH DIFF 2023-08-13 05:21:00 Michael Kiran [facility] HB ECG ROUTINE & RHYTHM STRIP 2023-08-12 21:19:46 Qiana, [facility] XR CHEST 1 VW 2023-08-12 18:04:00 Michael [facility] XR KUB 2023-08-12 15:20:00 Michael [facility] CT ABDOMEN PELVIS W CONTRAST 2023-08-12 14:19:00 Erika [facility] XR KUB 2023-08-12 00:45:00 Erika [facility] CT HEAD WO CONTRAST 2023-08-11 19:50:52 Nafisa Nelson [facility] URINALYSIS 2023-08-11 19:27:00 Nafisa Nelson Un [facility] EXTRA TUBE URINE CULTURE 2023-08-11 19:27:00 Carolynn Butt [facility] URINE DRUG (IMMUNOASSAY) - COMPREHENSIVE DRUG SCREEN W/O REFLEX 2023-08-11 19:27:00 Nafisa Nelson Darya [facility] COVID-19 (ID NOW RAPID TESTING) 2023-08-11 19:23:00 Nafisa Nelson Darya [facility] LAB ONLY COVID INTERPRETATION 2023-08-11 19:23:00 Nafisa Nelson Darya [facility] CREATINE KINASE 2023-08-11 19:19:00 Nafisa Nelson Darya [facility] THYROID STIMULATING HORMONE 2023-08-11 19:19:00 Nafisa Nelson Darya [facility] COMP. METABOLIC PANEL ([id number]) 2023-08-11 19:19:00 Nafisa Nelson Darya [facility] SALICYLATE 2023-08-11 19:19:00 Nafisa Nelson Un [facility] CARBAMAZEPINE 2023-08-11 19:19:00 Nafisa Nelson U [facility] ETHANOL 2023-08-11 19:19:00 Nafisa Nelson [facility] CBC WITH DIFF 2023-08-11 19:19:00 Nafisa Nelson [facility] XR NASAL BONES 2023-06-15 14:02:39 ImanFrancisco [facility] XR ABDOMEN 1 VW 2023-05-19 15:29:31 ImanFrancisco [facility] XR NASAL BONES 2023-03-31 15:35:05 Honorio Leggett [facility] EKG-12 LEAD 2022-11-29 22:19:10 Yennifer [facility] CREATINE KINASE 2022-11-29 18:38:00 Yennifer [facility] MAGNESIUM 2022-11-29 18:38:00 Yennifer [facility] TROPONIN I 2022-11-29 18:38[facility] H[facility]ONE 2022-11-29 18:38:00 Yennifer [facility] COMP. METABOLIC PANEL ([id number]) 2022-11-29 18:38:00 Yennifer [facility] SALICYLATE 2022-11-29 18:38:00 Yennifer [facility] CARBAMAZEPINE 2022-11-29 18:38:00 Yennifer [facility] ETHANOL 2022-11-29 18:38:00 Yennifer [facility] CBC WITH DIFF 2022-11-29 18:38:00 Yennifer [facility] COVID-19 (ID NOW RAPID TESTING) 2022-11-29 18:38[facility]OASSAY[facility] - COMPREHENSIVE DRUG SCREEN W/O REFLEX 2022-11-29 18:38:00 [facility]RE[facility]S AND AUTHORIZATIONS 2022-11-29 05:01:00 Doctor Unassigned, [place] [facility] COMP. METABOLIC PANEL ([id number]) 2022-10-24 23:05:00 Guerita Luz [facility] ETHANOL 2022-10-24 23:05:00 [facility] 2022-10-24 23:05:00 Guerita Luz U [facility] URINE DRUG (IMMUNOASSAY) - COMPREHENSIVE DRUG SCREEN W/O REFLEX 2022-10-24 23:05:00 Guerita Luz [facility] CARBAMAZEPINE 2022-09-30 21:32:00 Elkin Gilbert Billie [facility] URINE DRUG (IMMUNOASSAY) - COMPREHENSIVE DRUG SCREEN 2022-09-30 18:20:00 Elkin Gilbert Billie [facility] URINALYSIS 2022-09-30 18:20:00 [facility] TROPONIN I 2022-09-30 17:58:00 Elkin Gilbert [facility] COMP. METABOLIC PANEL ([id number]) 2022-09-30 17:58:00 Elkin Gilbert Billie [facility] SALICYLATE 2022-09-30 17:58:00 [facility] CARBAMAZEPINE 2022-09-30 17:58:00 Elkin Gilbert [facility] ETHANOL 2022-09-30 17:58:00 Elkin Gilbert [facility] CBC WITH DIFF 2022-09-30 17:58:00 Elkin Gilbert [facility] XR CHEST 2 VW 2022-08-08 12:42:00 Md Chetan [facility] KUB 2022-07-27 12:36:00 Md Chetan Grissom [facility] XR ABDOMEN ACUTE SERIES 2022-07-20 04:35:00 Do isis Cantu [facility] XR NECK SOFT TISSUE 2022-07-20 04:35:00 Shira Cantu [facility] EKG-12 LEAD 2022-03-18 19:21:08 Filiberto De Oliveira [facility] XR CHEST 1 VW 2022-03-18 17:56:00 Filiberto De Oliveira [facility] URINALYSIS 2022-03-18 16:28:00 Filiberto De Oliveira [facility] EXTRA TUBE URINE CULTURE 2022-03-18 16:28:00 Dalmedo, [facility] URINE DRUG (IMMUNOASSAY) - COMPREHENSIVE DRUG SCREEN W/O REFLEX 2022-03-18 16:28:00 Yennifer [facility] CREATINE KINASE 2022-03-18 15:47:00 Filiberto De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 mg/dL 8.6-10.6 T PROTEIN (test code = 5269607517) 7.4 g/dL 6.3-8.2 ALBUMIN (test code = 0848792988) 4.4 g/dL 3.5-5.0 ALK PHOS (test code = 1881593497) 74 U/L 34-122 ALTv (test code = 1742-6) 17 U/L 5-50 AST(SGOT) (test code = 4754303292) 26 U/L 13-40 eGFR (test code = 9425618456) 125.3 mL/min/1.73m2 ELIZABETH (test code = ELIZABETH) [...] imaging tests). Lab Interpretation (test code = 22544-2) Abnormal [facility] WITH BEWL5449-16-29 18:25:02* Test Item Value Reference Range Interpretation Comme nts WBC (test code = 6690-2) 5.83 See_Comment [Automated [employer]] The system which generated this result transmitted reference range: 4.20 - 10.70 10*3/?L. The reference range was not used to interpret this result as normal/abnormal. RBC (test code = 789-8) 6.03 See_Comment H [Automated [employer]] The system which generated this result transmitted [...] 31.3 g/dL 31.2-35.0 RDW-SD (test code = 82266-4) 32.4 fL 38.5-51.6 L RDW-CV (test code = 788-0) 15.2 % 12.1-15.4 PLT (test code = 777-3) 258 See_Comment [Automated [employer]] The system which generated this result transmitted reference range: 150 - 328 10*3/?L. The reference range was not used to interpret this result as normal/abnormal. MPV (test code = 89135-6) 10.4 fL 9.8-13.0 NRBC/100 WBC (test code = 1797421652) 0.0 See_Comment [Automated me ssage] The system which generated this result transmitted reference range: 0.0 - 10.0 /100 WBCs. The reference range was not used to interpret this result as normal/abnormal. NRBC x10^3 (test code = 9137795796) See_Comment [Automated messa ge] The system which generated this result transmitted reference range: 10*3/?L. The reference range was not used to interpret this result as normal/abnormal. GRAN MAT (NEUT) % (test code = 770-8) 59.4 % IMM GRAN % (test code = 4069827384) 0.20 % LYMPH % (test code = 736-9) 30.9 % MONO % (test code = 5905-5) 6.9 % EOS % (test code = 713-8) 2.1 % BASO % (test code = 706-2) 0.5 % GRAN MAT x10^3(ANC) (test code = 5801646135) 3.47 10*3/uL 1.99-6.95 IMM GRAN x10^3 (test code = 9485964389) 0.00-0.06 LYMPH x10^3 (test code = 731-0) 1.80 10*3/uL 1.09-3.23 MONO x10^3 (test code = 742-7) 0.40 10*3/uL 0.36-1.02 EOS x10^3 (test code = 711-2) 0.12 10*3/uL 0.06-0.53 BASO x10^3 (test code = 704-7) 0.03 10*3/uL 0.01-0.09 Lab Interpretation (test code = 42171-8) Abnormal [facility] CenterETHANOL2022-06-17 16:34:55* Test Item Value Reference Range Interpretation Comme nts ALCOHOL (test code = 1688318921) <10 mg/dL ELIZABETH (test code = ELIZABETH) Toxic Greater than or equal to 80 mg/dL. NOTE: Whole blood values are approximately 10% to 15% lower than serum and plasma. [facility] CenterSALICYLATE2022-06-17 16:34:50* Test Item Value Reference Range Interpretation Comme nts SALICYLATE (test code = 4746949527) <10 mg/L ELIZABETH (test code = ELIZABETH) Therapeutic Range: ? Analgesic and Antipyretic Use ? 20-100 mg/L ? ? Anti-Inflammatory Use ? 100-250 mg/L Toxic Range: ? Greater than 300 mg/L [facility] CenterACETAMINOPHEN2022-06-17 16:34:45* Test Item Value Reference Range Interpretation Comme nts ACETAMINOP (test code = 6036814387) <10.0 10.0-30.0 L ELIZABETH (test code = ELIZABETH) Toxic: Greater derick n 200 ug/mL @ 4 hour post ingestion or greater than 50 ug/mL @ 12 hour post ingestion Lab Interpretation (test code = 74582-1) Abnormal [facility]. METABOLIC PANEL (40748)2021-10-29 16:33:25* Test Item Value Reference Range Interpretation Comme nts NA (test code = 8132494379) 138 mmol/L 135-145 K (test code = 9105059238) 4.4 mmol/L 3.5-5.0 CL (test code = 8180950696) 106 mmol/L 98-108 CO2 TOTAL (test code = 1185711234) 27 mmol/L 23-31 AGAP (test code = 1629266795) 2-16 BUN (test code = 6577729345) 22 mg/dL 7-23 GLUCOSE (test code = 9207352117) 94 mg/dL 70-110 CREATININE (test code = 6649644087) 0.94 mg/dL 0.60-1.25 TOTAL BILI (test code = 5829349046) 0.4 mg/dL 0.1-1.1 CALCIUM (test code = 3229603912) 9.3 mg/dL 8.6-10.6 T PROTEIN (test code = 9367648342) 7.6 g/dL 6.3-8.2 ALBUMIN (test code = 9054990379) 4.6 g/dL 3.5-5.0 ALK PHOS (test code = 8720563588) 77 U/L 34-122 ALTv (test code = 1742-6) 30 U/L 5-50 AST(SGOT) (test code = 9957864861) 30 U/L 13-40 eGFR (test code = 8633226026) mL/min/1.73m2 ELIZABETH (test code = ELIZABETH) Association [...] or urine or abnormalities in imaging tests). [facility] CenterLIPASE2022-06-17 16:33:25* Test Item Value Reference Range Interpretation Comme nts LIPASE (test code = 2935744309) 154 U/L 0-220 Lab Interpretation (test cod e = 77812-4) Normal [facility] CenterCB WITH [id number] 16:09:24* Test Item Value Reference Range Interpretation Comme nts WBC (test code = 6690-2) See_Comment [Automated [employer]] The system which generated this result transmitted [...] g/dL 31.2-35.0 L RDW-SD (test code = 37203-3) 32.8 fL 38.5-51.6 L RDW-CV (test code = 788-0) 16.1 % 12.1-15.4 H PLT (test code = 777-3) See_Comment [Automated [employer] ge] The system which generated this result transmitted reference range: 150 - 328 10*3/?L. The reference range was not used to interpret this result as normal/abnormal. MPV (test code = 39650-5) 10.4 fL 9.8-13.0 NRBC/100 WBC (test code = 7546202480) See_Comment [Automated [employer] ssage] The system which generated this result transmitted reference range: 0.0 - 10.0 /100 WBCs. The reference range was not used to interpret this result as normal/abnormal. NRBC x10^3 (test code = 7473400231) <0.01 See_Comment [Automated messa ge] The system which generated this result transmitted reference range: 10*3/?L. The reference range was not used to interpret this result as normal/abnormal. GRAN MAT (NEUT) % (test code = 770-8) 59.0 % IMM GRAN % (test code = 7392147505) 0.40 % LYMPH % (test code = 736-9) 28.0 % MONO % (test code = 5905-5) 9.0 % EOS % (test code = 713-8) 3.1 % BASO % (test code = 706-2) 0.5 % GRAN MAT x10^3(ANC) (test code = 4140648607) 4.39 10*3/uL 1.99-6.95 IMM GRAN x10^3 (test code = 2334269912) 0.03 10*3/uL 0.00-0.06 LYMPH x10^3 (test code = 731-0) 2.08 10*3/uL 1.09-3.23 MONO x10^3 (test code = 742-7) 0.67 10*3/uL 0.36-1.02 EOS x10^3 (test code = 711-2) 0.23 10*3/uL 0.06-0.53 BASO x10^3 (test code = 704-7) 0.04 10*3/uL 0.01-0.09 Lab Interpretation (test code = 29420-1) Abnormal [facility] CenterFERRITIN VPHCS6741-09-26 15:30:24* Test Item Value Reference Range Interpretation Comme nts FERRITIN (test code = 5630084193) 113.0 ng/mL 18.0-464.0 ELIZABETH (test code = ELIZABETH) Biotin has been reported to cause a negative bias, interpret results relative to patient's use of biotin. Lab Interpretation (test code = 14421-7) Normal [facility] CenterIRON FIHIM0167-92-94 15:01:41* Test Item Value Reference Range Interpretation Comme nts IRON (test code = 1901565458) 69 ug/dL 50-160 TIBC (test code = 5068039710) 365 ug/dL 250-410 % FE SAT (test code = 4054783735) 19 % 20-50 L Lab Interpretation (test cod e = 87387-9) Abnormal [facility] CenterCB WITH [id number] 11:18:30* Test Item Value Reference Range Interpretation Comme nts WBC (test code = 6690-2) See_Comment [Automated messa ge] The system which generated this result transmitted reference range: 4.20 - 10.70 10*3/?L. The reference range was not used to interpret this result as normal/abnormal. RBC (test code = 789-8) See_Comment H [Automated [employer] ge] The system which generated this result [...] g/dL 31.2-35.0 L RDW-SD (test code = 02154-0) 32.2 fL 38.5-51.6 L RDW-CV (test code = 788-0) 17.9 % 12.1-15.4 H PLT (test code = 777-3) See_Comment [Automated [employer] ge] The system which generated this result transmitted reference range: 150 - 328 10*3/?L. The reference range was not used to interpret this result as normal/abnormal. MPV (test code = 37128-9) 11.0 fL 9.8-13.0 IPF % (test code = 0998566819) 3.8 % 1.2-10.7 Platelet count measured by fluorescence method. NRBC/100 WBC (test code = 1163681167) See_Comment [Automated [employer] ssage] The system which generated this result transmitted reference range: 0.0 - 10.0 /100 WBCs. The reference range was not used to interpret this result as normal/abnormal. NRBC x10^3 (test code = 4399484276) <0.01 See_Comment [Automated [employer] ge] The system which generated this result transmitted reference range: 10*3/?L. The reference range was not used to interpret this result as normal/abnormal. GRAN MAT (NEUT) % (test code = 770-8) 61.8 % IMM GRAN % (test code = 3233827923) 0.50 % LYMPH % (test code = 736-9) 27.9 % MONO % (test code = 5905-5) 6.7 % EOS % (test code = 713-8) 2.5 % BASO % (test code = 706-2) 0.6 % GRAN MAT x10^3(ANC) (test code = 7849380040) 5.31 10*3/uL 1.99-6.95 IMM GRAN x10^3 (test code = 2222787059) 0.04 10*3/uL 0.00-0.06 LYMPH x10^3 (test code = 731-0) 2.39 10*3/uL 1.09-3.23 MONO x10^3 (test code = 742-7) 0.57 10*3/uL 0.36-1.02 EOS x10^3 (test code = 711-2) 0.21 10*3/uL 0.06-0.53 BASO x10^3 (test code = 704-7) 0.05 10*3/uL 0.01-0.09 REACT LYMPHS (test code = 7274610441) Rare Lab Interpretation (test code = 38957-2) Abnormal [facility] METABOLIC PANEL (NA, K, CL, CO2, GLUCOSE, BUN, CREATININE, CA)2021-09-18 10:58:42* Test Item Value Reference Range Interpretation Comme nts NA (test code = 1888670648) 140 mmol/L 135-145 K (test code = 3069698751) 4.2 mmol/L 3.5-5.0 CL (test code = 6237578296) 104 mmol/L 98-108 CO2 TOTAL (test code = 5501171422) 23 mmol/L 23-31 AGAP (test code = 1910013054) 2-16 BUN (test code = 9291310854) 19 mg/dL 7-23 GLUCOSE (test code = 3804366935) 104 mg/dL 70-110 CREATININE (test code = 2929645785) 1.01 mg/dL 0.60-1.25 CALCIUM (test code = 5296318342) 9.7 mg/dL 8.6-10.6 eGFR (test code = 6120138762) mL/min/1.73m2 ELIZABETH (test code = ELIZABETH) Association [...] or urine or abnormalities in imaging tests). [facility] CenterHEPATIC FUNCTION PANEL (34213) (ALB,T.PRO,BILI T,BU/BC,ALT,AST,ALK PHOS)2021-09-18 10:58:42* Test Item Value Reference Range Interpretation Comme nts TOTAL BILI (test code = 5959334619) 0.5 mg/dL 0.1-1.1 BILI UNCON (test code = 9749375094) 0.3 mg/dL 0.1-1.1 BILI CONJ (test code = 7331835981) 0.0 mg/dL 0.0-0.3 T PROTEIN (test code = 1769530345) 8.6 g/dL 6.3-8.2 H ALBUMIN (test code = 4328179540) 4.9 g/dL 3.5-5.0 ALK PHOS (test code = 8744200739) 87 U/L 34-122 ALTv (test code = 1742-6) 22 U/L 5-50 AST(SGOT) (test code = 9272755589) 35 U/L 13-40 Lab Interpretation (test cod e = 61276-3) Abnormal [facility] CenterMagnesium Keccp1323-10-55 10:58:42* Test Item Value Reference Range Interpretation Comme nts MAGNESIUM (test code = 7976342929) 2.2 mg/dL 1.7-2.4 Lab Interpretation (test cod e = 83877-6) Normal [facility] CenterProthrombin Time / [id number] 10:41:17* Test Item Value Reference Range Interpretation [...] the indications. Lab Interpretation (test code = 08889-6) Normal [facility] CenterCARBAMAZEPINE2022-05-06 21:20:37* Test Item Value Reference Range Interpretation Comme nts CARBAMAZE (test code = 1000591017) <3.0 4.0-12.0 L ELIZABETH (test code = ELIZABETH) Toxic Range: ? Greater than 12 ug/mL Lab Interpretation (test code = 12587-7) Abnormal [facility] CenterTROPONIN [id number] 21:11:07* Test Item Value Reference Range Interpretation Comments TROPONIN I (test code = 4805743674) 0.000 ng/mL See_Comment [Automated message] The system [...] of biotin. Lab Interpretation (test code = 44713-3) Normal [facility] CenterSalicylate2022-05-06 16:48:28* Test Item Value Reference Range Interpretation Comme nts SALICYLATE (test code = 3006052370) <10 mg/L ELIZABETH (test code = ELIZABETH) Therapeutic Range: ? Analgesic and Antipyretic Use ? 20-100 mg/L ? ? Anti-Inflammatory Use ? 100-250 mg/L Toxic Range: ? Greater than 300 mg/L [facility] CenterEthanol (ETOH) Ludow0658-05-53 16:48:18* Test Item Value Reference Range Interpretation Comme nts ALCOHOL (test code = 5489357047) <10 mg/dL ELIZABETH (test code = ELIZABETH) Toxic Greater than or equal to 80 mg/dL. NOTE: Whole blood values are approximately 10% to 15% lower than serum and plasma. [facility] CenterAcetaminophen2022-05-06 16:34:21* Test Item Value Reference Range Interpretation Comme nts ACETAMINOP (test code = 0840308384) <10.0 10.0-30.0 L ELIZABETH (test code = ELIZABETH) Toxic: Greater derick n 200 ug/mL @ 4 hour post ingestion or greater than 50 ug/mL @ 12 hour post ingestion Lab Interpretation (test code = 18736-2) Abnormal [facility] CenterCBC with Qmhwcoymhxfs8944-10-76 16:33:35* Test Item Value Reference Range Interpretation [...] g/dL 31.2-35.0 L RDW-SD (test code = 34312-0) 33.4 fL 38.5-51.6 L RDW-CV (test code = 788-0) 15.9 % 12.1-15.4 H PLT (test code = 777-3) See_Comment [Automated [employer]] The system which generated this result transmitted reference range: 150 - 328 10*3/?L. The reference range was not used to interpret this result as normal/abnormal. MPV (test code = 18304-9) 11.1 fL 9.8-13.0 IPF % (test code = 3565405032) 5.6 % 1.2-10.7 Platelet count measured by fluorescence method. NRBC/100 WBC (test code = 4104626714) See_Comment [Automated [employer]age] The system which generated this result transmitted reference range: 0.0 - 10.0 /100 WBCs. The reference range was not used to interpret this result as normal/abnormal. NRBC x10^3 (test code = 3258049955) <0.01 See_Comment [Automated [employer]] The system which generated this result transmitted reference range: 10*3/?L. The reference range was not used to interpret this result as normal/abnormal. GRAN MAT (NEUT) % (test code = 770-8) 68.9 % IMM GRAN % (test code = 1785411612) 0.30 % LYMPH % (test code = 736-9) 20.2 % MONO % (test code = 5905-5) 7.8 % EOS % (test code = 713-8) 2.3 % BASO % (test code = 706-2) 0.5 % GRAN MAT x10^3(ANC) (test code = 9090734788) 4.24 10*3/uL 1.99-6.95 IMM GRAN x10^3 (test code = 0039947152) <0.03 0.00-0.06 LYMPH x10^3 (test code = 731-0) 1.24 10*3/uL 1.09-3.23 MONO x10^3 (test code = 742-7) 0.48 10*3/uL 0.36-1.02 EOS x10^3 (test code = 711-2) 0.14 10*3/uL 0.06-0.53 BASO x10^3 (test code = 704-7) 0.03 10*3/uL 0.01-0.09 ELLIPTO/OVAL (test code = 59538-6) 2+ See_Comment A [Automated [employer]] The system which generated this result transmitted reference range: (none). The reference range was not used to interpret this result as normal/abnormal. SCHISTOCYTES (test code = 800-3) 1+ A REACT LYMPHS (test code = 8701112046) Rare GIANT PLATELETS (test code = 5908-9) Present See_Comment A [Automated [employer]] The system which generated this result transmitted reference range: (none). The reference range was not used to interpret this result as normal/abnormal. Lab Interpretation (test code = 32249-7) Abnormal [facility] CenterComprehensive Metabolic Panel (69543) 2021-09-17 16:19:34* Test Item Value Reference Range Interpretation Comme nts NA (test code = 4709181030) 140 mmol/L 135-145 K (test code = 4216155162) 4.0 mmol/L 3.5-5.0 CL (test code = 0289830114) 107 mmol/L 98-108 CO2 TOTAL (test code = 3014045211) 24 mmol/L 23-31 AGAP (test code = 7839987560) 2-16 BUN (test code = 4911490510) 18 mg/dL 7-23 GLUCOSE (test code = 7266654415) 112 mg/dL 70-110 H CREATININE (test code = 2545961455) 0.96 mg/dL 0.60-1.25 TOTAL BILI (test code = 2138988724) 0.4 mg/dL 0.1-1.1 CALCIUM (test code = 6852304224) 9.1 mg/dL 8.6-10.6 T PROTEIN (test code = 8629431072) 7.2 g/dL 6.3-8.2 ALBUMIN (test code = 2027929343) 4.3 g/dL 3.5-5.0 ALK PHOS (test code = 4338448847) 61 U/L 34-122 ALTv (test code = 1742-6) 19 U/L 5-50 AST(SGOT) (test code = 2458721558) 27 U/L 13-40 eGFR (test code = 5077904753) mL/min/1.73m2 ELIZABETH (test code = ELIZABETH) Association [...] imaging tests). Lab Interpretation (test code = 45189-3) Abnormal [facility] Consult Notes Date/Time Note Provider Source 2023-08-15 10:14:53 [id number] lUr [id number]+[id number]:14:53Ass ociated Order(s): CONSULT NEUROLOGY NEUROLOGY CONSULT NOTEDATE [...] morning.HOSPITAL MEDICATIONSScheduled meds: IV meds: PRN meds:lanolin ubvitmn-zg-a.pet-ceres, , DAILYferrous sulfate, 325 mg, Q OTHERDAYhaloperidoL, 2 mg, BIDhaloperidoL, 5 mg, BIDpantoprazole, 40 mg, DAILYartificial tears(hypromellose), 1 Drop, PRNdiphenhydrAMINE, 25 mg, B3UJNGoxrvtmybawuiu, 650 mg, N3QUBFLBDCBBLKp Known AllergiesREVIEW OF SYSTEMSGeneral: (-) fever, (-) [...] MRI seizure protocol with neuro quant- Outpatient [facility]-Ryemwq-qm in neurology clinic-No KOP medsPatient was seen and discussed with Ke Edge MD, Neurology Faculty. Discussed with the primary team. Neurology will continue to follow.Neurology consult pager: [phone] Horn, XW6Gkmyisw Neurology Consults [facility] personally examined the patient on 08/15/23 [...] Ordering referrals and/or communicating with other health healthcare administrator (when not separately reported), Documenting clinical information in the electronic or other health record, Independently interpreting results (not separately reported) and/or communicating results to the patient/family/caregiver, and Care coordination (not separately reported).I actively participated in the decision making process.Please see the resident's note/addendum for additional details.33779-8Qxywwwa [id number]-Sjcfoygei, Jorge1.2.840.022677.1.13.104.2.7.2.923524Px pwzwtqt-FbantpfoxGxltbRS4557-44-02T14:18:09 Consult noteTXT1.2.840.107638.1.13.104.2.7.2.959498 |[id number] for patient bpxm44274-8Dvdvpth noteLNNARRATIVEFormatted C-CDA narrative kajjWM-IITGTQRIZKK-BSRJMYPQPFPZZAIQF - Health301 University NfpeZdsiwfuynPpmzshuvaJNEP1559891692LRWABCG VYTFKARDGVBCCVE3323-48-63W63:18:091.2.840.1 78938.1.72.3.15|1.2.840.854589.1.13.104.2.7 .2.727879_[id number] PN-NEUROLOGY [facility] 2023-08-14 09:19:49 R0hvUlwdG/fbIiCDZDRxQoce0CIi9XHXBMWLvBlH 3TS 7Qvr9ZAfcC38BDFzaWduE5841-91-07T54:19:49Ass ociated Order(s): CONSULT PSYCHIATRY [facility] - Consult LiaisonPer attending review and protocol, patient will need to go to [facility] Crisis Management team for self harm. If any other questions or concerns arise prior to Crisis Management placement, please reach out to C/L pager as listed below.Please contact the psychiatry consult pager: [phone] with any questions.Patient discussed with Psychiatry faculty, Dr. Matias, who agrees with plan.Edgard Moreno MDRUST Department of Psychiatry PGY-2C/L Pager # [phone] signed by Kade Matias MD at 08/15/2023 11:12 AM CDTAssociated attestation - Kade Matias MD - 08/15/2023 11:12 AM CDT I discussed this patient with the resident and directed the medical decision-making. I agree with the resident note.55020-5Zxkacjo opizBU4309004DyhklcKade Matias1.2.840.143486.1.13.104.2.7.2.561428 GbkggmYpqdsnlOavvrlySN9527-41-52C83:12:07Co nsult noteTXT1.2.840.249606.1.13.104.2.7.2.346435 |[id number] for patient nrli18387-8Wnlyaek noteLNNARRATIVEFormatted C-CDA narrative ttenKF-OHZUITUCMQXE-ZDZBSNOKPQUVPEMXOE - Health301 University Oakm[id number] VRYOZDWNUFLVJCG8451-13-83J49:12:071.2.840.1 97510.1.72.3.15|1.2.840.017318.1.13.104.2.7 .2.727879_[id number] PN-PSYCHIATRY [facility] 2023-08-12 13:35:51 wejSl3AQKnWtdPvDSLK3/O3/wnxZecsRmyEB1Gnl joseph P0tuWfcEsXc1KNfOqgAAH0826-88-76D57:35:51Ass ociated Order(s): CONSULT GASTROENTEROLOGY Department of Gastroenterology [...] MDPGY-5 Gastroenterology and HepatologyContact information available through [facility] [place]lectronically signed by Perla Braden [...] in chest or abdomen. No endoscopy needed.PERLA YANCEY,DRESSMAKING TEACHER,DIVISION OF GASTROENTEROLOGY AND HEPATOLOGY.[facility].64884-9Lxsyrrv asmzQR5599294Tisl, Kashif1.2.840.780857.1.13.104.2.7.2.927899O mcbParsnzGL5682-07-66S90:49:56Consult noteTXT1.2.840.186406.1.13.104.2.7.2.791647 |0755547401BHRkxryjlii for patient rgod15179-3Izfolja noteLNNARRATIVEFormatted C-CDA narrative vktjFO-APOIQCXWOWEKHANTTO-WTADJDCGXNNMAWNKD [address] StreetIayp[id number] FOSKHYCHIDMTKMO8830-33-50D73:49:561.2.840.1 84285.1.72.3.15|1.2.840.105279.1.13.104.2.7 .2.727879_[id number] IM-GASTROENTER OLOGY [facility] Notes Date/Time Note Provider Source 2023-08-18 11:57:00 3IEXDBhu/UeH+qqc5HA5MYXDh/kT0GFm+ptG96Vo XlZG0XjYo qnu8X9rfGvJvqZk6654-16-22U00:57:00 Returned from ED via WC and escorted by [facility] officer.1447 pt discharged from unit, via WC to [facility] escorted by [facility] officers. 03966-1Rzjxk BatmSW7319-11-13Q42:48:37Nurse NoteTXT1.2.840.410496.1.13.104.2.7.2.430254|35757 28811UCQkrcjvlcb for patient mfhw12455-2Inthz NoteLNNARRATIVEFormatted C-CDA narrative ecmm116167586Irsqfd Reyes [id number] MATT2024-04-05T14:48:371.2.840.969004.1.72.3 .15|1.2.840.447359.1.13.104.2.7.2.727879_[id number] 21 Jazmyn Triana RN [facility] 2023-08-18 11:30:52 i2T/Oa5NTBzM8Q5vud+hwE05uKeFZujJOpFjOAvT PPEhg9nkE Bk4cpeBGLFltOsQ2034-01-26F45:30:52 Pt being discharge, called [facility] case management to inform of pt's dispo. Pt will go to hold-over. 15191-8Rqftd DecwSB2045-07-05I70:32:57Nurse NoteTXT1.2.840.781302.1.13.104.2.7.2.735683|26103 29192PTKzbxkbmmt for patient okre27129-1Aldkz NoteLNNARRATIVEFormatted C-CDA narrative [id number] K Bartels RN[id number]2024-04-05T11:32:571.2.840.613067.1.72.3 .15|1.2.840.462083.1.13.104.2.7.2.727879_[id number] 42 Sisi Reyes RN [facility] 2023-08-18 11:25:37 hX4hCDp4ymphEDG2E9BvqxDBlcQPc1W6W6w3q2HT 9H6xeALwB YJoO3paUNluod2q5712-17-19Q15:25:37 Suicide Risk - Assessment and PlanColumbia:1) Have [...] are there things, anyone or anything (family, protestant, pain of ) that have stopped you [...] [facility] Direct Observation Care for Suicidal Patient. 79963-2Skcyknmurl + Plan sjvrBG9049-18-97C95:26:05Evaluation + Plan noteTXT1.2.840.936310.1.13.104.2.7.2.208893|96659 15486IUYygogajik for patient vcqk75703-1EazaXVVYXIKATICImmgxsosl C-CDA narrative text[address]VquiRqawpcdyyYsqnqmpadDCFD5647552664PDHSHPDPHLUNY BGKABAPNX0693-25-21N47:26:051.2.840.855653.1.72.3 .15|1.2.840.342499.1.13.104.2.7.2.727879_[id number] 10 [facility] 2023-08-18 10:44:28 QVYdOHvaS3ndQoY8NOeEizjty0yk8MddHIJs+Suv FxfoXe81x XHSCHYki+PDcDUY2466-80-65L36:44:28 Suicide Risk - Assessment and PlanColumbia:1) Have [...] are there things, anyone or anything (family, protestant, pain of ) that have stopped you [...] place referral to outpatient behavioral health resources. 95232-2Aisrhlhguh + Plan pyzdEL6707-07-12N85:44:37Evaluation + Plan noteTXT1.2.840.970946.1.13.104.2.7.2.505127|47570 37297XJInswqsszh for patient zaxi38993-4UdnxFKLPORNFIXEAgsptdeco C-CDA narrative [id number]2024-04-05T10:44:371.2.840.953075.1.72.3 .15|1.2.840.446196.1.13.104.2.7.2.727879_[id number] [address] [place] [address] 2023-08-18 09:16:01 o1EO11SkpekYUzsg4v7fD2swiNNmV8UkmPEj6/cE CHKJFk/EI bsdUQRrv5ynOC679399-79-88X78:16:01 Pt took pills in halfway and then started to have chest pain. For attention he swallowed a screw, he states, so he could come here and be checked out. Pt states he has chest pain now. Is aaox4, ambulatory, do not look in any distress. 66080-0Mjehk JlioYI6790-78-37M58:17:41Nurse NoteTXT1.2.840.879209.1.13.104.2.7.2.001334|80516 14478HGExrwcjezi for patient bvat23081-8Xvrpg NoteLNNARRATIVEFormatted C-CDA narrative [id number]2024-04-05T09:17:411.2.840.425461.1.72.3 .15|1.2.840.952690.1.13.104.2.7.2.727879_[id number] 63 [facility] 2023-08-18 08:38:32 +K5Z6Jrmagv4q0niWxDZzPj+5y7yDufIDDZ3lsja dr73NS03R oGaR3fLJYbCjtRW8157-59-86N36:38:32 Armaan Patricia is a 33 year old male presenting to ED coming [facility] holdover after swallowing a screw about 1 hour ago. Patient on SI hold in [facility]. Patient to room for further eval 08103-5Mornvsaji department Triage jpemNY3538-33-55Y52:39:05[facility] Triage noteTXT1.2.840.898264.1.13.104.2.7.2.159728|09765 48991JYIonbsmold for patient nzik09650-0Oqcxccddv department NoteLNNARRATIVEFormatted C-CDA narrative rork682440839Pmokontd L Holmes RNUT[address] [id number]2024-04-05T08:39:051.2.840.074314.1.72.3 .15|1.2.840.536200.1.13.104.2.7.2.727879_[id number] 88 Leonor Walls RN [facility] 2023-08-18 08:32:00 +ThTAMmS8//V2v8RCA1QLVAusga/CCm+pnEubxpP PdxQoA6dv iRBBNJZfBZMRTgn4341-15-30B77:32:00Associated Order(s): EKG-12 Lead ONCEPre-Procedure Diagnose(s): Suicide attempt by drug ingestion, initial encounter; Foreign body alimentary tract, initial encounter; Chest pain of uncertain etiologyPost-Procedure Diagnose(s): Suicide attempt by drug ingestion, initial encounter; Foreign body alimentary tract, initial encounter; Chest pain of uncertain etiology [facility] Emergency Department NotePatient Name: Armaan Ramirez MemonDate of : 1990 33 year old maleTreatment Room: [address] [place], [place] [address]Medical Record Number: [id number] Care Physician: ANDRE DEPT OF CORRECTIONPatient Escorted by: Self [9]Mode of Arrival: [facility] [5]EMS Treatment Prior to ED Arrival:Travel and Exposure Screening:SymptomsDoes patient have any of these symptoms?: (not recorded)Exposure ScreeningHas patient had contact with someone with a communicable disease in the last month?: (not recorded)Diseases exposed to:: (not recorded)Is Patient ?: (not recorded)Exposure Date: (not recorded)Chief Complaint:Chief ComplaintPatient presents with Foreign Body"Swallowed a screw"History of Present Illness:33 yo male in [facility], with depression and schizophrenia, feeling suicidal, [...] received in last 5 years: YesChildhood immunizations: Yn-lt-meonSxmvvcoms:No Known AllergiesPast Social History:Tobacco UseHeavy SmokerSmokeless Tobacco: [...] NormalTROPONIN I 0.002 <=0.034 ng/mLCOMP. METABOLIC PANEL (16334)NA 136 135 - 145 mmol/LK 4.1 3.5 [...] U/LAST(SGOT) 22 13 - 40 U/LeGFR 124.5 mL/min/1.12c9XXNZHXSOHZUZOELUCGEF <10 mg/LURINALYSISURINE DRUG (IMMUNOASSAY) - COMPREHENSIVE DRUG SCREEN W/O REFLEXEKG:If EKG completed, see Procedure Note.Orders and Treatments:Orders Placed This EncounterProcedures XR ABDOMEN ACUTE SERIES CBC WITH DIFF COMP. METABOLIC PANEL (22499) Lactic Acid Whole Blood Lactic Acid Whole Blood Carbamazepine Troponin I URINALYSIS URINE DRUG (IMMUNOASSAY) - COMPREHENSIVE DRUG SCREEN W/O REFLEX Acetaminophen SalicylateOrders Placed This EncounterMedications lactated ringers IV infusion 1,000 mL famotidine (PEPCID (PF)) injection 20 mgFirst Provider Eval:ED EventsDate/Time Event User Cdebvssk68/05/24 0843 Medical Screening Begins SIMONE MALDONADO MD [...] by: Simone Maldonado MDAuthorized by: Simone Maldonado MDECG interpreted by ED Physician in the absence of a nut tightener: yesPrevious ECG:Previous ECG: UnavailableInterpretation:Interpretation: normalRate:ECG rate: 73ECG [...] on fileFollow-up:Electronically signed by:Simone Maldonado MD08/18/23 1022 65902-1Xihkiylbz Emergency department LhieNX4192-02-16R79:22:32Physician Emergency department NoteTXT1.2.840.359532.1.13.104.2.7.2.054508|58709 87621FRUoxjitcxr for patient azmw46796-2Otxaycwux department NoteLNNARRATIVEFormatted C-CDA narrative textEMCARE EMERGENCY PHYSICIAN STAFFEMCARE EMERGENCY PHYSICIAN STAFF[address] SgfaAlzqexzkoJxskxbxcpTTQC6619024638ZBWFZQQVKFVAN KDVMVQTPH3925-82-48L11:22:321.2.840.289072.1.72.3 .15|1.2.840.895480.1.13.104.2.7.2.727879_[id number] 11 [facility] 2023-08-18 08:32:00 Mvlu/Y0Y0F4lpXXVmuzKB7q67oj+n3iMouCjpXP4 bRgpwf3y3 vwaI3daXu9/W3Uk5692-96-43O19:32:00 [facility] ED Transfer of Care Note.Off-going Physician:FranciscophTime of Transfer of Care: 11:10 AMSummary: Armaan [...] (e.g., employment testing, legal testing).COMP. METABOLIC PANEL (84253)SALICYLATENarrative:Therapeutic Range:Analgesic and Antipyretic Use 20-100 mg/LAnti-Inflammatory Use [...] direct observation / suicidal mgmt.[facility]: [facility] Determin[facility] of Health: [facility]ED DispositionED DispositionDisch - TDCJConditionStableComment--Sonali Gurrola MD08/18/23 1121 85007-0Partepkjp Emergency department KifaLC3673-82-20Y41:21:42Physician Emergency department NoteTXT1.2.840.878639.1.13.104.2.7.2.511068|10177 13515KATzqbrzjcu for patient vqyw06012-8Sxilqjyhu department NoteLNNARRATIVEFormatted C-CDA narrative textUT51 [address] [id number] HEALTHTJATPWDGF9757-86-49K49:21:421.2.840.832504.1.72.3 .15|1.2.840.622978.1.13.104.2.7.2.727879_[id number] [address] [place] [address] 2023-08-18 08:25:22 21aPw7DcaIXIF1Jpz6Q000AhiO7Ds7h2rWrkX6XS N9LrqEwqT DIdjEaOuUDzzh2a3453-22-55C95:25:22 Timed out to ED. 88151-2Gglwq KdfmBV8737-63-76I58:25:33Nurse NoteTXT1.2.840.938117.1.13.104.2.7.2.580667|25156 46931XJZxbquzzlq for patient pknb28912-2Wgyak NoteLNNARRATIVEFormatted C-CDA narrative fanf291466249Ioysvt Reyes RNUT[address] [id number]2024-04-05T08:25:331.2.840.356837.1.72.3 .15|1.2.840.871150.1.13.104.2.7.2.727879_[id number] 43 Jazmyn Triana RN [facility] 2023-08-18 08:06:47 hrG+Ww6AVywmUsp4rlyGX3A7hSzebVit58gmDo4m kxJAMopu4 0w/J7wg1x4qYPy65391-38-53N16:06:47 0700 Received report from off shift nurse. [...] given to Jenni- charge nurse from ER. 01655-9Hkcwq XcqcOH2578-87-38H29:10:35Nurse NoteTXT1.2.840.516018.1.13.104.2.7.2.764787|89298 97084CEAgbkutcxu for patient cvjy81805-8Xovtm NoteLNNARRATIVEFormatted C-CDA narrative text[id number] AREA HOSPITALHSUTQADQQ6980-49-77F21:10:351.2.840.783124.1.72.3 .15|1.2.840.741460.1.13.104.2.7.2.727879_[id number] 49 [facility] 2023-08-17 21:49:51 LyirEftlcNa+PzeBR4w4/FTyGu/4qqqxthHjH86f rbHB1xKf3 eDpuS0Vf+o/jQzC2089-51-30I86:49:51 Received patient from ongoing RN, Patient is stable with no s/s of acute distress, Resp even and unlabored, denies any pain/acute distress at this time. POC reviewed with patient and verbalized understanding,Pt is on suicide precaution with 1:1 observation by a [facility] officer. Pt has a bed in , awaiting transportation to [facility]. will continue to monitor. 13529-9Libih NwedUG3624-86-03S68:50:36Nurse NoteTXT1.2.840.264810.1.13.104.2.7.2.205445|97128 18515CFZgonsfbrc for patient ohlp75874-2Iyhmu NoteLNNARRATIVEFormatted C-CDA narrative jpei631771580Ibqqck M Nnane RN[id number] AREA HOSPITALJPIHIATQU7339-31-91S72:50:361.2.840.475342.1.72.3 .15|1.2.840.471031.1.13.104.2.7.2.727879_[id number] 77 Mari Up RN [facility] 2023-08-17 12:18:37 /kB89a7CjI3JJYdCgdVCOvKkAzej7jV4NqnTPgur w34SNemMX TbStBEff/rKEVbQ0177-16-02I00:18:37 Pt received from rodent exterminator nurse post inpatient care hx of suicide attempt. Pt is on suicide precaution with 1:1 observation by a [facility] officer. Pt has in a bed in , awaiting transportation to [facility]. 69265-9Lznra DsdfLK8459-72-88A73:20:40Nurse NoteTXT1.2.840.154565.1.13.104.2.7.2.198114|95946 20215WFDmywamhvm for patient seoz30663-9Xtuuq NoteLNNARRATIVEFormatted C-CDA narrative oawz246233008Joszis Onwukwe [id number]2024-04-04T12:20:401.2.840.048025.1.72.3 .15|1.2.840.788606.1.13.104.2.7.2.727879_[id number] 08 Keiko Tracy RN [facility] 2023-08-16 19:00:00 HKSvT+NhL1AZK/dmM9/a8PFK+sx8jUATP2GUsi+F XYEZwucwy bYnue36IiKYF+2r4018-57-93J60:00:00 Received the patient from off going nurse. Pt is A&Ox3.Respirations are unlabored.Pt is scheduled for CDO 1:1; BED AVAILABLE . Pt able to voice concerns and needs. 86897-0Lpnib EgsaOE7083-96-51H47:01:34Nurse NoteTXT1.2.840.859076.1.13.104.2.7.2.336057|57648 09579ERMzyfyndyc for patient wcwx49583-4Lscpg NoteLNNARRATIVEFormatted C-CDA narrative aixw002423691Qdaum Smith [id number] AREA HOSPITALIZSLYNRKT6899-51-46M89:01:341.2.840.280792.1.72.3 .15|1.2.840.469978.1.13.104.2.7.2.727879_[id number] 51 An Guerra CHIEF OPERATOR LOCK TENDER [facility] 2023-08-16 11:26:05 HDI3R9YoVBVdme7hcADsRgKCsVXeYoDBwDUE302U GsKL4adcP ZeAcUQwKYsR6BHb9378-17-14H00:26:05 Pt received from inpatient unit, s/p suicide attempt. Pt is on suicide precaution with 1:1 observation by a [facility] officer. 00514-0Aotha CepiPU5126-44-53D10:30:15Nurse NoteTXT1.2.840.448682.1.13.104.2.7.2.540575|06354 12394QCGmxuajzfp for patient ismu85587-6Bqnob NoteLNNARRATIVEFormatted C-CDA narrative textUT51 [address] [id number]2024-04-03T11:30:151.2.840.193922.1.72.3 .15|1.2.840.985895.1.13.104.2.7.2.727879_[id number] 31 [facility] 2023-08-16 10:11:40 FzIfGzeEe+y5i0GYB38QiPUm2NYafs5Cp+CANRZf LPuovT4FC G2wOCTFmEPEWChK6061-94-73C02:11:40 Problem: Suicide, Risk ofGoal: Absence of self-harm08/16/2023 [...] by Ifrah Smith RNOutcome: Progressing as expected 94652-7Obdw of care olyjOT6508-90-56C06:11:47Plan of care noteTXT1.2.840.981322.1.13.104.2.7.2.810065|79563 27930BQXejodckfb for patient axel45220-8VdpjYBJUBAGVHPUFzomlpqyr C-CDA narrative qykt069426272Ubtzjnv Joy RNUT[address] [id number]2024-04-03T10:11:471.2.840.355461.1.72.3 .15|1.2.840.016830.1.13.104.2.7.2.727879_[id number] Ifrah Smith RN [facility] 2023-08-16 09:37:50 Vki3raAUQp7jGEj6ed2IelBqm3nqtu+3z2M/ucRY XKB1vmeiH cWjKsf9+12FpdBj3304-89-96O02:37:50 Problem: Suicide, Risk ofGoal: Absence of self-harmOutcome: Progressing as expectedProblem: Falls, Risk ofGoal: Absence of fallsOutcome: Progressing as expectedProblem: Discharge PlanningGoal: Adequate for dischargeOutcome: Progressing as expectedGoal: Effective communicationOutcome: Progressing as expectedProblem: PainGoal: Control of pain at or below patient's documented comfort goalOutcome: Progressing as expectedGoal: Reduction in pain sensationOutcome: Progressing as expected 55068-8Nnxb of care ycuiDD9617-77-36Z32:37:55Plan of care noteTXT1.2.840.975376.1.13.104.2.7.2.066014|96523 35051KRJstqelfex for patient ujef76119-5NbclVGKKKTQCRDDVhfhwgugp C-CDA narrative textUT51 Dixon [id number]2024-04-03T09:37:551.2.840.724811.1.72.3 .15|1.2.840.135733.1.13.104.2.7.2.727879_[id number] [address] [place] [address] 2023-08-16 09:14:56 nwYmt+Z6Egw3p/Bp3bGZyPuXv3+zmLrq05ymnnE1 M9zv+pY8Z F38SIEyjGUcKXUS0679-17-34N11:14:56 Problem: Suicide, Risk ofGoal: Absence of self-harmOutcome: Progressing as expectedProblem: Falls, Risk ofGoal: Absence of fallsOutcome: Progressing as expectedProblem: Discharge PlanningGoal: Adequate for dischargeOutcome: Progressing as expectedGoal: Effective communicationOutcome: Progressing as expectedProblem: PainGoal: Control of pain at or below patient's documented comfort goalOutcome: Progressing as expectedGoal: Reduction in pain sensationOutcome: Progressing as expected 79038-7Cczr of care nqorFC7927-69-63Q20:14:59Plan of care noteTXT1.2.840.078585.1.13.104.2.7.2.222121|46676 11743WBWktzxfpbn for patient fuyg49408-8ZyncGALHNLZYTOEJayyzhacn C-CDA narrative textUT51 [address] [id number] AREA HOSPITALUOICXVWBF7434-28-81K17:14:591.2.840.657026.1.72.3 .15|1.2.840.523283.1.13.104.2.7.2.727879_[id number] 45 [facility] 2023-08-16 09:00:14 8+eeK4Dvbvm0dsQ+kq1XETBnNWQRHZwvD6/b+Vxs YrTt8N3Ee smY4/eP8Cpg+Fxk1949-76-15A44:00:14 Report given to Favor RN, Pt to go to [facility] to wait for transportation to crisis management. 39378-9Mdddk DoioGK5356-57-46F33:00:54Nurse NoteTXT1.2.840.901426.1.13.104.2.7.2.952345|44682 40093VJSqzhasltn for patient rdmn95564-5Hfwxx NoteLNNARRATIVEFormatted C-CDA narrative rsag611227231Rsid Aleyda Florencio RN[id number] HEALTHXXFQPHXNQ4106-25-52N63:00:541.2.840.926946.1.72.3 .15|1.2.840.159926.1.13.104.2.7.2.727879_[id number] 64 Griffin Maynard Florencio [facility] 2023-08-16 04:27:26 2Mw0ItNn1jeQTIdvWAtHzBYavFvPDl9viusjLmVC WS+gU2+hl 6QrNxrMVtYMDzqv0611-66-37S82:27:26 Problem: Suicide, Risk ofGoal: Absence of self-harmOutcome: Progressing as expectedProblem: Falls, Risk ofGoal: Absence of fallsOutcome: Progressing as expectedProblem: Discharge PlanningGoal: Adequate for dischargeOutcome: Progressing as expectedGoal: Effective communicationOutcome: Progressing as expectedProblem: PainGoal: Control of pain at or below patient's documented comfort goalOutcome: Progressing as expectedGoal: Reduction in pain sensationOutcome: Progressing as expectedProblem: PainGoal: Reduction in pain sensationOutcome: Progressing as expected 08474-7Qrdz of care eqkuGU8159-13-97D04:27:32Plan of care noteTXT1.2.840.822952.1.13.104.2.7.2.328402|26777 39351YUNhgvmytca for patient qppi54607-5GrdgIEEKKATMZMZRmiurzaay C-CDA narrative [id number] O Kareem RN[id number] MATTCVYAVJWSQ0567-81-31S41:27:321.2.840.871164.1.72.3 .15|1.2.840.095281.1.13.104.2.7.2.727879_[id number] 80 Isa Turner MADIHA [facility] 2023-08-15 14:53:30 jdVF4FlMPmqCccDaYNqkhvzfv3gQdxmSZooqSe9l 5TyYe0SDQ 4RTP3BnEpgux3+A3350-14-03V33:53:30 Attempted to give report to staff report. Informed that there is no room on . regulatory affairs manager made aware 49040-3Snbhk MuwfQJ0546-09-82T29:57:30Nurse NoteTXT1.2.840.184512.1.13.104.2.7.2.710249|94247 58864IOVfobykqnt for patient qeiw60344-2Hshtq NoteLNNARRATIVEFormatted C-CDA narrative [id number] A [place] RN[address] Za[id number] FMSRHWEHX7373-18-37O71:57:301.2.840.852237.1.72.3 .15|1.2.840.926773.1.13.104.2.7.2.727879_[id number] 31 Suni Swan RN [facility] 2023-08-15 10:30:15 4yrNk3Zpcsc7yjZDwr9WoEI30bNnhks3+r5EALYQ zjaa33iRh xcM6WsVv+yH3yPB4002-32-93T39:30:15 Problem: Suicide, Risk ofGoal: Absence of self-harmOutcome: Progressing as expectedProblem: Falls, Risk ofGoal: Absence of fallsOutcome: Progressing as expectedProblem: Discharge PlanningGoal: Adequate for dischargeOutcome: Progressing as expectedGoal: Effective communicationOutcome: Progressing as expectedProblem: PainGoal: Control of pain at or below patient's documented comfort goalOutcome: Progressing as expectedGoal: Reduction in pain sensationOutcome: Progressing as expected 68349-0Tfjm of care cjzpHS5470-08-24D83:30:20Plan of care noteTXT1.2.840.275788.1.13.104.2.7.2.808994|35912 37705HEQqzfcharq for patient uwws46442-1JbwbAUEILFSBNWBQmdwvjhle C-CDA narrative [id number]-02T10:30:201.2.840.617742.1.72.3 .15|1.2.840.216238.1.13.104.2.7.2.727879_[id number] 16 [facility] 2023-08-15 03:58:11 1KEn9q/jeWeoIZQUmoW2pJSu/pn8IUaR96/kXLUf H/xmAw9+O BSFIF7mHzy/3b2i9840-73-84G13:58:11 Problem: Suicide, Risk ofGoal: Absence of self-harmOutcome: Progressing as expectedProblem: Falls, Risk ofGoal: Absence of fallsOutcome: Progressing as expectedProblem: Discharge PlanningGoal: Adequate for dischargeOutcome: Progressing as expectedGoal: Effective communicationOutcome: Progressing as expectedProblem: Discharge PlanningGoal: Effective communicationOutcome: Progressing as expectedProblem: PainGoal: Control of pain at or below patient's documented comfort goalOutcome: Progressing as expectedGoal: Reduction in pain sensationOutcome: Progressing as expected 42935-0Icou of care uoqyMW5739-73-76E16:58:17Plan of care noteTXT1.2.840.224715.1.13.104.2.7.2.456773|49276 73577MSBehxwvnqc for patient zueo75523-6GvtsKJSTNGLNRYDCqvnobcah C-CDA narrative text[address] StreetQl[id number] QIQKPDOCA7946-23-91H24:58:171.2.840.377763.1.72.3 .15|1.2.840.294256.1.13.104.2.7.2.727879_[id number] [address] [place] [id number] 2023-08-14 09:04:23 vW0oDu1rADpBCDHnJ2BxTay88Z8ytO/ZF8lgpF7F 8DhDbei1d zAtDz1mBQ5K2LZc9400-55-34H48:04:23 Problem: Suicide, Risk ofGoal: Absence of self-harmOutcome: Progressing as expectedProblem: Falls, Risk ofGoal: Absence of fallsOutcome: Progressing as expectedProblem: Discharge PlanningGoal: Adequate for dischargeOutcome: Progressing as expectedGoal: Effective communicationOutcome: Progressing as expectedProblem: PainGoal: Control of pain at or below patient's documented comfort goalOutcome: Progressing as expectedGoal: Reduction in pain sensationOutcome: Progressing as expected 49149-5Pdet of care hxmsVX5492-37-66I90:04:29Plan of care noteTXT1.2.840.580691.1.13.104.2.7.2.154298|13044 44342LRYiadyzkpu for patient fcrw42676-8XomhULBAYHFBYPXEpuhkjsza C-CDA narrative text[id number] VHBVPLVHJ2158-11-18G78:04:291.2.840.865545.1.72.3 .15|1.2.840.216386.1.13.104.2.7.2.727879_[id number] [address] [place] [address] 2023-08-14 04:31:50 7d5fG789UxWI8qHn3HgUAfdAeoLeVrWRff2yLCdg AL2BEYuLj Xxo2nTwQq/K7gXB1145-26-46V43:31:50 Problem: Suicide, Risk ofGoal: Absence of self-harmOutcome: Progressing as expectedProblem: Falls, Risk ofGoal: Absence of fallsOutcome: Progressing as expectedProblem: Discharge PlanningGoal: Adequate for dischargeOutcome: Progressing as expectedGoal: Effective communicationOutcome: Progressing as expectedProblem: PainGoal: Control of pain at or below patient's documented comfort goalOutcome: Progressing as expectedGoal: Reduction in pain sensationOutcome: Progressing as expectedProblem: PainGoal: Reduction in pain sensationOutcome: Progressing as expected 93422-3Pdoc of care wtraLJ7883-56-50F29:31:57Plan of care noteTXT1.2.840.518251.1.13.104.2.7.2.454997|33548 26497HXCgvoghmem for patient mdot68607-6TuntTEHUTGHADWBBduhlexgm C-CDA narrative [id number] VALLEY MEDICAL CENTERCVTFYRPSD1323-94-57A56:31:571.2.840.428998.1.72.3 .15|1.2.840.149975.1.13.104.2.7.2.727879_[id number] 26 [facility] 2023-08-13 08:40:00 9YLB6/YNC6u9UzpxtUjk39OHBalIA4RiBl4KtOWw MjuJdO7Ij Ln5jaGPzgirv/V09515-67-32K99:40:00 Problem: Suicide, Risk ofGoal: Absence of self-harmOutcome: Progressing as expectedProblem: Falls, Risk ofGoal: Absence of fallsOutcome: Progressing as expectedProblem: Discharge PlanningGoal: Adequate for dischargeOutcome: Progressing as expectedGoal: Effective communicationOutcome: Progressing as expectedProblem: PainGoal: Control of pain at or below patient's documented comfort goalOutcome: Progressing as expectedGoal: Reduction in pain sensationOutcome: Progressing as expected 59691-7Uuvy of care fypcWA5154-04-19O66:46:06Plan of care noteTXT1.2.840.653688.1.13.104.2.7.2.758716|10313 16552YLLyujnsjlx for patient xdrw07263-9PzwfIEMCJYVXWOQOvvchkyfz C-CDA narrative textUT51 Dixon [id number] AREA HOSPITALMMHMRELOE9892-11-35Z06:46:061.2.840.297208.1.72.3 .15|1.2.840.989499.1.13.104.2.7.2.727879_[id number] 63 [facility] 2023-08-13 01:53:45 lKIph781mFp0OLFPsRtZ79NAcnCuRMu+QpnnPngt pfELulc7R xMJbvVxztf4nOxp9182-80-69I67:53:45 Problem: Suicide, Risk ofGoal: Absence of self-harmOutcome: Progressing as expectedProblem: Falls, Risk ofGoal: Absence of fallsOutcome: Progressing as expectedProblem: Discharge PlanningGoal: Adequate for dischargeOutcome: Progressing as expectedGoal: Effective communicationOutcome: Progressing as expectedProblem: PainGoal: Control of pain at or below patient's documented comfort goalOutcome: Progressing as expectedGoal: Reduction in pain sensationOutcome: Progressing as expected 16974-9Ajwn of care xgggQN5941-47-89W87:53:52Plan of care noteTXT1.2.840.603092.1.13.104.2.7.2.468028|98541 87078OMYqzkubpxj for patient ouzp70493-7UlemDASMVKSZPOXZkniubvfg C-CDA narrative text[id number] AREA HOSPITALOTDNGZLVJ8684-86-69C18:53:521.2.840.316112.1.72.3 .15|1.2.840.404192.1.13.104.2.7.2.727879_[id number] [address] [place] [address] 2023-08-12 20:52:00 EX6sdBCcmqq0luAdfM1e1h6Lef+QnwmbGQ12sBQZ YGen0wcEd hlgKRfm8F58L6W+8176-85-97Q99:52:00 Patient stated that he supposed to get scheduled dose of HALDOL with Benedryl but at this time, Benedryl order has been d/c"d MD television presenter paged and Benedryl order was put in for him. He was also asking for Carbamazepine, when notified MD about his request doctor clarified that he verbalized at the time of his admission that he swallowed 17 pills of Carbamazepine, in order to be putting back on this medication, lab result must shows that his Tegretol level is not toxic. 68616-8Nfqsohpss department AolcHB0509-24-64R76:18:37[facility] department NoteTXT1.2.840.868616.1.13.104.2.7.2.417030|83972 75073CGNdbadsgib for patient buux22814-5NrqzHIDAVKPWUPWXvjpgwjat C-CDA narrative text[id number] AREA HOSPITALRDDMBSPXH9540-32-36F17:18:371.2.840.795577.1.72.3 .15|1.2.840.359469.1.13.104.2.7.2.727879_[id number] [address] [place] [address] 2023-08-12 16:44:00 Ea0aKfUVi+pJe6kmT4UMabJEFfZh1hBrZEf1ZQ2y NcPtib95F jbIbShmrYNcs16X6853-05-62I16:44:00 TOPIC/LEARNING NEEDS FOR FLAT OPTICAL ELEMENT MAKER INTERDISCIPLINARY PATIENT-FAMILY TEACHING NOTECARE MANAGEMENT SERVICES TRANSPORTATIONLearner:P [...] *R=Needs ReinforcementD=Desire and MotivationE=EmotionalS=SightH=HearingL=LanguageAl icia Zahra, DNP, PORTFOLIO ARCHITECT, HOME CARE COMPANION-C, CMSRNTDCJ Care ManagementThe [facility] [place] [address] Drive I Office [address] [place] [address]Laydnx [phone] I Pager [phone] I Email [email or web address] of care zemaYY7032-40-73S65:49:23Plan of care noteTXT1.2.840.723692.1.13.104.2.7.2.669139|31581 52538APObszlyifu for patient fpvt05304-1GnnyDVPHFPMKWSYCsmosxnzi C-CDA narrative textUT51 [address] [id number] AREA HOSPITALYAZFUUKUD7009-95-28G50:49:231.2.840.454438.1.72.3 .15|1.2.840.967249.1.13.104.2.7.2.727879_[id number] 93 [facility] 2023-08-12 16:30:00 MMYAEWWfyCN1EC3/RR2wQPUdC1uaVyVT34QYZi3u aQ0n7Vuoa tm77PO6HD3aPee60139-28-26J18:30:00 At 0926 PCT who was sitting on [...] today. Dr. Kiran made aware of same. 90960-6Kdohn WaefZY5346-76-72W75:19:46Nurse NoteTXT1.2.840.194412.1.13.104.2.7.2.190226|19570 87073VBMqnztlbjp for patient mfvs97915-7Ojqgc NoteLNNARRATIVEFormatted C-CDA narrative jhvt704425691Gqznjzdznisabella Meng RN[id number]2024-03-30T17:19:461.2.840.219030.1.72.3 .15|1.2.840.853564.1.13.104.2.7.2.727879_[id number] 76 Delmi Meng RN [facility] 2023-08-12 12:46:15 4S0ZSdrvPQEH9v87vnTi6IbjKHg3r8gyy9VOk7z4 A5zxJwyRJ XdmNF4RYLmtyPj30373-96-25S45:46:15 Problem: Suicide, Risk ofGoal: Absence of self-harm08/12/2023 1246 by Delmi Pires RNOutcome: Progressing as expected08/12/2023 1246 by Delmi Pires RNOutcome: Progressing as expected08/12/2023 1246 by Delmi Pires RNOutcome: Progressing as expectedProblem: Falls, Risk ofGoal: Absence of falls08/12/2023 1246 by Delmi Pires RNOutcome: Progressing as expected08/12/2023 1246 by Delmi Pires RNOutcome: Progressing as expected08/12/2023 1246 by Demli Pires RNOutcome: Progressing as expectedProblem: Discharge PlanningGoal: [...] by Delmi Pires RNOutcome: Progressing as expected 74125-1Ootf of care gevxYF0915-38-06C54:47:26Plan of care noteTXT1.2.840.586604.1.13.104.2.7.2.059207|47804 70184ISAeblcndgs for patient ntrv53776-4DmfzDBQZJLWGBSAEbiqktnnw C-CDA narrative [id number] MATTWTENIOZWV0887-13-78W18:47:261.2.840.171389.1.72.3 .15|1.2.840.233557.1.13.104.2.7.2.727879_[id number] 43 [facility] 2023-08-12 03:55:00 yq9PZzbcrG7zBJj9d8eyCmnT3r1SJnGraJ4HSMjZ tqcJqMcju CInaqPD/uUThwDj0517-68-34O02:55:00 Received pt from ER, initially without report being called. Pt was walked up by several Officers and Lieutenant. Pt is suicide risk, everything removed from the pt's room with only a mattress on the floor. Pt has on paper scrubs. Pt has a R AC PIV. He is stable and very figgity. Will continue to monitor. 70639-3Tsazf ZdjyWD6798-34-99P68:04:01Nurse NoteTXT1.2.840.550913.1.13.104.2.7.2.887823|02419 39356ASQukokwciy for patient dsas52355-1Apemw NoteLNNARRATIVEFormatted C-CDA narrative uboq387442698Bkkbbhaj D Jones RN[address] DwpxGkusbgbovGevbjlvcpBQPA2246651959MPQIVUTLYPZHM XNOHFBXPI0392-47-92Y82:04:011.2.840.756450.1.72.3 .15|1.2.840.538057.1.13.104.2.7.2.727879_[id number] 17 Lawrence Drew RN [facility] 2023-08-12 02:09:33 Otf5/215KFwdi3ZzZS4nQwSNJPTiY9mRa1cdhN9D uTRqiqBSX 4NtD1xcXGGZcMiP9525-92-55S99:09:33 PT is threating to cut himself with the cuffs pt is getting agitated, TDC guard is asking our charge nurse [place] 03887-6Mnfhrjwfx department VeqnZY7946-42-47A46:11:30[facility] department NoteTXT1.2.840.505485.1.13.104.2.7.2.933716|87424 58832LLEzukbionm for patient bbpo28277-0EjebVVFWQPVCRPOBetyappzp C-CDA narrative qbiu947878035Ftpsoqtd L Gilligan RN[id number] AREA HOSPITALWNPTZGFQJ0197-97-78J85:11:301.2.840.111362.1.72.3 .15|1.2.840.776090.1.13.104.2.7.2.727879_[id number] 65 Leonor Blank RN [facility] 2023-08-12 00:29:43 IGW6KpVt0uswHjYk1maTfQa3U9+vki4v32pxjcal 4J+f14Jvr kYY/JN7E7aes3fB2359-98-51P51:29:43 Pt stating he is tired of waiting for a bed, pt states "I'm about to act stupid and give yall a reason to get rid of me" [place] [address]-3Yjyzcgrvz[address] BlvsPW8268-65-80U66:30:28[facility] department NoteTXT1.2.840.974932.1.13.104.2.7.2.873478|75713 95986QFRlplmbcwo for patient bqgp14566-6CtylFUGFQWJDWUHHcjnnjawg C-CDA narrative text[id number]2024-03-30T00:30:281.2.840.923517.1.72.3 .15|1.2.840.335664.1.13.104.2.7.2.727879_[id number] 10 [facility] 2023-08-11 19:04:29 qZOxqLCiujiBCHqvK17W3QBcv8rbUQJh5EHg6FOM HCC1Juv51 BYN27SfM6aRdM642416-25-48T50:04:29 Nurse ReportReport taken from Sherlyn Lester. Chief complaint, assessment findings, infusion verify and orders reviewed. Plan of care discussed at bedside with patient and both nurses. Patient/family members verbalized understanding[place] [address]-5Shbdlhlmr department YonsRV5155-98-32E23:04:54[facility] NoteTXT1.2.840.107210.1.13.104.2.7.2.459020|79402 40792IBTuwihdwmt for patient nnac52004-6OyzpXFXCJSDUTVGLjefhfkdd C-CDA narrative text[id number]2024-03-29T19:04:541.2.840.715775.1.72.3 .15|1.2.840.816814.1.13.104.2.7.2.727879_[id number] 31 [facility] 2023-08-11 18:22:34 wrmY2L6IPdBIliLLe4S7TTSWv5ROCMvgNCbGh9Yi YOQa8CB5r Q4D3nEROGDUFPVE7059-71-46H64:22:34 TDCJ PreCert #[id number] signed by Sherlyn Landaverde, RN at 08/11/2023 6:22 PM OAC71887-2Fwkkxjaub department EhfaIX5081-26-48X46:22:49[facility] department NoteTXT1.2.840.203414.1.13.104.2.7.2.775851|07949 01041TGPgxfatlvl for patient atpd60763-6PxfhALVJWBJFUPRYjnintzbh C-CDA narrative qxka950436263Seo C Etheridge RN[id number]2024-03-29T18:22:491.2.840.702166.1.72.3 .15|1.2.840.047713.1.13.104.2.7.2.727879_[id number] 49 Sherlyn Landaverde RN [facility] 2023-08-11 17:06:23 Ld83ANiuzp/vq7qXdg1QSJDx8AJjvS8M3NihY2UL UfAH2IxVb hPlPQbrGWBLaL+90630-49-37F05:06:23 Suicide Risk - Assessment and PlanColumbia:1) Have [...] Behavior or preparation for suicide?: Yes6a) Describe: uugzxjaq1i) Was it in the past 3 months?: [...] are there things, anyone or anything (family, protestant, pain of ) that have stopped you [...] image and agree with interpretation of the EKG.50358-8Bdfvymaifv + Plan axupUF6442543Dyjeuu, Luke R1.2.840.517078.1.13.104.2.7.2.318476YgthcqNfnmBA S6771-01-39R96:53:15Evaluation + Plan noteTXT1.2.840.140123.1.13.104.2.7.2.391918|59771 78234NTNkiawgsll for patient rwai64933-4YmfoEPBUXADKKCCIbypncdfr C-CDA narrative text[address] RwhqQukaihzzwUkndnhrauUJBS0300933813GVCFJOITMANBR MTVOWFNDA4847-68-38S35:53:151.2.840.477811.1.72.3 .15|1.2.840.947216.1.13.104.2.7.2.727879_[id number] 06 [facility] 2023-08-11 15:04:29 CXvbPrgzZizNVgepPeiIrhVGb7990OgP3jWaw2eb VxSTwwT6D kaU1DQoW4MaAeOB0730-27-50Z52:04:29 Pt states his racing thoughts are about his past, being in halfway, a lot of negative stuff. 11769-0Pslqbirxr department QdbqMF9900-18-39J08:05:20[facility] NoteTXT1.2.840.696474.1.13.104.2.7.2.538123|00373 29344PABgnxlyntk for patient uksr36286-9YqrpYZQMEIPPWVMTfmtwpoks C-CDA narrative text[address]QtgfHhigynkrmClnzosjwgVOYM1632466973CORPQKUEUHQYU RBKKIOTGO8865-89-45N47:05:201.2.840.052094.1.72.3 .15|1.2.840.823039.1.13.104.2.7.2.727879_[id number] [address] [place] [address] 2023-08-11 13:54:21 KdW44bKXbHWQKJuS/psNU7E9oS6dS0xbdXK1WdXF pR4F+xlSy IQY2UMbdMYnok4a8732-23-45Q96:54:21 Armaan Patricia is a 33 year old male who presents to the ED in wheelchair with complaints of abdominal pain pt reports he took 17 pills in attempt to harm self pt reports he took tegretol he got from another inmate AOx4. Respirations even and unlabored. Skin warm and dry. NAD noted. Patient to room for further evaluation. 65684-9Ogbsmrlsp department Triage vgjtGN3381-93-41Z91:56:08[facility] department Triage noteTXT1.2.840.220288.1.13.104.2.7.2.622288|51203 64676LEFvqgsrtia for patient romi66298-4Haobdkual department NoteLNNARRATIVEFormatted C-CDA narrative yiwr377211223Duladck Huff RN[address] PoxrQgebndajfTlvstlyppXPWX7901619352CNFWDNHZAVPPX VSUXRCAHB4082-61-22J78:56:081.2.840.707202.1.72.3 .15|1.2.840.109732.1.13.104.2.7.2.727879_[id number] 34 Judd Mota RN [facility] 2023-08-11 13:51:00 XsZ2XiUOSNFYbaeQvnnxWFayEwCt3pWR2o8Ztr7+ gWUars2F7 Y70P4LVxgLkCBav2797-89-72H34:51:00 Images from the original note were not included.[facility] Emergency Department NotePatient Name: Armaan Reeseate of : 1990 33 year old maleTreatment Room: [address] [place], [place] [address] Record Number: [id number] Care Physician: ANDRE DEPT OF CORRECTIONPatient Escorted by: Law enforcement [8]Mode of Arrival: [facility] [5]EMS Treatment Prior to ED Arrival:LIFT ELECTRICIAN treatment: NoneTravel and Exposure Screening:SymptomsDoes patient have [...] received in last 5 years: YesChildhood immunizations: [place]-jc-hykmZpaqbnubg:No Known AllergiesPast Social History:Tobacco UseHeavy SmokerSmokeless Tobacco: [...] WO CONTRASTHISTORY: trauma . [facility]: "Drug overdose and attemptedsuicide "TECHNIQUE: Axial [...] with the abovereport.Lab Results:Lab ResultsCOMP. METABOLIC PANEL (94628) - AbnormalResult Value Ref RangeNA 137 135 [...] 46 (*) 13 - 40 U/LeGFR 122.0 mL/min/1.30t3DTM WITH DIFF - AbnormalWBC 6.53 4.20 - [...] Negative NegativeCOVID-19 (ID NOW RAPID TESTING) - LgeadwLZQY-RzW-7 Rapid ID NOW Not Detected Not DetectedTHYROID STIMULATING HORMONE - NormalTSH 1.78 0.45 - 4.70 mIU/LCREATINE KINASE - NormalCK 50 33 - 194 U/LETHANOLALCOHOL <10 mg/dLSALICYLATESALICYLATE <10 mg/LEXTRA TUBE URINE CULTUREEKG:If EKG completed, see Procedure Note.Orders and Treatments:Orders Placed This EncounterProceduresCT HEAD WO CONTRASTUrine Drug (Immunoassay) Comprehensive Drug Screen w/o ReflexComprehensive Metabolic Panel (46401)CBC with DifferentialEthanol (ETOH) LevelUrinalysisCOVID-19 (ID NOW TESTING)Thyroid Stimulating HormoneCreatine KinaseAcetaminophenSalicylateCarbamazepineLab Only COVID InterpretationOrders Placed This EncounterMedicationsmaalox:diphenhydrAMINE:lidoca ine 2 % viscous 1:1:1 (FIRST-MOUTHWASH BLM) oral suspension 15 mLfamotidine (PEPCID (PF)) injection 20 mgFirst Provider Eval:ED EventsDate/Time Event User Cxusltft44/29/24 1352 Medical Screening Begins NAFISA NELSON --08/11/23 1352 First Provider Evaluation ANFISA NELSON --ED COURSEED Course as of 08/11/23 1755Fri Aug [id number] auth # [][id number] Braden []1538 CT HEAD WO CONTRAST [LM]ED Course User Index[KH] Nafisa Nelson MD[LM] Merrick Butt, MDDiagnosis/Impression as of 08/11/231754Suicidal behavior with attempted self-injuryProcedures:ProceduresMDM:Medical Decision MakingDdx: intracranial injury, eye injury, suicidal ideation, toxic ingestionIntervention: pepcid, GI cocktailCalled poison control who said to keep an eye out for PREPARER SAMPLES AND REPAIRS depression, cardiac arrhythmia, anticholinergic effects - EKG [...] signed by:Nafisa Nelson MD08/11/231754 ssociated attestation - Merirck Butt MD - 08/13/2023 2:02 AM CDT [...] image and agree with interpretation of the EKG.78431-1Ukxigubnw Emergency department HiniPP7228495Bquxeo, Luke R1.2.840.340383.1.13.104.2.7.2.590657ByszkrQkhzDD L2521-13-14E80:02:25Physician Emergency department NoteTXT1.2.840.687247.1.13.104.2.7.2.678187|86402 60916UYXjqzwhqps for patient kssr02423-4Gmbeqpbri department NoteLNNARRATIVEFormatted C-CDA narrative textEM-EMERGENCY MEDICINEEM-EMERGENCY MEDICINE[address] StreetLnvuHeagcuzkgUxqwqfsxeUOLN2344534809UZNGKONHIZYBM CVVOTSYFL5517-12-74R87:02:251.2.840.144026.1.72.3 .15|1.2.840.225941.1.13.104.2.7.2.727879_[id number] 14 EM-EMERGENCY MEDICINE [facility] 2023-08-11 13:39:57 PgkxI5SXzi+bSP5G3CVfBQ2pl3httf7QyeQrbuZm 5KP17misq rsQUKrLlNLQ2JnR6508-06-77Z71:39:57 1335 Patient discharged to ED, escorted by TDC Officers and medical. 62181-6Gdega NqqbBT0969-08-69E78:40:42Nurse NoteTXT1.2.840.652488.1.13.104.2.7.2.588664|88456 62466SLBtuqtrljz for patient aihs26247-0Kddfj NoteLNNARRATIVEFormatted C-CDA narrative qlio648733336Xgadfueta Figueroa [id number]2024-03-29T13:40:421.2.840.349172.1.72.3 .15|1.2.840.923747.1.13.104.2.7.2.727879_[id number] 76 Shayy Hinton CHIEF OPERATOR LOCK TENDER [facility] 2023-08-11 13:24:29 +QAD9Daf+Uwhjkfa2gm5yY2nRwArDeZz5pNo7aMX ECpY8VObg RSbDSRUoCjbZbmt5450-03-95Z17:24:29 1215 Patient arrived on unit, escorted by TDC Officer ambulating without difficulty. Respirations even and unlabored. Reported per TDC Officer patient verbalized while in clinic he is feeling suicidal, ingested medications and has been cutting himself. Patient was made CDO and brought to [facility] with 1:1 observation with TDC Officer at side. No report was received from clinic nurse. Notified CN, patient assessed and was sent to ED for evaluation. 96019-6Izllg KywjVA3323-08-65U84:38:25Nurse NoteTXT1.2.840.060847.1.13.104.2.7.2.052778|00273 66084JNGjjxdygrp for patient ipvp26061-4Chzrk NoteLNNARRATIVEFormatted C-CDA narrative nevaeh[id number]2024-03-29T13:38:251.2.840.014164.1.72.3 .15|1.2.840.393094.1.13.104.2.7.2.727879_[id number] 73 [facility] 2022-11-30 20:46:54 SQV/txH4JKceAi39rw0iE0P9q5SKgBW71TfrBPuK ozU5dRs3S KkyRzvJ5WKQ04Xm1215-54-40Q65:46:54 PT D/C FROM UNIT TO 4B. ESCORTED BY TDJ OFFICER 72353-3Hasqs VggbGX8127-31-69K99:47:13Nurse NoteTXT1.2.840.484583.1.13.104.2.7.2.952981|42473 37698OLMruawxuyv for patient jaan961573570Ykwdh Charlie [id number]2023-07-19T20:47:131.2.840.562867.1.72.3 .15|1.2.840.161715.1.13.104.2.7.2.727879_[id number] 28 An Guerra LVN [facility] 2022-11-30 19:00:00 +nJrMXBXCgjelcC7/ov2TWaSeOPBsWr919wbQqyh R6h4C50Cz HKnPZ2/1N/a6REN1359-70-39H35:00:00 Received the patient from off going nurse. Pt is A&Ox3.Respirations are unlabored.Pt is scheduled for D/C TO J4 06325-4Nfdhc JepbVU5527-94-87J61:21:05Nurse NoteTXT1.2.840.841130.1.13.104.2.7.2.907944|73260 89484DYLsffmjrvu for patient careUT[id number]2023-07-19T19:21:051.2.840.045368.1.72.3 .15|1.2.840.239546.1.13.104.2.7.2.727879_[id number] 53 [facility] 2022-11-30 07:00:00 doljrLR82wggI80d7l7pUE+BUwch1DOrc/vhFxt2 69YWsT6W+ rq2RF0B9YN+5jJY6387-96-97K89:00:00 Received patient in cell AAOx3, NAD noted, respirations even and unlabored.Denies pain/discomfort.Remains in holdover for CDO,officer at cell side for 1:1 observation awaiting on J4 BED. 79412-7Qqvax YasiZN8906-87-94Q56:23:48Nurse NoteTXT1.2.840.231814.1.13.104.2.7.2.397130|79070 54816HGKomsdijtg for patient cvhx985318158Zcpvq L Carter RN[id number]2023-07-19T13:23:481.2.840.054972.1.72.3 .15|1.2.840.309426.1.13.104.2.7.2.727879_[id number] 87 Danna Penaloza RN [facility] 2022-11-30 03:59:01 3zACqoPtmpAiHmdkTWbwa1hBnWwgHkn5jHJuteCU CrnvPggOI 1xdYkuHqWHd15lz2480-52-88T28:59:01 Pt came to pill window. No distress or discomfort. See SMART for details. 98158-2Znidb SbjvNU8964-21-50F28:59:22Nurse NoteTXT1.2.840.241899.1.13.104.2.7.2.934299|77619 57355ODSyybhxupv for patient [id number] AREA HOSPITALJYDFTTWVH7246-69-37U48:59:221.2.840.584377.1.72.3 .15|1.2.840.259885.1.13.104.2.7.2.727879_[id number] [facility] 2022-11-29 19:45:20 zrt5mTM529VYUduAmQO9qWetIEiVvW098eHe28x7 gt5hUWhuh iG+AKyB9uyeJwLY4238-77-56G19:45:20 Received the patient from off going nurse. Pt is A&Ox3.Respirations are unlabored.Pt is scheduled for CDO-AWAITING BED J4 45887-2Igokb LfsgHF4760-14-94K64:45:46Nurse NoteTXT1.2.840.855442.1.13.104.2.7.2.081614|36171 48732UTVnfxhrxeu for patient [id number]T19:45:461.2.840.600335.1.72.3 .15|1.2.840.684504.1.13.104.2.7.2.727879_[id number] [facility] 2022-11-29 17:30:10 Y8sB5FnfBEe4Lz0G0bmJw8ft4lQGTqht7LtQ4wjZ E6QRoFxzS +ilIKC/SH7dolEb3712-59-65V99:30:10 [facility] unit [facility], transferred to 4B, told that was also wrong unit and pt going to 4C, transferred by Tati to 4C where I was asked to hold by unidentified staff and subsequently hung up on. 40464-6Ygkakudym department AefcDZ1317-02-48Z08:32:27[facility] department NoteTXT1.2.840.173713.1.13.104.2.7.2.771103|80033 49714LCWwlkbznvt for patient [id number] A Brown RN[id number] HOSPITALPLXCTWXFS5209-82-18V82:32:271.2.840.829616.1.72.3 .15|1.2.840.018148.1.13.104.2.7.2.727879_[id number] 13 Damian Garcia RN [facility] 2022-11-29 14:54:54 oXyPTNsm22mdToBGfl3Cb3RIeO8USSepTO9zTs9M evSiLDQl9 j2bKR4IIMTZ03tG0239-92-28R13:54:54 Xray at bedside 99565-6Fwzuxqsop department QcjjKB9261-98-21Q68:55:01[facility] department NoteTXT1.2.840.204577.1.13.104.2.7.2.567247|59028 39059YUQbziazoya for patient [address] KhaaQhndqwhqlEgucvjfnnXIUI9619899824JMFMLBMSGYDAC AMCUDFAKF9531-61-96Z51:55:011.2.840.206005.1.72.3 .15|1.2.840.173958.1.13.104.2.7.2.727879_[id number] 53 [facility] 2022-11-29 14:27:11 VlZjfoSqVIoCMenfoCcdRDwjcGY141+CJr5hv+kt /6YtR2fhu J6jmysww9YLcm666129-62-91W74:27:11 Suicide Risk - Assessment and PlanColumbia:1) Have [...] Suicidal Behavior or preparation for suicide?: No Cache Score:Suggested risk level: HighSAFE-T:Current and past psychiatric [...] are there things, anyone or anything (family, protestant, pain of ) that have stopped you [...] Suicidal Behavior or preparation for suicide?: No Cache Score:Suggested risk level: HighSAFE-T:Current and past psychiatric [...] are there things, anyone or anything (family, protestant, pain of ) that have stopped you [...] place referral to outpatient behavioral health resources. 60903-6Biwvelgeoq + Plan qhfxQL2700-41-01S82:27:46Evaluation + Plan noteTXT1.2.840.539415.1.13.104.2.7.2.892986|45158 89504YQQnsuapzjy for patient [id number]-18T14:27:461.2.840.743291.1.72.3 .15|1.2.840.844105.1.13.104.2.7.2.727879_[id number] 50 [facility] 2022-11-29 12:59:11 TibWKcPJK1TKrNHFcl5+IMgPkySBlXUbgAspC4JF CEDOJUVLH 9xnrHjC+1zAVBs28520-20-87T55:59:11 Problem: Suicide, Risk ofGoal: Absence of self-harmOutcome: Not progressing as expected 32092-8Qbni of care emjyGK4464-87-42Z73:59:15Plan of care noteTXT1.2.840.131569.1.13.104.2.7.2.017053|71922 27515CGKopuzwbtb for patient [id number]2023-[facility]-18T12:59:151.2.840.297047.1.72.3 .15|1.2.840.814350.1.13.104.2.7.2.727879_[id number] 21 [facility] 2022-11-29 12:54:21 LfUpIU+E0vcwyFDkRI10uKwqlAHz7xXW3Cko0H4k ICtZX5wF1 4O+SMZvUqd5KV9z2356-42-96Y69:54:21 Pt/family educated on emergency department behavioral process and precautions. Educated on need for direct observation, removal of belongings, and clearing of room for patient and staff safety, patient and family given critical access hospital resources for outpatient treatment and care, pt placed in paper scrubs. 37689-0Ebyfdvkyf department WabiVK6073-83-26C16:54:29[facility] NoteTXT1.2.840.736956.1.13.104.2.7.2.370824|65506 73220PXUwullbjnx for patient [id number] HOSPITALLINAYYKAR2335-52-00C74:54:291.2.840.917787.1.72.3 .15|1.2.840.754155.1.13.104.2.7.2.727879_[id number] 23 [facility] 2022-11-29 12:54:02 l++AP0oqpQusKj4/IJFOZPynjber6l1Yzk5AnPaG 1Wa1Ii2Jf OIFi709ltYVIolU3827-74-46Q69:54:02 Armaan Patricia is a 32 year old [...] since this morning. Endorses hx epileptic seizures. 42018-4Zoqiexxxr department GaoaEV2190-83-52Z85:57:03[facility] NoteTXT1.2.840.062297.1.13.104.2.7.2.039548|67517 [id number] for patient care[address] [id number] AREA HOSPITALJHJRKOKYP3987-42-57V68:57:[id number] .15|[id number] 86 [facility] 2022-11-29 11:29:12 [id number]/ChW0l9iM8 fVHVgi6UI bU5kuDBS9FZdHNF6862-64-34O00:29:12 Armaan Patricia is a 32 year old [...] pain, dizziness, blurred vision since this morning. 09115-5Bzyntmmij department Triage bguoHE6276-07-83I55:33:33[facility] Triage [id number] 14818KDPeagpcbfp for patient [id number] Patiño RNUT[address] [id number]2023-07-18T11:33:331.2.840.712259.1.72.3 .15|[id number] 42 Eladia Patiño RN [facility] 2022-11-29 11:20:00 [id number]/[id number] ddDry8B3H upLac+IK1orRPjk6344-36-55L01:20:00Associated Order(s): EKG-12 Lead ROUTINE ONCEPre-Procedure Diagnose(s): Suicidal ideationsPost-Procedure Diagnose(s): Suicidal ideations [facility] Emergency Department NotePatient Name: Armaan Ramirez MemonDate of : 1990 32 year old maleTreatment Room: [address] [place] [address] Record Number: [id number] Care Physician: ANDRE DEPT OF CORRECTIONPatient Escorted by: Law enforcement [8]Mode of Arrival: [facility] [5]EMS Treatment Prior to ED Arrival: Travel [...] suicidal.History provided by: Patient and medical recordsLanguage cotton bag clipper used: No Past Medical History/Immunizations:Past Medical History: [...] 1.7 - 2.4 mg/dL COMP. METABOLIC PANEL (08161) NA 137 135 - 145 mmol/L K [...] Drug Screen w/o Reflex Comprehensive Metabolic Panel (71473) CBC with Differential Ethanol (ETOH) Level COVID-19 [...] MD -- ED COURSEED Course as of 11/29/221712 [facility] Nov 29, 20221711 Discussed all results with the patient, patient without current Covid symptoms, states he still feels weak, was observed for nearly 6 hours in the ER with no worsening of symptoms or signs of ingestion toxicity. Denies any recent covid symptoms or positive tests. Patient is medically cleared at this time and will discharge back to the [facility] for further psych evaluation. Patient understands [...] ED Physician in the absence of a nut tightener: yes Previous ECG: Previous ECG: Compared to [...] Follow-up:Electronically signed by: Filiberto De Oliveira MD11/29/229 [id number] Emergency department [id number]:19:10Physician Emergency department [id number] 06295EINdlczcnmg for patient [address]Ri[id number] [id number]:19:101.2.840.872923.1.72.3 .15|[id number] [address] [place] [address]
[2023-09-24 01:02] LABS: Absolute Eosinophils 0.1 K/uL (0-0.5); Absolute Lymphocytes (CBC) 2.4 K/uL (0.7-4.9); Absolute Monocytes 0.5 K/uL (0.1-1.3); Absolute Neutrophil 2.6 K/uL (1.8-8.0); Basophils % 0.5 % (0-1.3); Eosinophils % 1.7 % (0-4.4); Hematocrit 34.5 % (39.6-49.0); Hemoglobin 10.8 g/dL (13.6-17.9); Lymphocytes % 41.8 % (15.3-44.8); MCH 18.8 pg (27.0-35.0); MCHC 31.3 g/dL (32.0-36.0); MCV 60.2 fL (80-100); MPV 8.7 fL (7.6-11.3); Monocytes % 9.7 % (3.3-12.3); Neutrophils % 46.3 % (41.7-73.7); Platelets 216 thou/uL (152-406); RBC Red Blood Cell Count 5.72 M/uL (4.33-5.43)
[2023-09-24 01:10] LABS: PT Prothrombin Time 12.1 SECONDS (9.5-12.5); PTT, Activated Partial Thromb 30.1 SECONDS (24.3-36.9); Protime INR 1.1
[2023-09-24 01:21] LABS: ALT/SGPT 19 U/L (16-61); AST/SGOT 16 U/L (15-37); Albumin 3.7 g/dL (3.4-5.0); Alkaline Phosphatase 75 U/L (45-117); Anion Gap 10.8 mEq/L (5.0-15.0); BUN Blood Urea Nitrogen 14 mg/dL (7-18); Bicarbonate 23 mEq/L (21-32); Bilirubin Total 0.4 mg/dL (0.2-1.0); Globulin 3.8 g/dL (2.3-3.5); Glomerular Filtration Rate 118 ml/min (=/>90); Glucose Level 95 mg/dL (74-106); Potassium 3.8 mEq/L (3.5-5.1); Protein, Total 7.5 g/dL (6.4-8.2); Sodium Level 138 mEq/L (136-145)
[2023-09-24 01:33] LABS: Bilirubin Direct < 0.2 mg/dL (0-0.2); Bilirubin Indirect, Calculated 0.2 mg/dL (0.2-0.8)
--- NOTE | 2023-09-24 02:35 | ER ---
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 rv complaining of dizziness, chest pain, abd pain. Chief complaint: bib [facility] personnel. Coronavirus screen: At this time, the client does not indicate any symptoms associated with coronavirus-19. Ebola Screen: No symptoms or risks identified at this time. Initial Sepsis Screen: Does the patient meet any 2 criteria? No. Patient's initial sepsis screen is negative. Does the patient have a suspected source of infection? No. Patient's initial sepsis screen is negative. Risk Assessment: Do you want to hurt yourself or someone else? Patient reports no desire to harm self or others. Onset of symptoms was September 24, 2023. 00:12 Method Of Arrival: Other rv 00:12 Acuity: LORE[place] 2 rv Triage Assessment: 00:14 General: Appears comfortable, Behavior is calm, cooperative. Pain: Complains of pain in rv chest and abdomen. Neuro: Level of Consciousness is awake, alert, obeys commands, Oriented to person, place, time, situation. Cardiovascular: Capillary refill < 3 seconds Patient's skin is warm and dry. Respiratory: Airway is patent Respiratory effort is even, unlabored. GI: Reports lower abdominal pain, upper abdominal pain. Derm: Skin is intact. Historical: - Allergies: 00:14 No Known Allergies; rv - PMHx: 00:14 Anxiety; depressive disorder; Schizophrenia; Seizure; rv - PSHx: 00:14 None; rv - Immunization history:: Adult Immunizations up to date. - Infectious Disease History:: Denies. - Social history:: Smoking status: Patient denies any tobacco usage or history of. - Family history:: not pertinent. Screenin:15 [facility] ED Fall Risk Assessment (Adult) History of falling in the last 3 months, rv including since admission No falls in past 3 months (0 pts) Score/Fall Risk Level 0 - 2 = Low Risk Oriented to surroundings, Maintained a safe environment, Educated pt \T\ family on fall prevention, incl call for assistance when getting out of bed, Assessed \T\ reinforced patient's understanding of fall precautions. Abuse screen: Denies threats or abuse. Denies injuries from another. Nutritional screening: No deficits noted. Tuberculosis screening: No symptoms or risk factors identified. Vital Signs: 00:12 BP 112 / 77; Pulse 58; Resp 16; Temp 98; Pulse Ox 100% ; Weight 95.25 kg; Height 5 ft. rv 10 in. ; 04:24 BP 117 / 74; Pulse 68; Resp 18; Pulse Ox 99% ; cm10 04:48 BP 120 / 69; Pulse 66; Resp 16; Temp 98; Pulse Ox 99% on R/A; rv 00:12 Body Mass Index 30.13 (95.25 kg, 177.8 cm) rv ED Course: 00:00 Patient arrived in ED. cm10 00:00 Damian Glaser MD is Attending Physician. rt 00:12 Chuckie Valdivia RN is Primary Nurse. rv 00:14 Triage completed. rv 00:14 Arm band placed on right wrist. rv 00:15 Patient has correct armband on for positive identification. Client placed on continuous rv cardiac and pulse oximetry monitoring. NIBP monitoring applied. 00:15 No provider procedures requiring assistance completed. rv 00:53 Initial lab(s) drawn, by me, sent to lab. Inserted saline lock: 18 gauge in right cm10 antecubital area, using aseptic technique. Blood collected. Missed attempt(s): 18 gauge in left forearm. Bleeding controlled, band aid applied, catheter tip intact. 01:00 Tegretol Level Sent. rv 01:00 Acetaminophen Sent. rv 01:00 Basic Metabolic Panel Sent. rv 01:00 CBC with Diff Sent. rv 01:01 ETOH Level Sent. rv 01:01 Hepatic Function Sent. rv 01:01 PT-INR Sent. rv 01:01 Ptt, Activated Sent. rv 01:01 Salicylate Sent. rv 02:45 Managed care called for transfer. ty 02:56 Per managed care, no beds available at this time and can admit on site if needed. cm10 03:00 Oscar Eduardo MD is Hospitalizing Provider. rt 04:48 Patient admitted, IV remains in place. rv Administered Medications: No medications were administered Medication: 00:15 VIS not applicable for this client. rv Outcome: 02:34 ER care complete, transfer ordered by . rt 03:00 Decision to Hospitalize by Provider. rt 04:48 Admitted to Tele accompanied by tech, room 405, with chart, rv 04:48 Condition: good 04:48 Instructed on the need for admit, 04:49 Patient left the ED. rv Signatures: Chuckie Valdivia RN RN rv Damian Glaser MD MD rt Radha Cardenas RN RN [facility] Alan Rudolph
--- NOTE | 2023-09-24 02:35 | EDPHYS ---
Physician Documentation [facility] Name: Armaan Patricia Age: 33 yrs Sex: Male : 1990 Arrival Date: 09/23/2023 Time: 23:58 Bed 13 Private MD: ED Physician Damian Glaser HPI: 09/23 03:03 This 33 yrs old [place] Male presents to ER via Other with complaints of Possible rt Overdose, Abdominal Pain, Chest Pain. 01:30 Patient presents to the ED from longterm for intentional ingestion of reportedly 21 rt tablets of Tegretol. Unclear what the dose was. Reports a dizziness, denies other acute complaints. This ingestion occurred about 4 hours prior to arrival. Symptoms are moderate in severity, no other aggravating or elevating factors.. Historical: - Allergies: 00:14 No Known Allergies; rv - PMHx: 00:14 Anxiety; depressive disorder; Schizophrenia; Seizure; rv - PSHx: 00:14 None; rv - Immunization history:: Adult Immunizations up to date. - Infectious Disease History:: Denies. - Social history:: Smoking status: Patient denies any tobacco usage or history of. - Family history:: not pertinent. ROS: 01:30 Constitutional: Negative for fever, chills, and weight loss, Cardiovascular: Negative rt for chest pain, palpitations, and edema, Respiratory: Negative for shortness of breath, cough, wheezing, and pleuritic chest pain, Abdomen/GI: Negative for abdominal pain, nausea, vomiting, diarrhea, and constipation, MS/Extremity: Negative for injury and deformity, Skin: Negative for injury, rash, and discoloration, 01:30 Psych: Positive for depression, Negative for homicidal ideation, Exam: 01:30 Constitutional: This is a well developed, well nourished patient who is awake, alert, rt and in no acute distress. Head/Face: Normocephalic, atraumatic. Chest/axilla: Normal chest wall appearance and motion. Nontender with no deformity. No lesions are appreciated. Cardiovascular: Regular rate and rhythm with a normal S1 and S2. No gallops, murmurs, or rubs. Normal PMI, no JVD. No pulse deficits. Respiratory: Lungs have equal breath sounds bilaterally, clear to auscultation and percussion. No rales, rhonchi or wheezes noted. No increased work of breathing, no retractions or nasal flaring. Abdomen/GI: Soft, non-tender, with normal bowel sounds. No distension or tympany. No guarding or rebound. No evidence of tenderness throughout. Skin: Warm, dry with normal turgor. Normal color with no rashes, no lesions, and no evidence of cellulitis. MS/ Extremity: Pulses equal, no cyanosis. Neurovascular intact. Full, normal range of motion. 01:30 ECG was reviewed by the Attending Physician. Vital Signs: 00:12 BP 112 / 77; Pulse 58; Resp 16; Temp 98; Pulse Ox 100% ; Weight 95.25 kg; Height 5 ft. rv 10 in. ; 04:24 BP 117 / 74; Pulse 68; Resp 18; Pulse Ox 99% ; cm10 04:48 BP 120 / 69; Pulse 66; Resp 16; Temp 98; Pulse Ox 99% on R/A; rv 00:12 Body Mass Index 30.13 (95.25 kg, 177.8 cm) rv MDM: 00:00 Patient medically screened. rt 03:04 Differential diagnosis: Intentional overdose. Data reviewed: vital signs, nurses notes. rt Consideration of Admission/Observation Patient was admitted/placed on observation. Management of patient was discussed with the following: Hospitalist: Agrees to admit. Counseling: I had a detailed discussion with the patient and/or guardian regarding the historical points, exam findings, and any diagnostic results supporting the discharge/admit diagnosis, lab results, the need for further work-up and treatment in the hospital. 09/23 00: Order name: Acetaminophen; Complete Time: rt 09/23 00: Order name: Basic Metabolic Panel; Complete Time: rt 09/23 00: Order name: CBC with Diff; Complete Time: rt 09/23 00:01 Order name: ETOH Level; Complete Time: rt 09/24 99: Order name: Hepatic Function; Complete Time: rt 09/24 99: Order name: PT-INR; Complete Time: rt 09/23 00: Order name: Ptt, Activated; Complete Time: rt 09/24 99:01 Order name: Salicylate; Complete Time: rt 09/23 00:01 Order name: Urinalysis w/ reflexes rt 09/23 00:01 Order name: Urine Drug Screen rt 09/23 00:01 Order name: Tegretol Level; Complete Time: 01:40 rt 09/23 03:46 Order name: Carbamazepine (Tegretol) Level EDMS 09/23 03:46 Order name: Carbamazepine (Tegretol) Level EDMS 09/23 03:47 Order name: Basic Metabolic Panel EDMS 09/23 03:47 Order name: CBC with Automated Diff EDMS 09/23 00:01 Order name: EKG; Complete Time: 00:02 rt 09/23 03:56 Order name: EKG Electrocardiogram EDMS 09/23 00:01 Order name: EKG - Nurse/Tech; Complete Time: 00:16 rt 09/23 00:01 Order name: IV Saline Lock; Complete Time: 00:16 rt 09/23 00:01 Order name: Labs collected and sent; Complete Time: 00:16 rt 05 00:01 Order name: Suicide Screening ([place]); Complete Time: 00:16 rt EC:30 Rate is 63 beats/min. Rhythm is regular, Normal Sinus Rhythm with No ectopy. QRS [place] rt is Normal. DE interval is normal. QRS interval is normal. QT interval is normal. No Q waves. T waves are Normal. No ST changes noted. Interpreted by me. Administered Medications: No medications were administered Disposition Summary: 09/24/23 03:00 Hospitalization Ordered Notes: Hospitalization Status: Observation rt Provider: Oscar Eduardo rt Location: Telemetry/MedSurg (observation) rt Condition: Stable(09/24/23 03:00) rt Problem: new(09/24/23 03:00) rt Symptoms: are unchanged(09/24/23 03:00) rt Bed/Room Type: Standard rt Room Assignment: 405(09/24/23 04:03) rv Diagnosis - Intentional overdose of carbamazepine rt Forms: - Medication Reconciliation Form rt - SBAR form rt - Leadership Thank You Letter rt Signatures: Dispatcher KashifHoChuckie Roldan RN RN rv Damian Glaser MD MD rt Corrections: (The following items were deleted from the chart) 00:02 00:02 ACETAMINOPHEN+C.LAB.BRZ ordered. [facility] EDMD 00:02 00:02 BASIC METABOLIC PANEL+C.LAB.BRZ ordered. EDMS EDMS 00:02 00:02 CBC+H.LAB.BRZ ordered. EDMS EDMS 00:02 00:02 ETHANOL+C.LAB.BRZ ordered. EDMS EDMS 00:02 00:02 HEPATIC FUNCTION+C.LAB.BRZ ordered. EDMS EDMS 00:02 00:02 PROTIME (+INR)+COAG.LAB.BRZ ordered. EDMS EDMS 00: 00:02 PTT, ACTIVATED+COAG.LAB.BRZ ordered. EDMS EDMS 00:02 00:02 SALICYLATE+C.LAB.BRZ ordered. EDMS EDMS 00:02 00:02 Urinalysis+U.LAB.BRZ ordered. EDMS EDMS 00:02 00:02 URINE DRUG SCREEN+UC.LAB.BRZ ordered. EDMS EDMS 00:02 00:02 CARBAMAZEPINE (TEGRETOL)+C.LAB.BRZ ordered. EDMS EDMS 02:59 02:34 rt rt 02:59 02:34 [facility]-System rt rt 02:59 02:34 Higher level of care rt rt 02:59 02:34 Stable rt rt 02:59 02:34 new rt rt 02:59 02:34 are unchanged rt rt 02:59 02:34 Overdose of carbamazepine rt rt 04:03 03:00 rt rv
--- NOTE | 2023-09-24 03:51 | P.HP ---
Certification for Inpatient Patient admitted to: Observation With expected LOS: <2 Midnights Practitioner: I am a practitioner with admitting privileges, knowledge of patient current condition, hospital course, and medical plan of care. Services: Services provided to patient in accordance with Admission requirements found in Title 42 Section 412.3 of the Code of Federal Regulations Patient History Date of Service: 09/24/23 Reason for admission: Tegretol OD History of Present Illness: Pt is 33 yrs of age took 21 at 11.30 PM tablets of Tegretol to feel good. Taken tablets before. No suicidal ideation. Doing wellno complaints - Past Medical/Surgical History -: seizures -: anxiety/Depression -: Schizophrenia Past Surgical History: Patient denies surgical history - Social History Smoking Status: Never smoker Review of Systems 10-point ROS is otherwise unremarkable Physical Examination - Vital Signs Temperature: 98 F Blood Pressure: 112/77 Pulse: 58 Respirations: 16 Pulse Ox (%): 100 - Physical Exam General: Alert, In no apparent distress, Oriented x3 HEENT: Atraumatic Neck: Supple Respiratory: Clear to auscultation bilaterally, Normal air movement Cardiovascular: No edema, Normal pulses, Regular rate/rhythm Gastrointestinal: Normal bowel sounds, Soft and benign Musculoskeletal: No clubbing, No swelling Integumentary: No rashes, No breakdown Neurological: Normal speech, Normal strength at 5/5 x4 extr - Studies Laboratory Data (last 24 hrs) 09/24/23 09/24/23 09/24/23 00:53 00:53 00:53 WBC 5.70 Hgb 10.8 L Hct 34.5 L Plt Count 216 PT 12.1 INR 1.10 APTT 30.1 Sodium 138 Potassium 3.8 BUN 14 Creatinine 0.85 Glucose 95 Total Bilirubin 0.4 AST 16 ALT 19 Alkaline Phosphatase 75 Assessment and Plan - Problems (Diagnosis) (1) Carbamazepine poisoning Current Visit: Yes Status: Acute Plan: Age 33 prisoner took 21 tablets of Tegretol to "feel good". No suicidal ideation. Has done this before. Doing well no compliants. Labs rev./ chronic microcytic anemiaTox screen and labs rev. Tegretol level is normal Admit monitor EKG normal QRS. Check levels Q4-6 hours, Repeat EKG. Poison control contacted Qualifiers: Encounter type: initial encounter - Advance Directives Does patient have a Living Will: No Does patient have a Durable POA for Healthcare: No
[2023-09-24 05:48] VITALS: BMI 27.8
--- NOTE | 2023-09-24 11:54 | P.PN ---
Date of Service: 09/24/23 Pt seen and examined. Pt is a 33 yo inmate with past medical history of seizure who presents with Tegretol overdose. Pt reports that he took 21 tabs of Tegretol because he felt depressed. He wanted to feel better. A/P: Tegretol overdose: Will reports mild nausea and dizziness. Will f/u EKG. Contacted Poison control center. Carbamazepine level is normal ( 4.8 -> 4.1) Pt denies any suicidal ideation. Microcytic anemia: Hgb is 10.8. MCV is 60. Will check iron studies. DVT ppx: SCD Dispo: Pending hospital course
[2023-09-24 13:03] LABS: Ferritin 74.8 ng/mL (26-388)
[2023-09-24] MEDS: ACETAMINOPHEN 325 MG TABLET PO PRN (19:24)
[2023-09-25 03:46] LABS: Absolute Eosinophils 0.1 K/uL (0-0.5); Absolute Lymphocytes (CBC) 2.2 K/uL (0.7-4.9); Absolute Monocytes 0.6 K/uL (0.1-1.3); Absolute Neutrophil 3.4 K/uL (1.8-8.0); Basophils % 0.6 % (0-1.3); Eosinophils % 2.3 % (0-4.4); Hematocrit 36.1 % (39.6-49.0); Hemoglobin 11.4 g/dL (13.6-17.9); Lymphocytes % 33.9 % (15.3-44.8); MCH 19.3 pg (27.0-35.0); MCHC 31.7 g/dL (32.0-36.0); MCV 60.8 fL (80-100); Monocytes % 9.4 % (3.3-12.3); Neutrophils % 53.8 % (41.7-73.7); Nucleated Red Blood Cells % 0.1 % (0-0); Platelets 223 thou/uL (152-406); RBC Red Blood Cell Count 5.94 M/uL (4.33-5.43); Red Cell Distribution Width 14.7 % (12.1-15.2)
[2023-09-25 08:40] VITALS: TEMP 97.1
--- NOTE | 2023-09-25 08:55 | P.PN ---
Subjective Date of Service: 09/25/23 Chief Complaint: Tegretol OD Take Tegretol to feel good, denies suicidal ideation - Physical Exam General: Alert, In no apparent distress, Oriented x3 HEENT: Atraumatic Neck: Supple Respiratory: Clear to auscultation bilaterally, Normal air movement Cardiovascular: No edema, Normal pulses, Regular rate/rhythm Gastrointestinal: Normal bowel sounds, Soft and benign Musculoskeletal: No clubbing, No swelling Integumentary: No rashes, No breakdown Neurological: Normal speech, Normal strength at 5/5 x4 extr Review of Systems Per HPI Physical Examination - Vital Signs Temperature: 97.1 F Blood Pressure: 123/63 Pulse: 64 Respirations: 16 Pulse Ox (%): 100 Assessment And Plan - Plan Assessment and Plan (1) Carbamazepine poisoning Current Visit: Yes Status: Acute Plan: Age 33 prisoner took 21 tablets of Tegretol to "feel good". No suicidal ideation. Has done this before. Doing well no compliants. Labs rev./ chronic microcytic anemiaTox screen and labs rev. Tegretol level is normal Admit monitor EKG normal QRS. Check levels Q4-6 hours, Repeat EKG. Poison control contacted Qualifiers: Encounter type: initial encounter Discharge Plan: Home - Code Status/Comfort Care Code Status: Full Code Critical Care: No Time Spent Managing PTS Care (In Minutes): 35
[2023-09-25 09:08] VITALS: BP 123/63
[2023-09-25 09:09] VITALS: O2SAT 100
--- NOTE | 2023-09-25 09:45 | P.DS ---
Admission Date: 09/24/23 Discharge Date: 09/25/23 Disposition: DISCHARGE TO SENIOR LIVING/INTERMEDIATE Discharge Condition: GOOD Reason for Admission: Tegretol OD Brief History of Present Illness: Age 33 prisoner took 21 tablets of Tegretol to "feel good". No suicidal ideation. Has done this before. Doing well no compliants. Labs rev./ chronic microcytic anemiaTox screen and labs rev. Tegretol level is normal Admit monitor EKG normal QRS. Check levels Q4-6 hours, Repeat EKG. Poison control contacted - Physical Exam General: Alert, In no apparent distress, Oriented x3 HEENT: Atraumatic Neck: Supple Respiratory: Clear to auscultation bilaterally, Normal air movement Cardiovascular: No edema, Normal pulses, Regular rate/rhythm Gastrointestinal: Normal bowel sounds, Soft and benign Musculoskeletal: No clubbing, No swelling Integumentary: No rashes, No breakdown Neurological: Normal speech, Normal strength at 5/5 x4 extr Hospital Course: 33 year-old patient presented with Tegretol overdose. Was noted to have Tegretol overdose. No suicidal ideation. Has done this before. Doing well no compliants. Labs rev./ chronic microcytic anemiaTox screen and labs rev. Tegretol level is normal. Condition improved with IV fluids, Patient tolerating diet, stable for discharge to home with follow-up appointment with primary care physician. In states custody, stable to discharge to alf, PROBLEM: Tegretol overdose-supportive care, fall precaution-was evaluated ED physician, poison control consulted, -under states custody, Microcytic anemia-stable EKG normal sinus rhythm nonspecific T wave abnormality rate 60 Urine drug screen is normal, carbamzepine level normal Continue home medicines as previously prescribed GOAL: Clear understanding of disease process INSTRUCTIONS: Physician Discharge Instructions: -Follow-up with PCP in 1 to 2 weeks -Please call Dr. Roblero at [phone] if any questions regarding hospital stay -Please call nursing station at [phone] if any nursing or medication questions -Return to the emergency room if symptoms worsen Diet: ADA, low sodium Activity: Fall precautions Vital Signs/Physical Exam: Temp Pulse Resp BP Pulse Ox 97.1 F 64 16 123/63 100 09/25/23 08:55 09/25/23 08:55 09/25/23 08:55 09/25/23 08:55 09/25/23 08:55 Laboratory Data at Discharge: WBC 6.40 thou/uL (4.3-10.9) 09/25/23 02:39 Hgb 11.4 g/dL (13.6-17.9) L 09/25/23 02:39 Hct 36.1 % (39.6-49.0) L 09/25/23 02:39 Plt Count 223 thou/uL (152-406) 09/25/23 02:39 PT 12.1 SECONDS (9.5-12.5) 09/24/23 00:53 INR 1.10 09/24/23 00:53 APTT 30.1 SECONDS (24.3-36.9) 09/24/23 00:53 Sodium 139 mEq/L (136-145) 09/25/23 02:39 Potassium 4.0 mEq/L (3.5-5.1) 09/25/23 02:39 BUN 14 mg/dL (7-18) 09/25/23 02:39 Creatinine 0.86 mg/dL (0.70-1.30) 09/25/23 02:39 Glucose 94 mg/dL (74-106) 09/25/23 02:39 Total Bilirubin 0.4 mg/dL (0.2-1.0) 09/24/23 00:53 AST 16 U/L (15-37) 09/24/23 00:53 ALT 19 U/L (16-61) 09/24/23 00:53 Alkaline Phosphatase 75 U/L (45-117) 09/24/23 00:53 Home Medications: Diphenhydramine [Benadryl*] 50 mg PO DAILY 09/24/23 haloperidoL [Haldol] 2 mg PO DAILY 09/24/23 haloperidoL [Haldol] 5 mg PO BID 09/24/23 Physician Discharge Instructions: 33 year-old patient presented with Tegretol overdose. Was noted to have Tegretol overdose. Condition improved with IV fluids, Patient tolerating diet, stable for discharge to home with follow-up appointment with primary care physician. Stable to discharge to alf, PROBLEM: Tegretol overdose-supportive care, fall precaution-was evaluated ED physician, poison control-understates custody, Microcytic anemia-stable Continue home medicines as previously prescribed GOAL: Clear understanding of disease process INSTRUCTIONS: Physician Discharge Instructions: -Follow-up with PCP in 1 to 2 weeks -Please call Dr. Roblero at [phone] if any questions regarding hospital stay -Please call nursing station at [phone] if any nursing or medication questions -Return to the emergency room if symptoms worsen Diet: ADA, low sodium Activity: Fall precautions Diet: AHA Activity: Fall precautions Followup: NONE,NONE [Primary Care Provider] - 1-2 Weeks (call to schedule an appointment) Time spent managing pt's care (in minutes): 55
--- NOTE | 2023-09-25 13:21 | EKG ---
Test Date: 2023-09-24 Test Time: 00:13:10 Furnace Worker: MICA MEASUREMENT RESULTS: Intervals: Rate: 63 [place]: 138 QRSD: 86 QT: 394 QTc: 403 [place]: P: 30 [place]: 138 QRS: -5 T: -18 INTERPRETIVE STATEMENTS: Normal sinus rhythm Nonspecific T wave abnormality Abnormal ECG Compared to ECG 09/08/2023 07:36:52 T-wave abnormality now present Sinus arrhythmia no longer present Electronically Signed On 09-25-23 13:17:38 CDT by Jun Ji
== END 2023-09-25 10:30 ==
LOC: ER 23:58 → 4TH 09-24 03:36
PROVIDERS: ADMIT Internal Medicine Sleep Medicine; ATTEND Hospitalist
DX: T42.1X1A Poisoning by iminostilbenes, accidental (unintentional), initial encounter (principal); Y92.149 Unspecified place in prison as the place of occurrence of the external cause; F41.9 Anxiety disorder, unspecified; F32.A Depression, unspecified; F20.9 Schizophrenia, unspecified; R56.9 Unspecified convulsions; D64.9 Anemia, unspecified
CPT/HCPCS: 93005; 85025 ×2; 80048 ×2; 36415 ×2; 80156 ×3; 85610; 80076; 85730; 82728; 83540; 84466; 99285; 80143; 80179; 82077; G0378 ×3